=== PATIENT | female | born 1950 | race Caucasian/White ===

== ENCOUNTER 2017-02-28 22:30 | Emergency (ER) | payer MEDICARE, OTHER ==
--- NOTE | 2017-03-01 00:42 | EDM.PDOC ---
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 The patient states that she has had a queasy stomach all day. Her hands have been tingling on and off all day. She developed nausea and lightheadedness tonight, therefore took Zofran. Her daughter put oxygen on her, but she then vomited twice, and complained of upper abdominal pain. She cannot describe the character of the abdominal pain other than "hurt". She also reported some chest pressure that has been coming and going. 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 No recent illness. No ill contacts. 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) Psychiatric History: Reports: Depression Endocrine/Metabolic History: Reports: Diabetes, Type II, Obesity/BMI 30+ - Infectious Disease History Infectious Disease History: Reports: Other (See Below) (Polio) - Past Surgical History HEENT Surgical History: Reports: Oral Surgery ([place] teeth extraction) Cardiovascular Surgical History: Reports: Coronary Artery Stent (x 1) GI Surgical History: Reports: Appendectomy, Lysis of Adhesions (Exploratory laparoscopy) Female Surgical History: Reports: D&C (x 1) Neurological Surgical History: Reports: C-Spine (ACDF) Social & Family History - Tobacco Use Smoking Status *Q: Current Every Day Smoker Years of Tobacco use: 47 Packs/Tins Daily: 0.3 - Alcohol Use Alcohol Use History: Yes Alcohol Use Frequency: Rarely - Recreational Drug Use Recreational Drug Use: No - Living Situation & Occupation Living situation: Reports: , Alone Occupation: Disabled ED ROS GENERAL - Review of Systems Review Of Systems: See Below Constitutional: Reports: No Symptoms HEENT: Reports: No Symptoms Respiratory: Reports: No Symptoms Cardiovascular: Reports: No Symptoms Endocrine: Reports: No Symptoms GI/Abdominal: Reports: No Symptoms : Reports: No Symptoms Musculoskeletal: Reports: No Symptoms Skin: Reports: No Symptoms Neurological: Reports: No Symptoms Psychiatric: Reports: No Symptoms Hematologic/Lymphatic: Reports: No Symptoms Immunologic: Reports: No Symptoms ED EXAM, GENERAL - Physical Exam Exam: See Below Exam Limited By: No Limitations General Appearance: Alert, WD/WN, No Apparent Distress Eye Exam: Bilateral Eye: Normal Inspection Ears: Normal External Exam, Hearing Grossly Normal Nose: Normal Inspection, No Blood Throat/Mouth: Normal Inspection, Normal Lips, Normal Voice, No Airway Compromise Head: Atraumatic, Normocephalic Neck: Normal Inspection, Full Range of Motion Respiratory/Chest: No Respiratory Distress, Lungs Clear, Normal Breath Sounds, No Accessory Muscle Use Cardiovascular: Normal Peripheral Pulses, Regular Rate, Rhythm, No Gallop, No JVD, No Murmur, No Rub GI/Abdominal: Soft, No Organomegaly, No Abnormal Bruit, No Mass, Distended (mild ), Tender (Generalized, non-focal), Abnormal Bowel Sounds (decreased), Other ( Obese) (Female) Exam: Deferred Rectal (Female) Exam: Deferred Back Exam: Normal Inspection, Full Range of Motion, NT Extremities: Normal Inspection, Normal Range of Motion, Normal Capillary Refill Neurological: Alert, Oriented, No Motor/Sensory Deficits, Memory Loss Remote Events Psychiatric: Normal Affect Skin Exam: Warm, Dry, Intact, Normal Color, No Rash EKG INTERPRETATION EKG Date: 02/28/17 Time: 22:59 Rhythm: NSR Rate (Beats/Min): 72 [place]: LAD-Left [place] Deviation P-Wave: Present QRS: RBBB (incomplete) ST-T: Normal QT: Normal Comparison: NA - No Prior EKG Course - Vital Signs Last Recorded V/S: Last Vital Signs Temp 36.1 C 02/28/17 22:43 Pulse 71 02/28/17 22:43 Resp 20 02/28/17 22:43 BP 134/58 L 02/28/17 22:43 Pulse Ox 93 L 02/28/17 22:43 - Orders/Labs/Meds Orders: Active Orders 24 hr Category Date Time Status EKG Documentation Completion [RC] STAT Care 02/28/17 23:29 Active Abdomen Pelvis w Cont [CT] Stat Exams 03/01/17 00:43 Taken Chest 2V [CR] Stat Exams 02/28/17 23:29 Taken Labs: Laboratory Tests 02/28/17 02/28/17 02/28/17 Range/Units 23:30 23:30 23:30 WBC 13.22 H (3.98-10.04) K/mm3 RBC 3.61 L (3.98-5.22) M/mm3 Hgb 11.5 (11.2-15.7) gm/L Hct 34.6 (34.1-44.9) % MCV 95.8 H (79.4-94.8) fl MCH 31.9 (25.6-32.2) pg MCHC 33.2 (32.2-35.5) g/dl RDW Std Deviation 45.3 (36.4-46.3) fL Plt Count 207 (182-369) K/mm3 MPV 10.6 (9.4-12.3) fl Neutrophils % (Manual) 57 (40-60) % Band Neutrophils % 0 (0-10) % Lymphocytes % (Manual) 33 (20-40) % Atypical Lymphs % 3 % Monocytes % (Manual) 2 (2-10) % Eosinophils % (Manual) 3 (0.7-5.8) % Basophils % (Manual) 2 H (0.1-1.2) Platelet Estimate Adequate Plt Morphology Comment Normal RBC Morph Comment Normal PT 10.1 (8.0-13.0) SECONDS INR 0.93 APTT 27 (22-36) SECONDS D-Dimer, Quantitative 0.41 (0.19-0.59) mg/L Sodium 138 (136-145) mEq/L Potassium 4.2 (3.5-5.1) mEq/L Chloride 100 (98-107) mEq/L Carbon Dioxide 29 (21-32) mEq/L Anion Gap 13.2 (5-15) BUN 28 H (7-18) mg/dL Creatinine 1.3 H (0.55-1.02) mg/dL Est Cr Clr Drug Dosing 37.79 mL/min Estimated GFR (MDRD) 41 (>60) mL/min BUN/Creatinine Ratio 21.5 H (14-18) Glucose 175 H (80-115) mg/dL Calcium 9.6 (8.5-10.1) mg/dL Total Bilirubin 0.3 (0.2-1.0) mg/dL AST 20 (15-37) U/L ALT 23 (14-59) U/L Alkaline Phosphatase 117 H (46-116) U/L Troponin I < 0.017 (0.00-0.056) ng/mL NT-Pro-B Natriuret Pep 65 (0-125) pg/mL Total Protein 7.3 (6.4-8.2) g/dl Albumin 3.8 (3.4-5.0) g/dl Globulin 3.5 gm/dL Albumin/Globulin Ratio 1.1 (1-2) Lipase (73-393) U/L Urine Color (Yellow) Urine Appearance (Clear) Urine pH (5.0-8.0) Ur Specific [place] (1.005-1.030) Urine Protein (Negative) Urine Glucose (UA) (Negative) Urine Ketones (Negative) Urine Occult Blood (Negative) Urine Nitrite (Negative) Urine Bilirubin (Negative) Urine Urobilinogen (0.2-1.0) Ur Leukocyte Esterase (Negative) Urine RBC (0-5) /hpf Urine WBC (0-5) /hpf Ur Epithelial Cells (0-5) /hpf Urine Bacteria (FEW) /hpf Hyaline Casts (0-5) /lpf Urine Mucus (FEW) /hpf 02/28/17 03/01/17 Range/Units 23:50 01:40 WBC (3.98-10.04) K/mm3 RBC (3.98-5.22) M/mm3 Hgb (11.2-15.7) gm/L Hct (34.1-44.9) % MCV (79.4-94.8) fl MCH (25.6-32.2) pg MCHC (32.2-35.5) g/dl RDW Std Deviation (36.4-46.3) fL Plt Count (182-369) K/mm3 MPV (9.4-12.3) fl Neutrophils % (Manual) (40-60) % Band Neutrophils % (0-10) % Lymphocytes % (Manual) (20-40) % Atypical Lymphs % % Monocytes % (Manual) (2-10) % Eosinophils % (Manual) (0.7-5.8) % Basophils % (Manual) (0.1-1.2) Platelet Estimate Plt Morphology Comment RBC Morph Comment PT (8.0-13.0) SECONDS INR APTT (22-36) SECONDS D-Dimer, Quantitative (0.19-0.59) mg/L Sodium (136-145) mEq/L Potassium (3.5-5.1) mEq/L Chloride (98-107) mEq/L Carbon Dioxide (21-32) mEq/L Anion Gap (5-15) BUN (7-18) mg/dL Creatinine (0.55-1.02) mg/dL Est Cr Clr Drug Dosing mL/min Estimated GFR (MDRD) (>60) mL/min BUN/Creatinine Ratio (14-18) Glucose (80-115) mg/dL Calcium (8.5-10.1) mg/dL Total Bilirubin (0.2-1.0) mg/dL AST (15-37) U/L ALT (14-59) U/L Alkaline Phosphatase (46-116) U/L Troponin I (0.00-0.056) ng/mL NT-Pro-B Natriuret Pep (0-125) pg/mL Total Protein (6.4-8.2) g/dl Albumin (3.4-5.0) g/dl Globulin gm/dL Albumin/Globulin Ratio (1-2) Lipase 137 (73-393) U/L Urine Color Yellow (Yellow) Urine Appearance Clear (Clear) Urine pH 5.5 (5.0-8.0) Ur Specific [place] 1.020 (1.005-1.030) Urine Protein Negative (Negative) Urine Glucose (UA) Negative (Negative) Urine Ketones Negative (Negative) Urine Occult Blood Negative (Negative) Urine Nitrite Negative (Negative) Urine Bilirubin Negative (Negative) Urine Urobilinogen 0.2 (0.2-1.0) Ur Leukocyte Esterase Negative (Negative) Urine RBC 0-5 (0-5) /hpf Urine WBC 0-5 (0-5) /hpf Ur Epithelial Cells 0-5 (0-5) /hpf Urine Bacteria Occasional (FEW) /hpf Hyaline Casts 0-5 (0-5) /lpf Urine Mucus Moderate H (FEW) /hpf Meds: Medications Discontinued Medications Generic Name Dose Route Start Last Admin Trade Name Freq PRN Reason Stop Dose Admin Sodium Chloride 1,000 mls @ 150 mls/hr 03/01/17 00:45 03/01/17 00:50 Normal Saline IV 150 mls/hr ASDIRECTED MARKUS Administration Iopamidol 150 ml 03/01/17 02:18 03/01/17 02:32 Isovue-300 (61%) IVPUSH 03/01/17 02:19 100 ml ONETIME ONE Administration Loperamide HCl 4 mg 03/01/17 03:37 03/01/17 03:48 Imodium PO 03/01/17 03:38 4 mg ONETIME STA Administration Sodium Chloride 10 ml 03/01/17 02:18 03/01/17 02:32 Saline Flush FLUSH 10 ml ONETIME PRN Administration IV FLUSH - Re-Assessments/Exams Free Text/Narrative Re-Assessment/Exam: 02/28/17 23:58 Two-view chest radiograph appears to be grossly normal. Cardiac silhouette is within normal limits. No pulmonary vascular congestion. No pleural effusions. No focal infiltrate. No pneumothorax. Formal read per the Radiologist pending. 03/01/17 03:03 CT of the abdomen and pelvis with oral and IV contrast is read by [facility] as "No acute findings." 03/01/17 03:38 Test results discussed with the patient and her daughter. With the exception of the findings of a mildly elevated WBC count with 0% bandemia, slight renal insufficiency, and mild hyperglycemia, today's workup is unremarkable. Since my initial history and physical examination, the patient has not had any additional nausea or vomiting, but she has developed diarrhea. It appears that the patient has gastroenteritis, likely viral. I have ordered loperamide 4 mg, and the patient states that she has some at home. She also has Zofran at home. She will not be staying in this area longer. If her symptoms persist, I would have her follow-up with her PCP back home in [place]. Departure - Departure Time of Disposition: 03:39 Disposition: Home, Self-Care 01 Condition: Good Clinical Impression: Gastroenteritis, Hyperglycemia due to type 2 diabetes mellitus, Renal insufficiency - Discharge Information Instructions: Viral Gastroenteritis, Adult Referrals: PCP,Not In Area [Primary Care Provider] - Forms: ED Department Discharge Additional Instructions: You were seen in the emergency room for nausea, vomiting, abdominal pain, and chest pressure. You developed diarrhea in the ER. Workup in the ER included blood work, a urinalysis, an ECG, a chest x-ray, and a CT scan of your abdomen and pelvis with oral and IV contrast. Other than some mild lab abnormalities, your workup was unremarkable. Your symptoms are MOST LIKELY due to viral gastroenteritis. Unfortunately, there are no medicines to get rid of the virus itself, but the symptoms can be treated. Take one tablet of your already-prescribed Zofran up to every 6-8 hours, as needed for nausea/vomiting. You were started on the anti-diarrhea medicine Imodium (loperamide). Take one tablet (2 mg) after each loose bowel movement, up to a maximum of 8 tablets (16 mg) within a 24-hour period. Make sure that you do not take this medicine in excess, as it can cause constipation. Make sure that you stay adequately hydrated. If your symptoms persist, we recommend that you follow-up with your PCP once you return home to [place]. If any other problems, please do not hesitate to return to the ER. - My Orders Last 24 Hours: My Active Orders 02/28/17 23:29 EKG Documentation Completion [RC] STAT Chest 2V [CR] Stat 03/01/17 00:43 Abdomen Pelvis w Cont [CT] Stat - Assessment/Plan Last 24 Hours: My Active Orders 02/28/17 23:29 EKG Documentation Completion [RC] STAT Chest 2V [CR] Stat 03/01/17 00:43 Abdomen Pelvis w Cont [CT] Stat
[2017-03-01] MEDS ORDERED: Sodium Chloride 0.9% 1,000 ML IV SCH (00:45)
[2017-03-01] MEDS ORDERED: Iopamidol 612 MG/ML 150 ML Bottle IVPUSH ONE (02:18)
[2017-03-01] MEDS ORDERED: Sodium Chloride 0.9% 10 ML Syringe FLUSH PRN (02:18)
[2017-03-01] MEDS ORDERED: Loperamide 2 MG Cap PO STA (03:37)
--- NOTE | 2017-03-03 08:34 | CT ---
CT abdomen and pelvis Technique: Multiple axial sections were obtained from above the dome of the diaphragm inferiorly through the pubic symphysis. Intravenous and oral contrast has been given. Comparison: No prior abdominal imaging. Findings: Visualized lung bases show nothing acute. Liver shows no focal parenchymal abnormality. Spleen appears within normal limits. Adrenal glands show no nodule. Gallbladder shows no calcified gallstones. Kidneys show symmetric contrast enhancement without hydronephrosis. Small low density lesion compatible with cyst is identified within the left kidney measuring 9 mm. Aorta is minimally aneurysmal within the mid aorta. AP dimension is 2.5 cm. Diffuse atherosclerotic calcification within the aorta and iliac vessels are noted. No pelvic mass or adenopathy is seen. Appendix is not visualized. No inflammatory change is identified. Bone window settings show diffuse degenerative change within the spine which is most prominent within the lumbar apophyseal joints. Impression: 1. Incidental findings as noted above. No acute abnormality is identified on CT study of the abdomen and pelvis. Diagnostic code #2 I agree with preliminary report issued by [facility] ([facility] report finalized on 03/01/17, 3:59 AM Central Time)
--- NOTE | 2017-03-03 08:35 | CR ---
Chest: Two views of the chest were obtained. Comparison: No prior chest imaging. Heart size is normal. Mild tortuosity of the thoracic aorta is seen. Previous cervical spine surgery is noted. Mild degenerative change is noted within the spine. Impression: 1. Incidental findings. Nothing acute is identified on two-view chest x-ray. Diagnostic code #2
== END 2017-03-01 03:55 | disposition home or self-care (01) ==
LOC: JD.ED 22:30
DX: K52.9 Noninfective gastroenteritis and colitis, unspecified (principal); E11.65 Type 2 diabetes mellitus with hyperglycemia; N28.9 Disorder of kidney and ureter, unspecified; F17.210 Nicotine dependence, cigarettes, uncomplicated; I10 Essential (primary) hypertension; Z90.49 Acquired absence of other specified parts of digestive tract
CPT/HCPCS: 36415; 71020; 74177; 80053; 81001; 83690; 83880; 84484; 85025; 85379; 85610; 85730; 93005; 96360; 96361; 99285; A9270; J7040; J7050; Q9967; 93010; 99284

== ENCOUNTER 2017-05-28 11:40 | Inpatient (IN) | payer MEDICARE ==
[2017-05-28] MEDS ORDERED: Sodium Chloride 0.9% 10 ML Syringe FLUSH PRN ×2 (12:25→15:25)
[2017-05-28] MEDS ORDERED: Sodium Chloride 0.9% 1,000 ML IV SCH (12:30)
[2017-05-28] MEDS ORDERED: Acetaminophen 325 MG Tab PO ONE (13:09)
[2017-05-28] MEDS ORDERED: cefTRIAXone 1 GM in Sodium Chloride 0.9% 100 ML IV ONE ×4 (13:12)
[2017-05-28] MEDS ORDERED: Ondansetron 4 MG/2 ML SDV IVPUSH ONE (13:36)
--- NOTE | 2017-05-28 13:38 | CR ---
Chest: Two views of the chest were obtained. Comparison: Prior chest x-ray of 02/28/17. Heart size within normal limits for AP technique. Tortuous thoracic aorta is seen. No definite acute appearing parenchymal densities are seen. Bony structures are grossly intact. Previous cervical spine surgery is noted. Impression: 1. Incidental findings. Nothing acute is definitely seen. Diagnostic code #2
--- NOTE | 2017-05-28 14:21 | EDM.PDOC ---
ED HPI GENERAL MEDICAL PROBLEM - General Chief Complaint: Gastrointestinal Problem Stated Complaint: FLU SX Time Seen by Provider: 05/28/17 12:00 Source of Information: Reports: Patient, Family (daughter) History Limitations: Reports: No Limitations - History of Present Illness INITIAL COMMENTS - FREE TEXT/NARRATIVE: 66-year-old female brought in by her daughter for evaluation and treatment of flulike symptoms. Reportedly her daughter she has been ill for the last week. Reports that she has a cough. She is more fatigued than normal. Reports nausea. No fevers or vomiting. Patient is complaining of chest pain and a headache. Is feeling short of breath. Patient normally is on oxygen at night. Per the patient's daughter, Janey, recently relocated to [place] from [place]. Daughter brought her here so she could care for her. She does not have a primary care provider. Chest Pain Score (Numeric/FACES): 5 - Related Data Allergies Allergy/AdvReac Type Severity Reaction Status Date / Time codeine Allergy Rash Verified 05/28/17 19:30 hydromorphone [From Dilaudid] Allergy unknown Verified 05/28/17 19:30 Penicillins Allergy Hives Verified 05/28/17 19:30 Home Meds: Home Meds Aspirin [Ecotrin] 81 mg PO DAILY 05/28/17 [History] Citalopram [Citalopram HBr] 20 mg PO DAILY 05/28/17 [History] Lisinopril [Prinivil] 40 mg PO DAILY 05/28/17 [History] Magnesium Oxide [Magnesium] 400 mg PO BID 05/28/17 [History] Metoprolol Tartrate 25 mg PO BID 05/28/17 [History] Ondansetron [Zofran ODT] 4 mg PO BID PRN 05/28/17 [History] Pantoprazole [Pantoprazole Sodium] 40 mg PO BID 05/28/17 [History] Triamterene/Hydrochlorothiazid [Triamterene-HCTZ 37.5-25 MG] 1 tab PO DAILY [History] atorvaSTATin [Lipitor] 40 mg PO DAILY 05/28/17 [History] metFORMIN [Glucophage XR] 500 mg PO BID 05/28/17 [History] Past Medical History Cardiovascular History: Reports: CAD, High Cholesterol, Hypertension Respiratory History: Reports: Asthma Gastrointestinal History: Reports: GERD, Hiatal Hernia, Irritable Bowel Syndrome , Other (See Below) (Colitis) Other Gastrointestinal History: collitis Genitourinary History: Reports: Urinary Incontinence (stress incontinence) [employer]ER History: Reports: Musculoskeletal History: Reports: Fracture, Neck Pain, Chronic Other Musculoskeletal History: 2004 neck surgery Neurological History: Reports: Other (See Below) (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) Psychiatric History: Reports: Depression Endocrine/Metabolic History: Reports: Diabetes, Type II, Obesity/BMI 30+ - Infectious Disease History Infectious Disease History: Reports: Other (See Below) (Polio) - Past Surgical History HEENT Surgical History: Reports: Oral Surgery ([place] teeth extraction) Cardiovascular Surgical History: Reports: Coronary Artery Stent (x 1) GI Surgical History: Reports: Appendectomy, Lysis of Adhesions (Exploratory laparoscopy) Female Surgical History: Reports: D&C (x 1) Neurological Surgical History: Reports: C-Spine (ACDF) Social & Family History - Family History Family Medical History: Noncontributory - Tobacco Use Smoking Status *Q: Current Every Day Smoker Years of Tobacco use: 47 Packs/Tins Daily: 0.3 - Caffeine Use Caffeine Use: Reports: Coffee, Energy Drinks, Soda, Tea - Recreational Drug Use Recreational Drug Use: No - Living Situation & Occupation Living situation: Reports: , Alone Occupation: Disabled ED ROS GENERAL - Review of Systems Review Of Systems: See Below Constitutional: Reports: Malaise, Fatigue. Denies: Fever Respiratory: Reports: Cough Cardiovascular: Reports: Chest Pain GI/Abdominal: Reports: Nausea. Denies: Vomiting Neurological: Reports: Headache Psychiatric: Reports: Confusion ED EXAM, GI/ABD - Physical Exam Exam: See Below Exam Limited By: Altered Mental Status General Appearance: Alert, WD/WN, Mild Distress, Obese, Other (acutely ill) Ears: Normal External Exam Nose: Normal Inspection Throat/Mouth: Normal Inspection, Normal Lips, Normal Voice, No Airway Compromise Respiratory/Chest: No Respiratory Distress, Lungs Clear, Normal Breath Sounds Cardiovascular: No Murmur, Tachycardia GI/Abdominal Exam: Soft, Non-Tender Neurological: Alert, Confused Psychiatric: Normal Affect, Normal Mood Skin Exam: Diaphoretic, Increased Warmth EKG INTERPRETATION EKG Date: 05/28/17 Time: 12:10 Rhythm: NSR Rate (Beats/Min): 101 [place]: Normal P-Wave: Present QRS: Normal ST-T: Normal QT: Normal EKG Interpretation Comments: sinus tachycardia at 101. LAD. No acute changes. Reviewed by myself and Dr. Lozano. Course - Vital Signs Last Recorded V/S: Last Vital Signs Temp 39.6 C H 05/28/17 20:11 Pulse 103 H 05/28/17 20:01 Resp 24 H 05/28/17 20:01 BP 139/65 05/28/17 20:01 Pulse Ox 89 L 05/28/17 20:01 - Orders/Labs/Meds Orders: Active Orders 24 hr Category Date Time Status EKG Documentation Completion [RC] ASDIRECTED Care 05/28/17 12:21 Active CULTURE BLOOD [BC] Stat Lab 05/28/17 12:38 Received CULTURE BLOOD [BC] Stat Lab 05/28/17 12:57 Received CULTURE URINE [RM] Stat Lab 05/28/17 13:19 Received Sodium Chloride 0.9% [Saline Flush] Med 05/28/17 12:25 Active 10 ml FLUSH ASDIRECTED PRN Sodium Chloride 0.9% [Saline Flush] Med 05/28/17 15:25 Active 10 ml FLUSH ASDIRECTED PRN Blood Culture x2 Reflex Set [OM.PC] Stat Oth 05/28/17 12:19 Ordered Peripheral IV Insertion Adult [OM.PC] Routine Oth 05/28/17 12:25 Ordered EKG 12 Lead [EK] Stat Ther 05/28/17 12:19 Ordered Medication Orders Acetaminophen (Tylenol) 650 mg PO Q4H PRN PRN Reason: Pain (Mild 1-3)/fever Albuterol/Ipratropium (Duoneb 3.0-0.5 Mg/3 Ml) 3 ml NEB Q4H PRN PRN Reason: Shortness Of Breath/wheezing Hydralazine HCl (Apresoline) 10 mg IVPUSH Q6H PRN PRN Reason: Hypertension Sodium Chloride (Normal Saline) 1,000 mls @ 75 mls/hr IV ASDIRECTED MARKUS Stop: 05/30/17 08:49 Sodium Chloride (Normal Saline) 250 mls @ 999 mls/hr IV .BOLUS ONE Stop: 05/28/17 20:41 Ibuprofen (Motrin) 600 mg PO Q6H PRN PRN Reason: Pain/Fever Last Admin: 05/28/17 20:07 Dose: 600 mg Metoprolol Tartrate (Lopressor) 5 mg IVPUSH Q4H PRN PRN Reason: Tachycardia Ondansetron HCl (Zofran Odt) 4 mg PO Q6H PRN PRN Reason: nausea, able to take PO Ondansetron HCl (Zofran) 4 mg IV Q6H PRN PRN Reason: Nausea/Vomiting Sodium Chloride (Saline Flush) 10 ml FLUSH ASDIRECTED PRN PRN Reason: Keep Vein Open Last Admin: 05/28/17 12:30 Dose: 10 ml Sodium Chloride (Saline Flush) 10 ml FLUSH ASDIRECTED PRN PRN Reason: Keep Vein Open Labs: Laboratory Tests 05/28/17 05/28/17 05/28/17 Range/Units 12:53 12:57 12:57 WBC 7.91 (3.98-10.04) K/mm3 RBC 3.70 L (3.98-5.22) M/mm3 Hgb 11.4 (11.2-15.7) gm/L Hct 33.9 L (34.1-44.9) % MCV 91.6 (79.4-94.8) fl MCH 30.8 (25.6-32.2) pg MCHC 33.6 (32.2-35.5) g/dl RDW Std Deviation 46.1 (36.4-46.3) fL Plt Count 140 L (182-369) K/mm3 MPV 9.9 (9.4-12.3) fl Neutrophils % (Manual) 52 (40-60) % Band Neutrophils % 1 (0-10) % Lymphocytes % (Manual) 26 (20-40) % Atypical Lymphs % 0 % Monocytes % (Manual) 3 (2-10) % Eosinophils % (Manual) 18 H (0.7-5.8) % Basophils % (Manual) 0 L (0.1-1.2) Platelet Estimate Adequate RBC Morph Comment Normal Puncture Site Rt radial ABG pH 7.47 H (7.35-7.45) ABG pCO2 39.1 (35.0-45.0) mmHg ABG pO2 56.0 L (80.0-100.0) mmHg ABG HCO3 27.8 H (22.0-26.0) meq/L ABG O2 Saturation 90.8 L (96.0-97.0) % ABG Base Excess 4.2 H (-2-2.0) Girish Test Positive A-a Gradient 126 mmHg O2 Delivery Device Nasal cannula Oxygen Flow Rate 4.0 FiO2 36.00 (21.00-100.00) % Sodium (136-145) mEq/L Potassium (3.5-5.1) mEq/L Chloride (98-107) mEq/L Carbon Dioxide (21-32) mEq/L Anion Gap (5-15) BUN (7-18) mg/dL Creatinine (0.55-1.02) mg/dL Est Cr Clr Drug Dosing mL/min Estimated GFR (MDRD) (>60) mL/min BUN/Creatinine Ratio (14-18) Glucose (80-115) mg/dL Lactic Acid (0.4-2.0) mmol/L Calcium (8.5-10.1) mg/dL Total Bilirubin (0.2-1.0) mg/dL AST (15-37) U/L ALT (14-59) U/L Alkaline Phosphatase (46-116) U/L CK-MB (CK-2) (0-3.6) ng/ml Troponin I (0.00-0.056) ng/mL C-Reactive Protein (<1.0) mg/dL NT-Pro-B Natriuret Pep (0-125) pg/mL Total Protein (6.4-8.2) g/dl Albumin (3.4-5.0) g/dl Globulin gm/dL Albumin/Globulin Ratio (1-2) Urine Color (Yellow) Urine Appearance (Clear) Urine pH (5.0-8.0) Ur Specific [place] (1.005-1.030) Urine Protein (Negative) Urine Glucose (UA) (Negative) Urine Ketones (Negative) Urine Occult Blood (Negative) Urine Nitrite (Negative) Urine Bilirubin (Negative) Urine Urobilinogen (0.2-1.0) Ur Leukocyte Esterase (Negative) Urine RBC (0-5) /hpf Urine WBC (0-5) /hpf Ur Epithelial Cells (0-5) /hpf Urine Bacteria (FEW) /hpf Hyaline Casts (0-5) /lpf Urine Mucus (FEW) /hpf Mycoplasma pneumon IgM Negative (NEGATIVE) 05/28/17 05/28/17 05/28/17 Range/Units 13:19 14:15 14:15 WBC (3.98-10.04) K/mm3 RBC (3.98-5.22) M/mm3 Hgb (11.2-15.7) gm/L Hct (34.1-44.9) % MCV (79.4-94.8) fl MCH (25.6-32.2) pg MCHC (32.2-35.5) g/dl RDW Std Deviation (36.4-46.3) fL Plt Count (182-369) K/mm3 MPV (9.4-12.3) fl Neutrophils % (Manual) (40-60) % Band Neutrophils % (0-10) % Lymphocytes % (Manual) (20-40) % Atypical Lymphs % % Monocytes % (Manual) (2-10) % Eosinophils % (Manual) (0.7-5.8) % Basophils % (Manual) (0.1-1.2) Platelet Estimate RBC Morph Comment Puncture Site ABG pH (7.35-7.45) ABG pCO2 (35.0-45.0) mmHg ABG pO2 (80.0-100.0) mmHg ABG HCO3 (22.0-26.0) meq/L ABG O2 Saturation (96.0-97.0) % ABG Base Excess (-2-2.0) Girish Test A-a Gradient mmHg O2 Delivery Device Oxygen Flow Rate FiO2 (21.00-100.00) % Sodium 129 L (136-145) mEq/L Potassium 3.8 (3.5-5.1) mEq/L Chloride 92 L (98-107) mEq/L Carbon Dioxide 26 (21-32) mEq/L Anion Gap 14.8 (5-15) BUN 24 H (7-18) mg/dL Creatinine 1.5 H (0.55-1.02) mg/dL Est Cr Clr Drug Dosing 32.75 mL/min Estimated GFR (MDRD) 35 (>60) mL/min BUN/Creatinine Ratio 16.0 (14-18) Glucose 105 (80-115) mg/dL Lactic Acid (0.4-2.0) mmol/L Calcium 8.5 (8.5-10.1) mg/dL Total Bilirubin 0.5 (0.2-1.0) mg/dL AST 30 (15-37) U/L ALT 24 (14-59) U/L Alkaline Phosphatase 191 H (46-116) U/L CK-MB (CK-2) 0.8 (0-3.6) ng/ml Troponin I < 0.017 (0.00-0.056) ng/mL C-Reactive Protein 5.8 H* (<1.0) mg/dL NT-Pro-B Natriuret Pep 516 H (0-125) pg/mL Total Protein 7.9 (6.4-8.2) g/dl Albumin 3.2 L (3.4-5.0) g/dl Globulin 4.7 gm/dL Albumin/Globulin Ratio 0.7 L (1-2) Urine Color Yellow (Yellow) Urine Appearance Clear (Clear) Urine pH 5.5 (5.0-8.0) Ur Specific [place] > or = 1.030 (1.005-1.030) Urine Protein 1+ H (Negative) Urine Glucose (UA) Negative (Negative) Urine Ketones Trace H (Negative) Urine Occult Blood 1+ H (Negative) Urine Nitrite Negative (Negative) Urine Bilirubin 1+ H (Negative) Urine Urobilinogen 0.2 (0.2-1.0) Ur Leukocyte Esterase Negative (Negative) Urine RBC 5-10 H (0-5) /hpf Urine WBC 0-5 (0-5) /hpf Ur Epithelial Cells 0-5 (0-5) /hpf Urine Bacteria Many H (FEW) /hpf Hyaline Casts 0-5 (0-5) /lpf Urine Mucus Few (FEW) /hpf Mycoplasma pneumon IgM (NEGATIVE) 05/28/17 Range/Units 15:50 WBC (3.98-10.04) K/mm3 RBC (3.98-5.22) M/mm3 Hgb (11.2-15.7) gm/L Hct (34.1-44.9) % MCV (79.4-94.8) fl MCH (25.6-32.2) pg MCHC (32.2-35.5) g/dl RDW Std Deviation (36.4-46.3) fL Plt Count (182-369) K/mm3 MPV (9.4-12.3) fl Neutrophils % (Manual) (40-60) % Band Neutrophils % (0-10) % Lymphocytes % (Manual) (20-40) % Atypical Lymphs % % Monocytes % (Manual) (2-10) % Eosinophils % (Manual) (0.7-5.8) % Basophils % (Manual) (0.1-1.2) Platelet Estimate RBC Morph Comment Puncture Site ABG pH (7.35-7.45) ABG pCO2 (35.0-45.0) mmHg ABG pO2 (80.0-100.0) mmHg ABG HCO3 (22.0-26.0) meq/L ABG O2 Saturation (96.0-97.0) % ABG Base Excess (-2-2.0) Girish Test A-a Gradient mmHg O2 Delivery Device Oxygen Flow Rate FiO2 (21.00-100.00) % Sodium (136-145) mEq/L Potassium (3.5-5.1) mEq/L Chloride (98-107) mEq/L Carbon Dioxide (21-32) mEq/L Anion Gap (5-15) BUN (7-18) mg/dL Creatinine (0.55-1.02) mg/dL Est Cr Clr Drug Dosing mL/min Estimated GFR (MDRD) (>60) mL/min BUN/Creatinine Ratio (14-18) Glucose (80-115) mg/dL Lactic Acid 1.1 (0.4-2.0) mmol/L Calcium (8.5-10.1) mg/dL Total Bilirubin (0.2-1.0) mg/dL AST (15-37) U/L ALT (14-59) U/L Alkaline Phosphatase (46-116) U/L CK-MB (CK-2) (0-3.6) ng/ml Troponin I (0.00-0.056) ng/mL C-Reactive Protein (<1.0) mg/dL NT-Pro-B Natriuret Pep (0-125) pg/mL Total Protein (6.4-8.2) g/dl Albumin (3.4-5.0) g/dl Globulin gm/dL Albumin/Globulin Ratio (1-2) Urine Color (Yellow) Urine Appearance (Clear) Urine pH (5.0-8.0) Ur Specific [place] (1.005-1.030) Urine Protein (Negative) Urine Glucose (UA) (Negative) Urine Ketones (Negative) Urine Occult Blood (Negative) Urine Nitrite (Negative) Urine Bilirubin (Negative) Urine Urobilinogen (0.2-1.0) Ur Leukocyte Esterase (Negative) Urine RBC (0-5) /hpf Urine WBC (0-5) /hpf Ur Epithelial Cells (0-5) /hpf Urine Bacteria (FEW) /hpf Hyaline Casts (0-5) /lpf Urine Mucus (FEW) /hpf Mycoplasma pneumon IgM (NEGATIVE) Meds: Medications Generic Name Dose Route Start Last Admin Trade Name Freq PRN Reason Stop Dose Admin Acetaminophen 650 mg 05/28/17 19:30 Tylenol PO Q4H PRN Pain (Mild 1-3)/fever Albuterol/Ipratropium 3 ml 05/28/17 19:30 Duoneb 3.0-0.5 Mg/3 Ml NEB Q4H PRN Shortness Of Breath/wheezing Hydralazine HCl 10 mg 05/28/17 20:09 Apresoline IVPUSH Q6H PRN Hypertension Sodium Chloride 1,000 mls @ 75 mls/hr 05/28/17 19:30 Normal Saline IV 05/30/17 08:49 ASDIRECTED MARKUS Sodium Chloride 250 mls @ 999 mls/hr 05/28/17 20:26 Normal Saline IV 05/28/17 20:41 .BOLUS ONE Ibuprofen 600 mg 05/28/17 19:33 05/28/17 20:07 Motrin PO 600 mg Q6H PRN Administration Pain/Fever Metoprolol Tartrate 5 mg 05/28/17 20:09 Lopressor IVPUSH Q4H PRN Tachycardia Ondansetron HCl 4 mg 05/28/17 19:30 Zofran Odt PO Q6H PRN nausea, able to take PO Ondansetron HCl 4 mg 05/28/17 19:30 Zofran IV Q6H PRN Nausea/Vomiting Sodium Chloride 10 ml 05/28/17 12:25 05/28/17 12:30 Saline Flush FLUSH 10 ml ASDIRECTED PRN Administration Keep Vein Open Sodium Chloride 10 ml 05/28/17 15:25 Saline Flush FLUSH ASDIRECTED PRN Keep Vein Open Discontinued Medications Generic Name Dose Route Start Last Admin Trade Name Pranavq PRN Reason Stop Dose Admin Acetaminophen 975 mg 05/28/17 13:09 05/28/17 13:25 Tylenol PO 05/28/17 13:10 975 mg NOW ONE Administration Sodium Chloride 1,000 mls @ 100 mls/hr 05/28/17 12:30 05/28/17 13:28 Normal Saline IV 100 mls/hr ASDIRECTED MARKUS Administration Ceftriaxone Sodium 1 gm/ 100 mls @ 200 mls/hr 05/28/17 13:12 05/28/17 14:17 Sodium Chloride IV 05/28/17 13:41 Not Given ONETIME ONE Ceftriaxone Sodium 1 gm/ 100 mls @ 200 mls/hr 05/28/17 13:12 05/28/17 14:17 Sodium Chloride IV 05/28/17 13:41 Not Given ONETIME ONE Ceftriaxone Sodium 2 gm/ 100 mls @ 200 mls/hr 05/28/17 14:15 05/28/17 14:16 Dextrose/Water IV 05/28/17 14:44 200 mls/hr ONETIME ONE Administration Levofloxacin/Dextrose 750 mg/ 150 mls @ 100 mls/hr 05/28/17 17:52 05/28/17 18 :47 Premix IV 05/28/17 19:21 100 mls/hr ONETIME ONE Administration Sodium Chloride 250 mls @ 999 mls/hr 05/28/17 19:59 05/28/17 20:09 Normal Saline IV 05/28/17 20:14 999 mls/hr .BOLUS ONE Administration Ondansetron HCl 4 mg 05/28/17 13:36 05/28/17 14:13 Zofran IVPUSH 05/28/17 13:37 4 mg ONETIME ONE Administration Oral Electrolytes 1 each 05/28/17 19:24 05/28/17 20:06 Thermotabs PO 05/28/17 19:25 1 each ONETIME ONE Administration - Radiology Interpretation Free Text/Narrative:: Chest: Two views of the chest were obtained. Comparison: Prior chest x-ray of 02/28/17. Heart size within normal limits for AP technique. Tortuous thoracic aorta is seen. No definite acute appearing parenchymal densities are seen. Bony structures are grossly intact. Previous cervical spine surgery is noted. Impression: 1. Incidental findings. Nothing acute is definitely seen. - Re-Assessments/Exams Free Text/Narrative Re-Assessment/Exam: 05/28/17 15:23 influenza returned negative. Given the patient's tachycardia, fever and hypoxia I feel she needs to be admitted. At this time the etiology her for infection appears to be urinary tract. Urine has been sent for culture. She has blood cultures pending. She has received 2 g of Rocephin IV. She has been receiving fluids. I checked on the patient. Per her daughter she seems to be hallucinating and more confused. JAMI Pereira did notify me around 1400 that she had a fever of 103.3. She was given Tylenol by mouth. Kelli rechecked temperature and is now 100.6. Patient denies any pain to me, however, she does seem confused. I discussed the case with Dr. Armas, hospitalist on-call. She will plan to come to the ER to see the patient. Plan will be to admit to the floor. 6 Departure - Departure Time of Disposition: 15:25 Disposition: Admitted As Inpatient 65 Condition: Poor Clinical Impression: Urinary tract infection - Discharge Information - My Orders Last 24 Hours: My Active Orders 05/28/17 12:19 Blood Culture x2 Reflex Set [OM.PC] Stat EKG 12 Lead [EK] Stat 05/28/17 12:21 EKG Documentation Completion [RC] ASDIRECTED 05/28/17 12:25 Sodium Chloride 0.9% [Saline Flush] 10 ml FLUSH ASDIRECTED PRN Peripheral IV Insertion Adult [OM.PC] Routine 05/28/17 12:38 CULTURE BLOOD [BC] Stat 05/28/17 12:57 CULTURE BLOOD [BC] Stat 05/28/17 13:19 CULTURE URINE [RM] Stat 05/28/17 15:25 Sodium Chloride 0.9% [Saline Flush] 10 ml FLUSH ASDIRECTED PRN - Assessment/Plan Last 24 Hours: My Active Orders 05/28/17 12:19 Blood Culture x2 Reflex Set [OM.PC] Stat EKG 12 Lead [EK] Stat 05/28/17 12:21 EKG Documentation Completion [RC] ASDIRECTED 05/28/17 12:25 Sodium Chloride 0.9% [Saline Flush] 10 ml FLUSH ASDIRECTED PRN Peripheral IV Insertion Adult [OM.PC] Routine 05/28/17 12:38 CULTURE BLOOD [BC] Stat 05/28/17 12:57 CULTURE BLOOD [BC] Stat 05/28/17 13:19 CULTURE URINE [RM] Stat 05/28/17 15:25 Sodium Chloride 0.9% [Saline Flush] 10 ml FLUSH ASDIRECTED PRN
[2017-05-28] MEDS ORDERED: Levofloxacin/Dextrose 5%-Water 750 MG in Premix Bag 1 BAG IV ONE (17:52)
[2017-05-28] MEDS ORDERED: Ondansetron 4 MG/2 ML SDV IV PRN (19:30)
[2017-05-28] MEDS ORDERED: Acetaminophen 325 MG Tab PO PRN (19:30)
[2017-05-28] MEDS ORDERED: Albuterol/Ipratropium 3.0-0.5 MG/3 ML Neb Soln NEB PRN (19:30)
[2017-05-28] MEDS ORDERED: Ondansetron 4 MG Tab.DIS PO PRN ×2 (19:30→21:36)
[2017-05-28] MEDS ORDERED: Sodium Chloride 0.9% 250 ML IV ONE ×2 (19:59→20:26)
[2017-05-28] MEDS: Potassium Chloride/Sodium Chloride Tab PO ONE ×2 (20:06→20:07)
[2017-05-28] MEDS: Ibuprofen 600 MG Tab PO PRN (20:07)
[2017-05-28] MEDS ORDERED: hydrALAZINE 20 MG/ML SDV IVPUSH PRN (20:09)
--- NOTE | 2017-05-28 20:14 | PCM.HP ---
H&P History of Present Illness - General Date of Service: 05/28/17 Admit Problem/Dx: Admission Diagnosis/Problem Admission Diagnosis/Problem UTI (urinary tract infection), uncomplicated Source of Information: Patient, Family (daughters ), Old Records, Provider, RN History Limitations: Reports: Altered Mental Status (somewhat confused - waxes/ wanes with fever severity) - History of Present Illness Initial Comments - Free Text/Narative: Janey Stewart is a 66 yo female pt. who presented to our ED today (05/28/17) with flulike symptoms. Her daughter reports she has been ill for about the past week. She's had a cough, and more fatigued than normal, been nauseated, had chest pain and a headache, and had increased shortness of breath. She has not had any fevers or vomiting. He is normally on oxygen at night. She reportedly recently moved to [place] from [place] her daughter's care for her. She does not have a primary care provider. In the temples 103. Pulse 103. Respirations 24 blood pressure 139/65. Pulse ox 98%. 12-lead EKG is obtained and shows sinus tachycardia rate of 101 bpm. Left axis deviation is noted. No acute changes per ED provider interpretation. Labs were obtained: W CBC is normal at 7.91. Hemoglobin 11.4. Hematocrit 33.9. She's normocytic. Platelet alone 140,000. Neutrophils are normal at 52% . There is 1% banded neutrophils. ABG was obtained and shows pH of 7.47. PCO2 is 39.1. PaO2 is 56.0. HCO3 is 27.8. O2 saturation 90.8%. Base excess is 4.2. A-a gradient is 126. This was obtained while on 4 L via nasal cannula. FiO2 is 36.0. Sodium was low at 129. Potassium 3.8. Chloride low at 92. Carbon monoxide 26. Anion gap is on the high end of normal at 14.8. BUN is high at 24. Creatinine high at 1.5. EGFR is 35. Glucose is 105. Lactic acid was 1.1. Calcium is 8.5. Bilirubin 0.5. AST is 30, ALT 24, alkaline phosphatase 191. CK-MB 0.8. Troponin negative at less than 0.017. CRP is high at 5.8. ProBNP is elevated at 516. Total protein 7.9. Albumin is slightly low at 3.2. UA is essentially negative, however one plus protein, trace ketones, 1+ occult blood, 1+ early Reubin, 5-10 RBCs, and many urine bacteria are noted. Leukocyte esterase and nitrite are both negative. Urine is cultured. She was given acetaminophen for the fever and Rocephin was started. Zofran was also given for nausea. Chest x-ray was obtained and shows incidental findings with nothing acute seen. Influenza was negative. Blood cultures were obtained. She does have some increased confusion which seems to fluctuate with the severity of the fever. Fluids were also initiated. 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 She is a current daily smoker. CODE STATUS is DNR/DNI. She does not have a primary care provider in the area as she is recently relocated and will need to establish. Chest Pain Score (Numeric/FACES): 5 - Related Data Allergies/Adverse Reactions: Allergies Allergy/AdvReac Type Severity Reaction Status Date / Time codeine Allergy Rash Verified 05/28/17 19:30 hydromorphone [From Dilaudid] Allergy unknown Verified 05/28/17 19:30 Penicillins Allergy Hives Verified 05/28/17 19:30 Home Medications: Home Meds Aspirin [Ecotrin] 81 mg PO DAILY 05/28/17 [History] Citalopram [Citalopram HBr] 20 mg PO DAILY 05/28/17 [History] Lisinopril [Prinivil] 40 mg PO DAILY 05/28/17 [History] Magnesium Oxide [Magnesium] 400 mg PO BID 05/28/17 [History] Metoprolol Tartrate 25 mg PO BID 05/28/17 [History] Pantoprazole [Pantoprazole Sodium] 40 mg PO BID 05/28/17 [History] Triamterene/Hydrochlorothiazid [Triamterene-HCTZ 37.5-25 MG] 0.5 tab PO DAILY [History] atorvaSTATin [Lipitor] 40 mg PO DAILY 05/28/17 [History] metFORMIN [Glucophage XR] 500 mg PO BID 05/28/17 [History] Past Medical History HEENT History: Reports: Impaired Vision, Other (See Below) Other HEENT History: wears reading glasses Cardiovascular History: Reports: CAD, High Cholesterol, Hypertension Respiratory History: Reports: Asthma Gastrointestinal History: Reports: GERD, Hiatal Hernia, Irritable Bowel Syndrome , Other (See Below) (Colitis) Other Gastrointestinal History: collitis Genitourinary History: Reports: Urinary Incontinence (stress incontinence) Other Genitourinary History: at times SUB ACUTE CARE NURSE History: Reports: Musculoskeletal History: Reports: Fracture, Neck Pain, Chronic Other Musculoskeletal History: 2004 neck surgery Neurological History: Reports: Other (See Below) (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) Psychiatric History: Reports: Depression Endocrine/Metabolic History: Reports: Diabetes, Type II, Obesity/BMI 30+ Dermatologic History: Reports: None - Infectious Disease History Infectious Disease History: Reports: Other (See Below) (Polio) - Past Surgical History HEENT Surgical History: Reports: Oral Surgery ([place] teeth extraction) Cardiovascular Surgical History: Reports: Coronary Artery Stent (x 1) GI Surgical History: Reports: Appendectomy, Lysis of Adhesions (Exploratory laparoscopy) Female Surgical History: Reports: D&C (x 1) Neurological Surgical History: Reports: C-Spine (ACDF) Social & Family History - Family History Family Medical History: Noncontributory - Tobacco Use Smoking Status *Q: Current Every Day Smoker Years of Tobacco use: 47 Packs/Tins Daily: 0.3 - Caffeine Use Caffeine Use: Reports: Coffee, Energy Drinks, Soda, Tea - Recreational Drug Use Recreational Drug Use: No - Living Situation & Occupation Living situation: Reports: , Alone Occupation: Disabled H&P Review of Systems - Review of Systems: Review Of Systems: See Below General: Reports: Fever, Chills, Malaise, Weakness, Fatigue, Decreased Appetite HEENT: Denies: Headaches, Hearing Changes, Rhinitis, Post Nasal Drip, Sinus Congestion, Sore Throat, Visual Changes Pulmonary: Reports: Shortness of Breath, Wheezing, Cough (mild), Sputum Cardiovascular: Reports: Chest Pain, Dyspnea on Exertion, Blood Pressure Problem Gastrointestinal: Reports: Nausea. Denies: Abdominal Pain, Constipation, Diarrhea, Vomiting Genitourinary: Reports: No Symptoms. Denies: Dysuria, Frequency, Burning, Pain , Urgency Musculoskeletal: Reports: Neck Pain (chronic ) Skin: Reports: No Symptoms Psychiatric: Reports: Confusion (Waxes and wanes with fever severity) Neurological: Reports: Confusion, Pre-Existing Deficit (left sided weakness and left eye droop from polio as child ), Weakness Hematologic/Lymphatic: Reports: No Symptoms Immunologic: Reports: No Symptoms Exam - Exam Exam: See Below - Vital Signs Vital Signs: Last Vital Signs Temp 103.3 F H 05/28/17 20:11 Pulse 103 H 05/28/17 20:01 Resp 24 H 05/28/17 20:01 BP 139/65 05/28/17 20:01 Pulse Ox 89 L 05/28/17 20:01 Weight: 268 lb 14.4 oz - Exam Quality Assessment: Supplemental Oxygen General: Alert, Cooperative, Other (obese ). No: Oriented (somewhat confused ) HEENT: PERRLA, Hearing Intact, Mucosa Moist & [place], Nares Patent, Normal Nasal Septum, Posterior Pharynx Clear, Conjunctiva Clear, EOMI, EACs Clear, TMs Clear Neck: Supple, Trachea Midline. No: JVD, Thyromegaly Lungs: Clear to Auscultation, Normal Respiratory Effort, Decreased Breath Sounds. No: Crackles, Rales, Rhonchi, Wheezing Cardiovascular: Regular Rate, Regular Rhythm GI/Abdominal Exam: Normal Bowel Sounds, Soft, Non-Tender, No Organomegaly, No Distention, No Abnormal Bruit, No Mass, Pelvis Stable (Female) Exam: Deferred Rectal (Female) Exam: Deferred Back Exam: Normal Inspection, Full Range of Motion Extremities: Normal Inspection, Normal Range of Motion, Non-Tender, No Pedal Edema, Normal Capillary Refill Peripheral Pulses: 1+: Posterior Tibial (L), Posterior Tibial (R), Dorsalis Pedis (L), Dorsalis Pedis (R), 2+: Radial (L), Radial (R) Skin: Warm, Dry, Intact, Other (flushed face and neck ) Neurological: Cranial Nerves Intact (grossly) Neuro Extensive - Mental Status: Alert, Other (fluctuates between confusion and answering questions appropriately ) Psychiatric: Alert - Patient Data Result Diagrams: 05/28/17 12:57 05/28/17 14:15 *Q Meaningful Use (ADM) - VTE *Q VTE Criteria *Q: - Stroke *Q Stroke Criteria *Q: - AMI *Q AMI Criteria *Q: - Problem List (1) Acute febrile illness SNOMED Code(s): 834031216 ICD Code: R50.9 - FEVER, UNSPECIFIED Status: Acute Priority: High Current Visit: Yes (2) Hyponatremia SNOMED Code(s): 98991110 ICD Code: E87.1 - HYPO-OSMOLALITY AND HYPONATREMIA Status: Acute Priority : High Current Visit: Yes (3) Urinary tract infection SNOMED Code(s): 62821963 ICD Code: N39.0 - URINARY TRACT INFECTION, SITE NOT SPECIFIED Status: Suspected Priority: High Current Visit: Yes Qualifiers: Urinary tract infection type: acute cystitis Hematuria presence: without hematuria Qualified Code(s): N30.00 - Acute cystitis without hematuria (4) CAD (coronary artery disease) SNOMED Code(s): 42778149 ICD Code: I25.10 - ATHSCL HEART DISEASE OF [place] CORONARY ARTERY W/O ANG PCTRS Status: Chronic Priority: Low Current Visit: No Qualifiers: Coronary Disease-Associated Artery/Lesion type: [place] artery [place] vs. transplanted heart: [place] heart Associated angina: angina presence unspecified Qualified Code(s): I25.10 - Atherosclerotic heart disease of [place] coronary artery without angina pectoris (5) HLD (hyperlipidemia) SNOMED Code(s): 87170396 ICD Code: E78.5 - HYPERLIPIDEMIA, UNSPECIFIED Status: Chronic Priority: Low Current Visit: No Qualifiers: Hyperlipidemia type: unspecified Qualified Code(s): E78.5 - Hyperlipidemia , unspecified (6) HTN (hypertension) SNOMED Code(s): 89317052 ICD Code: I10 - ESSENTIAL (PRIMARY) HYPERTENSION Status: Chronic Priority : Low Current Visit: No Qualifiers: Hypertension type: unspecified Qualified Code(s): I10 - Essential (primary ) hypertension (7) Asthma SNOMED Code(s): 152170176 ICD Code: J45.909 - UNSPECIFIED ASTHMA, UNCOMPLICATED Status: Chronic Priority: Low Current Visit: No Qualifiers: Asthma severity: unspecified severity Asthma persistence: unspecified Asthma complication type: unspecified Qualified Code(s): J45.909 - Unspecified asthma, uncomplicated (8) GERD (gastroesophageal reflux disease) SNOMED Code(s): 287430283 ICD Code: K21.9 - GASTRO-ESOPHAGEAL REFLUX DISEASE WITHOUT ESOPHAGITIS Status: Chronic Priority: Low Current Visit: No Qualifiers: Esophagitis presence: esophagitis presence not specified Qualified Code(s) : K21.9 - Gastro-esophageal reflux disease without esophagitis (9) IBS (irritable bowel syndrome) SNOMED Code(s): 64489329 ICD Code: K58.9 - IRRITABLE BOWEL SYNDROME WITHOUT DIARRHEA Status: Chronic Priority: Low Current Visit: No Qualifiers: Irritable bowel syndrome type: unspecified Qualified Code(s): K58.9 - Irritable bowel syndrome without diarrhea (10) Colitis SNOMED Code(s): 74975182 ICD Code: K52.9 - NONINFECTIVE GASTROENTERITIS AND COLITIS, UNSPECIFIED Status: Chronic Priority: Low Current Visit: No (11) Other specified depressive episodes SNOMED Code(s): 68434936 ICD Code: F32.89 - OTHER SPECIFIED DEPRESSIVE EPISODES Status: Chronic Priority: Low Current Visit: No (12) Type II diabetes mellitus SNOMED Code(s): 54587727 ICD Code: E11.9 - TYPE 2 DIABETES MELLITUS WITHOUT COMPLICATIONS Status: Chronic Priority: Medium Current Visit: Yes Qualifiers: Diabetes mellitus complication status: with unspecified complications 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 use: without tile machine operator use Qualified Code( s): E11.8 - Type 2 diabetes mellitus with unspecified complications (13) Obesity, Class III, BMI 40-49.9 (morbid obesity) SNOMED Code(s): 365609444 ICD Code: E66.01 - MORBID (SEVERE) OBESITY DUE TO EXCESS CALORIES Status: Chronic Priority: Low Current Visit: Yes (14) Tobacco use disorder SNOMED Code(s): 975708619 ICD Code: F17.200 - NICOTINE DEPENDENCE, UNSPECIFIED, UNCOMPLICATED Status : Chronic Priority: Medium Current Visit: Yes (15) CKD (chronic kidney disease) SNOMED Code(s): 630533851 ICD Code: N18.9 - CHRONIC KIDNEY DISEASE, UNSPECIFIED Status: Acute Current Visit: Yes Problem List Initiated/Reviewed/Updated: Yes Orders Last 24hrs: Active Orders 24 hr Category Date Time Status Ambulate [RC] PER UNIT ROUTINE Care 05/28/17 19:31 Active Antiembolic Devices [RC] BID Care 05/28/17 19:32 Active Cardiac Monitoring [RC] CONTINUOUS Care 05/28/17 19:31 Active Height and Weight [RC] 04 Care 05/28/17 19:30 Active Intake and Output [RC] QSHIFT Care 02/14/18 19:31 Active Oxygen Therapy [RC] PRN Care 05/28/17 19:30 Active Pulse Oximetry [RC] PRN Care 05/28/17 19:31 Active RT Aerosol Therapy [RC] ASDIRECTED Care 05/28/17 19:32 Active Up With Assistance [RC] BID Care 05/28/17 19:30 Active VTE/DVT Education [RC] BID Care 05/28/17 19:30 Active Vital Signs [RC] Q4HR Care 05/28/17 19:30 Active Consult to Case Management [CONS] Routine Cons 05/28/17 19:30 Active OT Evaluation and Treatment [CONS] Routine Cons 05/28/17 19:30 Active PT Evaluation and Treatment [CONS] Routine Cons 05/28/17 19:30 Active ADA Diabetic [[place] [employer] Diet] [DIET Diet 05/29/17 Breakfast Active ] BASIC METABOLIC PANEL,BMP [CHEM] AM Lab 05/29/17 05:11 Ordered BASIC METABOLIC PANEL,BMP [CHEM] AM Lab 05/30/17 05:11 Ordered BASIC METABOLIC PANEL,BMP [CHEM] AM Lab 05/31/17 05:11 Ordered BASIC METABOLIC PANEL,BMP [CHEM] AM Lab 06/01/17 05:11 Ordered CBC WITH AUTO DIFF [HEME] AM Lab 05/29/17 05:11 Ordered CBC WITH AUTO DIFF [HEME] AM Lab 05/30/17 05:11 Ordered CBC WITH AUTO DIFF [HEME] AM Lab 05/31/17 05:11 Ordered CBC WITH AUTO DIFF [HEME] AM Lab 06/01/17 05:11 Ordered CRP [C-REACTIVE PROTEIN] [CHEM] AM Lab 05/29/17 05:11 Ordered CRP [C-REACTIVE PROTEIN] [CHEM] AM Lab 05/30/17 05:11 Ordered CRP [C-REACTIVE PROTEIN] [CHEM] AM Lab 05/31/17 05:11 Ordered CRP [C-REACTIVE PROTEIN] [CHEM] AM Lab 06/01/17 05:11 Ordered MAGNESIUM [CHEM] AM Lab 05/29/17 05:11 Ordered MAGNESIUM [CHEM] AM Lab 05/30/17 05:11 Ordered MAGNESIUM [CHEM] AM Lab 05/31/17 05:11 Ordered MAGNESIUM [CHEM] AM Lab 06/01/17 05:11 Ordered RESPIRATORY PANEL BY PCR [MREF] Routine Lab 05/28/17 19:35 Received STREP PNEUMONIAE ANTIGEN [MREF] Routine Lab 05/28/17 18:50 Ordered Acetaminophen [Tylenol] Med 05/28/17 19:30 Active 650 mg PO Q4H PRN Albuterol/Ipratropium [DuoNeb 3.0-0.5 MG/3 ML] Med 05/28/17 19:30 Active 3 ml NEB Q4H PRN Ibuprofen [Motrin] Med 05/28/17 19:33 Active 600 mg PO Q6H PRN Metoprolol Tartrate [Lopressor] Med 05/28/17 20:09 Ordered 5 mg IVPUSH Q4H PRN Ondansetron [Zofran ODT] Med 05/28/17 19:30 Active 4 mg PO Q6H PRN Ondansetron [Zofran] Med 05/28/17 19:30 Active 4 mg IV Q6H PRN Sodium Chloride 0.9% [Normal Saline] 1,000 ml Med 05/28/17 19:30 Active IV ASDIRECTED Sodium Chloride 0.9% [Normal Saline] 250 ml Med 05/28/17 19:59 Active IV .BOLUS hydrALAZINE [Apresoline] Med 05/28/17 20:09 Ordered 10 mg IVPUSH Q6H PRN Antiembolic Hose [OM.PC] Per Unit Routine Oth 05/28/17 19:31 Ordered Isolation [COMM] Routine Oth 05/28/17 19:27 Ordered Code Status [Resuscitation Status] Routine Resus Stat 05/28/17 19:15 Ordered Medication Orders Acetaminophen (Tylenol) 650 mg PO Q4H PRN PRN Reason: Pain (Mild 1-3)/fever Albuterol/Ipratropium (Duoneb 3.0-0.5 Mg/3 Ml) 3 ml NEB Q4H PRN PRN Reason: Shortness Of Breath/wheezing Hydralazine HCl (Apresoline) 10 mg IVPUSH Q6H PRN PRN Reason: Hypertension Sodium Chloride (Normal Saline) 1,000 mls @ 75 mls/hr IV ASDIRECTED MARKUS Stop: 05/30/17 08:49 Sodium Chloride (Normal Saline) 250 mls @ 999 mls/hr IV .BOLUS ONE Stop: 05/28/17 20:14 Last Admin: 05/28/17 20:09 Dose: 999 mls/hr Ibuprofen (Motrin) 600 mg PO Q6H PRN PRN Reason: Pain/Fever Last Admin: 05/28/17 20:07 Dose: 600 mg Metoprolol Tartrate (Lopressor) 5 mg IVPUSH Q4H PRN PRN Reason: Tachycardia Ondansetron HCl (Zofran Odt) 4 mg PO Q6H PRN PRN Reason: nausea, able to take PO Ondansetron HCl (Zofran) 4 mg IV Q6H PRN PRN Reason: Nausea/Vomiting Sodium Chloride (Saline Flush) 10 ml FLUSH ASDIRECTED PRN PRN Reason: Keep Vein Open Last Admin: 05/28/17 12:30 Dose: 10 ml Sodium Chloride (Saline Flush) 10 ml FLUSH ASDIRECTED PRN PRN Reason: Keep Vein Open Assessment/Plan Comment:: I/P: Acute: Acute febrile illness -Ill for last week with cough, fatigue, nausea, chest pain, SOB, headache -Denies fever although temp 103 in ED -UA essentially negative - cultures pending -CXR, influenza, mycoplasma pneumonia - all negative -Strep pneumo and viral panel pending -No leukocytosis, CRP 5.8 -Blood cultures pending -Lactic acid 1.1 -500ml Fluid bolus infusion -IV fluids as ordered -Motrin/tylenol for fever -Rocephin started in ED - Switch to levaquin/doxycycline -Repeat CXR in 24-48 hours UTI -Doubtful -Bacteria noted in UA but negative WBC, leuk esterase, nitrite -Urine cultures pending -No urinary symptoms Hyponatremia -Sodium 129 -Family reports poor hydration and oral intake for past few days -AMS which fluctuates with fever severity -Thermotabs as needed, gave tonight -IV fluids as ordered -Monitor AM labs Chest pain -Negative EKG in ED and on floor -Negative troponin and CK-MB in ED -Nitroglycerine as ordered -Likely 2/2 above Tobacco use disorder -Family reports patient smokes 3 cigarettes a day usually -Has not smoked for past 3 days -Offered nicotine patch and patient refused -Will tariff counsel on smoking cessation Renal insufficiency -Unsure of baseline although last visit creatinine was 1.3 and eGFR was 41 -Family reports poor fluid intake over last several days -BUN 24 -Creatinine 1.5 -eGFR 35 -IV fluids as ordered -Avoid nephrotoxic medications Chronic: CAD HLD HTN - home meds, PRN hydralizine and BB Asthma - duonebs PRN GERD - Home PPI IBS Colitis Chronic neck pain Polio as child resulting in LUE hemiparesis and brain damage Depression - Home meds Type II DM - home metformin, QID AC and Bed glucose checks, sliding scale insulin Obesity Home O2 at night Plan: Admit to medical floor on telemetry CM/SW for discharge planning PT/OT Other orders as indicated above Routine AM labs Home medications as ordered DVT prophylaxis: SCDs GI prophylaxis: home PPI Code status: DNR/DNI; PCP: None - needs to establish.
[2017-05-28] MEDS: Sodium Chloride 0.9% 1,000 ML IV SCH (21:16)
[2017-05-28] MEDS ORDERED: 50% Dextrose in Water 50 ML Syringe IVPUSH PRN (21:35)
[2017-05-28] MEDS ORDERED: Nitroglycerin 2% Oint 1 GM UD Packet TOP PRN (22:12)
[2017-05-28] MEDS ORDERED: Nitroglycerin 2% Oint 1 GM UD Packet ONE (22:14)
[2017-05-28] MEDS ORDERED: Nitroglycerin 0.4 MG Tab.SL SL PRN (22:21)
[2017-05-28] MEDS: LORazepam 2 MG/ML MDV IVPUSH PRN (22:40)
[2017-05-28] MEDS: Morphine 2 MG/ML Syringe IVPUSH PRN (22:45)
[2017-05-28] MEDS: Insulin Aspart 100 Units/ML 3 ML Pen SUBCUT SCH (22:50)
[2017-05-29] MEDS: Ibuprofen 600 MG Tab PO PRN ×3 (04:00→21:15)
[2017-05-29] MEDS: Morphine 2 MG/ML Syringe IVPUSH PRN (05:25)
[2017-05-29] MEDS: Pantoprazole 40 MG Tab.CR PO SCH ×2 (05:28→15:29)
[2017-05-29] MEDS: Insulin Aspart 100 Units/ML 3 ML Pen SUBCUT SCH ×4 (06:33→22:34)
[2017-05-29] MEDS ORDERED: metFORMIN 500 MG Tab PO SCH (09:00)
[2017-05-29] MEDS: Doxycycline 100 MG in Sodium Chloride 0.9% 100 ML IV SCH ×2 (09:21→21:16)
[2017-05-29] MEDS: Magnesium Oxide 400 MG Tab PO SCH ×2 (09:24→21:13)
[2017-05-29] MEDS: Metoprolol Tartrate 25 MG Tab PO SCH ×2 (09:24→21:14)
[2017-05-29] MEDS: Lisinopril 20 MG Tab PO SCH (09:24)
[2017-05-29] MEDS: Aspirin 81 MG Tab.EC PO SCH (09:24)
[2017-05-29] MEDS: Citalopram 20 MG Tab PO SCH (09:25)
[2017-05-29] MEDS: Sodium Chloride 0.9% 1,000 ML IV SCH (09:33)
[2017-05-29] MEDS: Rosuvastatin 10 MG Tab PO SCH (11:24)
[2017-05-29] MEDS ORDERED: cefTRIAXone 2 GM Vial IVPUSH SCH (14:00)
[2017-05-29] MEDS ORDERED: Potassium Chloride/Sodium Chloride Tab PO ONE (15:00)
[2017-05-29] MEDS ORDERED: Magnesium Sulfate/Water 2 GM in Premix Bag 1 BAG IV ONE (15:01)
[2017-05-29] MEDS: guaiFENesin 600 MG Tab.ER PO SCH ×2 (17:24→21:14)
[2017-05-29] MEDS: methylPREDNISolone Sodium Succinate 40 MG/1 ML SDV IVPUSH SCH (17:24)
--- NOTE | 2017-05-29 18:59 | PCM.PN ---
- General Info Date of Service: 05/29/17 Admission Dx/Problem (Free Text): Admission Diagnosis/Problem Admission Diagnosis/Problem UTI (urinary tract infection), uncomplicated Subjective Update: In to see Janey. Her daughters are both in the room. We discussed Janey's allergies. In the ED a short list was given and once her old records from [place] arrived last night it was noted the patient had an allergy to levaquin , PCN, and tylenol. Daughter reports her mother has been given tylenol multiple times with no reaction. She has had negative reaction to percocet in the past and it is thought this may be a a clerical error in entering in Tylenol. She has had negative reactions to levaquin and PCN. She was given Rocephin in the ED which can cross-react with PCN allergy pts. She was given levaquin here on the floor. It was noted after her admission that her arm and face became quite red and her AMS worsened. Unsure if this was related to antibiotics or her fever increasing. Discontinued tylenol, levaquin, and Rocephin. Doxycycline was started and she has not had any complications with this. Her face is normally somewhat flushed per her daughters report and she is back to baseline. She did have a fever today and responded well to motrin. Repeat blood cultures were drawn. Blood and urine cultures from the ED returned negative after 1 day. CRP increased to 15 however no leukocytosis is noted today either. Viral respiratory panel is still pending. Her mentation is greatly improved today. She has been up walking and took a shower. In reviewing old notes she does have a history of COPD and is on home oxygen. Will begin to treat as exacerbation of COPD and start steroid. She was also on advair in the past and will start pulmacort here and schedule duonebs. Multiple hormone labs ordered for tomorrow. Dr. Armas suggested to the patient and family that she see endocrinology. CT of chest/abdomen/pelvis ordered for tomorrow without contrast as patient has reportedly had a negative reaction to contrast in the past. Hx/o collitis and swollen lymph nodes with negative biopsy. Overall she has improved today. O2 has been decreased to 2L however saturations do drop with ambulation. RT has been consulted as well. Functional Status: Reports: Pain Controlled, Tolerating Diet, Ambulating, Urinating. Denies: New Symptoms - Review of Systems General: Reports: Fever, Weakness, Fatigue, Malaise. Denies: Chills, Night Sweats HEENT: Reports: No Symptoms. Denies: Eye Pain, Headaches, Sinus Congestion, Sore Throat, Visual Changes Pulmonary: Reports: Shortness of Breath, Cough. Denies: Sputum, Wheezing Cardiovascular: Reports: Dyspnea on Exertion. Denies: Chest Pain, Palpitations , Edema Gastrointestinal: Denies: Abdominal Pain, Constipation, Diarrhea, Nausea, Vomiting Genitourinary: Reports: No Symptoms. Denies: Dysuria, Frequency, Burning, Pain , Urgency Musculoskeletal: Reports: No Symptoms Skin: Reports: No Symptoms Neurological: Reports: Pre-Existing Deficit (Left upper extremity weakness and left eye droop from prior polio infection). Denies: Confusion, Dizziness, Headache, Numbness, Tingling, Trouble Speaking, Difficulty Walking, Weakness, Change in Speech Psychiatric: Reports: No Symptoms - Patient Data Vitals - Most Recent: Last Vital Signs Temp 98.1 F 05/29/17 15:08 Pulse 85 05/29/17 15:08 Resp 16 05/29/17 15:08 BP 117/78 05/29/17 15:08 Pulse Ox 93 L 05/29/17 18:30 Weight - Most Recent: 264 lb 11.2 oz I&O - Last 24 Hours: Intake & Output 05/29/17 05/29/17 05/29/17 06:59 14:59 22:59 Intake Total 6620 452 1318 Output Total 100 200 Balance 2854 191 6369 Lab Results Last 24 Hours: Laboratory Results - last 24 hr 05/28/17 05/29/17 05/29/17 Range/Units 22:29 05:36 05:46 WBC 4.80 (3.98-10.04) K/mm3 RBC 3.37 L (3.98-5.22) M/mm3 Hgb 10.4 L (11.2-15.7) gm/L Hct 30.9 L (34.1-44.9) % MCV 91.7 (79.4-94.8) fl MCH 30.9 (25.6-32.2) pg MCHC 33.7 (32.2-35.5) g/dl RDW Std Deviation 46.4 H (36.4-46.3) fL Plt Count 123 L (182-369) K/mm3 MPV 10.8 (9.4-12.3) fl Neut % (Auto) 72.8 H (34.0-71.1) % Lymph % (Auto) 14.2 L (19.3-51.7) % [place] % (Auto) 8.5 (4.7-12.5) % Eos % (Auto) 3.5 (0.7-5.8) Baso % (Auto) 0.2 (0.1-1.2) % Neut # (Auto) 3.49 (1.56-6.13) K/mm3 Lymph # (Auto) 0.68 L (1.18-3.74) K/mm3 [place] # (Auto) 0.41 H (0.24-0.36) K/mm3 Eos # (Auto) 0.17 (0.04-0.36) K/mm3 Baso # (Auto) 0.01 (0.01-0.08) K/mm3 Manual Slide Review Abnormal smear Sodium (136-145) mEq/L Potassium (3.5-5.1) mEq/L Chloride (98-107) mEq/L Carbon Dioxide (21-32) mEq/L Anion Gap (5-15) BUN (7-18) mg/dL Creatinine (0.55-1.02) mg/dL Est Cr Clr Drug Dosing mL/min Estimated GFR (MDRD) (>60) mL/min BUN/Creatinine Ratio (14-18) Glucose (80-115) mg/dL POC Glucose 116 H 104 (80-115) mg/dL Hemoglobin A1c (4.50-6.20) % Calcium (8.5-10.1) mg/dL Magnesium (1.8-2.4) mg/dl C-Reactive Protein (<1.0) mg/dL 05/29/17 05/29/17 05/29/17 Range/Units 05:46 05:46 11:17 WBC (3.98-10.04) K/mm3 RBC (3.98-5.22) M/mm3 Hgb (11.2-15.7) gm/L Hct (34.1-44.9) % MCV (79.4-94.8) fl MCH (25.6-32.2) pg MCHC (32.2-35.5) g/dl RDW Std Deviation (36.4-46.3) fL Plt Count (182-369) K/mm3 MPV (9.4-12.3) fl Neut % (Auto) (34.0-71.1) % Lymph % (Auto) (19.3-51.7) % [place] % (Auto) (4.7-12.5) % Eos % (Auto) (0.7-5.8) Baso % (Auto) (0.1-1.2) % Neut # (Auto) (1.56-6.13) K/mm3 Lymph # (Auto) (1.18-3.74) K/mm3 [place] # (Auto) (0.24-0.36) K/mm3 Eos # (Auto) (0.04-0.36) K/mm3 Baso # (Auto) (0.01-0.08) K/mm3 Manual Slide Review Sodium 132 L (136-145) mEq/L Potassium 3.5 (3.5-5.1) mEq/L Chloride 96 L (98-107) mEq/L Carbon Dioxide 25 (21-32) mEq/L Anion Gap 14.5 (5-15) BUN 24 H (7-18) mg/dL Creatinine 1.4 H (0.55-1.02) mg/dL Est Cr Clr Drug Dosing 35.09 mL/min Estimated GFR (MDRD) 38 (>60) mL/min BUN/Creatinine Ratio 17.1 (14-18) Glucose 106 (80-115) mg/dL POC Glucose 120 H (80-115) mg/dL Hemoglobin A1c 6.10 (4.50-6.20) % Calcium 7.8 L (8.5-10.1) mg/dL Magnesium 1.2 L (1.8-2.4) mg/dl C-Reactive Protein 15.3 H* (<1.0) mg/dL 05/29/17 Range/Units 17:23 WBC (3.98-10.04) K/mm3 RBC (3.98-5.22) M/mm3 Hgb (11.2-15.7) gm/L Hct (34.1-44.9) % MCV (79.4-94.8) fl MCH (25.6-32.2) pg MCHC (32.2-35.5) g/dl RDW Std Deviation (36.4-46.3) fL Plt Count (182-369) K/mm3 MPV (9.4-12.3) fl Neut % (Auto) (34.0-71.1) % Lymph % (Auto) (19.3-51.7) % [place] % (Auto) (4.7-12.5) % Eos % (Auto) (0.7-5.8) Baso % (Auto) (0.1-1.2) % Neut # (Auto) (1.56-6.13) K/mm3 Lymph # (Auto) (1.18-3.74) K/mm3 [place] # (Auto) (0.24-0.36) K/mm3 Eos # (Auto) (0.04-0.36) K/mm3 Baso # (Auto) (0.01-0.08) K/mm3 Manual Slide Review Sodium (136-145) mEq/L Potassium (3.5-5.1) mEq/L Chloride (98-107) mEq/L Carbon Dioxide (21-32) mEq/L Anion Gap (5-15) BUN (7-18) mg/dL Creatinine (0.55-1.02) mg/dL Est Cr Clr Drug Dosing mL/min Estimated GFR (MDRD) (>60) mL/min BUN/Creatinine Ratio (14-18) Glucose (80-115) mg/dL POC Glucose 115 (80-115) mg/dL Hemoglobin A1c (4.50-6.20) % Calcium (8.5-10.1) mg/dL Magnesium (1.8-2.4) mg/dl C-Reactive Protein (<1.0) mg/dL Med Orders - Current: Current Medications Albuterol/Ipratropium (Duoneb 3.0-0.5 Mg/3 Ml) 3 ml NEB Q4H PRN PRN Reason: Shortness Of Breath/wheezing Aspirin (Halfprin) 81 mg PO DAILY [facility] Last Admin: 05/29/17 09:24 Dose: 81 mg Citalopram Hydrobromide (Celexa) 20 mg PO DAILY [facility] Last Admin: 05/29/17 09:25 Dose: 20 mg Dextrose/Water (Dextrose 50% In Water) 50 ml IVPUSH ASDIRECTED PRN PRN Reason: Hypotension Guaifenesin (Mucinex) 600 mg PO BID [facility] Last Admin: 05/29/17 17:24 Dose: 600 mg Hydralazine HCl (Apresoline) 10 mg IVPUSH Q6H PRN PRN Reason: Hypertension Sodium Chloride (Normal Saline) 1,000 mls @ 75 mls/hr IV ASDIRECTED [facility] Stop: 05/30/17 08:49 Last Admin: 05/29/17 09:33 Dose: 75 mls/hr Doxycycline Hyclate 100 mg/ (Sodium Chloride) 100 mls @ 100 mls/hr IV Q12HR [facility] Last Admin: 05/29/17 09:21 Dose: 100 mls/hr Sodium Chloride (Normal Saline) 1,000 mls @ 150 mls/hr IV ASDIRECTED [facility] Ibuprofen (Motrin) 600 mg PO Q6H PRN PRN Reason: Pain/Fever Last Admin: 05/29/17 13:12 Dose: 600 mg Insulin Aspart (Novolog) 0 unit SUBCUT QIDACANDBED [facility] PRN Reason: Protocol Last Admin: 05/29/17 17:24 Dose: Not Given Lisinopril (Prinivil) 40 mg PO DAILY [facility] Last Admin: 05/29/17 09:24 Dose: 40 mg Lorazepam (Ativan) 1 mg IVPUSH Q8H PRN PRN Reason: Anxiety Last Admin: 05/28/17 22:40 Dose: 1 mg Magnesium Oxide (Magnesium Oxide) 400 mg PO BID [facility] Last Admin: 05/29/17 09:24 Dose: 400 mg Metformin HCl (Glucophage) 500 mg PO BID [facility] Last Admin: 05/29/17 11:23 Dose: 500 mg Methylprednisolone Sodium Succinate (Solu-Medrol) 60 mg IVPUSH Q12H [facility] Last Admin: 05/29/17 17:24 Dose: 60 mg Metoprolol Tartrate (Lopressor) 5 mg IVPUSH Q4H PRN PRN Reason: Tachycardia Metoprolol Tartrate (Lopressor) 25 mg PO BID [facility] Last Admin: 05/29/17 09:24 Dose: 25 mg Morphine Sulfate (Morphine) 1 mg IVPUSH Q4H PRN PRN Reason: Pain Last Admin: 05/29/17 05:25 Dose: 1 mg Nitroglycerin (Nitro-Bid 2%) 0.5 gm TOP Q6H PRN PRN Reason: Chest Pain Last Admin: 05/28/17 22:45 Dose: 0.5 gm Nitroglycerin (Nitrostat) 0.4 mg SL Q5M PRN PRN Reason: Chest Pain Ondansetron HCl (Zofran Odt) 4 mg PO Q6H PRN PRN Reason: nausea, able to take PO Ondansetron HCl (Zofran) 4 mg IV Q6H PRN PRN Reason: Nausea/Vomiting Pantoprazole Sodium (Protonix) 40 mg PO BIDAC [facility] Last Admin: 05/29/17 15:29 Dose: 40 mg Rosuvastatin Calcium (Crestor) 10 mg PO DAILY [facility] Last Admin: 05/29/17 11:24 Dose: 10 mg Sodium Chloride (Saline Flush) 10 ml FLUSH ASDIRECTED PRN PRN Reason: Keep Vein Open Last Admin: 05/28/17 12:30 Dose: 10 ml Sodium Chloride (Saline Flush) 10 ml FLUSH ASDIRECTED PRN PRN Reason: Keep Vein Open Discontinued Medications Acetaminophen (Tylenol) 975 mg PO NOW ONE Stop: 05/28/17 13:10 Last Admin: 05/28/17 13:25 Dose: 975 mg Acetaminophen (Tylenol) 650 mg PO Q4H PRN PRN Reason: Pain (Mild 1-3)/fever Ceftriaxone Sodium (Rocephin) 2 gm IVPUSH Q24H [facility] Sodium Chloride (Normal Saline) 1,000 mls @ 100 mls/hr IV ASDIRECTED [facility] Last Admin: 05/28/17 13:28 Dose: 100 mls/hr Ceftriaxone Sodium 1 gm/ (Sodium Chloride) 100 mls @ 200 mls/hr IV ONETIME ONE Stop: 05/28/17 13:41 Last Admin: 05/28/17 14:17 Dose: Not Given Ceftriaxone Sodium 1 gm/ (Sodium Chloride) 100 mls @ 200 mls/hr IV ONETIME ONE Stop: 05/28/17 13:41 Last Admin: 05/28/17 14:17 Dose: Not Given Ceftriaxone Sodium 2 gm/ (Dextrose/Water) 100 mls @ 200 mls/hr IV ONETIME ONE Stop: 05/28/17 14:44 Last Admin: 05/28/17 14:16 Dose: 200 mls/hr Levofloxacin/Dextrose 750 mg/ (Premix) 150 mls @ 100 mls/hr IV ONETIME ONE Stop: 05/28/17 19:21 Last Admin: 05/28/17 18:47 Dose: 100 mls/hr Sodium Chloride (Normal Saline) 250 mls @ 999 mls/hr IV .BOLUS ONE Stop: 05/28/17 20:14 Last Admin: 05/28/17 20:09 Dose: 999 mls/hr Sodium Chloride (Normal Saline) 250 mls @ 999 mls/hr IV .BOLUS ONE Stop: 05/28/17 20:41 Last Admin: 05/28/17 20:58 Dose: 999 mls/hr Magnesium Sulfate 2 gm/ Premix 50 mls @ 25 mls/hr IV ONETIME ONE Stop: 05/29/17 17:00 Last Admin: 05/29/17 15:28 Dose: 25 mls/hr Nitroglycerin (Nitro-Bid 2%) Confirm Administered Dose 1 gm .ROUTE .STK-MED ONE Stop: 05/28/17 22:15 Last Admin: 05/28/17 22:49 Dose: Not Given Ondansetron HCl (Zofran) 4 mg IVPUSH ONETIME ONE Stop: 05/28/17 13:37 Last Admin: 05/28/17 14:13 Dose: 4 mg Oral Electrolytes (Thermotabs) 1 each PO ONETIME ONE Stop: 05/28/17 19:25 Last Admin: 05/28/17 20:06 Dose: 1 each Oral Electrolytes (Thermotabs) 1 each PO ONETIME ONE Stop: 05/29/17 15:01 Last Admin: 05/29/17 15:29 Dose: 1 each - Exam Quality Assessment: Supplemental Oxygen, DVT Prophylaxis General: Alert, Oriented, Cooperative, No Acute Distress HEENT: Pupils Equal, Pupils Reactive, EOMI, Mucous Membr. Moist/[place] Neck: Supple, Trachea Midline, No JVD, No Thyromegaly Lungs: Normal Respiratory Effort, Decreased Breath Sounds. No: Rhonchi, Wheezing Cardiovascular: Regular Rate, Regular Rhythm GI/Abdominal Exam: Normal Bowel Sounds, Soft, Non-Tender, No Organomegaly, No Distention, No Abnormal Bruit, No Mass, Pelvis Stable (Female) Exam: Deferred Back Exam: Normal Inspection, Full Range of Motion Extremities: Normal Inspection, Normal Range of Motion, Non-Tender, No Pedal Edema, Normal Capillary Refill Peripheral Pulses: 2+: Radial (L), Radial (R), Posterior Tibial (L), Posterior Tibial (R), Dorsalis Pedis (L), Dorsalis Pedis (R) Skin: Warm, Dry, Intact Neurological: No New Focal Deficit Psy/Mental Status: Alert, Normal Affect, Normal Mood - Problem List & Annotations (1) Acute febrile illness SNOMED Code(s): 050210691 Code(s): R50.9 - FEVER, UNSPECIFIED Status: Acute Priority: High Current Visit: Yes (2) Hyponatremia SNOMED Code(s): 33522219 Code(s): E87.1 - HYPO-OSMOLALITY AND HYPONATREMIA Status: Acute Priority : High Current Visit: Yes (3) COPD with exacerbation SNOMED Code(s): 584449187 Code(s): J44.1 - CHRONIC OBSTRUCTIVE PULMONARY DISEASE W (ACUTE) EXACERBATION Status: Acute Priority: High Current Visit: Yes (4) CAD (coronary artery disease) SNOMED Code(s): 21854230 Code(s): I25.10 - ATHSCL HEART DISEASE OF [place] CORONARY ARTERY W/O ANG PCTRS Status: Chronic Priority: Low Current Visit: No Qualifiers: Coronary Disease-Associated Artery/Lesion type: [place] artery [place] vs. transplanted heart: [place] heart Associated angina: angina presence unspecified Qualified Code(s): I25.10 - Atherosclerotic heart disease of [place] coronary artery without angina pectoris (5) HLD (hyperlipidemia) SNOMED Code(s): 47797956 Code(s): E78.5 - HYPERLIPIDEMIA, UNSPECIFIED Status: Chronic Priority: Low Current Visit: No Qualifiers: Hyperlipidemia type: unspecified Qualified Code(s): E78.5 - Hyperlipidemia , unspecified (6) HTN (hypertension) SNOMED Code(s): 79177854 Code(s): I10 - ESSENTIAL (PRIMARY) HYPERTENSION Status: Chronic Priority : Low Current Visit: No Qualifiers: Hypertension type: unspecified Qualified Code(s): I10 - Essential (primary ) hypertension (7) Asthma SNOMED Code(s): 343780190 Code(s): J45.909 - UNSPECIFIED ASTHMA, UNCOMPLICATED Status: Chronic Priority: Low Current Visit: No Qualifiers: Asthma severity: unspecified severity Asthma persistence: unspecified Asthma complication type: unspecified Qualified Code(s): J45.909 - Unspecified asthma, uncomplicated (8) GERD (gastroesophageal reflux disease) SNOMED Code(s): 515539687 Code(s): K21.9 - GASTRO-ESOPHAGEAL REFLUX DISEASE WITHOUT ESOPHAGITIS Status: Chronic Priority: Low Current Visit: No Qualifiers: Esophagitis presence: esophagitis presence not specified Qualified Code(s) : K21.9 - Gastro-esophageal reflux disease without esophagitis (9) IBS (irritable bowel syndrome) SNOMED Code(s): 47849516 Code(s): K58.9 - IRRITABLE BOWEL SYNDROME WITHOUT DIARRHEA Status: Chronic Priority: Low Current Visit: No Qualifiers: Irritable bowel syndrome type: unspecified Qualified Code(s): K58.9 - Irritable bowel syndrome without diarrhea (10) Colitis SNOMED Code(s): 33758031 Code(s): K52.9 - NONINFECTIVE GASTROENTERITIS AND COLITIS, UNSPECIFIED Status: Chronic Priority: Low Current Visit: No (11) Other specified depressive episodes SNOMED Code(s): 66908658 Code(s): F32.89 - OTHER SPECIFIED DEPRESSIVE EPISODES Status: Chronic Priority: Low Current Visit: No (12) Type II diabetes mellitus SNOMED Code(s): 82436215 Code(s): E11.9 - TYPE 2 DIABETES MELLITUS WITHOUT COMPLICATIONS Status: Chronic Priority: Medium Current Visit: Yes Qualifiers: Diabetes mellitus complication status: with unspecified complications Diabetes mellitus extermination supervisor insulin use: without extermination supervisor use Qualified Code( s): E11.8 - Type 2 diabetes mellitus with unspecified complications (13) Obesity, Class III, BMI 40-49.9 (morbid obesity) SNOMED Code(s): 472891535 Code(s): E66.01 - MORBID (SEVERE) OBESITY DUE TO EXCESS CALORIES Status: Chronic Priority: Low Current Visit: Yes (14) Tobacco use disorder SNOMED Code(s): 107330993 Code(s): F17.200 - NICOTINE DEPENDENCE, UNSPECIFIED, UNCOMPLICATED Status: Resolved Priority: Medium Current Visit: Yes (15) CKD (chronic kidney disease) SNOMED Code(s): 384126030 Code(s): N18.9 - CHRONIC KIDNEY DISEASE, UNSPECIFIED Status: Acute Priority: High Current Visit: Yes - Problem List Review Problem List Initiated/Reviewed/Updated: Yes - My Orders Last 24 Hours: My Active Orders 05/28/17 19:27 Isolation [COMM] Routine 05/28/17 19:30 Height and Weight [RC] 04 Oxygen Therapy [RC] PRN Up With Assistance [RC] BID VTE/DVT Education [RC] DAILY Vital Signs [RC] Q4HR Consult to Case Management [CONS] Routine OT Evaluation and Treatment [CONS] Routine PT Evaluation and Treatment [CONS] Routine Albuterol/Ipratropium [DuoNeb 3.0-0.5 MG/3 ML] 3 ml NEB Q4H PRN Ondansetron [Zofran ODT] 4 mg PO Q6H PRN Ondansetron [Zofran] 4 mg IV Q6H PRN Sodium Chloride 0.9% [Normal Saline] 1,000 ml IV ASDIRECTED 05/28/17 19:31 Ambulate [RC] ,, Cardiac Monitoring [RC] CONTINUOUS Intake and Output [RC] 04,16 Pulse Oximetry [RC] PRN 05/28/17 19:32 Antiembolic Devices [RC] BID RT Aerosol Therapy [RC] ASDIRECTED 05/28/17 19:33 Ibuprofen [Motrin] 600 mg PO Q6H PRN 05/28/17 19:35 RESPIRATORY PANEL BY PCR [MREF] Routine 05/28/17 20:09 Metoprolol Tartrate [Lopressor] 5 mg IVPUSH Q4H PRN hydrALAZINE [Apresoline] 10 mg IVPUSH Q6H PRN 05/28/17 23:20 Consult to Enterprise Integration Developer [CONS] Routine 05/28/17 23:47 SCD [Sequential Compression Device] [OM.PC] Routine 05/29/17 00:03 Pat Ed;smoking cessation career and guidance counselor,educate [COMM] Routine 05/29/17 09:00 Doxycycline [Vibramycin] 100 mg Sodium Chloride 0.9% [Normal Saline] 100 ml IV Q12HR 05/29/17 16:15 guaiFENesin [Mucinex] 600 mg PO BID 05/29/17 17:00 methylPREDNISolone Sod Succ [Solu-MEDROL] 60 mg IVPUSH Q12H 05/29/17 21:00 Sodium Chloride 0.9% [Normal Saline] 1,000 ml IV ASDIRECTED 05/29/17 Breakfast ADA Diabetic [[place] [employer] Diet] [DIET] 05/30/17 05:11 BASIC METABOLIC PANEL,BMP [CHEM] AM CBC WITH AUTO DIFF [HEME] AM CRP [C-REACTIVE PROTEIN] [CHEM] AM MAGNESIUM [CHEM] AM 05/30/17 09:00 Abdomen w wo Cont [CT] Routine 05/31/17 05:11 BASIC METABOLIC PANEL,BMP [CHEM] AM CBC WITH AUTO DIFF [HEME] AM CRP [C-REACTIVE PROTEIN] [CHEM] AM MAGNESIUM [CHEM] AM 06/01/17 05:11 BASIC METABOLIC PANEL,BMP [CHEM] AM CBC WITH AUTO DIFF [HEME] AM CRP [C-REACTIVE PROTEIN] [CHEM] AM MAGNESIUM [CHEM] AM - Plan Plan:: I/P: Acute: Acute febrile illness -Ill for last week with cough, fatigue, nausea, chest pain, SOB, headache -Denies fever although temp 103 in ED -UA essentially negative - cultures - no growth after 1 day -CXR, influenza, mycoplasma pneumonia - all negative -Strep pneumo - negative, viral panel pending -No leukocytosis, CRP 5.8-->15.3 -Blood cultures - no growth after one day -Repeat blood cultures ordered today after fever -Lactic acid 1.1 -500ml Fluid bolus infusion -IV fluids as ordered -Motrin for fever -Rocephin started in ED; levaquin given x1 - Switch to doxycycline -Chest, abdomen, pelvis CT tomorrow -Mucinex COPD Exacerbation -Old records indicate hx/o COPD -Risk factor: smoker -Usually on home O2 at night -hx/o advair rx, has stopped taking -Cough, decreased lung sounds -Duonebs QID -Pulmicort BID -RT to evaluate and treat -Doxycycline as above -Solumedrol 60mg BID UTI -Doubtful -Bacteria noted in UA but negative WBC, leuk esterase, nitrite -Urine cultures -no growth after 1 day -No urinary symptoms Hyponatremia -Sodium 129-->132 -Family reports poor hydration and oral intake for past few days -AMS which fluctuates with fever severity - resolved -Thermotabs as needed -IV fluids as ordered -Monitor AM labs Tobacco use disorder -Family reports patient smokes 3 cigarettes a day usually -Has not smoked for past 3 days -Offered nicotine patch and patient refused -Will career and guidance counselor on smoking cessation Renal insufficiency -Unsure of baseline although last visit creatinine was 1.3 and eGFR was 41 -Family reports poor fluid intake over last several days -BUN 24 -Creatinine 1.5-->1.4 -eGFR 35-->38 -IV fluids as ordered -Avoid nephrotoxic medications - hold metformin Chest pain, resolved -Negative EKG in ED and on floor -Negative troponin and CK-MB in ED -Nitroglycerine as ordered -Likely 2/2 above Chronic: CAD HLD HTN - home meds, PRN hydralizine and BB Asthma - duonebs PRN GERD - Home PPI IBS Colitis Chronic neck pain 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
[2017-05-29] MEDS ORDERED: Budesonide 0.5 MG/2 ML Neb Susp NEB SCH (21:00)
[2017-05-29] MEDS ORDERED: Formoterol/Mometasone 100-5 MCG 8.8 GM Inhaler IH SCH (21:00)
[2017-05-29] MEDS ORDERED: Sodium Chloride 0.9% 1,000 ML IV SCH (21:00)
[2017-05-29] MEDS: Albuterol/Ipratropium 3.0-0.5 MG/3 ML Neb Soln NEB SCH (21:39)
[2017-05-30] MEDS: Albuterol/Ipratropium 3.0-0.5 MG/3 ML Neb Soln NEB SCH ×4 (03:08→21:30)
[2017-05-30] MEDS: methylPREDNISolone Sodium Succinate 40 MG/1 ML SDV IVPUSH SCH ×2 (06:21→18:52)
[2017-05-30] MEDS: Pantoprazole 40 MG Tab.CR PO SCH ×2 (06:24→16:46)
[2017-05-30] MEDS: Insulin Aspart 100 Units/ML 3 ML Pen SUBCUT SCH ×4 (06:30→21:21)
[2017-05-30] MEDS: Budesonide 0.5 MG/2 ML Neb Susp NEB SCH ×2 (08:49→21:30)
[2017-05-30] MEDS: guaiFENesin 600 MG Tab.ER PO SCH ×2 (08:56→21:16)
[2017-05-30] MEDS: Doxycycline 100 MG in Sodium Chloride 0.9% 100 ML IV SCH ×2 (08:56→21:23)
[2017-05-30] MEDS: Metoprolol Tartrate 25 MG Tab PO SCH ×2 (08:56→21:16)
[2017-05-30] MEDS: Lisinopril 20 MG Tab PO SCH (09:02)
[2017-05-30] MEDS: Magnesium Oxide 400 MG Tab PO SCH ×2 (09:02→21:16)
[2017-05-30] MEDS: Aspirin 81 MG Tab.EC PO SCH (09:02)
[2017-05-30] MEDS: Rosuvastatin 10 MG Tab PO SCH (09:02)
[2017-05-30] MEDS: Citalopram 20 MG Tab PO SCH (09:03)
--- NOTE | 2017-05-30 09:13 | CT ---
CT chest Technique: Multiple axial sections were obtained from above the lung apices inferiorly through the lung bases. Intravenous contrast was not utilized which diminishes details. Comparison: Prior chest x-ray of 05/28/17. Findings: Mildly prominent axillary lymph nodes are seen. Largest lymph node measures about 1.8 cm. Slightly prominent mediastinal lymph nodes are seen. Largest lymph node measures about 2.2 cm. Coronary artery calcification is seen. No pericardial thickening is identified. Slight parenchymal densities noted within both lung bases compatible with scarring and/or atelectasis. Lungs otherwise are clear. Bone window settings were reviewed which show mild degenerative endplate spurring throughout the spine. Impression: 1. Mildly prominent lymph nodes within both axillary regions as well as mediastinum. 2. Atelectasis/scarring within both lung bases. 3. Other incidental findings. Diagnostic code #9 CT abdomen and pelvis Technique: Multiple axial sections were obtained from above the dome of the diaphragm inferiorly through the pubic symphysis. Intravenous and oral contrast not utilized. Lack of contrast diminishes details and diagnostic accuracy of the study. Comparison: Previous CT abdomen and pelvis exam of 03/01/17. Findings: No discrete abnormality appreciated within the liver. Spleen measures at the upper limits of normal at 13.3 cm in length. Spleen on prior study measured 10.0 cm in length which is within normal limits. Adrenal glands show no nodule. Multiple small retroperitoneal lymph nodes are seen. These are more numerous than usually expected and also represent an interval change from prior CT exam. Kidneys show no abnormal calcifications or hydronephrosis. Aorta and iliac vessels shows atherosclerotic calcification without aneurysm. No mesenteric abnormalities are seen. No pelvic mass or adenopathy is seen. Slightly prominent lymph nodes are noted within both inguinal regions. Bone window settings were reviewed which show degenerative change primarily within the apophyseal joints of the lower lumbar spine. Impression: 1. Multiple lymph nodes within the retroperitoneum as well as within both inguinal regions. Spleen appears at the upper limits of normal and increased in size from prior study. Both these findings are an interval change from previous exam. 2. Other incidental findings as noted above. Diagnostic code #9 [employer] called report to Vicky Bernal (hospitalist) at [phone] on 05/30/2017)
[2017-05-30] MEDS: Metoprolol Tartrate 5 MG/5 ML SDV IVPUSH PRN (10:12)
[2017-05-30] MEDS: Benzonatate 100 MG Cap PO PRN ×2 (11:39→21:18)
--- NOTE | 2017-05-30 15:34 | CT ---
Head CT Technique: Multiple axial sections through the brain were obtained. Intravenous contrast was not utilized. Comparison: No prior intracranial imaging. Findings: Ventricles along with basal cisterns and sulci over convexities are mildly prominent. Diffuse decreased density is noted within the periventricular and subcortical white matter compatible with small vessel ischemic demyelination change. Old lacunar infarct is noted within the right basal ganglia. No evidence of intracranial hemorrhage. No midline shift or mass effect is seen. Visualized sinuses are clear. Minimal atherosclerotic change is noted within carotid siphon. No acute calvarial abnormality is identified. Impression: 1. Senescent change as noted above. Nothing acute is identified on noncontrast head CT study. Diagnostic code #2
--- NOTE | 2017-05-30 15:37 | CT ---
CT neck Technique: Multiple axial sections through the neck were obtained. Intravenous contrast not utilized which diminishes interpretation accuracy. Findings: Sinuses are clear. Parotid salivary gland and submandibular salivary glands are within normal limits. No adenopathy is seen within the neck. Normal-appearing small lymph nodes are seen. Bone window settings shows previous surgery at C5-C6. Degenerative change is scattered within the apophyseal joints. Parapharyngeal soft tissues are normal. Epiglottis is normal. Impression: 1. Incidental findings as noted above. No lymphadenopathy is identified within the neck. Diagnostic code #2
[2017-05-30] MEDS: guaiFENesin/Dextromethorphan 100-10 MG/5 ML Soln 5 ML Cup PO PRN ×2 (16:45→23:40)
[2017-05-30] MEDS ORDERED: Potassium Chloride/Sodium Chloride Tab PO ONE (17:20)
--- NOTE | 2017-05-30 17:24 | PCM.PN ---
- General Info Date of Service: 05/30/17 Admission Dx/Problem (Free Text): Admission Diagnosis/Problem Admission Diagnosis/Problem UTI (urinary tract infection), uncomplicated Subjective Update: In to see Janey. She looks better than yesterday. She was up walking today. She has been eating and drinking well. Her IV infiltrated and [employer] has been contacted to restart as she is a difficult stick. Results of CT scans were discussed with patent and her daughter. Family is concerned about discussing cancer with patient unless daughters are around. As noted she has had some swollen axillary nodes in the past which were biopsied. Daughter believes her mother did not follow-up like she was supposed to. She still has a cough. Will add Robitussin to med list. Her sodium has been increasing slowly. Will order another thermotab tonight. Her creatinine is elevated. Once IV is established will give some fluids. She has been afebrile today. No AMS noted. Functional Status: Reports: Pain Controlled, Tolerating Diet, Ambulating, Urinating. Denies: New Symptoms - Review of Systems General: Reports: Weakness (improving ). Denies: Fever, Fatigue, Malaise, Chills HEENT: Reports: No Symptoms Pulmonary: Reports: Cough. Denies: Shortness of Breath, Pleuritic Chest Pain, Sputum, Wheezing Cardiovascular: Reports: No Symptoms. Denies: Chest Pain, Dyspnea on Exertion Gastrointestinal: Reports: No Symptoms. Denies: Constipation, Diarrhea, Nausea , Vomiting Genitourinary: Reports: No Symptoms. 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 ) Psychiatric: Reports: No Symptoms - Patient Data Vitals - Most Recent: Last Vital Signs Temp 98.6 F 05/30/17 16:01 Pulse 85 05/30/17 16:01 Resp 16 05/30/17 16:01 BP 141/69 H 05/30/17 16:01 Pulse Ox 100 05/30/17 16:01 Weight - Most Recent: 267 lb 1.6 oz I&O - Last 24 Hours: Intake & Output 05/30/17 05/30/17 05/30/17 06:59 14:59 22:59 Intake Total 1973 0 980 Output Total 400 Balance 1573 0 980 Lab Results Last 24 Hours: Laboratory Results - last 24 hr 05/29/17 05/29/17 05/30/17 Range/Units 17:23 21:57 06:28 WBC (3.98-10.04) K/mm3 RBC (3.98-5.22) M/mm3 Hgb (11.2-15.7) gm/L Hct (34.1-44.9) % MCV (79.4-94.8) fl MCH (25.6-32.2) pg MCHC (32.2-35.5) g/dl RDW Std Deviation (36.4-46.3) fL Plt Count (182-369) K/mm3 MPV (9.4-12.3) fl Neut % (Auto) (34.0-71.1) % Lymph % (Auto) (19.3-51.7) % [place] % (Auto) (4.7-12.5) % Eos % (Auto) (0.7-5.8) Baso % (Auto) (0.1-1.2) % Neut # (Auto) (1.56-6.13) K/mm3 Lymph # (Auto) (1.18-3.74) K/mm3 [place] # (Auto) (0.24-0.36) K/mm3 Eos # (Auto) (0.04-0.36) K/mm3 Baso # (Auto) (0.01-0.08) K/mm3 Manual Slide Review Sodium (136-145) mEq/L Potassium (3.5-5.1) mEq/L Chloride (98-107) mEq/L Carbon Dioxide (21-32) mEq/L Anion Gap (5-15) BUN (7-18) mg/dL Creatinine (0.55-1.02) mg/dL Est Cr Clr Drug Dosing mL/min Estimated GFR (MDRD) (>60) mL/min BUN/Creatinine Ratio (14-18) Glucose (80-115) mg/dL POC Glucose 115 154 H 123 H (80-115) mg/dL Calcium (8.5-10.1) mg/dL Magnesium (1.8-2.4) mg/dl Troponin I (0.00-0.056) ng/mL C-Reactive Protein (<1.0) mg/dL TSH 3rd Generation (0.358-3.74) uIU/mL 05/30/17 05/30/17 05/30/17 Range/Units 06:45 06:45 06:45 WBC 5.49 (3.98-10.04) K/mm3 RBC 3.52 L (3.98-5.22) M/mm3 Hgb 10.8 L (11.2-15.7) gm/L Hct 32.4 L (34.1-44.9) % MCV 92.0 (79.4-94.8) fl MCH 30.7 (25.6-32.2) pg MCHC 33.3 (32.2-35.5) g/dl RDW Std Deviation 47.6 H (36.4-46.3) fL Plt Count 120 L (182-369) K/mm3 MPV 10.9 (9.4-12.3) fl Neut % (Auto) 72.8 H (34.0-71.1) % Lymph % (Auto) 17.5 L (19.3-51.7) % [place] % (Auto) 6.6 (4.7-12.5) % Eos % (Auto) 1.3 (0.7-5.8) Baso % (Auto) 0.9 (0.1-1.2) % Neut # (Auto) 4.00 (1.56-6.13) K/mm3 Lymph # (Auto) 0.96 L (1.18-3.74) K/mm3 [place] # (Auto) 0.36 (0.24-0.36) K/mm3 Eos # (Auto) 0.07 (0.04-0.36) K/mm3 Baso # (Auto) 0.05 (0.01-0.08) K/mm3 Manual Slide Review Abnormal smear Sodium 134 L (136-145) mEq/L Potassium 3.9 (3.5-5.1) mEq/L Chloride 99 (98-107) mEq/L Carbon Dioxide 24 (21-32) mEq/L Anion Gap 14.9 (5-15) BUN 30 H (7-18) mg/dL Creatinine 1.6 H (0.55-1.02) mg/dL Est Cr Clr Drug Dosing 30.70 mL/min Estimated GFR (MDRD) 32 (>60) mL/min BUN/Creatinine Ratio 18.8 H (14-18) Glucose 126 H (80-115) mg/dL POC Glucose (80-115) mg/dL Calcium 8.2 L (8.5-10.1) mg/dL Magnesium 1.9 (1.8-2.4) mg/dl Troponin I (0.00-0.056) ng/mL C-Reactive Protein 26.7 H* (<1.0) mg/dL TSH 3rd Generation 1.055 (0.358-3.74) uIU/mL 05/30/17 05/30/17 Range/Units 06:45 11:36 WBC (3.98-10.04) K/mm3 RBC (3.98-5.22) M/mm3 Hgb (11.2-15.7) gm/L Hct (34.1-44.9) % MCV (79.4-94.8) fl MCH (25.6-32.2) pg MCHC (32.2-35.5) g/dl RDW Std Deviation (36.4-46.3) fL Plt Count (182-369) K/mm3 MPV (9.4-12.3) fl Neut % (Auto) (34.0-71.1) % Lymph % (Auto) (19.3-51.7) % [place] % (Auto) (4.7-12.5) % Eos % (Auto) (0.7-5.8) Baso % (Auto) (0.1-1.2) % Neut # (Auto) (1.56-6.13) K/mm3 Lymph # (Auto) (1.18-3.74) K/mm3 [place] # (Auto) (0.24-0.36) K/mm3 Eos # (Auto) (0.04-0.36) K/mm3 Baso # (Auto) (0.01-0.08) K/mm3 Manual Slide Review Sodium (136-145) mEq/L Potassium (3.5-5.1) mEq/L Chloride (98-107) mEq/L Carbon Dioxide (21-32) mEq/L Anion Gap (5-15) BUN (7-18) mg/dL Creatinine (0.55-1.02) mg/dL Est Cr Clr Drug Dosing mL/min Estimated GFR (MDRD) (>60) mL/min BUN/Creatinine Ratio (14-18) Glucose (80-115) mg/dL POC Glucose 167 H (80-115) mg/dL Calcium (8.5-10.1) mg/dL Magnesium (1.8-2.4) mg/dl Troponin I < 0.017 (0.00-0.056) ng/mL C-Reactive Protein (<1.0) mg/dL TSH 3rd Generation (0.358-3.74) uIU/mL [place] Results Last 24 Hours: Microbiology 05/29/17 15:15 Aerobic Blood Culture - Preliminary Blood - Venous - Lab Draw NO GROWTH AFTER 1 DAY Anaerobic Blood Culture - Final 05/29/17 15:00 Aerobic Blood Culture - Preliminary Blood - Venous NO GROWTH AFTER 1 DAY Anaerobic Blood Culture - Preliminary NO GROWTH AFTER 1 DAY 05/28/17 19:35 Respiratory Virus Panel (PCR) ([facility]) - Final Nasopharyngeal Swab - Nare, Unspecified Med Orders - Current: Current Medications Albuterol/Ipratropium (Duoneb 3.0-0.5 Mg/3 Ml) 3 ml NEB Q6HRRT [facility] Last Admin: 05/30/17 15:54 Dose: 3 ml Aspirin (Halfprin) 81 mg PO DAILY [facility] Last Admin: 05/30/17 09:02 Dose: 81 mg Benzonatate (Tessalon Perles) 100 mg PO TID PRN PRN Reason: Cough Last Admin: 05/30/17 11:39 Dose: 100 mg Budesonide (Pulmicort) 0.5 mg NEB BID [facility] Last Admin: 05/30/17 08:49 Dose: 0.5 mg Citalopram Hydrobromide (Celexa) 20 mg PO DAILY [facility] Last Admin: 05/30/17 09:03 Dose: 20 mg Dextrose/Water (Dextrose 50% In Water) 50 ml IVPUSH ASDIRECTED PRN PRN Reason: Hypotension Guaifenesin (Mucinex) 600 mg PO BID [facility] Last Admin: 05/30/17 08:56 Dose: 600 mg Guaifenesin/Phenylephrine HCl (Robitussin Dm) 10 ml PO Q4H PRN PRN Reason: Cough Last Admin: 05/30/17 16:45 Dose: 10 ml Hydralazine HCl (Apresoline) 10 mg IVPUSH Q6H PRN PRN Reason: Hypertension Doxycycline Hyclate 100 mg/ (Sodium Chloride) 100 mls @ 100 mls/hr IV Q12HR [facility] Last Admin: 05/30/17 08:56 Dose: 100 mls/hr Ibuprofen (Motrin) 600 mg PO Q6H PRN PRN Reason: Pain/Fever Last Admin: 05/29/17 21:15 Dose: 600 mg Insulin Aspart (Novolog) 0 unit SUBCUT QIDACANDBED [facility] PRN Reason: Protocol Last Admin: 05/30/17 11:56 Dose: 1 unit Lisinopril (Prinivil) 40 mg PO DAILY [facility] Last Admin: 05/30/17 09:02 Dose: 40 mg Lorazepam (Ativan) 1 mg IVPUSH Q8H PRN PRN Reason: Anxiety Last Admin: 05/28/17 22:40 Dose: 1 mg Magnesium Oxide (Magnesium Oxide) 400 mg PO BID [facility] Last Admin: 05/30/17 09:02 Dose: 400 mg Metformin HCl (Glucophage) 500 mg PO BID [facility] Last Admin: 05/29/17 11:23 Dose: 500 mg Methylprednisolone Sodium Succinate (Solu-Medrol) 60 mg IVPUSH Q12H [facility] Last Admin: 05/30/17 06:21 Dose: 60 mg Metoprolol Tartrate (Lopressor) 5 mg IVPUSH Q4H PRN PRN Reason: Tachycardia Last Admin: 05/30/17 10:12 Dose: 5 mg Metoprolol Tartrate (Lopressor) 25 mg PO BID [facility] Last Admin: 05/30/17 08:56 Dose: 25 mg Morphine Sulfate (Morphine) 1 mg IVPUSH Q4H PRN PRN Reason: Pain Last Admin: 05/29/17 05:25 Dose: 1 mg Nitroglycerin (Nitro-Bid 2%) 0.5 gm TOP Q6H PRN PRN Reason: Chest Pain Last Admin: 05/28/17 22:45 Dose: 0.5 gm Nitroglycerin (Nitrostat) 0.4 mg SL Q5M PRN PRN Reason: Chest Pain Ondansetron HCl (Zofran Odt) 4 mg PO Q6H PRN PRN Reason: nausea, able to take PO Ondansetron HCl (Zofran) 4 mg IV Q6H PRN PRN Reason: Nausea/Vomiting Pantoprazole Sodium (Protonix) 40 mg PO BIDAC [facility] Last Admin: 05/30/17 16:46 Dose: 40 mg Rosuvastatin Calcium (Crestor) 10 mg PO DAILY [facility] Last Admin: 05/30/17 09:02 Dose: 10 mg Sodium Chloride (Saline Flush) 10 ml FLUSH ASDIRECTED PRN PRN Reason: Keep Vein Open Last Admin: 05/28/17 12:30 Dose: 10 ml Sodium Chloride (Saline Flush) 10 ml FLUSH ASDIRECTED PRN PRN Reason: Keep Vein Open Discontinued Medications Acetaminophen (Tylenol) 975 mg PO NOW ONE Stop: 05/28/17 13:10 Last Admin: 05/28/17 13:25 Dose: 975 mg Acetaminophen (Tylenol) 650 mg PO Q4H PRN PRN Reason: Pain (Mild 1-3)/fever Albuterol/Ipratropium (Duoneb 3.0-0.5 Mg/3 Ml) 3 ml NEB Q4H PRN PRN Reason: Shortness Of Breath/wheezing Budesonide (Pulmicort) 0.5 mg NEB BIDRT [facility] Last Admin: 05/29/17 21:39 Dose: 0.5 mg Ceftriaxone Sodium (Rocephin) 2 gm IVPUSH Q24H [facility] Sodium Chloride (Normal Saline) 1,000 mls @ 100 mls/hr IV ASDIRECTED [facility] Last Admin: 05/28/17 13:28 Dose: 100 mls/hr Ceftriaxone Sodium 1 gm/ (Sodium Chloride) 100 mls @ 200 mls/hr IV ONETIME ONE Stop: 05/28/17 13:41 Last Admin: 05/28/17 14:17 Dose: Not Given Ceftriaxone Sodium 1 gm/ (Sodium Chloride) 100 mls @ 200 mls/hr IV ONETIME ONE Stop: 05/28/17 13:41 Last Admin: 05/28/17 14:17 Dose: Not Given Ceftriaxone Sodium 2 gm/ (Dextrose/Water) 100 mls @ 200 mls/hr IV ONETIME ONE Stop: 05/28/17 14:44 Last Admin: 05/28/17 14:16 Dose: 200 mls/hr Levofloxacin/Dextrose 750 mg/ (Premix) 150 mls @ 100 mls/hr IV ONETIME ONE Stop: 05/28/17 19:21 Last Admin: 05/28/17 18:47 Dose: 100 mls/hr Sodium Chloride (Normal Saline) 1,000 mls @ 75 mls/hr IV ASDIRECTED [facility] Stop: 05/30/17 08:49 Last Admin: 05/29/17 09:33 Dose: 75 mls/hr Sodium Chloride (Normal Saline) 250 mls @ 999 mls/hr IV .BOLUS ONE Stop: 05/28/17 20:14 Last Admin: 05/28/17 20:09 Dose: 999 mls/hr Sodium Chloride (Normal Saline) 250 mls @ 999 mls/hr IV .BOLUS ONE Stop: 05/28/17 20:41 Last Admin: 05/28/17 20:58 Dose: 999 mls/hr Magnesium Sulfate 2 gm/ Premix 50 mls @ 25 mls/hr IV ONETIME ONE Stop: 05/29/17 17:00 Last Admin: 05/29/17 15:28 Dose: 25 mls/hr Sodium Chloride (Normal Saline) 1,000 mls @ 150 mls/hr IV ASDIRECTED [facility] Stop: 05/30/17 03:39 Last Admin: 05/29/17 22:42 Dose: 150 mls/hr Mometasone Furoate/Formoterol Fumar (Dulera 100-5 Mcg) 0 puff IH BIDRT [facility] Nitroglycerin (Nitro-Bid 2%) Confirm Administered Dose 1 gm .ROUTE .STK-MED ONE Stop: 05/28/17 22:15 Last Admin: 05/28/17 22:49 Dose: Not Given Ondansetron HCl (Zofran) 4 mg IVPUSH ONETIME ONE Stop: 05/28/17 13:37 Last Admin: 05/28/17 14:13 Dose: 4 mg Oral Electrolytes (Thermotabs) 1 each PO ONETIME ONE Stop: 05/28/17 19:25 Last Admin: 05/28/17 20:06 Dose: 1 each Oral Electrolytes (Thermotabs) 1 each PO ONETIME ONE Stop: 05/29/17 15:01 Last Admin: 05/29/17 15:29 Dose: 1 each Oral Electrolytes (Thermotabs) 1 each PO ONETIME ONE Stop: 05/30/17 17:21 - Exam Quality Assessment: Supplemental Oxygen, DVT Prophylaxis General: Alert, Oriented, Cooperative, No Acute Distress HEENT: Pupils Equal, Pupils Reactive, EOMI, Mucous Membr. Moist/[place] Neck: Supple, Trachea Midline, No JVD, No Thyromegaly. No: Lymphadenopathy Lungs: Normal Respiratory Effort, Decreased Breath Sounds. No: Rhonchi, Wheezing Cardiovascular: Regular Rate, Regular Rhythm GI/Abdominal Exam: Normal Bowel Sounds, Soft, Non-Tender, No Organomegaly, No Distention, No Abnormal Bruit, No Mass, Pelvis Stable (Female) Exam: Deferred Back Exam: Normal Inspection Extremities: Normal Inspection, Normal Range of Motion, Non-Tender, No Pedal Edema, Normal Capillary Refill Peripheral Pulses: 2+: Radial (L), Radial (R), Posterior Tibial (L), Posterior Tibial (R), Dorsalis Pedis (L), Dorsalis Pedis (R) Skin: Warm, Dry, Intact Neurological: No New Focal Deficit Psy/Mental Status: Alert, Normal Affect, Normal Mood - Problem List & Annotations (1) Acute febrile illness SNOMED Code(s): 912036535 Code(s): R50.9 - FEVER, UNSPECIFIED Status: Resolved Priority: High Current Visit: Yes (2) Hyponatremia SNOMED Code(s): 00584573 Code(s): E87.1 - HYPO-OSMOLALITY AND HYPONATREMIA Status: Acute Priority : High Current Visit: Yes (3) COPD with exacerbation SNOMED Code(s): 827459215 Code(s): J44.1 - CHRONIC OBSTRUCTIVE PULMONARY DISEASE W (ACUTE) EXACERBATION Status: Acute Priority: High Current Visit: Yes (4) CAD (coronary artery disease) SNOMED Code(s): 55982247 Code(s): I25.10 - ATHSCL HEART DISEASE OF [place] CORONARY ARTERY W/O ANG PCTRS Status: Chronic Priority: Low Current Visit: No Qualifiers: Coronary Disease-Associated Artery/Lesion type: [place] artery [place] vs. transplanted heart: [place] heart Associated angina: angina presence unspecified Qualified Code(s): I25.10 - Atherosclerotic heart disease of [place] coronary artery without angina pectoris (5) HLD (hyperlipidemia) SNOMED Code(s): 84470130 Code(s): E78.5 - HYPERLIPIDEMIA, UNSPECIFIED Status: Chronic Priority: Low Current Visit: No Qualifiers: Hyperlipidemia type: unspecified Qualified Code(s): E78.5 - Hyperlipidemia , unspecified (6) HTN (hypertension) SNOMED Code(s): 74288581 Code(s): I10 - ESSENTIAL (PRIMARY) HYPERTENSION Status: Chronic Priority : Low Current Visit: No Qualifiers: Hypertension type: unspecified Qualified Code(s): I10 - Essential (primary ) hypertension (7) Asthma SNOMED Code(s): 565462228 Code(s): J45.909 - UNSPECIFIED ASTHMA, UNCOMPLICATED Status: Chronic Priority: Low Current Visit: No Qualifiers: Asthma severity: unspecified severity Asthma persistence: unspecified Asthma complication type: unspecified Qualified Code(s): J45.909 - Unspecified asthma, uncomplicated (8) GERD (gastroesophageal reflux disease) SNOMED Code(s): 139164060 Code(s): K21.9 - GASTRO-ESOPHAGEAL REFLUX DISEASE WITHOUT ESOPHAGITIS Status: Chronic Priority: Low Current Visit: No Qualifiers: Esophagitis presence: esophagitis presence not specified Qualified Code(s) : K21.9 - Gastro-esophageal reflux disease without esophagitis (9) IBS (irritable bowel syndrome) SNOMED Code(s): 17741904 Code(s): K58.9 - IRRITABLE BOWEL SYNDROME WITHOUT DIARRHEA Status: Chronic Priority: Low Current Visit: No Qualifiers: Irritable bowel syndrome type: unspecified Qualified Code(s): K58.9 - Irritable bowel syndrome without diarrhea (10) Colitis SNOMED Code(s): 79419335 Code(s): K52.9 - NONINFECTIVE GASTROENTERITIS AND COLITIS, UNSPECIFIED Status: Chronic Priority: Low Current Visit: No (11) Other specified depressive episodes SNOMED Code(s): 17331534 Code(s): F32.89 - OTHER SPECIFIED DEPRESSIVE EPISODES Status: Chronic Priority: Low Current Visit: No (12) Type II diabetes mellitus SNOMED Code(s): 63786567 Code(s): E11.9 - TYPE 2 DIABETES MELLITUS WITHOUT COMPLICATIONS Status: Chronic Priority: Medium Current Visit: Yes Qualifiers: Diabetes mellitus complication status: with unspecified complications Diabetes mellitus [employer] insulin use: without fpc use Qualified Code( s): E11.8 - Type 2 diabetes mellitus with unspecified complications (13) Obesity, Class III, BMI 40-49.9 (morbid obesity) SNOMED Code(s): 354097569 Code(s): E66.01 - MORBID (SEVERE) OBESITY DUE TO EXCESS CALORIES Status: Chronic Priority: Low Current Visit: Yes (14) Tobacco use disorder SNOMED Code(s): 042042898 Code(s): F17.200 - NICOTINE DEPENDENCE, UNSPECIFIED, UNCOMPLICATED Status: Resolved Priority: Medium Current Visit: Yes (15) CKD (chronic kidney disease) SNOMED Code(s): 242758278 Code(s): N18.9 - CHRONIC KIDNEY DISEASE, UNSPECIFIED Status: Acute Priority: High Current Visit: Yes (16) Lymphadenopathy SNOMED Code(s): 18518572 Code(s): R59.1 - GENERALIZED ENLARGED LYMPH NODES Status: Acute Priority : High Current Visit: Yes - Problem List Review Problem List Initiated/Reviewed/Updated: Yes - My Orders Last 24 Hours: My Active Orders 05/29/17 17:00 methylPREDNISolone Sod Succ [Solu-MEDROL] 60 mg IVPUSH Q12H 05/29/17 19:58 Consult to Respiratory Therapy [Respiratory Care Assess and Treatment] [CONS] Routine 05/29/17 20:29 RT Aerosol Therapy [RC] ASDIRECTED 05/29/17 21:00 Albuterol/Ipratropium [DuoNeb 3.0-0.5 MG/3 ML] 3 ml NEB Q6HRRT 05/30/17 09:00 Budesonide [Pulmicort] 0.5 mg NEB BID 05/30/17 16:37 Dextromethorphan/guaiFENesin [Robitussin DM] 10 ml PO Q4H PRN 05/31/17 05:11 LONNIE SCREEN (EIA) [REF] Routine BASIC METABOLIC PANEL,BMP [CHEM] AM CA 125 [REF] Routine CBC WITH AUTO DIFF [HEME] AM CEA [REF] Routine CRP [C-REACTIVE PROTEIN] [CHEM] AM MAGNESIUM [CHEM] AM 06/01/17 05:11 BASIC METABOLIC PANEL,BMP [CHEM] AM CBC WITH AUTO DIFF [HEME] AM CRP [C-REACTIVE PROTEIN] [CHEM] AM MAGNESIUM [CHEM] AM - Plan Plan:: I/P: Acute: Acute febrile illness - no fevers noted today -Ill for last week with cough, fatigue, nausea, chest pain, SOB, headache -Denies fever although temp 103 in ED -UA essentially negative - cultures - no growth after 2 day -CXR, influenza, mycoplasma pneumonia - all negative -Strep pneumo - negative, viral panel pending -No leukocytosis, CRP 5.8-->15.3 -Blood cultures - no growth after one day -Repeat blood cultures ordered today after fever -Lactic acid 1.1 -500ml Fluid bolus infusion -IV fluids as ordered -Motrin for fever -Rocephin started in ED; levaquin given x1 - Switch to doxycycline -Chest, abdomen, pelvis CT today - multiple enlarged lymph nodes - see report -Head and neck CT - senescent change, nothing acute COPD Exacerbation -Old records indicate hx/o COPD -Risk factor: smoker -Usually on home O2 at night -hx/o advair rx, has stopped taking -Cough, decreased lung sounds -Duonebs QID -Pulmicort BID -RT to evaluate and treat/IS -Doxycycline as above -Solumedrol 60mg BID -Mucinex, Tessalon Perles, Robitussin Hyponatremia -Sodium 129-->132-->134 -Family reports poor hydration and oral intake for past few days -AMS which fluctuates with fever severity - resolved -Thermotabs as needed -IV fluids as ordered -Monitor AM labs Tobacco use disorder -Family reports patient smokes 3 cigarettes a day usually -Has not smoked for past 3 days -Offered nicotine patch and patient refused -Will queen's counsel on smoking cessation Renal insufficiency -Unsure of baseline although last visit creatinine was 1.3 and eGFR was 41 -Family reports poor fluid intake over last several days -BUN 24-->30 -Creatinine 1.5-->1.4-->1.6 -eGFR 35-->38-->32 -IV fluids as ordered -Avoid nephrotoxic medications - hold metformin Chest pain, resolved -Negative EKG in ED and on floor -Negative troponin and CK-MB in ED -Nitroglycerine as ordered -Likely 2/2 above UTI - negative -Doubtful -Bacteria noted in UA but negative WBC, leuk esterase, nitrite -Urine cultures -no growth after 2 day -No urinary symptoms Lymphadenopathy -Hx/o enlarged lymphnodes in axillary region with negative biopsy -See chest/abdomen/pelvis CT for full report -Heme/Oncology consult outpatient Chronic: CAD HLD HTN - home meds, PRN hydralizine and BB Asthma - duonebs PRN GERD - Home PPI IBS Colitis Chronic neck pain 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 scheduled with Dr. Díaz (oncology) and Dr. Posada (internal med ) Code status: DNR/DNI; PCP: None locally- needs to establish
[2017-05-30] MEDS ORDERED: Sodium Chloride 0.9% 1,000 ML IV SCH (19:00)
[2017-05-30] MEDS: Ibuprofen 600 MG Tab PO PRN (23:40)
[2017-05-31] MEDS: Albuterol/Ipratropium 3.0-0.5 MG/3 ML Neb Soln NEB SCH ×4 (03:06→21:45)
[2017-05-31] MEDS: Pantoprazole 40 MG Tab.CR PO SCH ×2 (05:07→16:19)
[2017-05-31] MEDS: methylPREDNISolone Sodium Succinate 40 MG/1 ML SDV IVPUSH SCH (05:10)
[2017-05-31] MEDS ORDERED: Metoprolol Tartrate 5 MG/5 ML SDV IVPUSH PRN (05:35)
[2017-05-31] MEDS ORDERED: Metoprolol Tartrate 5 MG/5 ML SDV IVPUSH ONE (05:40)
[2017-05-31] MEDS: guaiFENesin/Dextromethorphan 100-10 MG/5 ML Soln 5 ML Cup PO PRN (06:25)
[2017-05-31] MEDS: Insulin Aspart 100 Units/ML 3 ML Pen SUBCUT SCH ×5 (08:07→21:31)
[2017-05-31] MEDS ORDERED: Doxycycline 100 MG Vial ONE (08:15)
[2017-05-31] MEDS: Magnesium Oxide 400 MG Tab PO SCH ×2 (08:29→20:40)
[2017-05-31] MEDS: Rosuvastatin 10 MG Tab PO SCH (08:30)
[2017-05-31] MEDS: Aspirin 81 MG Tab.EC PO SCH (08:30)
[2017-05-31] MEDS: Metoprolol Tartrate 25 MG Tab PO SCH ×2 (08:30→20:41)
[2017-05-31] MEDS: Citalopram 20 MG Tab PO SCH (08:31)
[2017-05-31] MEDS: guaiFENesin 600 MG Tab.ER PO SCH (08:31)
[2017-05-31] MEDS: Lisinopril 20 MG Tab PO SCH (08:32)
[2017-05-31] MEDS: Doxycycline 100 MG in Sodium Chloride 0.9% 100 ML IV SCH (08:36)
[2017-05-31] MEDS: Budesonide 0.5 MG/2 ML Neb Susp NEB SCH ×2 (08:44→21:45)
[2017-05-31] MEDS: Metoprolol Tartrate 5 MG/5 ML SDV IVPUSH PRN ×2 (11:37→17:59)
[2017-05-31] MEDS ORDERED: guaiFENesin/Dextromethorphan 100-10 MG/5 ML Soln 5 ML Cup PO PRN ×2 (11:57→12:03)
[2017-05-31] MEDS ORDERED: Codeine/Promethazine 10-6.25 MG/5 ML Syrup 5 ML UD Cup PO SCH (12:00)
[2017-05-31] MEDS ORDERED: hydrALAZINE 20 MG/ML SDV IVPUSH PRN (14:17)
[2017-05-31] MEDS ORDERED: Acetaminophen 325 MG Tab PO PRN (14:17)
[2017-05-31] MEDS: Scopolamine 1 MG Transdermal Patch TRDERM PRN (14:29)
--- NOTE | 2017-05-31 14:34 | PCM.PN ---
- General Info Date of Service: 05/31/17 Functional Status: Reports: Urinating - Review of Systems General: Reports: Weakness HEENT: Reports: No Symptoms Pulmonary: Reports: Shortness of Breath Cardiovascular: Reports: No Symptoms Gastrointestinal: Reports: No Symptoms Genitourinary: Reports: No Symptoms Musculoskeletal: Reports: No Symptoms Skin: Reports: No Symptoms Neurological: Reports: No Symptoms Psychiatric: Reports: No Symptoms - Patient Data Vitals - Most Recent: Last Vital Signs Temp 36.3 C 05/31/17 11:30 Pulse 119 H 05/31/17 11:37 Resp 24 H 05/31/17 11:30 BP 160/97 H 05/31/17 11:37 Pulse Ox 95 05/31/17 11:30 Weight - Most Recent: 122.062 kg I&O - Last 24 Hours: Intake & Output 05/30/17 05/31/17 05/31/17 22:59 06:59 14:59 Intake Total 1080 1325 520 Balance 1080 1325 520 Lab Results Last 24 Hours: Laboratory Results - last 24 hr 05/30/17 05/30/17 05/30/17 Range/Units 06:45 06:45 06:45 WBC (3.98-10.04) K/mm3 RBC (3.98-5.22) M/mm3 Hgb (11.2-15.7) gm/L Hct (34.1-44.9) % MCV (79.4-94.8) fl MCH (25.6-32.2) pg MCHC (32.2-35.5) g/dl RDW Std Deviation (36.4-46.3) fL Plt Count (182-369) K/mm3 MPV (9.4-12.3) fl Neut % (Auto) (34.0-71.1) % Lymph % (Auto) (19.3-51.7) % [facility] % (Auto) (4.7-12.5) % Eos % (Auto) (0.7-5.8) Baso % (Auto) (0.1-1.2) % Neut # (Auto) (1.56-6.13) K/mm3 Lymph # (Auto) (1.18-3.74) K/mm3 [facility] # (Auto) (0.24-0.36) K/mm3 Eos # (Auto) (0.04-0.36) K/mm3 Baso # (Auto) (0.01-0.08) K/mm3 Manual Slide Review Sodium (136-145) mEq/L Potassium (3.5-5.1) mEq/L Chloride (98-107) mEq/L Carbon Dioxide (21-32) mEq/L Anion Gap (5-15) BUN (7-18) mg/dL Creatinine (0.55-1.02) mg/dL Est Cr Clr Drug Dosing mL/min Estimated GFR (MDRD) (>60) mL/min BUN/Creatinine Ratio (14-18) Glucose (80-115) mg/dL POC Glucose (80-115) mg/dL Calcium (8.5-10.1) mg/dL Magnesium (1.8-2.4) mg/dl C-Reactive Protein (<1.0) mg/dL FSH 37.9 mIU/mL Luteinizing Hormone 23.2 mIU/mL Prolactin 9.2 ng/mL 05/30/17 05/30/17 05/31/17 Range/Units 17:55 20:53 05:17 WBC (3.98-10.04) K/mm3 RBC (3.98-5.22) M/mm3 Hgb (11.2-15.7) gm/L Hct (34.1-44.9) % MCV (79.4-94.8) fl MCH (25.6-32.2) pg MCHC (32.2-35.5) g/dl RDW Std Deviation (36.4-46.3) fL Plt Count (182-369) K/mm3 MPV (9.4-12.3) fl Neut % (Auto) (34.0-71.1) % Lymph % (Auto) (19.3-51.7) % [facility] % (Auto) (4.7-12.5) % Eos % (Auto) (0.7-5.8) Baso % (Auto) (0.1-1.2) % Neut # (Auto) (1.56-6.13) K/mm3 Lymph # (Auto) (1.18-3.74) K/mm3 [facility] # (Auto) (0.24-0.36) K/mm3 Eos # (Auto) (0.04-0.36) K/mm3 Baso # (Auto) (0.01-0.08) K/mm3 Manual Slide Review Sodium (136-145) mEq/L Potassium (3.5-5.1) mEq/L Chloride (98-107) mEq/L Carbon Dioxide (21-32) mEq/L Anion Gap (5-15) BUN (7-18) mg/dL Creatinine (0.55-1.02) mg/dL Est Cr Clr Drug Dosing mL/min Estimated GFR (MDRD) (>60) mL/min BUN/Creatinine Ratio (14-18) Glucose (80-115) mg/dL POC Glucose 156 H 154 H 137 H (80-115) mg/dL Calcium (8.5-10.1) mg/dL Magnesium (1.8-2.4) mg/dl C-Reactive Protein (<1.0) mg/dL FSH mIU/mL Luteinizing Hormone mIU/mL Prolactin ng/mL 05/31/17 05/31/17 05/31/17 Range/Units 06:16 06:16 10:37 WBC 6.00 (3.98-10.04) K/mm3 RBC 3.28 L (3.98-5.22) M/mm3 Hgb 10.1 L (11.2-15.7) gm/L Hct 30.1 L (34.1-44.9) % MCV 91.8 (79.4-94.8) fl MCH 30.8 (25.6-32.2) pg MCHC 33.6 (32.2-35.5) g/dl RDW Std Deviation 48.2 H (36.4-46.3) fL Plt Count 140 L (182-369) K/mm3 MPV 10.7 (9.4-12.3) fl Neut % (Auto) 62.6 (34.0-71.1) % Lymph % (Auto) 23.3 (19.3-51.7) % [facility] % (Auto) 10.5 (4.7-12.5) % Eos % (Auto) 0.8 (0.7-5.8) Baso % (Auto) 1.8 H (0.1-1.2) % Neut # (Auto) 3.75 (1.56-6.13) K/mm3 Lymph # (Auto) 1.40 (1.18-3.74) K/mm3 [facility] # (Auto) 0.63 H (0.24-0.36) K/mm3 Eos # (Auto) 0.05 (0.04-0.36) K/mm3 Baso # (Auto) 0.11 H (0.01-0.08) K/mm3 Manual Slide Review Abnormal smear Sodium 134 L (136-145) mEq/L Potassium 4.2 (3.5-5.1) mEq/L Chloride 101 (98-107) mEq/L Carbon Dioxide 25 (21-32) mEq/L Anion Gap 12.2 (5-15) BUN 29 H (7-18) mg/dL Creatinine 1.3 H (0.55-1.02) mg/dL Est Cr Clr Drug Dosing 37.79 mL/min Estimated GFR (MDRD) 41 (>60) mL/min BUN/Creatinine Ratio 22.3 H (14-18) Glucose 143 H (80-115) mg/dL POC Glucose 157 H (80-115) mg/dL Calcium 8.4 L (8.5-10.1) mg/dL Magnesium 2.0 (1.8-2.4) mg/dl C-Reactive Protein 16.3 H* (<1.0) mg/dL FSH mIU/mL Luteinizing Hormone mIU/mL Prolactin ng/mL [facility] Results Last 24 Hours: Microbiology 05/29/17 15:15 Aerobic Blood Culture - Preliminary Blood - Venous - Lab Draw NO GROWTH AFTER 1 DAY Anaerobic Blood Culture - Final 05/29/17 15:00 Aerobic Blood Culture - Preliminary Blood - Venous NO GROWTH AFTER 1 DAY Anaerobic Blood Culture - Preliminary NO GROWTH AFTER 1 DAY Med Orders - Current: Current Medications Acetaminophen (Tylenol) 650 mg PO Q4H PRN PRN Reason: Pain/Fever Albuterol/Ipratropium (Duoneb 3.0-0.5 Mg/3 Ml) 3 ml NEB Q6HRRT [facility] Last Admin: 05/31/17 08:44 Dose: 3 ml Aspirin (Halfprin) 81 mg PO DAILY [facility] Last Admin: 05/31/17 08:30 Dose: 81 mg Benzonatate (Tessalon Perles) 100 mg PO TID [facility] Last Admin: 05/31/17 14:20 Dose: 100 mg Budesonide (Pulmicort) 0.5 mg NEB BID [facility] Last Admin: 05/31/17 08:44 Dose: 0.5 mg Buspirone HCl (Buspar) 10 mg PO BID [facility] Citalopram Hydrobromide (Celexa) 20 mg PO DAILY [facility] Last Admin: 05/31/17 08:31 Dose: 20 mg Dextrose/Water (Dextrose 50% In Water) 50 ml IVPUSH ASDIRECTED PRN PRN Reason: Hypotension Doxycycline Hyclate (Vibramycin) 100 mg PO BID [facility] Guaifenesin/Phenylephrine HCl (Robitussin Dm) 10 ml PO Q4H PRN PRN Reason: Cough Hydralazine HCl (Apresoline) 20 mg IVPUSH Q6H PRN PRN Reason: Hypertension Insulin Aspart (Novolog) 0 unit SUBCUT QIDACANDBED [facility] PRN Reason: Protocol Last Admin: 05/31/17 11:41 Dose: 1 unit Lisinopril (Prinivil) 40 mg PO DAILY [facility] Last Admin: 05/31/17 08:32 Dose: 40 mg Lorazepam (Ativan) 1 mg IVPUSH Q8H PRN PRN Reason: Anxiety Last Admin: 05/28/17 22:40 Dose: 1 mg Magnesium Oxide (Magnesium Oxide) 400 mg PO BID [facility] Last Admin: 05/31/17 08:29 Dose: 400 mg Metformin HCl (Glucophage) 500 mg PO BID [facility] Last Admin: 05/29/17 11:23 Dose: 500 mg Methylprednisolone Sodium Succinate (Solu-Medrol) 60 mg IVPUSH Q24H [facility] Metoprolol Tartrate (Lopressor) 5 mg IVPUSH Q4H PRN PRN Reason: Tachycardia Last Admin: 05/31/17 11:37 Dose: 5 mg Metoprolol Tartrate (Lopressor) 25 mg PO BID [facility] Last Admin: 05/31/17 08:30 Dose: 25 mg Morphine Sulfate (Morphine) 1 mg IVPUSH Q4H PRN PRN Reason: Pain Last Admin: 05/29/17 05:25 Dose: 1 mg Nitroglycerin (Nitro-Bid 2%) 0.5 gm TOP Q6H PRN PRN Reason: Chest Pain Last Admin: 05/28/17 22:45 Dose: 0.5 gm Nitroglycerin (Nitrostat) 0.4 mg SL Q5M PRN PRN Reason: Chest Pain Ondansetron HCl (Zofran Odt) 4 mg PO Q6H PRN PRN Reason: nausea, able to take PO Ondansetron HCl (Zofran) 4 mg IV Q6H PRN PRN Reason: Nausea/Vomiting Pantoprazole Sodium (Protonix) 40 mg PO BIDAC [facility] Last Admin: 05/31/17 05:07 Dose: 40 mg Rosuvastatin Calcium (Crestor) 10 mg PO DAILY [facility] Last Admin: 05/31/17 08:30 Dose: 10 mg Scopolamine (Scopolamine) 1 each TRDERM Q72H PRN PRN Reason: dry secretions for cough Last Admin: 05/31/17 14:29 Dose: 1 each Sodium Chloride (Saline Flush) 10 ml FLUSH ASDIRECTED PRN PRN Reason: Keep Vein Open Last Admin: 05/28/17 12:30 Dose: 10 ml Sodium Chloride (Saline Flush) 10 ml FLUSH ASDIRECTED PRN PRN Reason: Keep Vein Open Discontinued Medications Acetaminophen (Tylenol) 975 mg PO NOW ONE Stop: 05/28/17 13:10 Last Admin: 05/28/17 13:25 Dose: 975 mg Acetaminophen (Tylenol) 650 mg PO Q4H PRN PRN Reason: Pain (Mild 1-3)/fever Albuterol/Ipratropium (Duoneb 3.0-0.5 Mg/3 Ml) 3 ml NEB Q4H PRN PRN Reason: Shortness Of Breath/wheezing Benzonatate (Tessalon Perles) 100 mg PO TID PRN PRN Reason: Cough Last Admin: 05/30/17 21:18 Dose: 100 mg Budesonide (Pulmicort) 0.5 mg NEB BIDRT [facility] Last Admin: 05/29/17 21:39 Dose: 0.5 mg Ceftriaxone Sodium (Rocephin) 2 gm IVPUSH Q24H [facility] Doxycycline Hyclate (Vibramycin) Confirm Administered Dose 100 mg .ROUTE .STK- MED ONE Stop: 05/31/17 08:16 Last Admin: 05/31/17 11:56 Dose: Not Given Guaifenesin (Mucinex) 600 mg PO BID [facility] Last Admin: 05/31/17 08:31 Dose: 600 mg Guaifenesin/Phenylephrine HCl (Robitussin Dm) 10 ml PO Q4H PRN PRN Reason: Cough Last Admin: 05/31/17 06:25 Dose: 10 ml Guaifenesin/Phenylephrine HCl (Robitussin Dm) 5 ml PO Q4H PRN PRN Reason: Cough Hydralazine HCl (Apresoline) 10 mg IVPUSH Q6H PRN PRN Reason: Hypertension Sodium Chloride (Normal Saline) 1,000 mls @ 100 mls/hr IV ASDIRECTED [facility] Last Admin: 05/28/17 13:28 Dose: 100 mls/hr Ceftriaxone Sodium 1 gm/ (Sodium Chloride) 100 mls @ 200 mls/hr IV ONETIME ONE Stop: 05/28/17 13:41 Last Admin: 05/28/17 14:17 Dose: Not Given Ceftriaxone Sodium 1 gm/ (Sodium Chloride) 100 mls @ 200 mls/hr IV ONETIME ONE Stop: 05/28/17 13:41 Last Admin: 05/28/17 14:17 Dose: Not Given Ceftriaxone Sodium 2 gm/ (Dextrose/Water) 100 mls @ 200 mls/hr IV ONETIME ONE Stop: 05/28/17 14:44 Last Admin: 05/28/17 14:16 Dose: 200 mls/hr Levofloxacin/Dextrose 750 mg/ (Premix) 150 mls @ 100 mls/hr IV ONETIME ONE Stop: 05/28/17 19:21 Last Admin: 05/28/17 18:47 Dose: 100 mls/hr Sodium Chloride (Normal Saline) 1,000 mls @ 75 mls/hr IV ASDIRECTED [facility] Stop: 05/30/17 08:49 Last Admin: 05/29/17 09:33 Dose: 75 mls/hr Sodium Chloride (Normal Saline) 250 mls @ 999 mls/hr IV .BOLUS ONE Stop: 05/28/17 20:14 Last Admin: 05/28/17 20:09 Dose: 999 mls/hr Sodium Chloride (Normal Saline) 250 mls @ 999 mls/hr IV .BOLUS ONE Stop: 05/28/17 20:41 Last Admin: 05/28/17 20:58 Dose: 999 mls/hr Doxycycline Hyclate 100 mg/ (Sodium Chloride) 100 mls @ 100 mls/hr IV Q12HR [facility] Stop: 05/31/17 10:00 Last Admin: 05/31/17 08:36 Dose: 100 mls/hr Magnesium Sulfate 2 gm/ Premix 50 mls @ 25 mls/hr IV ONETIME ONE Stop: 05/29/17 17:00 Last Admin: 05/29/17 15:28 Dose: 25 mls/hr Sodium Chloride (Normal Saline) 1,000 mls @ 150 mls/hr IV ASDIRECTED [facility] Stop: 05/30/17 03:39 Last Admin: 05/29/17 22:42 Dose: 150 mls/hr Sodium Chloride (Normal Saline) 1,000 mls @ 75 mls/hr IV ASDIRECTED [facility] Stop: 05/31/17 08:19 Last Admin: 05/30/17 18:54 Dose: 75 mls/hr Ibuprofen (Motrin) 600 mg PO Q6H PRN PRN Reason: Pain/Fever Last Admin: 05/30/17 23:40 Dose: 600 mg Methylprednisolone Sodium Succinate (Solu-Medrol) 60 mg IVPUSH Q12H [facility] Last Admin: 05/31/17 05:10 Dose: 60 mg Metoprolol Tartrate (Lopressor) 5 mg IVPUSH ONETIME ONE Stop: 05/31/17 05:41 Last Admin: 05/31/17 05:52 Dose: 5 mg Metoprolol Tartrate (Lopressor) 5 mg IVPUSH Q6H PRN PRN Reason: Tachycardia Mometasone Furoate/Formoterol Fumar (Dulera 100-5 Mcg) 0 puff IH BIDRT [facility] Nitroglycerin (Nitro-Bid 2%) Confirm Administered Dose 1 gm .ROUTE .STK-MED ONE Stop: 05/28/17 22:15 Last Admin: 05/28/17 22:49 Dose: Not Given Ondansetron HCl (Zofran) 4 mg IVPUSH ONETIME ONE Stop: 05/28/17 13:37 Last Admin: 05/28/17 14:13 Dose: 4 mg Oral Electrolytes (Thermotabs) 1 each PO ONETIME ONE Stop: 05/28/17 19:25 Last Admin: 05/28/17 20:06 Dose: 1 each Oral Electrolytes (Thermotabs) 1 each PO ONETIME ONE Stop: 05/29/17 15:01 Last Admin: 05/29/17 15:29 Dose: 1 each Oral Electrolytes (Thermotabs) 1 each PO ONETIME ONE Stop: 05/30/17 17:21 Last Admin: 05/30/17 17:57 Dose: 1 each Promethazine HCl/Codeine (Phenergan With Codeine) 5 ml PO Q6H [facility] Last Admin: 05/31/17 11:41 Dose: 5 ml - Exam Quality Assessment: Supplemental Oxygen, DVT Prophylaxis General: Alert, Oriented, Cooperative HEENT: Pupils Equal, Pupils Reactive, EOMI Neck: Trachea Midline, No JVD Lungs: Normal Respiratory Effort, Decreased Breath Sounds, Rhonchi Cardiovascular: Regular Rate, Irregular Rhythm GI/Abdominal Exam: Normal Bowel Sounds, Soft, Non-Tender, No Organomegaly, No Distention (Female) Exam: Deferred Back Exam: Normal Inspection Extremities: Normal Inspection, Non-Tender Skin: Warm Neurological: No New Focal Deficit Psy/Mental Status: Alert, Depressed - Problem List Review Problem List Initiated/Reviewed/Updated: Yes - My Orders Last 24 Hours: My Active Orders 05/31/17 10:30 EKG 12 Lead [EKG Documentation Completion] [RC] ROUTINE 05/31/17 12:03 Dextromethorphan/guaiFENesin [Robitussin DM] 10 ml PO Q4H PRN 05/31/17 12:06 Scopolamine 1 each TRDERM Q72H PRN 05/31/17 14:17 Acetaminophen [Tylenol] 650 mg PO Q4H PRN hydrALAZINE [Apresoline] 20 mg IVPUSH Q6H PRN 05/31/17 15:00 Benzonatate [Tessalon Perles] 100 mg PO TID 05/31/17 21:00 Doxycycline [Vibramycin] 100 mg PO BID busPIRone [Buspar] 10 mg PO BID 06/02/17 08:00 Echo Comp wo Cont [US] Routine - Plan Plan:: I/P: Acute: Acute febrile illness - no fevers noted today -Ill for last week with cough, fatigue, nausea, chest pain, SOB, headache -Denies fever although temp 103 in ED -UA essentially negative - cultures - no growth after 2 day -CXR, influenza, mycoplasma pneumonia - all negative -Strep pneumo - negative, viral panel pending -No leukocytosis, CRP 5.8-->15.3---26.7>--->16.3 -Blood cultures -to date -Repeat blood cultures ordered today after fever -Lactic acid 1.1 -500ml Fluid bolus infusion -IV fluids as ordered -Motrin for fever -Rocephin started in ED; levaquin given x1 - Switch to doxycycline -Chest, abdomen, pelvis CT today - multiple enlarged lymph nodes - see report -Head and neck CT - senescent change, nothing acute A Fib<--->RVR, IV/Oral Lopressor; Lovenox until anticoagulation decided. [id number]-UBUc is 5--->risk of CVA7.2% yearly COPD Exacerbation -Old records indicate hx/o COPD -Risk factor: smoker -Usually on home O2 at night -hx/o advair rx, has stopped taking -Cough, decreased lung sounds -Duonebs QID -Pulmicort BID -RT to evaluate and treat/IS -Doxycycline as above -Solumedrol 60mg BID--->60 mg Q 24H -Mucinex, Tessalon Perles, Robitussin Hyponatremia -Sodium 129-->132-->134 -Family reports poor hydration and oral intake for past few days -AMS which fluctuates with fever severity - resolved -Thermotabs as needed -IV fluids as ordered -Monitor AM labs Tobacco use disorder -Family reports patient smokes 3 cigarettes a day usually -Has not smoked for past 3 days -Offered nicotine patch and patient refused -Will counselor at law on smoking cessation Renal insufficiency -Unsure of baseline although last visit creatinine was 1.3 and eGFR was 41 -Family reports poor fluid intake over last several days -BUN 24-->30 -Creatinine 1.5-->1.4-->1.6 -eGFR 35-->38-->32 -IV fluids as ordered -Avoid nephrotoxic medications - hold metformin Chest pain, resolved -Negative EKG in ED and on floor -Negative troponin and CK-MB in ED -Nitroglycerine as ordered -Likely 2/2 above UTI - negative -Doubtful -Bacteria noted in UA but negative WBC, leuk esterase, nitrite -Urine cultures -no growth after 2 day -No urinary symptoms Lymphadenopathy -Hx/o enlarged lymphnodes in axillary region with negative biopsy -See chest/abdomen/pelvis CT for full report -Heme/Oncology consult outpatient Depression/Anxiety--Buspar 10 mg BID Chronic: CAD HLD HTN - home meds, PRN hydralizine and BB Asthma - duonebs PRN GERD - Home PPI IBS Colitis Chronic neck pain 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 scheduled with Dr. Díaz (oncology) and Dr. Posada (internal med ) Code status: DNR/DNI; PCP: None locally- needs to establish LOS>96 hours with modest response to treatment; AFib noted treated with IV/PO beta blockers
[2017-05-31] MEDS ORDERED: Benzonatate 100 MG Cap PO SCH (15:00)
[2017-05-31] MEDS: Enoxaparin 120 MG/0.8 ML Syringe SUBCUT SCH (16:22)
--- NOTE | 2017-05-31 18:46 | PCM.SN ---
- Free Text/Narrative Note: Discussed with patient and her daughter, Heena anticoagulation for A Fib. They have decided on coumadin, they are aware that she will require Lovenox at DC too. The final decision of anticoagulation will be made with the help of Dr Micheal Martel after discharge.
[2017-05-31] MEDS: busPIRone 5 MG Tab PO SCH (20:38)
[2017-05-31] MEDS: Codeine/Promethazine 10-6.25 MG/5 ML Syrup 5 ML UD Cup PO SCH (20:38)
[2017-05-31] MEDS: Doxycycline 100 MG Cap PO SCH (20:40)
[2017-05-31] MEDS: Benzonatate 100 MG Cap PO PRN (21:36)
[2017-06-01] MEDS: Codeine/Promethazine 10-6.25 MG/5 ML Syrup 5 ML UD Cup PO SCH ×4 (00:32→18:47)
[2017-06-01] MEDS: Albuterol/Ipratropium 3.0-0.5 MG/3 ML Neb Soln NEB SCH ×3 (02:31→15:18)
[2017-06-01] MEDS: Pantoprazole 40 MG Tab.CR PO SCH ×2 (05:03→15:13)
[2017-06-01] MEDS: Benzonatate 100 MG Cap PO PRN ×3 (05:08→14:24)
[2017-06-01] MEDS ORDERED: methylPREDNISolone Sodium Succinate 40 MG/1 ML SDV IVPUSH SCH (06:00)
[2017-06-01] MEDS: Insulin Aspart 100 Units/ML 3 ML Pen SUBCUT SCH ×4 (06:16→21:44)
--- NOTE | 2017-06-01 08:10 | PCM.PN ---
- General Info Date of Service: 06/01/17 Admission Dx/Problem (Free Text): Admission Diagnosis/Problem Admission Diagnosis/Problem UTI (urinary tract infection), uncomplicated Subjective Update: Follow Up Functional Status: Reports: Pain Controlled, Tolerating Diet, Ambulating, Urinating. Denies: New Symptoms - Review of Systems General: Reports: Fatigue. Denies: Fever, Weakness, Malaise, Chills HEENT: Reports: No Symptoms Pulmonary: Reports: Shortness of Breath, Cough. Denies: Pleuritic Chest Pain, Sputum, Wheezing Cardiovascular: Denies: Chest Pain, Palpitations, Dyspnea on Exertion, Lightheadedness Gastrointestinal: Reports: Flatus. Denies: Abdominal Pain, Constipation, Decreased Appetite, Diarrhea, Difficulty Swallowing, Nausea, Vomiting Genitourinary: Reports: No Symptoms Musculoskeletal: Reports: No Symptoms Skin: Denies: Cyanosis, Mottled, Pallor, Diaphoresis, Pruritis, Rash Neurological: Denies: Confusion, Difficulty Walking, Weakness, Gait Disturbance Psychiatric: Denies: Depression, Anxiety, Agitation, Hallucinations Systems Review Comment:: No significant overnight or acute issues. She did not slept well last night. She could not get comfortable. She still continues to cough a lot. She is also been observed having issues with fluid or taking in her pills. Her Mg level is 1.7. She is afebrile w/o leukocytosis. - Patient Data Vitals - Most Recent: Last Vital Signs Temp 36.6 C 06/01/17 05:07 Pulse 107 H 06/01/17 05:10 Resp 20 06/01/17 05:07 BP 137/81 06/01/17 05:07 Pulse Ox 94 L 06/01/17 05:10 Weight - Most Recent: 123.604 kg I&O - Last 24 Hours: Intake & Output 05/31/17 06/01/17 06/01/17 22:59 06:59 14:59 Intake Total 900 400 Balance 900 400 Lab Results Last 24 Hours: Laboratory Results - last 24 hr 05/31/17 05/31/17 05/31/17 Range/Units 10:37 16:04 19:09 WBC (3.98-10.04) K/mm3 RBC (3.98-5.22) M/mm3 Hgb (11.2-15.7) gm/L Hct (34.1-44.9) % MCV (79.4-94.8) fl MCH (25.6-32.2) pg MCHC (32.2-35.5) g/dl RDW Std Deviation (36.4-46.3) fL Plt Count (182-369) K/mm3 MPV (9.4-12.3) fl Neut % (Auto) (34.0-71.1) % Lymph % (Auto) (19.3-51.7) % [place] % (Auto) (4.7-12.5) % Eos % (Auto) (0.7-5.8) Baso % (Auto) (0.1-1.2) % Neut # (Auto) (1.56-6.13) K/mm3 Lymph # (Auto) (1.18-3.74) K/mm3 [place] # (Auto) (0.24-0.36) K/mm3 Eos # (Auto) (0.04-0.36) K/mm3 Baso # (Auto) (0.01-0.08) K/mm3 Manual Slide Review PT 10.5 (8.0-13.0) SECONDS INR 0.97 Sodium (136-145) mEq/L Potassium (3.5-5.1) mEq/L Chloride (98-107) mEq/L Carbon Dioxide (21-32) mEq/L Anion Gap (5-15) BUN (7-18) mg/dL Creatinine (0.55-1.02) mg/dL Est Cr Clr Drug Dosing mL/min Estimated GFR (MDRD) (>60) mL/min BUN/Creatinine Ratio (14-18) Glucose (80-115) mg/dL POC Glucose 157 H 154 H (80-115) mg/dL Calcium (8.5-10.1) mg/dL Magnesium (1.8-2.4) mg/dl C-Reactive Protein (<1.0) mg/dL 05/31/17 06/01/17 06/01/17 Range/Units 20:41 05:33 05:33 WBC 9.24 (3.98-10.04) K/mm3 RBC 3.34 L (3.98-5.22) M/mm3 Hgb 10.2 L (11.2-15.7) gm/L Hct 30.9 L (34.1-44.9) % MCV 92.5 (79.4-94.8) fl MCH 30.5 (25.6-32.2) pg MCHC 33.0 (32.2-35.5) g/dl RDW Std Deviation 49.4 H (36.4-46.3) fL Plt Count 168 L (182-369) K/mm3 MPV 10.3 (9.4-12.3) fl Neut % (Auto) 36.2 (34.0-71.1) % Lymph % (Auto) 51.4 (19.3-51.7) % [place] % (Auto) 8.1 (4.7-12.5) % Eos % (Auto) 0.8 (0.7-5.8) Baso % (Auto) 2.5 H (0.1-1.2) % Neut # (Auto) 3.35 (1.56-6.13) K/mm3 Lymph # (Auto) 4.75 H (1.18-3.74) K/mm3 [place] # (Auto) 0.75 H (0.24-0.36) K/mm3 Eos # (Auto) 0.07 (0.04-0.36) K/mm3 Baso # (Auto) 0.23 H (0.01-0.08) K/mm3 Manual Slide Review Abnormal smear PT (8.0-13.0) SECONDS INR Sodium 134 L (136-145) mEq/L Potassium 4.2 (3.5-5.1) mEq/L Chloride 102 (98-107) mEq/L Carbon Dioxide 22 (21-32) mEq/L Anion Gap 14.2 (5-15) BUN 27 H (7-18) mg/dL Creatinine 1.2 H (0.55-1.02) mg/dL Est Cr Clr Drug Dosing 40.94 mL/min Estimated GFR (MDRD) 45 (>60) mL/min BUN/Creatinine Ratio 22.5 H (14-18) Glucose 101 (80-115) mg/dL POC Glucose 153 H (80-115) mg/dL Calcium 8.4 L (8.5-10.1) mg/dL Magnesium 1.7 L (1.8-2.4) mg/dl C-Reactive Protein 8.7 H* (<1.0) mg/dL 06/01/17 Range/Units 06:12 WBC (3.98-10.04) K/mm3 RBC (3.98-5.22) M/mm3 Hgb (11.2-15.7) gm/L Hct (34.1-44.9) % MCV (79.4-94.8) fl MCH (25.6-32.2) pg MCHC (32.2-35.5) g/dl RDW Std Deviation (36.4-46.3) fL Plt Count (182-369) K/mm3 MPV (9.4-12.3) fl Neut % (Auto) (34.0-71.1) % Lymph % (Auto) (19.3-51.7) % [place] % (Auto) (4.7-12.5) % Eos % (Auto) (0.7-5.8) Baso % (Auto) (0.1-1.2) % Neut # (Auto) (1.56-6.13) K/mm3 Lymph # (Auto) (1.18-3.74) K/mm3 [place] # (Auto) (0.24-0.36) K/mm3 Eos # (Auto) (0.04-0.36) K/mm3 Baso # (Auto) (0.01-0.08) K/mm3 Manual Slide Review PT (8.0-13.0) SECONDS INR Sodium (136-145) mEq/L Potassium (3.5-5.1) mEq/L Chloride (98-107) mEq/L Carbon Dioxide (21-32) mEq/L Anion Gap (5-15) BUN (7-18) mg/dL Creatinine (0.55-1.02) mg/dL Est Cr Clr Drug Dosing mL/min Estimated GFR (MDRD) (>60) mL/min BUN/Creatinine Ratio (14-18) Glucose (80-115) mg/dL POC Glucose 99 (80-115) mg/dL Calcium (8.5-10.1) mg/dL Magnesium (1.8-2.4) mg/dl C-Reactive Protein (<1.0) mg/dL [place] Results Last 24 Hours: Microbiology 05/29/17 15:15 Aerobic Blood Culture - Preliminary Blood - Venous - Lab Draw NO GROWTH AFTER 2 DAYS Anaerobic Blood Culture - Final 05/29/17 15:00 Aerobic Blood Culture - Preliminary Blood - Venous NO GROWTH AFTER 2 DAYS Anaerobic Blood Culture - Preliminary NO GROWTH AFTER 2 DAYS Med Orders - Current: Current Medications Acetaminophen (Tylenol) 650 mg PO Q4H PRN PRN Reason: Pain/Fever Albuterol/Ipratropium (Duoneb 3.0-0.5 Mg/3 Ml) 3 ml NEB Q6HRRT [facility] Last Admin: 06/01/17 02:31 Dose: Not Given Aspirin (Halfprin) 81 mg PO DAILY [facility] Last Admin: 05/31/17 08:30 Dose: 81 mg Benzonatate (Tessalon Perles) 200 mg PO TID PRN PRN Reason: Cough Last Admin: 06/01/17 05:08 Dose: 200 mg Budesonide (Pulmicort) 0.5 mg NEB BID [facility] Last Admin: 05/31/17 21:45 Dose: Not Given Buspirone HCl (Buspar) 10 mg PO BID [facility] Last Admin: 05/31/17 20:38 Dose: 10 mg Citalopram Hydrobromide (Celexa) 20 mg PO DAILY [facility] Last Admin: 05/31/17 08:31 Dose: 20 mg Dextrose/Water (Dextrose 50% In Water) 50 ml IVPUSH ASDIRECTED PRN PRN Reason: Hypotension Doxycycline Hyclate (Vibramycin) 100 mg PO BID [facility] Last Admin: 05/31/17 20:40 Dose: 100 mg Enoxaparin Sodium (Lovenox) 120 mg SUBCUT DAILY [facility] Last Admin: 05/31/17 16:22 Dose: 120 mg Hydralazine HCl (Apresoline) 20 mg IVPUSH Q6H PRN PRN Reason: Hypertension Insulin Aspart (Novolog) 0 unit SUBCUT QIDACANDBED [facility] PRN Reason: Protocol Last Admin: 06/01/17 06:16 Dose: Not Given Lisinopril (Prinivil) 40 mg PO DAILY [facility] Last Admin: 05/31/17 08:32 Dose: 40 mg Lorazepam (Ativan) 1 mg IVPUSH Q8H PRN PRN Reason: Anxiety Last Admin: 05/28/17 22:40 Dose: 1 mg Magnesium Oxide (Magnesium Oxide) 400 mg PO BID [facility] Last Admin: 05/31/17 20:40 Dose: 400 mg Metformin HCl (Glucophage) 500 mg PO BID [facility] Last Admin: 05/29/17 11:23 Dose: 500 mg Methylprednisolone Sodium Succinate (Solu-Medrol) 60 mg IVPUSH Q24H [facility] Last Admin: 06/01/17 05:04 Dose: 60 mg Metoprolol Tartrate (Lopressor) 5 mg IVPUSH Q4H PRN PRN Reason: Tachycardia Last Admin: 05/31/17 17:59 Dose: 5 mg Metoprolol Tartrate (Lopressor) 25 mg PO TID [facility] Last Admin: 05/31/17 20:41 Dose: 25 mg Morphine Sulfate (Morphine) 1 mg IVPUSH Q4H PRN PRN Reason: Pain Last Admin: 05/29/17 05:25 Dose: 1 mg Nitroglycerin (Nitro-Bid 2%) 0.5 gm TOP Q6H PRN PRN Reason: Chest Pain Last Admin: 05/28/17 22:45 Dose: 0.5 gm Nitroglycerin (Nitrostat) 0.4 mg SL Q5M PRN PRN Reason: Chest Pain Ondansetron HCl (Zofran Odt) 4 mg PO Q6H PRN PRN Reason: nausea, able to take PO Ondansetron HCl (Zofran) 4 mg IV Q6H PRN PRN Reason: Nausea/Vomiting [facility]: 06/01/17 05:03 Dose: 40 mg Promethazine HCl/Codeine (Phenergan With Codeine) 15 ml PO Q6HR [facility] Last Admin: 06/01/17 05:05 Dose: 5 ml Rosuvastatin Calcium (Crestor) 10 mg PO DAILY [facility] Last Admin: 05/31/17 08:30 Dose: 10 mg Scopolamine (Scopolamine) 1 each TRDERM Q72H PRN PRN Reason: dry secretions for cough Last Admin: 05/31/17 14:29 Dose: 1 each Sodium Chloride (Saline Flush) 10 ml FLUSH ASDIRECTED PRN PRN Reason: Keep Vein Open Last Admin: 05/28/17 12:30 Dose: 10 ml Sodium Chloride (Saline Flush) 10 ml FLUSH ASDIRECTED PRN PRN Reason: Keep Vein Open Warfarin Sodium (Coumadin) 5 mg PO ONETIME ONE Stop: 06/01/17 18:01 Discontinued Medications Acetaminophen (Tylenol) 975 mg PO NOW ONE Stop: 05/28/17 13:10 Last Admin: 05/28/17 13:25 Dose: 975 mg Acetaminophen (Tylenol) 650 mg PO Q4H PRN PRN Reason: Pain (Mild 1-3)/fever Albuterol/Ipratropium (Duoneb 3.0-0.5 Mg/3 Ml) 3 ml NEB Q4H PRN PRN Reason: Shortness Of Breath/wheezing Benzonatate (Tessalon Perles) 100 mg PO TID PRN PRN Reason: Cough Last Admin: 05/30/17 21:18 Dose: 100 mg Benzonatate (Tessalon Perles) 100 mg PO TID [facility] Last Admin: 05/31/17 14:20 Dose: 100 mg Budesonide (Pulmicort) 0.5 mg NEB BIDRT [facility] Last Admin: 05/29/17 21:39 Dose: 0.5 mg Ceftriaxone Sodium (Rocephin) 2 gm IVPUSH Q24H [facility] Doxycycline Hyclate (Vibramycin) Confirm Administered Dose 100 mg .ROUTE .STK- MED ONE Stop: 05/31/17 08:16 Last Admin: 05/31/17 11:56 Dose: Not Given Guaifenesin (Mucinex) 600 mg PO BID [facility] Last Admin: 05/31/17 08:31 Dose: 600 mg Guaifenesin/Phenylephrine HCl (Robitussin Dm) 10 ml PO Q4H PRN PRN Reason: Cough Last Admin: 05/31/17 06:25 Dose: 10 ml Guaifenesin/Phenylephrine HCl (Robitussin Dm) 5 ml PO Q4H PRN PRN Reason: Cough Guaifenesin/Phenylephrine HCl (Robitussin Dm) 10 ml PO Q4H PRN PRN Reason: Cough Last Admin: 05/31/17 17:59 Dose: 10 ml Hydralazine HCl (Apresoline) 10 mg IVPUSH Q6H PRN PRN Reason: Hypertension Sodium Chloride (Normal Saline) 1,000 mls @ 100 mls/hr IV ASDIRECTED [facility] Last Admin: 05/28/17 13:28 Dose: 100 mls/hr Ceftriaxone Sodium 1 gm/ (Sodium Chloride) 100 mls @ 200 mls/hr IV ONETIME ONE Stop: 05/28/17 13:41 Last Admin: 05/28/17 14:17 Dose: Not Given Ceftriaxone Sodium 1 gm/ (Sodium Chloride) 100 mls @ 200 mls/hr IV ONETIME ONE Stop: 05/28/17 13:41 Last Admin: 05/28/17 14:17 Dose: Not Given Ceftriaxone Sodium 2 gm/ (Dextrose/Water) 100 mls @ 200 mls/hr IV ONETIME ONE Stop: 05/28/17 14:44 Last Admin: 05/28/17 14:16 Dose: 200 mls/hr Levofloxacin/Dextrose 750 mg/ (Premix) 150 mls @ 100 mls/hr IV ONETIME ONE Stop: 05/28/17 19:21 Last Admin: 05/28/17 18:47 Dose: 100 mls/hr Sodium Chloride (Normal Saline) 1,000 mls @ 75 mls/hr IV ASDIRECTED [facility] Stop: 05/30/17 08:49 Last Admin: 05/29/17 09:33 Dose: 75 mls/hr Sodium Chloride (Normal Saline) 250 mls @ 999 mls/hr IV .BOLUS ONE Stop: 05/28/17 20:14 Last Admin: 05/28/17 20:09 Dose: 999 mls/hr Sodium Chloride (Normal Saline) 250 mls @ 999 mls/hr IV .BOLUS ONE Stop: 05/28/17 20:41 Last Admin: 05/28/17 20:58 Dose: 999 mls/hr Doxycycline Hyclate 100 mg/ (Sodium Chloride) 100 mls @ 100 mls/hr IV Q12HR [facility] Stop: 05/31/17 10:00 Last Admin: 05/31/17 08:36 Dose: 100 mls/hr Magnesium Sulfate 2 gm/ Premix 50 mls @ 25 mls/hr IV ONETIME ONE Stop: 05/29/17 17:00 Last Admin: 05/29/17 15:28 Dose: 25 mls/hr Sodium Chloride (Normal Saline) 1,000 mls @ 150 mls/hr IV ASDIRECTED [facility] Stop: 05/30/17 03:39 Last Admin: 05/29/17 22:42 Dose: 150 mls/hr Sodium Chloride (Normal Saline) 1,000 mls @ 75 mls/hr IV ASDIRECTED [facility] Stop: 05/31/17 08:19 Last Admin: 05/30/17 18:54 Dose: 75 mls/hr Ibuprofen (Motrin) 600 mg PO Q6H PRN PRN Reason: Pain/Fever Last Admin: 05/30/17 23:40 Dose: 600 mg Methylprednisolone Sodium Succinate (Solu-Medrol) 60 mg IVPUSH Q12H [facility] Last Admin: 05/31/17 05:10 Dose: 60 mg Metoprolol Tartrate (Lopressor) 25 mg PO BID [facility] Last Admin: 05/31/17 08:30 Dose: 25 mg Metoprolol Tartrate (Lopressor) 5 mg IVPUSH ONETIME ONE Stop: 05/31/17 05:41 Last Admin: 05/31/17 05:52 Dose: 5 mg Metoprolol Tartrate (Lopressor) 5 mg IVPUSH Q6H PRN PRN Reason: Tachycardia Mometasone Furoate/Formoterol Fumar (Dulera 100-5 Mcg) 0 puff IH BIDRT [facility] Nitroglycerin (Nitro-Bid 2%) Confirm Administered Dose 1 gm .ROUTE .STK-MED ONE Stop: 05/28/17 22:15 Last Admin: 05/28/17 22:49 Dose: Not Given Ondansetron HCl (Zofran) 4 mg IVPUSH ONETIME ONE Stop: 05/28/17 13:37 Last Admin: 05/28/17 14:13 Dose: 4 mg Oral Electrolytes (Thermotabs) 1 each PO ONETIME ONE Stop: 05/28/17 19:25 Last Admin: 05/28/17 20:06 Dose: 1 each Oral Electrolytes (Thermotabs) 1 each PO ONETIME ONE Stop: 05/29/17 15:01 Last Admin: 05/29/17 15:29 Dose: 1 each Oral Electrolytes (Thermotabs) 1 each PO ONETIME ONE Stop: 05/30/17 17:21 Last Admin: 05/30/17 17:57 Dose: 1 each Promethazine HCl/Codeine (Phenergan With Codeine) 5 ml PO Q6H [facility] Last Admin: 05/31/17 11:41 Dose: 5 ml - Exam Quality Assessment: Supplemental Oxygen General: Alert, Oriented, Cooperative, No Acute Distress, Other ([place] Obese ; looks tired and exhausted) HEENT: Pupils Equal, Pupils Reactive, EOMI, Other (Facial redness) Neck: Supple, Trachea Midline, No JVD, No Thyromegaly, Other (short and thick). No: Thyromegaly Lungs: Normal Respiratory Effort, Decreased Breath Sounds, Rhonchi Cardiovascular: Irregular Rhythm GI/Abdominal Exam: Normal Bowel Sounds, Soft, Non-Tender, No Organomegaly, No Distention, No Abnormal Bruit, No Mass, Other (Obese) (Female) Exam: Deferred Back Exam: Normal Inspection, Decreased Range of Motion Extremities: Normal Inspection, Normal Range of Motion, Non-Tender, No Pedal Edema, Normal Capillary Refill Peripheral Pulses: 2+: Dorsalis Pedis (L), Dorsalis Pedis (R) Skin: Warm, Dry, Intact Neurological: No New Focal Deficit, Other (baseline LUE hemiparesis) Psy/Mental Status: Alert, Normal Affect, Normal Mood. No: Withdrawal Symptoms - Problem List Review Problem List Initiated/Reviewed/Updated: Yes - Plan Plan:: I/P: Acute: New Onset of Atrial Fibrillation -S/p RVR -HR not well controlled; INR is at 0.94 -On Metoprolol Tartrate 25 mg po TID and PRN Metoprolol 5mg IVP Q4H -She is currently lovenox/warfarin for anticoagulation -[id number] is 5--->risk of CVA7.2% yearly -Changed MT to 50 mg po BID and d/c PRN MT -Daily INR -Add PRN Cardizem 10 mg IVP Q6H for HR > 110 COPD Exacerbation -Old records indicate hx/o COPD -Risk factor: smoker -Usually on home O2 at night -Hx/o advair rx, has stopped taking -Cough, decreased lung sounds with occasional wheezing and mild ronchi -Continue Duonebs QID and Pulmicort BID -RT to evaluate and treat/IS -Doxycycline as above to finish off at 2100 tonight then d/c; will start Azithromycin in AM -Solumedrol 60mg BID---> Prednisone 60 mg po today--> 40 mg po daily to start in AM -Continue Mucinex, Tessalon Perles, Robitussin -Sputum, Influenza, Respiratory Viral Panel, Mycoplasma and Strep pneumonia- all negative Hyponatremia, Improved -Sodium 129-->132-->134 -Likely from SSRI (Citalopram) and Pulmonary Insufficiency -Family reports poor hydration and oral intake for past few days -Continue Thermotabs -IV fluids as ordered -Monitor AM labs Tobacco Use Disorder -Family reports patient smokes 3 cigarettes a day usually -Has not smoked for past 3 days -Offered nicotine patch and patient refused -Counseled on smoking cessation Lymphadenopathy -Hx/o enlarged lymph nodes in axillary region with negative biopsy -See chest/abdomen/pelvis CT for full report -Heme/Oncology consult outpatient 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 -BMI is 45.5 -Will screen with [facility] -May need sleep study outpatient -Counseled on LSM Hypomagnesemia -2/2 inadequate intake -Mg is 1.7 -Pharmacy to replete and monitor Dacia's Syndrome -Meets criteria: Dia Facies (rounded) and flushed, Fatty or [place] hump, Abdominal Striae, Glucose Intolerance/DM2 (A1C is 6.10-normal), Truncal Obesity, HTN, and Hair Loss -Loss of muscle mass and strength -Head CT Scan: benign; consider Brain MRI to r/o Dacia's Disease -Cortisol and ACTH level -Solumedrol --> switch to Prednisone: goal to come off steroid -She needs DEXA scan to r/o osteoporosis Resolved: S/p Acute Febrile Illness -Ill for last week with cough, fatigue, nausea, chest pain, SOB, headache -Denies fever although temp 103 in ED -UA essentially negative - cultures - no growth after 2 day -CXR, influenza, mycoplasma pneumonia - all negative -Strep pneumo - negative, viral panel pending -No leukocytosis, CRP 5.8-->15.3---26.7>--->16.3 -Blood cultures -to date -Repeat blood cultures ordered today after fever -Lactic acid 1.1 -500ml Fluid bolus infusion -IV fluids as ordered -Motrin for fever -Rocephin started in ED; levaquin given x1 - Switch to doxycycline -Chest, abdomen, pelvis CT today - multiple enlarged lymph nodes - see report -Head and neck CT - senescent change, nothing acute Renal Insufficiency -This is chronic with stable GFR -Unsure of baseline although last visit creatinine was 1.3 and eGFR was 41 -Family reports poor fluid intake over last several days -BUN 24-->30 -Creatinine 1.5-->1.4-->1.6 -eGFR 35-->38-->32 -IV fluids as ordered -Avoid nephrotoxic medications - hold metformin Chest Pain -Negative EKG in ED and on floor -Negative troponin and CK-MB in ED -Nitroglycerine as ordered -Likely 2/2 above Chronic: CAD HLD HTN - home meds, PRN hydralazine and BB Asthma - duonebs PRN GERD - Home PPI IBS Colitis CKD Stage 3, Stable Neck pain 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 scheduled with Dr. Díaz (oncology) and Dr. Posada (internal med ) Code status: DNR/DNI; PCP: None locally- needs to establish LOS > 96 hours with modest response to treatment
[2017-06-01] MEDS: Budesonide 0.5 MG/2 ML Neb Susp NEB SCH ×2 (08:59→21:02)
[2017-06-01] MEDS: Enoxaparin 120 MG/0.8 ML Syringe SUBCUT SCH (09:14)
[2017-06-01] MEDS: Morphine 2 MG/ML Syringe IVPUSH PRN ×2 (09:14→15:12)
[2017-06-01] MEDS: busPIRone 5 MG Tab PO SCH ×2 (09:16→21:07)
[2017-06-01] MEDS: Magnesium Oxide 400 MG Tab PO SCH ×2 (09:17→21:05)
[2017-06-01] MEDS: Metoprolol Tartrate 25 MG Tab PO SCH ×3 (09:17→21:07)
[2017-06-01] MEDS: Aspirin 81 MG Tab.EC PO SCH (09:17)
[2017-06-01] MEDS: Citalopram 20 MG Tab PO SCH (09:17)
[2017-06-01] MEDS: Metoprolol Tartrate 5 MG/5 ML SDV IVPUSH PRN ×2 (09:18→15:25)
[2017-06-01] MEDS: Lisinopril 20 MG Tab PO SCH (09:21)
[2017-06-01] MEDS: Doxycycline 100 MG Cap PO SCH ×2 (09:21→21:06)
[2017-06-01] MEDS: Rosuvastatin 10 MG Tab PO SCH (09:22)
[2017-06-01] MEDS: LORazepam 2 MG/ML MDV IVPUSH PRN (15:12)
[2017-06-01] MEDS ORDERED: Warfarin 5 MG Tab PO ONE (18:00)
--- NOTE | 2017-06-01 18:14 | PCM.SN ---
- Free Text/Narrative Note: HR is not well controlled. She runs on and off in the 120s. She is on Metoprolol Tartrate 25 mg po TID and also getting routine albuterol treatment. Will d/c PRN Metoprolol and change scheduled Metorpolol Tartrate to 50 mg po BID and start PRN Cardizem 10 mg IVP Q6 for HR > 110.
[2017-06-01] MEDS ORDERED: Warfarin 5 MG Tab PO SCH (21:00)
[2017-06-01] MEDS: Levalbuterol HCl 1.25 MG/3 ML Neb NEB SCH (21:02)
[2017-06-01] MEDS: Diltiazem 25 MG/5 ML SDV IVPUSH PRN (22:48)
[2017-06-02] MEDS: Codeine/Promethazine 10-6.25 MG/5 ML Syrup 5 ML UD Cup PO SCH ×2 (00:54→06:05)
[2017-06-02] MEDS: Levalbuterol HCl 1.25 MG/3 ML Neb NEB SCH ×4 (03:06→21:53)
[2017-06-02] MEDS: Diltiazem 25 MG/5 ML SDV IVPUSH PRN ×3 (04:33→20:38)
[2017-06-02] MEDS: Pantoprazole 40 MG Tab.CR PO SCH ×2 (06:04→15:30)
[2017-06-02] MEDS: Insulin Aspart 100 Units/ML 3 ML Pen SUBCUT SCH ×4 (06:35→21:11)
[2017-06-02] MEDS: Azithromycin 500 MG in Sodium Chloride 0.9% 250 ML IV SCH (08:27)
[2017-06-02] MEDS: Enoxaparin 120 MG/0.8 ML Syringe SUBCUT SCH (08:28)
[2017-06-02] MEDS: Citalopram 20 MG Tab PO SCH (08:28)
[2017-06-02] MEDS: Rosuvastatin 10 MG Tab PO SCH (08:28)
[2017-06-02] MEDS: Aspirin 81 MG Tab.EC PO SCH (08:28)
[2017-06-02] MEDS: Metoprolol Tartrate 25 MG Tab PO SCH ×3 (08:28→20:51)
[2017-06-02] MEDS: Magnesium Oxide 400 MG Tab PO SCH ×2 (08:28→20:50)
[2017-06-02] MEDS: predniSONE 20 MG Tab PO SCH (08:29)
[2017-06-02] MEDS: Lisinopril 20 MG Tab PO SCH (08:29)
[2017-06-02] MEDS: Benzonatate 100 MG Cap PO PRN (08:50)
[2017-06-02] MEDS ORDERED: predniSONE 20 MG Tab PO SCH (09:00)
[2017-06-02] MEDS: Budesonide 0.5 MG/2 ML Neb Susp NEB SCH ×2 (10:08→21:53)
[2017-06-02] MEDS ORDERED: Codeine/Promethazine 10-6.25 MG/5 ML Syrup 5 ML UD Cup PO PRN (11:15)
--- NOTE | 2017-06-02 11:27 | PCM.SN ---
- Free Text/Narrative Note: 06-02-17 Start- 1110 End 1120 IV start on med surg Called to med surg for difficult iv start. Site cleansed with chloraprep. 1% lido used to make a skin wheel. A 20ga 1.88" IV catheter was placed in right anterior forearm with ultrasound guidance. +blood return and flushed with ease. Patient tolerated procedure well. Report to RN. Frank Maldonado [employer]
--- NOTE | 2017-06-02 11:30 | PCM.PN ---
- General Info Date of Service: 06/02/17 Admission Dx/Problem (Free Text): Admission Diagnosis/Problem Admission Diagnosis/Problem UTI (urinary tract infection), uncomplicated Subjective Update: Follow Up Functional Status: Reports: Pain Controlled, Tolerating Diet, Ambulating, Urinating. Denies: New Symptoms - Review of Systems General: Denies: Fever, Weakness, Fatigue, Malaise, Chills HEENT: Reports: No Symptoms Pulmonary: Reports: Cough. Denies: Shortness of Breath, Pleuritic Chest Pain, Wheezing Cardiovascular: Denies: Chest Pain, Palpitations, Dyspnea on Exertion, Edema, Lightheadedness Gastrointestinal: Denies: Abdominal Pain, Nausea, Vomiting Genitourinary: Reports: No Symptoms Musculoskeletal: Reports: No Symptoms Skin: Denies: Cyanosis, Mottled, Pallor, Diaphoresis Neurological: Denies: Confusion, Difficulty Walking, Weakness, Gait Disturbance Psychiatric: Denies: Depression, Anxiety, Agitation, Hallucinations Systems Review Comment:: No significant overnight or acute issues. She is essentially the same as yesterday. She reports now new complaints. Her HR still not well controlled. - Patient Data Vitals - Most Recent: Last Vital Signs Temp 36.7 C 06/02/17 07:24 Pulse 122 H 06/02/17 08:28 Resp 18 06/02/17 07:24 BP 128/76 06/02/17 08:29 Pulse Ox 95 06/02/17 10:17 Weight - Most Recent: 124.42 kg I&O - Last 24 Hours: Intake & Output 06/01/17 06/02/17 06/02/17 22:59 06:59 14:59 Intake Total 1640 720 600 Output Total 1250 Balance 390 720 600 Lab Results Last 24 Hours: Laboratory Results - last 24 hr 06/01/17 06/01/17 06/01/17 Range/Units 11:28 17:27 21:24 PT (8.0-13.0) SECONDS INR POC Glucose 136 H 148 H 120 H (80-115) mg/dL 06/02/17 06/02/17 06/02/17 Range/Units 06:07 06:28 11:03 PT 11.1 (8.0-13.0) SECONDS INR 1.02 POC Glucose 97 97 (80-115) mg/dL [place] Results Last 24 Hours: Microbiology 05/29/17 15:15 Aerobic Blood Culture - Preliminary Blood - Venous - Lab Draw NO GROWTH AFTER 3 DAYS Anaerobic Blood Culture - Final 05/29/17 15:00 Aerobic Blood Culture - Preliminary Blood - Venous NO GROWTH AFTER 3 DAYS Anaerobic Blood Culture - Preliminary NO GROWTH AFTER 3 DAYS Med Orders - Current: Current Medications Acetaminophen (Tylenol) 650 mg PO Q4H PRN PRN Reason: Pain/Fever Aspirin (Halfprin) 81 mg PO DAILY [facility] Last Admin: 06/02/17 08:28 Dose: 81 mg Benzonatate (Tessalon Perles) 200 mg PO TID PRN PRN Reason: Cough Last Admin: 06/02/17 08:50 Dose: 200 mg Budesonide (Pulmicort) 0.5 mg NEB BID [facility] Last Admin: 06/02/17 10:08 Dose: 0.5 mg Citalopram Hydrobromide (Celexa) 20 mg PO DAILY [facility] Last Admin: 06/02/17 08:28 Dose: 20 mg Dextrose/Water (Dextrose 50% In Water) 50 ml IVPUSH ASDIRECTED PRN PRN Reason: Hypotension Diltiazem HCl (Diltiazem) 10 mg IVPUSH Q6H PRN PRN Reason: Tachycardia Last Admin: 06/02/17 11:27 Dose: 10 mg Enoxaparin Sodium (Lovenox) 120 mg SUBCUT DAILY [facility] Last Admin: 06/02/17 08:28 Dose: 120 mg Hydralazine HCl (Apresoline) 20 mg IVPUSH Q6H PRN PRN Reason: Hypertension Azithromycin 500 mg/ Sodium (Chloride) 250 mls @ 250 mls/hr IV Q24H [facility] Last Admin: 06/02/17 08:27 Dose: 250 mls/hr Insulin Aspart (Novolog) 0 unit SUBCUT QIDACANDBED [facility] PRN Reason: Protocol Last Admin: 06/02/17 06:35 Dose: Not Given Levalbuterol HCl (Xopenex) 1.25 mg NEB Q6HRRT [facility] Last Admin: 06/02/17 10:08 Dose: 1.25 mg Lisinopril (Prinivil) 40 mg PO DAILY [facility] Last Admin: 06/02/17 08:29 Dose: 40 mg Lorazepam (Ativan) 1 mg IVPUSH Q8H PRN PRN Reason: Anxiety Last Admin: 06/01/17 15:12 Dose: 1 mg Magnesium Oxide (Magnesium Oxide) 400 mg PO BID [facility] Last Admin: 06/02/17 08:28 Dose: 400 mg Metformin HCl (Glucophage) 500 mg PO BID [facility] Last Admin: 05/29/17 11:23 Dose: 500 mg Metoprolol Tartrate (Lopressor) 50 mg PO Q12HR [facility] Last Admin: 06/02/17 08:28 Dose: 50 mg Morphine Sulfate (Morphine) 1 mg IVPUSH Q4H PRN PRN Reason: Pain Last Admin: 06/01/17 15:12 Dose: 1 mg Nitroglycerin (Nitro-Bid 2%) 0.5 gm TOP Q6H PRN PRN Reason: Chest Pain Last Admin: 05/28/17 22:45 Dose: 0.5 gm Nitroglycerin (Nitrostat) 0.4 mg SL Q5M PRN PRN Reason: Chest Pain Ondansetron HCl (Zofran Odt) 4 mg PO Q6H PRN PRN Reason: nausea, able to take PO Ondansetron HCl (Zofran) 4 mg IV Q6H PRN PRN Reason: Nausea/Vomiting Pantoprazole Sodium (Protonix) 40 mg PO BIDAC [facility] Last Admin: 06/02/17 06:04 Dose: 40 mg Prednisone (Prednisone) 40 mg PO DAILY [facility] Last Admin: 06/02/17 08:29 Dose: 40 mg Promethazine HCl/Codeine (Phenergan With Codeine) 5 ml PO Q6HR PRN PRN Reason: cough Last Admin: 06/02/17 11:27 Dose: 5 ml Rosuvastatin Calcium (Crestor) 10 mg PO DAILY [facility] Last Admin: 06/02/17 08:28 Dose: 10 mg Scopolamine (Scopolamine) 1 each TRDERM Q72H PRN PRN Reason: dry secretions for cough Last Admin: 05/31/17 14:29 Dose: 1 each Sodium Chloride (Saline Flush) 10 ml FLUSH ASDIRECTED PRN PRN Reason: Keep Vein Open Last Admin: 05/28/17 12:30 Dose: 10 ml Sodium Chloride (Saline Flush) 10 ml FLUSH ASDIRECTED PRN PRN Reason: Keep Vein Open Warfarin Sodium (Pharmacy To Dose - Warfarin) 0 dose .XX ASDIRECTED PRN PRN Reason: RX TO DOSE COUMADIN Warfarin Sodium (Coumadin) 5 mg PO QPM [facility] Stop: 06/02/17 21:00 Discontinued Medications Acetaminophen (Tylenol) 975 mg PO NOW ONE Stop: 05/28/17 13:10 Last Admin: 05/28/17 13:25 Dose: 975 mg Acetaminophen (Tylenol) 650 mg PO Q4H PRN PRN Reason: Pain (Mild 1-3)/fever Albuterol/Ipratropium (Duoneb 3.0-0.5 Mg/3 Ml) 3 ml NEB Q4H PRN PRN Reason: Shortness Of Breath/wheezing Albuterol/Ipratropium (Duoneb 3.0-0.5 Mg/3 Ml) 3 ml NEB Q6HRRT [facility] Last Admin: 06/01/17 15:18 Dose: 3 ml Benzonatate (Tessalon Perles) 100 mg PO TID PRN PRN Reason: Cough Last Admin: 05/30/17 21:18 Dose: 100 mg Benzonatate (Tessalon Perles) 100 mg PO TID [facility] Last Admin: 05/31/17 14:20 Dose: 100 mg Budesonide (Pulmicort) 0.5 mg NEB BIDRT [facility] Last Admin: 05/29/17 21:39 Dose: 0.5 mg Buspirone HCl (Buspar) 10 mg PO BID [facility] Last Admin: 06/01/17 21:07 Dose: 10 mg Ceftriaxone Sodium (Rocephin) 2 gm IVPUSH Q24H [facility] Doxycycline Hyclate (Vibramycin) Confirm Administered Dose 100 mg .ROUTE .[facility] Stop: 05/31/17 08:16 Last Admin: 05/31/17 11:56 Dose: Not Given Doxycycline Hyclate (Vibramycin) 100 mg PO BID [facility] Last Admin: 06/01/17 21:06 Dose: 100 mg Guaifenesin (Mucinex) 600 mg PO BID [facility] Last Admin: 05/31/17 08:31 Dose: 600 mg Guaifenesin/Phenylephrine HCl (Robitussin Dm) 10 ml PO Q4H PRN PRN Reason: Cough Last Admin: 05/31/17 06:25 Dose: 10 ml Guaifenesin/Phenylephrine HCl (Robitussin Dm) 5 ml PO Q4H PRN PRN Reason: Cough Guaifenesin/Phenylephrine HCl (Robitussin Dm) 10 ml PO Q4H PRN PRN Reason: Cough Last Admin: 05/31/17 17:59 Dose: 10 ml Hydralazine HCl (Apresoline) 10 mg IVPUSH Q6H PRN PRN Reason: Hypertension Sodium Chloride (Normal Saline) 1,000 mls @ 100 mls/hr IV ASDIRECTED [facility] Last Admin: 05/28/17 13:28 Dose: 100 mls/hr Ceftriaxone Sodium 1 gm/ (Sodium Chloride) 100 mls @ 200 mls/hr IV ONETIME ONE Stop: 05/28/17 13:41 Last Admin: 05/28/17 14:17 Dose: Not Given Ceftriaxone Sodium 1 gm/ (Sodium Chloride) 100 mls @ 200 mls/hr IV ONETIME ONE Stop: 05/28/17 13:41 Last Admin: 05/28/17 14:17 Dose: Not Given Ceftriaxone Sodium 2 gm/ (Dextrose/Water) 100 mls @ 200 mls/hr IV ONETIME ONE Stop: 05/28/17 14:44 Last Admin: 05/28/17 14:16 Dose: 200 mls/hr Levofloxacin/Dextrose 750 mg/ (Premix) 150 mls @ 100 mls/hr IV ONETIME ONE Stop: 05/28/17 19:21 Last Admin: 05/28/17 18:47 Dose: 100 mls/hr Sodium Chloride (Normal Saline) 1,000 mls @ 75 mls/hr IV ASDIRECTED [facility] Stop: 05/30/17 08:49 Last Admin: 05/29/17 09:33 Dose: 75 mls/hr Sodium Chloride (Normal Saline) 250 mls @ 999 mls/hr IV .[facility] ONE Stop: 05/28/17 20:14 Last Admin: 05/28/17 20:09 Dose: 999 mls/hr Sodium Chloride (Normal Saline) 250 mls @ 999 mls/hr IV .BOLUS ONE Stop: 05/28/17 20:41 Last Admin: 05/28/17 20:58 Dose: 999 mls/hr Doxycycline Hyclate 100 mg/ (Sodium Chloride) 100 mls @ 100 mls/hr IV Q12HR [facility] Stop: 05/31/17 10:00 Last Admin: 05/31/17 08:36 Dose: 100 mls/hr Magnesium Sulfate 2 gm/ Premix 50 mls @ 25 mls/hr IV ONETIME ONE Stop: 05/29/17 17:00 Last Admin: 05/29/17 15:28 Dose: 25 mls/hr Sodium Chloride (Normal Saline) 1,000 mls @ 150 mls/hr IV ASDIRECTED [facility] Stop: 05/30/17 03:39 Last Admin: 05/29/17 22:42 Dose: 150 mls/hr Sodium Chloride (Normal Saline) 1,000 mls @ 75 mls/hr IV ASDIRECTED [facility] Stop: 05/31/17 08:19 Last Admin: 05/30/17 18:54 Dose: 75 mls/hr Ibuprofen (Motrin) 600 mg PO Q6H PRN PRN Reason: Pain/Fever Last Admin: 05/30/17 23:40 Dose: 600 mg Methylprednisolone Sodium Succinate (Solu-Medrol) 60 mg IVPUSH Q12H [facility] Last Admin: 05/31/17 05:10 Dose: 60 mg Methylprednisolone Sodium Succinate (Solu-Medrol) 60 mg IVPUSH Q24H [facility] Last Admin: 06/01/17 05:04 Dose: 60 mg Metoprolol Tartrate (Lopressor) 5 mg IVPUSH Q4H PRN PRN Reason: Tachycardia Last Admin: 06/01/17 15:25 Dose: 5 mg Metoprolol Tartrate (Lopressor) 25 mg PO BID [facility] Last Admin: 05/31/17 08:30 Dose: 25 mg Metoprolol Tartrate (Lopressor) 5 mg IVPUSH ONETIME ONE Stop: 05/31/17 05:41 Last Admin: 05/31/17 05:52 Dose: 5 mg Metoprolol Tartrate (Lopressor) 5 mg IVPUSH Q6H PRN PRN Reason: Tachycardia Metoprolol Tartrate (Lopressor) 25 mg PO TID [facility] Last Admin: 06/01/17 14:25 Dose: 25 mg Mometasone Furoate/Formoterol Fumar (Dulera 100-5 Mcg) 0 puff IH BIDRT [facility] Nitroglycerin (Nitro-Bid 2%) Confirm Administered Dose 1 gm .ROUTE .[facility] Stop: 05/28/17 22:15 Last Admin: 05/28/17 22:49 Dose: Not Given Ondansetron HCl (Zofran) 4 mg IVPUSH ONETIME ONE Stop: 05/28/17 13:37 Last Admin: 05/28/17 14:13 Dose: 4 mg Oral Electrolytes (Thermotabs) 1 each PO ONETIME ONE Stop: 05/28/17 19:25 Last Admin: 05/28/17 20:06 Dose: 1 each Oral Electrolytes (Thermotabs) 1 each PO ONETIME ONE Stop: 05/29/17 15:01 Last Admin: 05/29/17 15:29 Dose: 1 each Oral Electrolytes (Thermotabs) 1 each PO ONETIME ONE Stop: 05/30/17 17:21 Last Admin: 05/30/17 17:57 Dose: 1 each Prednisone (Prednisone) 60 mg PO DAILY [facility] Promethazine HCl/Codeine (Phenergan With Codeine) 5 ml PO Q6H [facility] Last Admin: 05/31/17 11:41 Dose: 5 ml Promethazine HCl/Codeine (Phenergan With Codeine) 15 ml PO Q6HR [facility] Last Admin: 06/01/17 05:05 Dose: 5 ml Promethazine HCl/Codeine (Phenergan With Codeine) 5 ml PO Q6HR [facility] Last Admin: 06/02/17 06:05 Dose: 5 ml Warfarin Sodium (Coumadin) 5 mg PO ONETIME ONE Stop: 06/01/17 18:01 Last Admin: 06/01/17 18:46 Dose: 5 mg Warfarin Sodium (Coumadin) 5 mg PO ONETIME [facility] Stop: 06/01/17 21:01 Last Admin: 06/01/17 21:05 Dose: 5 mg - Exam Quality Assessment: Supplemental Oxygen General: Alert, Oriented, Cooperative, No Acute Distress, Lethargic (somewhat), Other (Morbidly Obese) HEENT: Pupils Equal, Pupils Reactive, EOMI, Mucous Membr. Moist/[place], Other ( facial flushing) Neck: Supple, Trachea Midline, No JVD, No Thyromegaly, Other (short and thick) Lungs: Normal Respiratory Effort, Decreased Breath Sounds, Wheezing (mild occasional ) Cardiovascular: Irregular Rhythm GI/Abdominal Exam: Normal Bowel Sounds, Soft, Non-Tender, No Organomegaly, No Distention, No Abnormal Bruit, No Mass, Pelvis Stable, Other (Obese) (Female) Exam: Deferred Back Exam: Normal Inspection, Decreased Range of Motion Extremities: Normal Inspection, Normal Range of Motion, Non-Tender, No Pedal Edema, Normal Capillary Refill Peripheral Pulses: 2+: Dorsalis Pedis (L), Dorsalis Pedis (R) Skin: Warm, Dry, Intact Neurological: No New Focal Deficit Psy/Mental Status: Alert, Normal Affect, Normal Mood - Problem List Review Problem List Initiated/Reviewed/Updated: Yes - My Orders Last 24 Hours: My Active Orders 06/01/17 18:04 Diltiazem 10 mg IVPUSH Q6H PRN 06/01/17 20:15 Warfarin Pharmacy to Dose [Pharmacy to Dose - Warfarin] 0 dose .XX ASDIRECTED PRN 06/01/17 21:00 Levalbuterol HCl [Xopenex] 1.25 mg NEB Q6HRRT Metoprolol Tartrate [Lopressor] 50 mg PO Q12HR 06/01/17 22:56 Consult to Dietary [Consult to Incident Response Consultant] [CONS] Routine 06/01/17 23:29 CORTISOL, SALIVA (LCMSMS) [REF] Stat 06/02/17 06:07 ACTH [REF] Routine CORTISOL [REF] Routine 06/02/17 09:00 Azithromycin [Zithromax] 500 mg Sodium Chloride 0.9% [Normal Saline] 250 ml IV Q24H predniSONE 40 mg PO DAILY 06/02/17 18:00 Warfarin [Coumadin] 5 mg PO QPM 06/03/17 05:11 INR,PT,PROTHROMBIN TIME [COAG] AM 06/04/17 05:11 INR,PT,PROTHROMBIN TIME [COAG] AM 06/05/17 05:11 INR,PT,PROTHROMBIN TIME [COAG] AM 06/06/17 05:11 INR,PT,PROTHROMBIN TIME [COAG] AM 06/07/17 05:11 INR,PT,PROTHROMBIN TIME [COAG] AM - Plan Plan:: I/P: Acute: New Onset of Atrial Fibrillation -S/p RVR -HR still not well controlled; INR is now at 1.02 -On Metoprolol Tartrate 50 mg po BID and PRN Cardizem 10 mg IVP Q6H; she is not responding to CCB -She is currently lovenox/warfarin for anticoagulation -[id number]-VFWr is 5--->risk of CVA7.2% yearly -Daily INR -Will switch back to MT 25 mg po Q6H and PRN MT 5 mg IVP Q4H for HR > 110 COPD Exacerbation, Significantly Improved -Old records indicate hx/o COPD -Risk factor: smoker -Usually on home O2 at night -Hx/o advair rx, has stopped taking -Cough, decreased lung sounds with occasional wheezing and mild ronchi -Continue Duonebs QID and Pulmicort BID -RT to evaluate and treat/IS -Doxycycline as above to finish off at 2100 tonight then d/c; will start Azithromycin in AM -Solumedrol 60mg BID---> Prednisone 60 mg po today--> 40 mg po daily today -Continue Mucinex, Tessalon Perles, Robitussin -Sputum, Influenza, Respiratory Viral Panel, Mycoplasma and Strep pneumonia- all negative Hyponatremia, Improved -Sodium 129-->132-->134 -Likely from SSRI (Citalopram) and Pulmonary Insufficiency -Family reports poor hydration and oral intake for past few days -Continue Thermotabs -IV fluids as ordered -Monitor AM labs Tobacco Use Disorder -Family reports patient smokes 3 cigarettes a day usually -Has not smoked for past 3 days -Offered nicotine patch and patient refused -Counseled on smoking cessation Lymphadenopathy 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 -Hx/o enlarged lymph nodes in axillary region with negative biopsy -See chest/abdomen/pelvis CT for full report -Heme/Oncology consult outpatient 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 -BMI is 45.5 -STOP BANG is 5 -Sleep study outpatient -Counseled on LSM Hypomagnesemia -2/2 inadequate intake -Mg is 1.7 -Pharmacy to replete and monitor [place]'s Syndrome -Meets criteria: Dia Facies (rounded) and flushed, Fatty or [place] hump, Abdominal Striae, Glucose Intolerance/DM2 (A1C is 6.10-normal), Truncal Obesity, HTN, and Hair Loss -Loss of muscle mass and strength -Head CT Scan: benign; consider Brain MRI to r/o Dacia's Disease once tests are back as noted below -Cortisol and ACTH level pending-could take up to a week -Solumedrol --> switch to Prednisone: goal to come off steroid -She needs DEXA scan to r/o osteoporosis Resolved: S/p Acute Febrile Illness -Ill for last week with cough, fatigue, nausea, chest pain, SOB, headache -Denies fever although temp 103 in ED -UA essentially negative - cultures - no growth after 2 day -CXR, influenza, mycoplasma pneumonia - all negative -Strep pneumo - negative, viral panel pending -No leukocytosis, CRP 5.8-->15.3---26.7>--->16.3 -Blood cultures -to date -Repeat blood cultures ordered today after fever -Lactic acid 1.1 -500ml Fluid bolus infusion -IV fluids as ordered -Motrin for fever -Rocephin started in ED; levaquin given x1 - Switch to doxycycline -Chest, abdomen, pelvis CT today - multiple enlarged lymph nodes - see report -Head and neck CT - senescent change, nothing acute Renal Insufficiency -This is chronic with stable GFR -Unsure of baseline although last visit creatinine was 1.3 and eGFR was 41 -Family reports poor fluid intake over last several days -BUN 24-->30 -Creatinine 1.5-->1.4-->1.6 -eGFR 35-->38-->32 -IV fluids as ordered -Avoid nephrotoxic medications - hold metformin Chest Pain -Negative EKG in ED and on floor -Negative troponin and CK-MB in ED -Nitroglycerine as ordered -Likely 2/2 above Chronic: CAD HLD HTN - home meds, PRN hydralazine and BB Asthma - duonebs PRN GERD - Home PPI IBS Colitis CKD Stage 3, Stable Neck pain 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 scheduled with Dr. Díaz (oncology) and Dr. Posada (internal med ) Code status: DNR/DNI; PCP: None locally- needs to establish LOS > 96 hours with modest response to treatment but may consider d/c in AM once HR is more controlled
[2017-06-02] MEDS: Metoprolol Tartrate 5 MG/5 ML SDV IVPUSH PRN ×2 (15:30→19:22)
[2017-06-02] MEDS ORDERED: Warfarin 5 MG Tab PO SCH (18:00)
--- NOTE | 2017-06-02 18:21 | PCM.SN ---
- Free Text/Narrative Note: Her HR has improved after switching to Metoprolol Tartrate 25 mg po Q6 and PRN Metoprolol Tartare 5 mg IVP Q4H. We will continue to monitor. Daughter was updated about her clinical progress and d/c care plans.
[2017-06-03] MEDS: Levalbuterol HCl 1.25 MG/3 ML Neb NEB SCH ×3 (03:14→14:49)
[2017-06-03] MEDS: Metoprolol Tartrate 25 MG Tab PO SCH ×3 (03:20→13:53)
[2017-06-03] MEDS: Pantoprazole 40 MG Tab.CR PO SCH ×2 (06:36→15:45)
[2017-06-03] MEDS: Insulin Aspart 100 Units/ML 3 ML Pen SUBCUT SCH ×2 (06:45→12:41)
[2017-06-03] MEDS: Rosuvastatin 10 MG Tab PO SCH (09:06)
[2017-06-03] MEDS: Lisinopril 20 MG Tab PO SCH (09:06)
[2017-06-03] MEDS: predniSONE 20 MG Tab PO SCH (09:07)
[2017-06-03] MEDS: Enoxaparin 120 MG/0.8 ML Syringe SUBCUT SCH (09:07)
[2017-06-03] MEDS: Citalopram 20 MG Tab PO SCH (09:07)
[2017-06-03] MEDS: Aspirin 81 MG Tab.EC PO SCH (09:07)
[2017-06-03] MEDS: Magnesium Oxide 400 MG Tab PO SCH (09:07)
[2017-06-03] MEDS: Azithromycin 500 MG in Sodium Chloride 0.9% 250 ML IV SCH (09:08)
[2017-06-03] MEDS: Budesonide 0.5 MG/2 ML Neb Susp NEB SCH (09:23)
[2017-06-03] MEDS: Metoprolol Tartrate 5 MG/5 ML SDV IVPUSH PRN ×2 (10:27→13:52)
[2017-06-03] MEDS: Scopolamine 1 MG Transdermal Patch TRDERM PRN (10:37)
--- NOTE | 2017-06-03 10:54 | PCM.SN ---
- Free Text/Narrative Note: Patient got nauseous but did not vomit. She has gotten zofran and scopolamine patch so far. Discussed PFT report to her-made her aware she has no COPD.
--- NOTE | 2017-06-03 16:13 | PCM.DCSUM1 ---
Discharge Summary - Hospital Course Brief History: Janey Stewart is a 66 yo female pt. who presented to our ED today (05/28/17) with flulike symptoms. Her daughter reports she has been ill for about the past week. She's had a cough, and more fatigued than normal, been nauseated, had chest pain and a headache, and had increased shortness of breath. She has not had any fevers or vomiting. She is normally on oxygen at night. She reportedly recently moved to [place] from [place] her daughter 's care for her. She does not have a primary care provider. - Discharge Data Discharge Date: 06/03/17 Discharge Disposition: Home, Self-Care 01 Condition: Good - Discharge Diagnosis/Problem(s) (1) Asthma exacerbation SNOMED Code(s): 817379494 ICD Code: J45.901 - UNSPECIFIED ASTHMA WITH (ACUTE) EXACERBATION Status: Resolved Current Visit: Yes Qualifiers: Asthma severity: moderate Asthma persistence: unspecified Qualified Code( s): J45.901 - Unspecified asthma with (acute) exacerbation (2) Atrial fibrillation SNOMED Code(s): 32538075 ICD Code: I48.91 - UNSPECIFIED ATRIAL FIBRILLATION Status: Acute Current Visit: Yes Qualifiers: Atrial fibrillation type: persistent Qualified Code(s): I48.1 - Persistent atrial fibrillation (3) Hyponatremia SNOMED Code(s): 01020192 ICD Code: E87.1 - HYPO-OSMOLALITY AND HYPONATREMIA Status: Resolved Priority: High Current Visit: Yes (4) Lymphadenopathy SNOMED Code(s): 80276840 ICD Code: R59.1 - GENERALIZED ENLARGED LYMPH NODES Status: Chronic Priority: High Current Visit: Yes (5) Obesity, Class III, BMI 40-49.9 (morbid obesity) SNOMED Code(s): 040368910 ICD Code: E66.01 - MORBID (SEVERE) OBESITY DUE TO EXCESS CALORIES Status: Chronic Priority: Low Current Visit: Yes (6) Type II diabetes mellitus SNOMED Code(s): 70991111 ICD Code: E11.9 - TYPE 2 DIABETES MELLITUS WITHOUT COMPLICATIONS Status: Chronic Priority: Medium Current Visit: Yes Qualifiers: Diabetes mellitus complication status: with unspecified complications Diabetes mellitus senior living insulin use: without senior living use Qualified Code( s): E11.8 - Type 2 diabetes mellitus with unspecified complications (7) Nicotine dependence SNOMED Code(s): 18339681 ICD Code: F17.200 - NICOTINE DEPENDENCE, UNSPECIFIED, UNCOMPLICATED Status : Chronic Current Visit: Yes Qualifiers: Nicotine product type: cigarettes Substance use status: uncomplicated Qualified Code(s): F17.210 - Nicotine dependence, cigarettes, uncomplicated (8) LOLI (obstructive sleep apnea) SNOMED Code(s): 42230157 ICD Code: G47.33 - OBSTRUCTIVE SLEEP APNEA (ADULT) (PEDIATRIC) Status: Acute Current Visit: Yes (9) Hypomagnesemia syndrome SNOMED Code(s): 468034877 ICD Code: E83.42 - HYPOMAGNESEMIA Status: Resolved Current Visit: Yes (10) Acute febrile illness SNOMED Code(s): 862940471 ICD Code: R50.9 - FEVER, UNSPECIFIED Status: Resolved Current Visit: Yes (11) Chest pain SNOMED Code(s): 78705971 ICD Code: R07.9 - CHEST PAIN, UNSPECIFIED Status: Resolved Current Visit : Yes Qualifiers: Chest pain type: chest pain on breathing Qualified Code(s): R07.1 - Chest pain on breathing; R07.81 - Pleurodynia (12) Renal insufficiency SNOMED Code(s): 929428093 ICD Code: N28.9 - DISORDER OF KIDNEY AND URETER, UNSPECIFIED Status: Acute Current Visit: Yes - Patient Summary/Data Operative Procedure(s) Performed: None Complications: None Consults: Consultations 05/28/17 19:30 Consult to Case Management [CONS] Routine OT Evaluation and Treatment [CONS] Routine PT Evaluation and Treatment [CONS] Routine 05/28/17 23:20 Consult to Special Education Resource Room Teacher [CONS] Routine 05/29/17 19:58 Consult to Respiratory Therapy [Respiratory Care Assess and Treatment] [CONS] Routine 06/01/17 22:56 Consult to Dietary [Consult to Water Hydrant Installer] [CONS] Routine 06/02/17 10:00 Consult to Speech Language Pathology [CONCRETE ANALYST Evaluation and Treatment] [CONS] Routine Labs Pending at D/C: None Recommended Follow-up Testing/Procedures: None Planned Operative Procedure(s) after DC: None - Patient Instructions Diet: Heart Healthy Diet, Usual Diet as Tolerated, Diabetic Diet, Weight Loss Diet Activity: As Tolerated Driving: Do Not Drive Showering/Bathing: May Shower Notify Provider of: Fever, Increased Pain, Swelling and Redness, Nausea and/or Vomiting Other/Special Instructions: - Please take all medications as directed. - Resume routine home activities per Home Health PT/OT. - Recommend you see specialits as scheduled. - Recommend you get sleep study for 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. - Recommend INR check by Friday (06/06/2017) through your doctor's office. - Practice Lifestyle Modifications: Exercise regularly, eat proper diet, and weight lose. - Recommend checking your sugar at least twice a day and show log to your PCP on follow up appointment. - Recommend checking you heart rate and blood pressure at least twice a day and 3-4 a week. Show log on your follow up appointment with your family doctor. - Recommend you quit smoking! Decide when you are finally ready; let your family doctor knows and call the Quit line. - Call or follow up with you family doctor for any questions or concerns after discharge. - Follow up with your doctor in 1 week - Discharge Plan Prescriptions/Med Rec: Codeine/Promethazine [Phenergan with Codeine] 5 ml PO Q6HR PRN #10 cup PRN Reason: cough Azithromycin [IJD: Azithromycin] 250 mg PO DAILY #3 tab Benzonatate [Tessalon Perle] 200 mg PO TID PRN #90 capsule PRN Reason: Cough Budesonide [Pulmicort Flexhaler] 180 mcg INH BID #1 inhaler Enoxaparin [Lovenox] 120 mg SQ BID #6 syringe Levalbuterol Tartrate [Xopenex HFA] 1 puff INH Q6H PRN #1 inhaler PRN Reason: Asthma methylPREDNISolone [Medrol] 4 mg PO ASDIRECTED #1 dosepk Metoprolol Tartrate 25 mg PO Q6H #120 tablet Warfarin [Coumadin] 2 mg PO DAILY #60 tab Home Medications: Home Meds Aspirin [Ecotrin] 81 mg PO DAILY 05/28/17 [History] Citalopram [Citalopram HBr] 20 mg PO DAILY 05/28/17 [History] Lisinopril [Prinivil] 40 mg PO DAILY 05/28/17 [History] Magnesium Oxide [Magnesium] 400 mg PO BID 05/28/17 [History] Metoprolol Tartrate 25 mg PO BID 05/28/17 [History] Pantoprazole [Pantoprazole Sodium] 40 mg PO BID 05/28/17 [History] Triamterene/Hydrochlorothiazid [Triamterene-HCTZ 37.5-25 MG] 0.5 tab PO DAILY [History] atorvaSTATin [Lipitor] 40 mg PO DAILY 05/28/17 [History] metFORMIN [Glucophage XR] 500 mg PO BID 05/28/17 [History] Azithromycin [IJD: Azithromycin] 250 mg PO DAILY #3 tab 06/03/17 [Rx] Benzonatate [Tessalon Perle] 200 mg PO TID PRN #90 capsule 06/03/17 [Rx] Budesonide [Pulmicort Flexhaler] 180 mcg INH BID #1 inhaler 06/03/17 [Rx] Codeine/Promethazine [Phenergan with Codeine] 5 ml PO Q6HR PRN #10 cup 06/03/17 [Rx] Enoxaparin [Lovenox] 120 mg SQ BID #6 syringe 06/03/17 [Rx] Levalbuterol Tartrate [Xopenex HFA] 1 puff INH Q6H PRN #1 inhaler 06/03/17 [Rx] Metoprolol Tartrate 25 mg PO Q6H #120 tablet 06/03/17 [Rx] Warfarin [Coumadin] 2 mg PO DAILY #60 tab 06/03/17 [Rx] methylPREDNISolone [Medrol] 4 mg PO ASDIRECTED #1 dosepk 06/03/17 [Rx] Patient Handouts: Steps to Quit Smoking, [id number], Hyponatremia, Hypomagnesemia, Obesity Hypoventilation Syndrome, Lymphadenopathy, Sleep Apnea, [id number], Type 2 Diabetes Mellitus, Self Care, Adult, Nonspecific Chest Pain , Tibv-ad-Rnrl, Type 2 Diabetes Mellitus, Self Care, Adult, [id number], Asthma , Adult, Faaa-ve-[id number], Tobacco Use Disorder, Obesity, Adult, [id number] Referrals: Chris Trujillo MD [Physician] - 06/12/17 3:15 pm Edis Alcantara MD [Ordering Only Provider] - 10/07/17 8:00 am (Endocrinology: This appointment is in [facility], NURSING: When patient is dishcarge please fax H&P, clinicals and labs to [phone]. Thank you.) Francois Díaz MD [Ordering Only Provider] - (Oncology: Dr. Díaz office will call patient at home with appointment date and time. This appointment will be in [place].) - Discharge Summary/Plan Comment DC Time >30 min.: Yes (45 mins) Discharge Summary/Plan Comment: Discharge to Home - General Info Date of Service: 06/03/17 Admission Dx/Problem (Free Text: Admission Diagnosis/Problem Admission Diagnosis/Problem UTI (urinary tract infection), uncomplicated Subjective Update: Follow Up Functional Status: Reports: Pain Controlled, Tolerating Diet, Ambulating, Urinating. Denies: New Symptoms - Review of Systems General: Denies: Fever, Weakness, Fatigue, Malaise, Chills HEENT: Reports: No Symptoms Pulmonary: Reports: Shortness of Breath, Cough. Denies: Sputum, Wheezing Cardiovascular: Denies: Chest Pain Gastrointestinal: Reports: Flatus. Denies: Abdominal Pain, Constipation, Decreased Appetite, Diarrhea, Difficulty Swallowing, Nausea, Vomiting Genitourinary: Reports: No Symptoms Musculoskeletal: Reports: No Symptoms Skin: Denies: Cyanosis, Mottled, Pallor, Diaphoresis, Pruritis, Rash Neurological: Denies: Confusion, Difficulty Walking, Weakness, Gait Disturbance Psychiatric: Denies: Depression, Mood Lability, Anxiety, Agitation, Hallucinations Systems Review Comment: No overnight or acute issues. She slept pretty good. She feels better and good this morning. She report no new complaints. - Patient Data Vitals - Most Recent: Last Vital Signs Temp 36.8 C 06/03/17 15:17 Pulse 112 H 06/03/17 15:17 Resp 14 06/03/17 15:17 BP 148/93 H 06/03/17 15:14 Pulse Ox 93 L 06/03/17 15:17 Weight - Most Recent: 125.328 kg I&O - Last 24 hours: Intake & Output 06/03/17 06/03/17 06/03/17 06:59 14:59 22:59 Intake Total 400 240 0 Balance 400 240 0 Lab Results - Last 24 hrs: Laboratory Results - last 24 hr 05/31/17 06/02/17 06/02/17 Range/Units 06:16 06:07 17:15 WBC (3.98-10.04) K/mm3 RBC (3.98-5.22) M/mm3 Hgb (11.2-15.7) gm/L Hct (34.1-44.9) % MCV (79.4-94.8) fl MCH (25.6-32.2) pg MCHC (32.2-35.5) g/dl RDW Std Deviation (36.4-46.3) fL Plt Count (182-369) K/mm3 MPV (9.4-12.3) fl Neut % (Auto) (34.0-71.1) % Lymph % (Auto) (19.3-51.7) % [place] % (Auto) (4.7-12.5) % Eos % (Auto) (0.7-5.8) Baso % (Auto) (0.1-1.2) % Neut # (Auto) (1.56-6.13) K/mm3 Lymph # (Auto) (1.18-3.74) K/mm3 [place] # (Auto) (0.24-0.36) K/mm3 Eos # (Auto) (0.04-0.36) K/mm3 Baso # (Auto) (0.01-0.08) K/mm3 Manual Slide Review PT (8.0-13.0) SECONDS INR Sodium (136-145) mEq/L Potassium (3.5-5.1) mEq/L Chloride (98-107) mEq/L Carbon Dioxide (21-32) mEq/L Anion Gap (5-15) BUN (7-18) mg/dL Creatinine (0.55-1.02) mg/dL Est Cr Clr Drug Dosing mL/min Estimated GFR (MDRD) (>60) mL/min BUN/Creatinine Ratio (14-18) Glucose (80-115) mg/dL POC Glucose 167 H (80-115) mg/dL Calcium (8.5-10.1) mg/dL Carcinoembryonic Ag 1.9 (0.0-3.0) ng/mL Cortisol 1.7 ug/dL 06/02/17 06/03/17 06/03/17 Range/Units 21:04 06:37 07:10 WBC (3.98-10.04) K/mm3 RBC (3.98-5.22) M/mm3 Hgb (11.2-15.7) gm/L Hct (34.1-44.9) % MCV (79.4-94.8) fl MCH (25.6-32.2) pg MCHC (32.2-35.5) g/dl RDW Std Deviation (36.4-46.3) fL Plt Count (182-369) K/mm3 MPV (9.4-12.3) fl Neut % (Auto) (34.0-71.1) % Lymph % (Auto) (19.3-51.7) % [place] % (Auto) (4.7-12.5) % Eos % (Auto) (0.7-5.8) Baso % (Auto) (0.1-1.2) % Neut # (Auto) (1.56-6.13) K/mm3 Lymph # (Auto) (1.18-3.74) K/mm3 [place] # (Auto) (0.24-0.36) K/mm3 Eos # (Auto) (0.04-0.36) K/mm3 Baso # (Auto) (0.01-0.08) K/mm3 Manual Slide Review PT 16.0 H (8.0-13.0) SECONDS INR 1.43 Sodium (136-145) mEq/L Potassium (3.5-5.1) mEq/L Chloride (98-107) mEq/L Carbon Dioxide (21-32) mEq/L Anion Gap (5-15) BUN (7-18) mg/dL Creatinine (0.55-1.02) mg/dL Est Cr Clr Drug Dosing mL/min Estimated GFR (MDRD) (>60) mL/min BUN/Creatinine Ratio (14-18) Glucose (80-115) mg/dL POC Glucose 129 H 91 (80-115) mg/dL Calcium (8.5-10.1) mg/dL Carcinoembryonic Ag (0.0-3.0) ng/mL Cortisol ug/dL 06/03/17 06/03/17 06/03/17 Range/Units 07:10 07:10 11:51 WBC 10.64 H (3.98-10.04) K/mm3 RBC 3.18 L (3.98-5.22) M/mm3 Hgb 9.9 L (11.2-15.7) gm/L Hct 29.8 L (34.1-44.9) % MCV 93.7 (79.4-94.8) fl MCH 31.1 (25.6-32.2) pg MCHC 33.2 (32.2-35.5) g/dl RDW Std Deviation 49.3 H (36.4-46.3) fL Plt Count 192 (182-369) K/mm3 MPV 10.2 (9.4-12.3) fl Neut % (Auto) 29.1 L (34.0-71.1) % Lymph % (Auto) 61.1 H (19.3-51.7) % [place] % (Auto) 7.0 (4.7-12.5) % Eos % (Auto) 2.5 (0.7-5.8) Baso % (Auto) 0.3 (0.1-1.2) % Neut # (Auto) 3.09 (1.56-6.13) K/mm3 Lymph # (Auto) 6.50 H (1.18-3.74) K/mm3 [place] # (Auto) 0.75 H (0.24-0.36) K/mm3 Eos # (Auto) 0.27 (0.04-0.36) K/mm3 Baso # (Auto) 0.03 (0.01-0.08) K/mm3 Manual Slide Review Abnormal smear PT (8.0-13.0) SECONDS INR Sodium 137 (136-145) mEq/L Potassium 4.2 (3.5-5.1) mEq/L Chloride 100 (98-107) mEq/L Carbon Dioxide 27 (21-32) mEq/L Anion Gap 14.2 (5-15) BUN 31 H (7-18) mg/dL Creatinine 1.0 (0.55-1.02) mg/dL Est Cr Clr Drug Dosing 49.12 mL/min Estimated GFR (MDRD) 55 (>60) mL/min BUN/Creatinine Ratio 31.0 H (14-18) Glucose 97 (80-115) mg/dL POC Glucose 118 H (80-115) mg/dL Calcium 8.4 L (8.5-10.1) mg/dL Carcinoembryonic Ag (0.0-3.0) ng/mL Cortisol ug/dL AGUS Results - Last 24 hrs: Microbiology 05/29/17 15:15 Aerobic Blood Culture - Preliminary Blood - Venous - Lab Draw NO GROWTH AFTER 5 DAYS Anaerobic Blood Culture - Final 05/29/17 15:00 Aerobic Blood Culture - Preliminary Blood - Venous NO GROWTH AFTER 5 DAYS Anaerobic Blood Culture - Preliminary NO GROWTH AFTER 5 DAYS Med Orders - Current: Current Medications Acetaminophen (Tylenol) 650 mg PO Q4H PRN PRN Reason: Pain/Fever Aspirin (Halfprin) 81 mg PO DAILY [facility] Last Admin: 06/03/17 09:07 Dose: 81 mg Benzonatate (Tessalon Perles) 200 mg PO TID PRN PRN Reason: Cough Last Admin: 06/02/17 08:50 Dose: 200 mg Budesonide (Pulmicort) 0.5 mg NEB BID [facility] Last Admin: 06/03/17 09:23 Dose: 0.5 mg Citalopram Hydrobromide (Celexa) 20 mg PO DAILY [facility] Last Admin: 06/03/17 09:07 Dose: 20 mg Dextrose/Water (Dextrose 50% In Water) 50 ml IVPUSH ASDIRECTED PRN PRN Reason: Hypotension Diltiazem HCl (Diltiazem) 10 mg IVPUSH Q6H PRN PRN Reason: Tachycardia Last Admin: 06/02/17 20:38 Dose: 10 mg Enoxaparin Sodium (Lovenox) 120 mg SUBCUT DAILY [facility] Last Admin: 06/03/17 09:07 Dose: 120 mg Hydralazine HCl (Apresoline) 20 mg IVPUSH Q6H PRN PRN Reason: Hypertension Azithromycin 500 mg/ Sodium (Chloride) 250 mls @ 250 mls/hr IV Q24H [facility] Last Admin: 06/03/17 09:08 Dose: 250 mls/hr Insulin Aspart (Novolog) 0 unit SUBCUT QIDACANDBED [facility] PRN Reason: Protocol Last Admin: 06/03/17 12:41 Dose: Not Given Levalbuterol HCl (Xopenex) 1.25 mg NEB Q6HRRT [facility] Last Admin: 06/03/17 14:49 Dose: 1.25 mg Lisinopril (Prinivil) 40 mg PO DAILY [facility] Last Admin: 06/03/17 09:06 Dose: 40 mg Lorazepam (Ativan) 1 mg IVPUSH Q8H PRN PRN Reason: Anxiety Last Admin: 06/01/17 15:12 Dose: 1 mg Magnesium Oxide (Magnesium Oxide) 400 mg PO BID [facility] Last Admin: 06/03/17 09:07 Dose: 400 mg Metformin HCl (Glucophage) 500 mg PO BID [facility] Last Admin: 05/29/17 11:23 Dose: 500 mg Metoprolol Tartrate (Lopressor) 25 mg PO Q6H [facility] Last Admin: 06/03/17 13:53 Dose: 25 mg Metoprolol Tartrate (Lopressor) 5 mg IVPUSH Q4H PRN PRN Reason: Tachycardia Last Admin: 06/03/17 13:52 Dose: 5 mg Morphine Sulfate (Morphine) 1 mg IVPUSH Q4H PRN PRN Reason: Pain Last Admin: 06/01/17 15:12 Dose: 1 mg Nitroglycerin (Nitro-Bid 2%) 0.5 gm TOP Q6H PRN PRN Reason: Chest Pain Last Admin: 05/28/17 22:45 Dose: 0.5 gm Nitroglycerin (Nitrostat) 0.4 mg SL Q5M PRN PRN Reason: Chest Pain Ondansetron HCl (Zofran Odt) 4 mg PO Q6H PRN PRN Reason: nausea, able to take PO Ondansetron HCl (Zofran) 4 mg IV Q6H PRN PRN Reason: Nausea/Vomiting Last Admin: 06/03/17 10:28 Dose: 4 mg [facility]oprazole [facility] ([facility]) [facility] Last Admin: 06/03/17 15:45 Dose: 40 mg Prednisone (Prednisone) 40 mg PO DAILY [facility] Last Admin: 06/03/17 09:07 Dose: 40 mg Promethazine HCl/Codeine (Phenergan With Codeine) 5 ml PO Q6HR PRN PRN Reason: cough Last Admin: 06/02/17 11:27 Dose: 5 ml Rosuvastatin Calcium (Crestor) 10 mg PO DAILY [facility] Last Admin: 06/03/17 09:06 Dose: 10 mg Scopolamine (Scopolamine) 1 each TRDERM Q72H PRN PRN Reason: dry secretions for cough Last Admin: 06/03/17 10:37 Dose: 1 each Sodium Chloride (Saline Flush) 10 ml FLUSH ASDIRECTED PRN PRN Reason: Keep Vein Open Last Admin: 05/28/17 12:30 Dose: 10 ml Sodium Chloride (Saline Flush) 10 ml FLUSH ASDIRECTED PRN PRN Reason: Keep Vein Open Warfarin Sodium (Pharmacy To Dose - Warfarin) 0 dose .XX ASDIRECTED PRN PRN Reason: RX TO DOSE COUMADIN Warfarin Sodium (Coumadin) 5 mg PO ONETIME ONE Stop: 06/03/17 18:01 Discontinued Medications Acetaminophen (Tylenol) 975 mg PO NOW ONE Stop: 05/28/17 13:10 Last Admin: 05/28/17 13:25 Dose: 975 mg Acetaminophen (Tylenol) 650 mg PO Q4H PRN PRN Reason: Pain (Mild 1-3)/fever Albuterol/Ipratropium (Duoneb 3.0-0.5 Mg/3 Ml) 3 ml NEB Q4H PRN PRN Reason: Shortness Of Breath/wheezing Albuterol/Ipratropium (Duoneb 3.0-0.5 Mg/3 Ml) 3 ml NEB Q6HRRT [facility] Last Admin: 06/01/17 15:18 Dose: 3 ml Benzonatate (Tessalon Perles) 100 mg PO TID PRN PRN Reason: Cough Last Admin: 05/30/17 21:18 Dose: 100 mg Benzonatate (Tessalon Perles) 100 mg PO TID [facility] Last Admin: 05/31/17 14:20 Dose: 100 mg Budesonide (Pulmicort) 0.5 mg NEB BIDRT [facility] Last Admin: 05/29/17 21:39 Dose: 0.5 mg Buspirone HCl (Buspar) 10 mg PO BID [facility] Last Admin: 06/01/17 21:07 Dose: 10 mg Ceftriaxone Sodium (Rocephin) 2 gm IVPUSH Q24H [facility] Doxycycline Hyclate (Vibramycin) Confirm Administered Dose 100 mg .ROUTE .STK- MED ONE Stop: 05/31/17 08:16 Last Admin: 05/31/17 11:56 Dose: Not Given Doxycycline Hyclate (Vibramycin) 100 mg PO BID [facility] Last Admin: 06/01/17 21:06 Dose: 100 mg Guaifenesin (Mucinex) 600 mg PO BID [facility] Last Admin: 05/31/17 08:31 Dose: 600 mg Guaifenesin/Phenylephrine HCl (Robitussin Dm) 10 ml PO Q4H PRN PRN Reason: Cough Last Admin: 05/31/17 06:25 Dose: 10 ml Guaifenesin/Phenylephrine HCl (Robitussin Dm) 5 ml PO Q4H PRN PRN Reason: Cough Guaifenesin/Phenylephrine HCl (Robitussin Dm) 10 ml PO Q4H PRN PRN Reason: Cough Last Admin: 05/31/17 17:59 Dose: 10 ml Hydralazine HCl (Apresoline) 10 mg IVPUSH Q6H PRN PRN Reason: Hypertension Sodium Chloride (Normal Saline) 1,000 mls @ 100 mls/hr IV ASDIRECTED [facility] Last Admin: 05/28/17 13:28 Dose: 100 mls/hr Ceftriaxone Sodium 1 gm/ (Sodium Chloride) 100 mls @ 200 mls/hr IV ONETIME ONE Stop: 05/28/17 13:41 Last Admin: 05/28/17 14:17 Dose: Not Given Ceftriaxone Sodium 1 gm/ (Sodium Chloride) 100 mls @ 200 mls/hr IV ONETIME ONE Stop: 05/28/17 13:41 Last Admin: 05/28/17 14:17 Dose: Not Given Ceftriaxone Sodium 2 gm/ (Dextrose/Water) 100 mls @ 200 mls/hr IV ONETIME ONE Stop: 05/28/17 14:44 Last Admin: 05/28/17 14:16 Dose: 200 mls/hr Levofloxacin/Dextrose 750 mg/ (Premix) 150 mls @ 100 mls/hr IV ONETIME ONE Stop: 05/28/17 19:21 Last Admin: 05/28/17 18:47 Dose: 100 mls/hr Sodium Chloride (Normal Saline) 1,000 mls @ 75 mls/hr IV ASDIRECTED [facility] Stop: 05/30/17 08:49 Last Admin: 05/29/17 09:33 Dose: 75 mls/hr Sodium Chloride (Normal Saline) 250 mls @ 999 mls/hr IV .BOLUS ONE Stop: 05/28/17 20:14 Last Admin: 05/28/17 20:09 Dose: 999 mls/hr Sodium Chloride (Normal Saline) 250 mls @ 999 mls/hr IV .BOLUS ONE Stop: 05/28/17 20:41 Last Admin: 05/28/17 20:58 Dose: 999 mls/hr Doxycycline Hyclate 100 mg/ (Sodium Chloride) 100 mls @ 100 mls/hr IV Q12HR [facility] Stop: 05/31/17 10:00 Last Admin: 05/31/17 08:36 Dose: 100 mls/hr Magnesium Sulfate 2 gm/ Premix 50 mls @ 25 mls/hr IV ONETIME ONE Stop: 05/29/17 17:00 Last Admin: 05/29/17 15:28 Dose: 25 mls/hr Sodium Chloride (Normal Saline) 1,000 mls @ 150 mls/hr IV ASDIRECTED [facility] Stop: 05/30/17 03:39 Last Admin: 05/29/17 22:42 Dose: 150 mls/hr Sodium Chloride (Normal Saline) 1,000 mls @ 75 mls/hr IV ASDIRECTED [facility] Stop: 05/31/17 08:19 Last Admin: 05/30/17 18:54 Dose: 75 mls/hr Ibuprofen (Motrin) 600 mg PO Q6H PRN PRN Reason: Pain/Fever Last Admin: 05/30/17 23:40 Dose: 600 mg Methylprednisolone Sodium Succinate (Solu-Medrol) 60 mg IVPUSH Q12H [facility] Last Admin: 05/31/17 05:10 Dose: 60 mg Methylprednisolone Sodium Succinate (Solu-Medrol) 60 mg IVPUSH Q24H [facility] Last Admin: 06/01/17 05:04 Dose: 60 mg Metoprolol Tartrate (Lopressor) 5 mg IVPUSH Q4H PRN PRN Reason: Tachycardia Last Admin: 06/01/17 15:25 Dose: 5 mg Metoprolol Tartrate (Lopressor) 25 mg PO BID [facility] Last Admin: 05/31/17 08:30 Dose: 25 mg Metoprolol Tartrate (Lopressor) 5 mg IVPUSH ONETIME ONE Stop: 05/31/17 05:41 Last Admin: 05/31/17 05:52 Dose: 5 mg Metoprolol Tartrate (Lopressor) 5 mg IVPUSH Q6H PRN PRN Reason: Tachycardia Metoprolol Tartrate (Lopressor) 25 mg PO TID [facility] Last Admin: 06/01/17 14:25 Dose: 25 mg Metoprolol Tartrate (Lopressor) 50 mg PO Q12HR [facility] Last Admin: 06/02/17 08:28 Dose: 50 mg Mometasone Furoate/Formoterol Fumar (Dulera 100-5 Mcg) 0 puff IH BIDRT [facility] Nitroglycerin (Nitro-Bid 2%) Confirm Administered Dose 1 gm .ROUTE .STK-MED ONE Stop: 05/28/17 22:15 Last Admin: 05/28/17 22:49 Dose: Not Given Ondansetron HCl (Zofran) 4 mg IVPUSH ONETIME ONE Stop: 05/28/17 13:37 Last Admin: 05/28/17 14:13 Dose: 4 mg Oral Electrolytes (Thermotabs) 1 each PO ONETIME ONE Stop: 05/28/17 19:25 Last Admin: 05/28/17 20:06 Dose: 1 each Oral Electrolytes (Thermotabs) 1 each PO ONETIME ONE Stop: 05/29/17 15:01 Last Admin: 05/29/17 15:29 Dose: 1 each Oral Electrolytes (Thermotabs) 1 each PO ONETIME ONE Stop: 05/30/17 17:21 Last Admin: 05/30/17 17:57 Dose: 1 each Prednisone (Prednisone) 60 mg PO DAILY [facility] Promethazine HCl/Codeine (Phenergan With Codeine) 5 ml PO Q6H [facility] Last Admin: 05/31/17 11:41 Dose: 5 ml Promethazine HCl/Codeine (Phenergan With Codeine) 15 ml PO Q6HR [facility] Last Admin: 06/01/17 05:05 Dose: 5 ml Promethazine HCl/Codeine (Phenergan With Codeine) 5 ml PO Q6HR [facility] Last Admin: 06/02/17 06:05 Dose: 5 ml Warfarin Sodium (Coumadin) 5 mg PO ONETIME ONE Stop: 06/01/17 18:01 Last Admin: 06/01/17 18:46 Dose: 5 mg Warfarin Sodium (Coumadin) 5 mg PO ONETIME [facility] Stop: 06/01/17 21:01 Last Admin: 06/01/17 21:05 Dose: 5 mg Warfarin Sodium (Coumadin) 5 mg PO QPM [facility] Stop: 06/02/17 21:00 Last Admin: 06/02/17 17:35 Dose: 5 mg - Exam Quality Assessment: Reports: Supplemental Oxygen General: Reports: Alert, Oriented, Cooperative, No Acute Distress, Other ( Morbid Obesity) HEENT: Reports: Pupils Equal, Pupils Reactive, EOMI, Mucous Membr. Moist/[place], Other (flushed face) Neck: Reports: Supple, Trachea Midline, No JVD, No Thyromegaly Lungs: Reports: Normal Respiratory Effort, Wheezing Cardiovascular: Reports: Irregular Rhythm. Denies: Murmurs GI/Abdominal Exam: Normal Bowel Sounds, Soft, Non-Tender, No Organomegaly, No Distention, No Abnormal Bruit, No Mass, Other (Obese) (Female) Exam: Deferred Rectal (Female) Exam: Deferred Back Exam: Reports: Normal Inspection, Decreased Range of Motion Extremities: Normal Inspection, Normal Range of Motion, Non-Tender, No Pedal Edema, Normal Capillary Refill Skin: Reports: Warm, Dry, Intact Neurological: Reports: No New Focal Deficit Psy/Mental Status: Reports: Alert, Normal Affect, Normal Mood *Q Meaningful Use (DIS) - VTE *Q VTE Criteria *Q: - Stroke *Q Stroke Criteria *Q: - AMI *Q AMI Criteria *Q:
[2017-06-03] MEDS ORDERED: Warfarin 5 MG Tab PO ONE (18:00)
== END 2017-06-03 17:10 | disposition home or self-care (01) | DRG 690 ==
LOC: JD.ED 11:40 → JD.MS 17:46
PROVIDERS: ADMIT Physician Assistant; ATTEND Internal Medicine Cardiovascular Disease
DX: N39.0 Urinary tract infection, site not specified (principal); E87.1 Hypo-osmolality and hyponatremia; J44.1 Chronic obstructive pulmonary disease with (acute) exacerbation; Z68.41 Body mass index [BMI] 40.0-44.9, adult; E78.00 Pure hypercholesterolemia, unspecified; J45.909 Unspecified asthma, uncomplicated; E24.9 Cushing's syndrome, unspecified; R50.9 Fever, unspecified; R06.02 Shortness of breath; I48.91 Unspecified atrial fibrillation; F17.200 Nicotine dependence, unspecified, uncomplicated; N28.9 Disorder of kidney and ureter, unspecified; I25.10 Atherosclerotic heart disease of native coronary artery without angina pectoris; I10 Essential (primary) hypertension; Z95.5 Presence of coronary angioplasty implant and graft; E78.5 Hyperlipidemia, unspecified; K21.9 Gastro-esophageal reflux disease without esophagitis; K58.9 Irritable bowel syndrome, unspecified; G89.29 Other chronic pain; M54.2 Cervicalgia; F32.9 Major depressive disorder, single episode, unspecified; E11.9 Type 2 diabetes mellitus without complications; E66.9 Obesity, unspecified; Z99.81 Dependence on supplemental oxygen; Z66 Do not resuscitate; H54.7 Unspecified visual loss; K44.9 Diaphragmatic hernia without obstruction or gangrene; N39.3 Stress incontinence (female) (male); Z79.84 Long term (current) use of oral hypoglycemic drugs; Z79.82 Long term (current) use of aspirin; Z79.899 Other long term (current) drug therapy; R59.1 Generalized enlarged lymph nodes; E83.42 Hypomagnesemia; G47.33 Obstructive sleep apnea (adult) (pediatric); Z88.0 Allergy status to penicillin; Z88.8 Allergy status to other drugs, medicaments and biological substances
CPT/HCPCS: 36415; 36600; 71046; 80053; 81001; 82553; 82803; 83605; 83880; 84484; 85025; 86140; 86738; 87040 ×2; 87086; 87804 ×2; 87899; 93005; 96361; 96365; 96375; 99285; A9270; J0696; J2405; J7040; J7050; J7060; 70450; 70450-26; 70490; 70490-26; 71250; 71250-26; 74176; 74176-26; 80048; 82024; 82378; 82533; 82962; 83001; 83002; 83036; 83735; 84146; 84443; 85610; 86038; 86304; 87486; 87581; 87633; 87798; 92610-GN; 93010; 93306; 94060; 94640; 94761; 97110-GO; 97110-GP; 97116-GP; 97162-GP; 97166-GO; 97530-GO; 97530-GP; 97535-GO; 99284-25; J0456; J1650; J1815-GY; J1956; J2060; J2270; J2920; J3475; J3490; J7030; J7612

== ENCOUNTER 2017-06-07 05:17 | Inpatient (IN) | payer MEDICARE ==
--- NOTE | 2017-06-07 05:48 | EDM.PDOC ---
<Christopher Lozano - Last Filed: 06/07/17 12:57> ED HPI GENERAL MEDICAL PROBLEM - General Chief Complaint: Abdominal Pain Stated Complaint: abdominal pain Time Seen by Provider: 06/07/17 05:43 - Related Data Allergies Allergy/AdvReac Type Severity Reaction Status Date / Time hydromorphone [From Dilaudid] Allergy unknown Verified 06/07/17 06:13 Penicillins Allergy Hives Verified 06/07/17 06:13 levofloxacin [From Levaquin] AdvReac Disorientat Verified 06/07/17 06:13 ion oxycodone [From Percocet] AdvReac Confusion Verified 06/07/17 06:13 Home Meds: Home Meds Aspirin [Ecotrin] 81 mg PO DAILY 05/28/17 [History] Citalopram [Citalopram HBr] 20 mg PO DAILY 05/28/17 [History] Lisinopril [Prinivil] 40 mg PO DAILY 05/28/17 [History] Magnesium Oxide [Magnesium] 400 mg PO BID 05/28/17 [History] Pantoprazole [Pantoprazole Sodium] 40 mg PO BID 05/28/17 [History] Triamterene/Hydrochlorothiazid [Triamterene-HCTZ 37.5-25 MG] 0.5 tab PO DAILY [History] atorvaSTATin [Lipitor] 40 mg PO DAILY 05/28/17 [History] metFORMIN [Glucophage XR] 500 mg PO BID 05/28/17 [History] Benzonatate [Tessalon Perle] 200 mg PO TID PRN #90 capsule 06/03/17 [Rx] Budesonide [Pulmicort Flexhaler] 180 mcg INH BID #1 inhaler 06/03/17 [Rx] Codeine/Promethazine [Phenergan with Codeine] 5 ml PO Q6HR PRN #10 cup 06/03/17 [Rx] Levalbuterol Tartrate [Xopenex HFA] 1 puff INH Q6H PRN #1 inhaler 06/03/17 [Rx] Metoprolol Tartrate 25 mg PO Q6H #120 tablet 06/03/17 [Rx] methylPREDNISolone [Medrol] 4 mg PO ASDIRECTED #1 dosepk 06/03/17 [Rx] Ondansetron [Zofran ODT] 4 mg PO ASDIRECTED PRN 06/07/17 [History] Warfarin [Coumadin] 4 mg PO ASDIRECTED 06/07/17 [History] Course - Vital Signs Last Recorded V/S: Last Vital Signs Temp 36.3 C 06/07/17 21:51 Pulse 68 06/08/17 05:33 Resp 18 06/07/17 21:51 BP 110/66 06/08/17 05:33 Pulse Ox 92 L 06/07/17 21:51 - Orders/Labs/Meds Orders: Active Orders 24 hr Category Date Time Status Patient Status [ADT] Routine ADT 06/07/17 11:10 Active Ambulate [RC] DAILY Care 06/07/17 11:12 Active Antiembolic Devices [RC] BID Care 06/07/17 11:13 Active Blood Glucose Check, Bedside [RC] ONETIME Care 06/07/17 05:51 Active Notify Provider Consults [RC] DAILY Care 06/07/17 11:15 Active Consult to Physician [CONS] Routine Cons 06/07/17 11:14 Active [employer] Diet [DIET] Diet 06/07/17 Dinner Active C DIFFICILE BY PCR W/NAP1 [MOLEC] Stat Lab 06/07/17 05:51 Ordered CBC WITH AUTO DIFF [HEME] Stat Lab 06/08/17 08:00 Ordered COMPREHENSIVE METABOLIC PN,CMP [CHEM] Stat Lab 06/08/17 08:00 Ordered INR,PT,PROTHROMBIN TIME [COAG] Stat Lab 06/08/17 08:00 Ordered Acetaminophen/HYDROcodone [[place] 325-5 MG] Med 06/07/17 11:13 Active 1 tab PO Q6H PRN Albuterol [Proventil HFA] Med 06/07/17 11:51 Active 2 puff INH Q4H PRN Benzonatate [Tessalon Perles] Med 06/07/17 11:34 Active 200 mg PO TID PRN Citalopram [Celexa] Med 06/08/17 09:00 Active 20 mg PO DAILY Codeine/Promethazine [Phenergan with Codeine] Med 06/07/17 11:34 Active 5 ml PO Q6HR PRN HCTZ/Triamterene Med 06/08/17 09:00 Pending 0.5 tab PO DAILY Lisinopril [Prinivil] Med 06/08/17 09:00 Active 40 mg PO DAILY Magnesium Oxide Med 06/07/17 21:00 Active 400 mg PO BID Metoprolol Tartrate [Lopressor] Med 06/07/17 12:00 Active 25 mg PO Q6H Mometasone Furoate 200mcg [Asmanex HFA 200mcg] Med 06/07/17 21:00 Active 0 gm INH BID Ondansetron [Zofran ODT] Med 06/07/17 11:14 Active 4 mg PO Q8H PRN Pantoprazole [ProTONIX] Med 06/07/17 16:00 Active 40 mg PO BIDAC Rosuvastatin [Crestor] Med 06/08/17 09:00 Active 10 mg PO DAILY metFORMIN [Glucophage] Med 06/07/17 17:00 Active 500 mg PO BIDMEALS methylPREDNISolone [Medrol] Med 06/07/17 11:45 Pending 4 mg PO ASDIRECTED SCD [Sequential Compression Device] [OM.PC] Routine Oth 06/07/17 11:13 Ordered Medication Orders Hydrocodone Bitart/Acetaminophen ([place] 325-5 Mg) 1 tab PO Q6H PRN PRN Reason: Pain Last Admin: 06/08/17 05:32 Dose: 1 tab Admin: 06/07/17 21:31 Dose: 1 tab Admin: 06/07/17 16:02 Dose: 1 tab Albuterol (Proventil Hfa) 2 puff INH Q4H PRN PRN Reason: Asthma Benzonatate (Tessalon Perles) 200 mg PO TID PRN PRN Reason: Cough Last Admin: 06/08/17 00:01 Dose: 200 mg Citalopram Hydrobromide (Celexa) 20 mg PO DAILY [facility] Hydralazine HCl (Apresoline) 20 mg IVPUSH Q4H PRN PRN Reason: Hypertension Insulin Aspart (Novolog) 0 unit SUBCUT QIDACANDBED [facility] PRN Reason: Protocol Last Admin: 06/07/17 21:44 Dose: 2 units Lisinopril (Prinivil) 40 mg PO DAILY [facility] Lorazepam (Ativan) 2 mg IVPUSH Q4H PRN PRN Reason: Seizures Lorazepam (Ativan) 1 mg PO Q4H PRN PRN Reason: Anxiety Last Admin: 06/08/17 00:02 Dose: 1 mg Magnesium Oxide (Magnesium Oxide) 400 mg PO BID [facility] Last Admin: 06/07/17 21:30 Dose: 400 mg Magnesium Sulfate (Pharmacy To Dose - Magnesium Replacement) 1 dose .XX ASDIRECTED [facility] Metformin HCl (Glucophage) 500 mg PO BIDMEALS [facility] Last Admin: 06/07/17 16:00 Dose: 500 mg Methylprednisolone (Medrol) 4 mg PO ASDIRECTED [facility] Metoprolol Tartrate (Lopressor) 25 mg PO Q6H [facility] Last Admin: 06/08/17 05:33 Dose: Admin: 06/08/17 00:02 Dose: 25 mg Admin: 06/07/17 18:27 Dose: Admin: 06/07/17 16:00 Dose: 25 mg Metoprolol Tartrate (Lopressor) 5 mg IVPUSH Q4H PRN PRN Reason: Tachycardia Mometasone Furoate (Asmanex Hfa 200mcg) 0 gm INH BID [facility] Last Admin: 06/07/17 21:08 Dose: 1 puff Non-Formulary Medication (Hctz/Triamterene) 0.5 tab PO DAILY [facility] Ondansetron HCl (Zofran Odt) 4 mg PO Q8H PRN PRN Reason: Nausea/Vomiting Pantoprazole Sodium (Protonix) 40 mg PO BIDAC [facility] Last Admin: 06/08/17 05:30 Dose: 40 mg Admin: 06/07/17 16:00 Dose: 40 mg Potassium Chloride (Pharmacy To Dose - Potassium Replacement) 1 dose .XX ASDIRECTED [facility] Promethazine HCl/Codeine (Phenergan With Codeine) 5 ml PO Q6HR PRN PRN Reason: cough Last Admin: 06/07/17 21:44 Dose: 5 ml Rosuvastatin Calcium (Crestor) 10 mg PO DAILY [facility] Labs: Laboratory Tests 06/07/17 06/07/17 06/07/17 Range/Units 06:25 06:50 06:50 WBC 14.76 H (3.98-10.04) K/mm3 RBC 3.21 L (3.98-5.22) M/mm3 Hgb 9.8 L (11.2-15.7) gm/L Hct 30.1 L (34.1-44.9) % MCV 93.8 (79.4-94.8) fl MCH 30.5 (25.6-32.2) pg MCHC 32.6 (32.2-35.5) g/dl RDW Std Deviation 48.4 H (36.4-46.3) fL Plt Count 362 (182-369) K/mm3 MPV 10.0 (9.4-12.3) fl Neutrophils % (Manual) 59 (40-60) % Band Neutrophils % 0 (0-10) % Lymphocytes % (Manual) 34 (20-40) % Atypical Lymphs % 0 % Monocytes % (Manual) 4 (2-10) % Eosinophils % (Manual) 3 (0.7-5.8) % Basophils % (Manual) 0 L (0.1-1.2) Platelet Estimate Adequate Poikilocytosis 1+ slight Anisocytosis 1+ slight RBC Morph Comment Not Reportable PT 21.4 H (8.0-13.0) SECONDS INR 1.99 Sodium (136-145) mEq/L Potassium (3.5-5.1) mEq/L Chloride (98-107) mEq/L Carbon Dioxide (21-32) mEq/L Anion Gap (5-15) BUN (7-18) mg/dL Creatinine (0.55-1.02) mg/dL Est Cr Clr Drug Dosing mL/min Estimated GFR (MDRD) (>60) mL/min BUN/Creatinine Ratio (14-18) Glucose (80-115) mg/dL POC Glucose 131 H (80-115) mg/dL Calcium (8.5-10.1) mg/dL Magnesium (1.8-2.4) mg/dl Total Bilirubin (0.2-1.0) mg/dL AST (15-37) U/L ALT (14-59) U/L Alkaline Phosphatase (46-116) U/L Troponin I (0.00-0.056) ng/mL C-Reactive Protein (<1.0) mg/dL NT-Pro-B Natriuret Pep (0-125) pg/mL Total Protein (6.4-8.2) g/dl Albumin (3.4-5.0) g/dl Globulin gm/dL Albumin/Globulin Ratio (1-2) Lipase (73-393) U/L 06/07/17 06/07/17 06/07/17 Range/Units 06:50 06:50 06:50 WBC (3.98-10.04) K/mm3 RBC (3.98-5.22) M/mm3 Hgb (11.2-15.7) gm/L Hct (34.1-44.9) % MCV (79.4-94.8) fl MCH (25.6-32.2) pg MCHC (32.2-35.5) g/dl RDW Std Deviation (36.4-46.3) fL Plt Count (182-369) K/mm3 MPV (9.4-12.3) fl Neutrophils % (Manual) (40-60) % Band Neutrophils % (0-10) % Lymphocytes % (Manual) (20-40) % Atypical Lymphs % % Monocytes % (Manual) (2-10) % Eosinophils % (Manual) (0.7-5.8) % Basophils % (Manual) (0.1-1.2) Platelet Estimate Poikilocytosis Anisocytosis RBC Morph Comment PT (8.0-13.0) SECONDS INR Sodium 136 (136-145) mEq/L Potassium 4.8 (3.5-5.1) mEq/L Chloride 96 L (98-107) mEq/L Carbon Dioxide 30 (21-32) mEq/L Anion Gap 14.8 (5-15) BUN 23 H (7-18) mg/dL Creatinine 0.9 (0.55-1.02) mg/dL Est Cr Clr Drug Dosing 52.38 mL/min Estimated GFR (MDRD) > 60 (>60) mL/min BUN/Creatinine Ratio 25.6 H (14-18) Glucose 129 H (80-115) mg/dL POC Glucose (80-115) mg/dL Calcium 9.0 (8.5-10.1) mg/dL Magnesium 1.4 L (1.8-2.4) mg/dl Total Bilirubin 0.4 (0.2-1.0) mg/dL AST 59 H (15-37) U/L ALT 49 (14-59) U/L Alkaline Phosphatase 103 (46-116) U/L Troponin I < 0.017 (0.00-0.056) ng/mL C-Reactive Protein 0.3 (<1.0) mg/dL NT-Pro-B Natriuret Pep 845 H (0-125) pg/mL Total Protein 7.3 (6.4-8.2) g/dl Albumin 3.1 L (3.4-5.0) g/dl Globulin 4.2 gm/dL Albumin/Globulin Ratio 0.7 L (1-2) Lipase 92 (73-393) U/L Meds: Medications Generic Name Dose Route Start Last Admin Trade Name Freq PRN Reason Stop Dose Admin Hydrocodone Bitart/Acetaminophen 1 tab 06/07/17 11:13 06/08/17 05:32 [place] 325-5 Mg PO 1 tab Q6H PRN Administration Pain Albuterol 2 puff 06/07/17 11:51 Proventil Hfa INH Q4H PRN Asthma Benzonatate 200 mg 06/07/17 11:34 06/08/17 00:01 Tessalon Perles PO 200 mg TID PRN Administration Cough Citalopram Hydrobromide 20 mg 06/08/17 09:00 Celexa PO DAILY [facility] Hydralazine HCl 20 mg 06/07/17 18:17 Apresoline IVPUSH Q4H PRN Hypertension Insulin Aspart 0 unit 06/07/17 22:00 06/07/17 21:44 Novolog SUBCUT 2 units QIDACANDBED [facility] Administration Protocol Lisinopril 40 mg 06/08/17 09:00 Prinivil PO DAILY [facility] Lorazepam 2 mg 06/07/17 18:17 Ativan IVPUSH Q4H PRN Seizures Lorazepam 1 mg 06/07/17 22:27 06/08/17 00:02 Ativan PO 1 mg Q4H PRN Administration Anxiety Magnesium Oxide 400 mg 06/07/17 21:00 06/07/17 21:30 Magnesium Oxide PO 400 mg BID [facility] Administration Magnesium Sulfate 1 dose 06/07/17 18:30 Pharmacy To Dose - Magnesium Replacement .XX ASDIRECTED [facility] Metformin HCl 500 mg 06/07/17 17:00 06/07/17 16:00 Glucophage PO 500 mg BIDMEALS [facility] Administration Methylprednisolone 4 mg 06/07/17 11:45 Medrol PO ASDIRECTED [facility] Metoprolol Tartrate 25 mg 06/07/17 12:00 06/08/17 05:33 Lopressor PO Not Given Q6H [facility] Metoprolol Tartrate 5 mg 06/07/17 18:17 Lopressor IVPUSH Q4H PRN Tachycardia Mometasone Furoate 0 gm 06/07/17 21:00 06/07/17 21:08 Asmanex Hfa 200mcg INH 1 puff BID [facility] Administration Non-Formulary Medication 0.5 tab 06/08/17 09:00 Hctz/Triamterene PO DAILY [facility] Ondansetron HCl 4 mg 06/07/17 11:14 Zofran Odt PO Q8H PRN Nausea/Vomiting Pantoprazole Sodium 40 mg 06/07/17 16:00 06/08/17 05:30 Protonix PO 40 mg BIDAC [facility] Administration Potassium Chloride 1 dose 06/07/17 18:30 Pharmacy To Dose - Potassium Replacement .XX ASDIRECTED [facility] Promethazine HCl/Codeine 5 ml 06/07/17 11:34 06/07/17 21:44 Phenergan With Codeine PO 5 ml Q6HR PRN Administration cough Rosuvastatin Calcium 10 mg 06/08/17 09:00 Crestor PO DAILY [facility] Discontinued Medications Generic Name Dose Route Start Last Admin Trade Name Freq PRN Reason Stop Dose Admin Diphenhydramine HCl 25 mg 06/07/17 05:50 06/07/17 07:04 Benadryl IVPUSH 06/07/17 05:51 25 mg ONETIME ONE Administration Fentanyl 100 mcg 06/07/17 05:53 06/07/17 07:05 Sublimaze IVPUSH 06/07/17 05:54 Not Given ONETIME ONE Fentanyl 100 mcg 06/07/17 06:07 06/07/17 06:14 Sublimaze IM 06/07/17 06:08 100 mcg ONETIME ONE Administration Sodium Chloride 1,000 mls @ 250 mls/hr 06/07/17 06:00 06/07/17 07:00 Normal Saline IV 250 mls/hr ASDIRECTED [facility] Administration Magnesium Oxide 400 mg 06/07/17 21:00 06/08/17 00:02 Magnesium Oxide PO 06/08/17 01:01 400 mg Q4H [facility] Administration Meperidine HCl 50 mg 06/07/17 06:45 06/07/17 07:14 Demerol IVPUSH 06/07/17 06:46 50 mg ONETIME ONE Administration Methylprednisolone Sodium Succinate 125 mg 06/07/17 08:00 06/07/17 08:28 Solu-Medrol IVPUSH 06/07/17 08:01 125 mg ONETIME ONE Administration Metoclopramide HCl 10 mg 06/07/17 05:50 06/07/17 07:05 Reglan IVPUSH 06/07/17 05:51 Not Given ONETIME ONE Metoclopramide HCl 10 mg 06/07/17 06:08 06/07/17 06:14 Reglan IM 06/07/17 06:09 10 mg ONETIME ONE Administration Morphine Sulfate 4 mg 06/07/17 12:30 06/07/17 12:52 Morphine IM 06/07/17 12:31 4 mg ONETIME ONE Administration Ondansetron HCl 4 mg 06/07/17 11:34 Zofran Odt PO ASDIRECTED PRN Nausea Phytonadione 5 mg 06/07/17 11:33 06/07/17 16:02 Aquamephyton PO 06/07/17 11:34 Not Given ONETIME ONE Phytonadione Confirm 06/07/17 15:29 06/07/17 16:02 Aquamephyton Administered 06/07/17 15:30 Not Given Dose 5 mg .ROUTE .STK-MED ONE Phytonadione 5 mg 06/07/17 16:00 06/07/17 16:00 Aquamephyton PO 06/07/17 16:01 5 mg ONETIME ONE Administration - Re-Assessments/Exams Free Text/Narrative Re-Assessment/Exam: 06/07/17 07:45. Have assumed care from Dr. Ty after change of shift. Flatplate x-rays of the abdomen do not show much gas in the colon making it quite unlikely that this is a bowel obstruction or volvulus. She is nauseated but has not vomited. She does have a very large mass right abdomen that is still very uncomfortable, very tender I am strongly considering that this could be hematoma from Lovenox injection. However abdominal CT does need to be done to rule that in or out as well as other possible pathology. She did have a BM about 4:00 this morning about 45 minutes prior to coming into the ED which she states was "normal, no blood or other apparent abnormality with that. Daughter states that she had "bad reaction to contrast dye after Abd CT in Nov., broke out in diffuse erythematous rash, very itchy for 1-2 days. Therefore we are going to try to CT with oral contrast only, see what we do find with that. If necessary we'll consider follow-up CT with IV contrast. She already has had Benadryl and also have given Solu-Medrol 125 mg IV. 06/07/17 09:45. Abdominal CT does show large right rectus sheath hematoma with the larger measuring 11.6 x 8.8 x 19.5 cm and then a second inferior smaller measuring about 8 cm. See radiology report for details. She does have a very small pericardial effusion. She does have retroperitoneal lymph nodes apparent on prior study and noted to be smaller or improved from prior study. See radiology report for details. Hemoglobin 9.8. Hemoglobin 9.9 at time of prior admission. 06/07/17 10:02 INR 1.99. 06/07/17 10:40. I did discuss symptoms, findings, the need for hospital admission with Dr. Renner, our Hospitalist concrete products dispatcher. He was not comfortable ascepting her as primary with multiple underlying medical problems, some not totally defined with her having just recently moved here. I did discuss the hematoma problems which is really why she is here today with Dr Aburto, General Surgeon concrete products dispatcher who was present to look at here CT. He will admit her, stop her anticoagulants. Consider drainage of hematoma. Dr Renner will consult medically. Patient and daughter are comfortable with that plan. Departure - Departure Time of Disposition: 10:00 Disposition: Admitted As Inpatient 65 Clinical Impression: Hematoma Abdominal pain Qualifiers: Abdominal location: right upper quadrant Qualified Code(s): R10.11 - Right upper quadrant pain Atrial fibrillation Qualifiers: Atrial fibrillation type: persistent Qualified Code(s): I48.1 - Persistent atrial fibrillation - Discharge Information ED Communication - Discussed Case With (1) Discussed Case With (1): Admitting Provider (Dr Renner, decision to admit at about 10:00.) - My Orders Last 24 Hours: My Active Orders 06/07/17 05:51 Blood Glucose Check, Bedside [RC] ONETIME C DIFFICILE BY PCR W/NAP1 [MOLEC] Stat - Assessment/Plan Last 24 Hours: My Active Orders 06/07/17 05:51 Blood Glucose Check, Bedside [RC] ONETIME C DIFFICILE BY PCR W/NAP1 [MOLEC] Stat <Haroon Ty - Last Filed: 06/08/17 06:23> ED HPI GENERAL MEDICAL PROBLEM - General Source of Information: Reports: Patient History Limitations: Reports: No Limitations - History of Present Illness INITIAL COMMENTS - FREE TEXT/NARRATIVE: 66-year-old female presents to the ED with severe right cait-abdominal pain. Patient has been ill and recently hospitalized. Hospitalized here from May 28 to June 03. Acute febrile illness of unclear etiology. Influenza screen was negative. Treated with Rocephin in the ED and question whether she was treated with Levaquin and doxycycline while in hospital. Apparently developed atrial fibrillation while in hospital requiring anticoagulation. She was discharged on June 02. She has been recently started on Coumadin after transitioning from Lovenox during hospitalization. She reports the development of right cait-abdominal pain last evening associated with 3 loose diarrhea stools of unknown color. She doesn't believe there is any blood in them. Of note she's been on several antibiotics during her hospitalization and discharged home on Zithromax. She is also on methyl prednisolone for flareup of asthma. She is a type II diabetic controlled with oral medications and diet. Currently pain is constant with a severe colicky component right hemiabdomen. Previous surgery is that of an appendectomy. She had some Zofran about 0430 hrs. for nausea which is helped only slightly. She remains nauseated but has not vomited. Anus currently 10 out of 10. Patient is diaphoretic cool and clammy. Onset: Sudden Onset Date: 06/06/17 Onset Time: 20:00 Duration: Hour(s):, Getting Worse Location: Reports: Abdomen (Right cait-abdominal pain with associated loose diarrhea stools 3) Quality: Reports: Sharp, Stabbing, Other Severity: Severe (Constant pain with a strong colicky component) Improves with: Reports: None ( current pain is 10 over 10) Worsens with: Reports: None Context: Reports: Other (Recent illness requiring hospitalization.). Denies: Activity, Exercise, Lifting, Sick Contact Associated Symptoms: Reports: Cough, Diaphoresis, Fever/Chills, Malaise, Nausea/ Vomiting. 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 Unclear whether she uses CPAP machine.) Gastrointestinal History: Reports: GERD, Hiatal Hernia, Irritable Bowel Syndrome (Colitis mentioned in old notes. 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 She had polio as a child and has a left upper extremity paresis. It's unclear whether the polio as the cause of the brain injury.) Psychiatric History: Reports: Depression Endocrine/Metabolic History: Reports: Diabetes, Type II (Controlled with diet and oral medications.), Obesity/BMI 30+ Dermatologic History: Reports: None - Infectious Disease History Infectious Disease History: Reports: Other (See Below) (Polio) - Past Surgical History HEENT Surgical History: Reports: Oral Surgery Cardiovascular Surgical History: Reports: Coronary Artery Stent GI Surgical History: Reports: Appendectomy, Lysis of Adhesions (Laparotomy exploratory for lysis of adhesions midline infraumbilical.) Female Surgical History: Reports: D&C (1.) Neurological Surgical History: Reports: C-Spine Social & Family History - Family History Family Medical History: Noncontributory - Tobacco Use Smoking Status *Q: Current Every Day Smoker Years of Tobacco use: 47 Packs/Tins Daily: 0.3 - Caffeine Use Caffeine Use: Reports: Coffee, Energy Drinks, Soda, Tea - Recreational Drug Use Recreational Drug Use: No - Living Situation & Occupation Living situation: Reports: , Alone Occupation: Disabled ED ROS GENERAL - Review of Systems Review Of Systems: See Below Constitutional: Reports: Chills, Malaise, Weakness, Fatigue, Diaphoresis ( Associated with recurrent pain tonight.), Decreased Appetite, Weight Loss HEENT: Reports: Glasses (Has impaired vision.) Respiratory: Reports: Shortness of Breath, Other (History of asthma). Denies: Wheezing, Pleuritic Chest Pain, Cough Cardiovascular: Reports: Blood Pressure Problem, Dyspnea on Exertion. Denies: Chest Pain, Claudication, Edema, Lightheadedness, Orthopnea (History of hypertension) Endocrine: Reports: Fatigue GI/Abdominal: Reports: Abdominal Pain, Diarrhea (See history of present illness 3 loose stools over the last 12 hours), Distension (Right cait-abdominal distention.), Nausea. Denies: Vomiting : Reports: Incontinence (Mostly urge but there is a stress component as well.) Musculoskeletal: Reports: Back Pain, Joint Pain (Knees hips neck at times. Previous neck surgery.) Skin: Reports: Bruising (Bruises abdominal wall recent Lovenox injection sites.) Neurological: Reports: Dizziness, Difficulty Walking (Today due to severe abdominal pain), Weakness Psychiatric: Reports: No Symptoms Hematologic/Lymphatic: Reports: Easy Bruising Immunologic: Reports: No Symptoms ED EXAM, GI/ABD - Physical Exam Exam: See Below Exam Limited By: Physical Impairment (Patient is a very poor historian due to the severity of her current pain. Much of the history is provided by her daughter.) General Appearance: Severe Distress (She appears to be in significant distress.. She is cool clammy diaphoretic) Eyes: Bilateral: Normal Appearance Throat/Mouth: Normal Inspection, Normal Oropharynx Head: Atraumatic, Normocephalic Neck: Normal Inspection, Limited Range of Motion, Other (Well-healed midline cervical spine surgery.). No: Lymphadenopathy (L), Lymphadenopathy (R) Respiratory/Chest: Lungs Clear (Mild tachypnea 20-22/m.), Normal Breath Sounds, Respiratory Distress, Decreased Breath Sounds (Breath sounds are mildly diminished in both bases posteriorly.). No: Crackles, Rales, Rhonchi, Wheezing Cardiovascular: Regular Rate, Rhythm, No Edema, No Gallop, No Murmur, No Rub GI/Abdominal Exam: Distended (Right hemiabdomen), Guarding, Rebound, Tender ( Severely tender to minimal palpation right hemiabdomen which is grossly distended in the elongated fashion. Suspect large bowel obstruction with volvulus clinically.), Abnormal Bowel Sounds (Hyperactive bowel sounds throughout the abdominal wall.), Mass (Right hemiabdomen has a football like mass that is protuberant and quite obvious to palpation.) Extremities: Normal Inspection Neurological: Alert, Oriented, CN II-XII Intact, Normal Cognition Psychiatric: Anxious, Other (In severe pain.) Skin Exam: Cool, Diaphoretic, Other (Multiple ecchymotic areas on the abdominal wall dark purple in color from Lovenox injections.) EKG INTERPRETATION EKG Date: 06/07/17 Time: 06:11 Rhythm: A-Fib (With rate 62-90/m) Rate (Beats/Min): 79 [place]: LAD-Left [place] Deviation (Mild left axis deviation -17) P-Wave: Absent QRS: Other (Decreased voltage throughout the limb leads. Appears to be a near Q- wave in lead 3 and aVF. Cannot rule out an old inferior wall myocardial infarction) ST-T: Normal QT: Prolonged (Minimally prolonged.) Course - Orders/Labs/Meds Orders: Active Orders 24 hr Category Date Time Status Patient Status [ADT] Routine ADT 06/07/17 11:10 Active Ambulate [RC] DAILY Care 06/07/17 11:12 Active Antiembolic Devices [RC] BID Care 06/07/17 11:13 Active Blood Glucose Check, Bedside [RC] ONETIME Care 06/07/17 05:51 Active Notify Provider Consults [RC] DAILY Care 06/07/17 11:15 Active Consult to Physician [CONS] Routine Cons 06/07/17 11:14 Active [employer] Diet [DIET] Diet 06/07/17 Dinner Active C DIFFICILE BY PCR W/NAP1 [MOLEC] Stat Lab 06/07/17 05:51 Ordered CBC WITH AUTO DIFF [HEME] Stat Lab 06/08/17 08:00 Ordered COMPREHENSIVE METABOLIC PN,CMP [CHEM] Stat Lab 06/08/17 08:00 Ordered INR,PT,PROTHROMBIN TIME [COAG] Stat Lab 06/08/17 08:00 Ordered Acetaminophen/HYDROcodone [[place] 325-5 MG] Med 06/07/17 11:13 Active 1 tab PO Q6H PRN Albuterol [Proventil HFA] Med 06/07/17 11:51 Active 2 puff INH Q4H PRN Benzonatate [Tessalon Perles] Med 06/07/17 11:34 Active 200 mg PO TID PRN Citalopram [Celexa] Med 06/08/17 09:00 Active 20 mg PO DAILY Codeine/Promethazine [Phenergan with Codeine] Med 06/07/17 11:34 Active 5 ml PO Q6HR PRN HCTZ/Triamterene Med 06/08/17 09:00 Pending 0.5 tab PO DAILY Lisinopril [Prinivil] Med 06/08/17 09:00 Active 40 mg PO DAILY Magnesium Oxide Med 06/07/17 21:00 Active 400 mg PO BID Metoprolol Tartrate [Lopressor] Med 06/07/17 12:00 Active 25 mg PO Q6H Mometasone Furoate 200mcg [Asmanex HFA 200mcg] Med 06/07/17 21:00 Active 0 gm INH BID Ondansetron [Zofran ODT] Med 06/07/17 11:14 Active 4 mg PO Q8H PRN Pantoprazole [ProTONIX] Med 06/07/17 16:00 Active 40 mg PO BIDAC Rosuvastatin [Crestor] Med 06/08/17 09:00 Active 10 mg PO DAILY metFORMIN [Glucophage] Med 06/07/17 17:00 Active 500 mg PO BIDMEALS methylPREDNISolone [Medrol] Med 06/07/17 11:45 Pending 4 mg PO ASDIRECTED SCD [Sequential Compression Device] [OM.PC] Routine Oth 06/07/17 11:13 Ordered Medication Orders Hydrocodone Bitart/Acetaminophen ([place] 325-5 Mg) 1 tab PO Q6H PRN PRN Reason: Pain Last Admin: 06/08/17 05:32 Dose: 1 tab Admin: 06/07/17 21:31 Dose: 1 tab Admin: 06/07/17 16:02 Dose: 1 tab Albuterol (Proventil Hfa) 2 puff INH Q4H PRN PRN Reason: Asthma Benzonatate (Tessalon Perles) 200 mg PO TID PRN PRN Reason: Cough Last Admin: 06/08/17 00:01 Dose: 200 mg Citalopram Hydrobromide (Celexa) 20 mg PO DAILY [facility] Hydralazine HCl (Apresoline) 20 mg IVPUSH Q4H PRN PRN Reason: Hypertension Insulin Aspart (Novolog) 0 unit SUBCUT QIDACANDBED [facility] PRN Reason: Protocol Last Admin: 06/07/17 21:44 Dose: 2 units Lisinopril (Prinivil) 40 mg PO DAILY [facility] Lorazepam (Ativan) 2 mg IVPUSH Q4H PRN PRN Reason: Seizures Lorazepam (Ativan) 1 mg PO Q4H PRN PRN Reason: Anxiety Last Admin: 06/08/17 00:02 Dose: 1 mg Magnesium Oxide (Magnesium Oxide) 400 mg PO BID [facility] Last Admin: 06/07/17 21:30 Dose: 400 mg Magnesium Sulfate (Pharmacy To Dose - Magnesium Replacement) 1 dose .XX ASDIRECTED [facility] Metformin HCl (Glucophage) 500 mg PO BIDMEALS [facility] Last Admin: 06/07/17 16:00 Dose: 500 mg Methylprednisolone (Medrol) 4 mg PO ASDIRECTED [facility] Metoprolol Tartrate (Lopressor) 25 mg PO Q6H [facility] Last Admin: 06/08/17 05:33 Dose: Admin: 06/08/17 00:02 Dose: 25 mg Admin: 06/07/17 18:27 Dose: Admin: 06/07/17 16:00 Dose: 25 mg Metoprolol Tartrate (Lopressor) 5 mg IVPUSH Q4H PRN PRN Reason: Tachycardia Mometasone Furoate (Asmanex Hfa 200mcg) 0 gm INH BID [facility] Last Admin: 06/07/17 21:08 Dose: 1 puff Non-Formulary Medication (Hctz/Triamterene) 0.5 tab PO DAILY [facility] Ondansetron HCl (Zofran Odt) 4 mg PO Q8H PRN PRN Reason: Nausea/Vomiting Pantoprazole Sodium (Protonix) 40 mg PO BIDAC [facility] Last Admin: 06/08/17 05:30 Dose: 40 mg Admin: 06/07/17 16:00 Dose: 40 mg Potassium Chloride (Pharmacy To Dose - Potassium Replacement) 1 dose .XX ASDIRECTED [facility] Promethazine HCl/Codeine (Phenergan With Codeine) 5 ml PO Q6HR PRN PRN Reason: cough Last Admin: 06/07/17 21:44 Dose: 5 ml Rosuvastatin Calcium (Crestor) 10 mg PO DAILY [facility] Labs: Laboratory Tests 06/07/17 06/07/17 06/07/17 Range/Units 06:25 06:50 06:50 WBC 14.76 H (3.98-10.04) K/mm3 RBC 3.21 L (3.98-5.22) M/mm3 Hgb 9.8 L (11.2-15.7) gm/L Hct 30.1 L (34.1-44.9) % MCV 93.8 (79.4-94.8) fl MCH 30.5 (25.6-32.2) pg MCHC 32.6 (32.2-35.5) g/dl RDW Std Deviation 48.4 H (36.4-46.3) fL Plt Count 362 (182-369) K/mm3 MPV 10.0 (9.4-12.3) fl Neutrophils % (Manual) 59 (40-60) % Band Neutrophils % 0 (0-10) % Lymphocytes % (Manual) 34 (20-40) % Atypical Lymphs % 0 % Monocytes % (Manual) 4 (2-10) % Eosinophils % (Manual) 3 (0.7-5.8) % Basophils % (Manual) 0 L (0.1-1.2) Platelet Estimate Adequate Poikilocytosis 1+ slight Anisocytosis 1+ slight RBC Morph Comment Not Reportable PT 21.4 H (8.0-13.0) SECONDS INR 1.99 Sodium (136-145) mEq/L Potassium (3.5-5.1) mEq/L Chloride (98-107) mEq/L Carbon Dioxide (21-32) mEq/L Anion Gap (5-15) BUN (7-18) mg/dL Creatinine (0.55-1.02) mg/dL Est Cr Clr Drug Dosing mL/min Estimated GFR (MDRD) (>60) mL/min BUN/Creatinine Ratio (14-18) Glucose (80-115) mg/dL POC Glucose 131 H (80-115) mg/dL Calcium (8.5-10.1) mg/dL Magnesium (1.8-2.4) mg/dl Total Bilirubin (0.2-1.0) mg/dL AST (15-37) U/L ALT (14-59) U/L Alkaline Phosphatase (46-116) U/L Troponin I (0.00-0.056) ng/mL C-Reactive Protein (<1.0) mg/dL NT-Pro-B Natriuret Pep (0-125) pg/mL Total Protein (6.4-8.2) g/dl Albumin (3.4-5.0) g/dl Globulin gm/dL Albumin/Globulin Ratio (1-2) Lipase (73-393) U/L 06/07/17 06/07/17 06/07/17 Range/Units 06:50 06:50 06:50 WBC (3.98-10.04) K/mm3 RBC (3.98-5.22) M/mm3 Hgb (11.2-15.7) gm/L Hct (34.1-44.9) % MCV (79.4-94.8) fl MCH (25.6-32.2) pg MCHC (32.2-35.5) g/dl RDW Std Deviation (36.4-46.3) fL Plt Count (182-369) K/mm3 MPV (9.4-12.3) fl Neutrophils % (Manual) (40-60) % Band Neutrophils % (0-10) % Lymphocytes % (Manual) (20-40) % Atypical Lymphs % % Monocytes % (Manual) (2-10) % Eosinophils % (Manual) (0.7-5.8) % Basophils % (Manual) (0.1-1.2) Platelet Estimate Poikilocytosis Anisocytosis RBC Morph Comment PT (8.0-13.0) SECONDS INR Sodium 136 (136-145) mEq/L Potassium 4.8 (3.5-5.1) mEq/L Chloride 96 L (98-107) mEq/L Carbon Dioxide 30 (21-32) mEq/L Anion Gap 14.8 (5-15) BUN 23 H (7-18) mg/dL Creatinine 0.9 (0.55-1.02) mg/dL Est Cr Clr Drug Dosing 52.38 mL/min Estimated GFR (MDRD) > 60 (>60) mL/min BUN/Creatinine Ratio 25.6 H (14-18) Glucose 129 H (80-115) mg/dL POC Glucose (80-115) mg/dL Calcium 9.0 (8.5-10.1) mg/dL Magnesium 1.4 L (1.8-2.4) mg/dl Total Bilirubin 0.4 (0.2-1.0) mg/dL AST 59 H (15-37) U/L ALT 49 (14-59) U/L Alkaline Phosphatase 103 (46-116) U/L Troponin I < 0.017 (0.00-0.056) ng/mL C-Reactive Protein 0.3 (<1.0) mg/dL NT-Pro-B Natriuret Pep 845 H (0-125) pg/mL Total Protein 7.3 (6.4-8.2) g/dl Albumin 3.1 L (3.4-5.0) g/dl Globulin 4.2 gm/dL Albumin/Globulin Ratio 0.7 L (1-2) Lipase 92 (73-393) U/L Meds: Medications Generic Name Dose Route Start Last Admin Trade Name Freq PRN Reason Stop Dose Admin Hydrocodone Bitart/Acetaminophen 1 tab 06/07/17 11:13 06/08/17 05:32 [place] 325-5 Mg PO 1 tab Q6H PRN Administration Pain Albuterol 2 puff 06/07/17 11:51 Proventil Hfa INH Q4H PRN Asthma Benzonatate 200 mg 06/07/17 11:34 06/08/17 00:01 Tessalon Perles PO 200 mg TID PRN Administration Cough Citalopram Hydrobromide 20 mg 06/08/17 09:00 Celexa PO DAILY [facility] Hydralazine HCl 20 mg 06/07/17 18:17 Apresoline IVPUSH Q4H PRN Hypertension Insulin Aspart 0 unit 06/07/17 22:00 06/07/17 21:44 Novolog SUBCUT 2 units QIDACANDBED [facility] Administration Protocol Lisinopril 40 mg 06/08/17 09:00 Prinivil PO DAILY [facility] Lorazepam 2 mg 06/07/17 18:17 Ativan IVPUSH Q4H PRN Seizures Lorazepam 1 mg 06/07/17 22:27 06/08/17 00:02 Ativan PO 1 mg Q4H PRN Administration Anxiety Magnesium Oxide 400 mg 06/07/17 21:00 06/07/17 21:30 Magnesium Oxide PO 400 mg BID [facility] Administration Magnesium Sulfate 1 dose 06/07/17 18:30 Pharmacy To Dose - Magnesium Replacement .XX ASDIRECTED [facility] Metformin HCl 500 mg 06/07/17 17:00 06/07/17 16:00 Glucophage PO 500 mg BIDMEALS [facility] Administration Methylprednisolone 4 mg 06/07/17 11:45 Medrol PO ASDIRECTED [facility] Metoprolol Tartrate 25 mg 06/07/17 12:00 06/08/17 05:33 Lopressor PO Not Given Q6H [facility] Metoprolol Tartrate 5 mg 06/07/17 18:17 Lopressor IVPUSH Q4H PRN Tachycardia Mometasone Furoate 0 gm 06/07/17 21:00 06/07/17 21:08 Asmanex Hfa 200mcg INH 1 puff BID [facility] Administration Non-Formulary Medication 0.5 tab 06/08/17 09:00 Hctz/Triamterene PO DAILY [facility] Ondansetron HCl 4 mg 06/07/17 11:14 Zofran Odt PO Q8H PRN Nausea/Vomiting Pantoprazole Sodium 40 mg 06/07/17 16:00 06/08/17 05:30 Protonix PO 40 mg BIDAC [facility] Administration Potassium Chloride 1 dose 06/07/17 18:30 Pharmacy To Dose - Potassium Replacement .XX ASDIRECTED [facility] Promethazine HCl/Codeine 5 ml 06/07/17 11:34 06/07/17 21:44 Phenergan With Codeine PO 5 ml Q6HR PRN Administration cough Rosuvastatin Calcium 10 mg 06/08/17 09:00 Crestor PO DAILY [facility] Discontinued Medications Generic Name Dose Route Start Last Admin Trade Name Freq PRN Reason Stop Dose Admin Diphenhydramine HCl 25 mg 06/07/17 05:50 06/07/17 07:04 Benadryl IVPUSH 06/07/17 05:51 25 mg ONETIME ONE Administration Fentanyl 100 mcg 06/07/17 05:53 06/07/17 07:05 Sublimaze IVPUSH 06/07/17 05:54 Not Given ONETIME ONE Fentanyl 100 mcg 06/07/17 06:07 06/07/17 06:14 Sublimaze IM 06/07/17 06:08 100 mcg ONETIME ONE Administration Sodium Chloride 1,000 mls @ 250 mls/hr 06/07/17 06:00 06/07/17 07:00 Normal Saline IV 250 mls/hr ASDIRECTED [facility] Administration Magnesium Oxide 400 mg 06/07/17 21:00 06/08/17 00:02 Magnesium Oxide PO 06/08/17 01:01 400 mg Q4H [facility] Administration Meperidine HCl 50 mg 06/07/17 06:45 06/07/17 07:14 Demerol IVPUSH 06/07/17 06:46 50 mg ONETIME ONE Administration Methylprednisolone Sodium Succinate 125 mg 06/07/17 08:00 06/07/17 08:28 Solu-Medrol IVPUSH 06/07/17 08:01 125 mg ONETIME ONE Administration Metoclopramide HCl 10 mg 06/07/17 05:50 06/07/17 07:05 Reglan IVPUSH 06/07/17 05:51 Not Given ONETIME ONE Metoclopramide HCl 10 mg 06/07/17 06:08 06/07/17 06:14 Reglan IM 06/07/17 06:09 10 mg ONETIME ONE Administration Morphine Sulfate 4 mg 06/07/17 12:30 06/07/17 12:52 Morphine IM 06/07/17 12:31 4 mg ONETIME ONE Administration Ondansetron HCl 4 mg 06/07/17 11:34 Zofran Odt PO ASDIRECTED PRN Nausea Phytonadione 5 mg 06/07/17 11:33 06/07/17 16:02 Aquamephyton PO 06/07/17 11:34 Not Given ONETIME ONE Phytonadione Confirm 06/07/17 15:29 06/07/17 16:02 Aquamephyton Administered 06/07/17 15:30 Not Given Dose 5 mg .ROUTE .STK-MED ONE Phytonadione 5 mg 06/07/17 16:00 06/07/17 16:00 Aquamephyton PO 06/07/17 16:01 5 mg ONETIME ONE Administration - Radiology Interpretation Free Text/Narrative:: 66-year-old female presents to the ED with onset of right cait-abdominal pain last evening about 2000 hrs. She states she's had about 3 loose watery stools since that time. Pain is currently 10 out of 10. She presents diaphoretic cool and clammy. She is a known type II diabetic controlled with medication and diet. Recently started on Coumadin and dosage was increased yesterday from 2 mg to 5 mg once daily. Apparently INR was 1.6. He is being bridged since discharge from hospital with Lovenox injections subcutaneously in the abdominal wall. She is currently on Zithromax and methylprednisolone. Previously on other antibiotics while hospitalized. Therefore diarrhea could be secondary to C. difficile enteritis. However examination reveals diffuse swelling and severe tenderness throughout the right hemiabdomen. She has very active bowel sounds in all 4 quadrants. Clinically she is presenting like a large bowel obstruction with a volvulus --likely sigmoid. Due to her multiple allergies she will receive fentanyl 100 g IV with Reglan 10 mg IV and Benadryl 25 mg IV as she took Zofran 4 mg sublingually about 0430 hrs. this morning. The Benadryl hopefully prevent any dystonic reactions. She is apparently allergic to Dilaudid and codeine. One view of the abdomen will be obtained. Labs to be obtained to include serum lipase CRP and PT/INR. We will try and obtain notes from last hospitalization to try and clarify what transpired during hospitalization. - Re-Assessments/Exams Free Text/Narrative Re-Assessment/Exam: 06/07/17 06:28 Due to recent mini IV sticks the nurses were unable to establish an IV. She was therefore given initial pain medication fentanyl 100 g IM and Reglan 10 mg IM. Nurse director of manufacturing is been called to try and establish an IV. ECG done shows atrial fibrillation with a controlled rate of 62-90/m. There is decreased voltage throughout the limb leads. There are near Q waves in leads 3 and aVF cannot rule out an old inferior wall myocardial infarction. She has mild left axis deviation of -17. Abnormal ECG. Bed side blood sugar is 131. Reading the notes in particular the discharge summary was that she was identified to have generalized enlarged lymph nodes and did have a lymph node biopsy from the left axilla. Therefore the left arm is not to be used for IV start. - My Orders Last 24 Hours: My Active Orders 06/07/17 05:51 Blood Glucose Check, Bedside [RC] ONETIME C DIFFICILE BY PCR W/NAP1 [[facility]LEC] Stat - Assessment/Plan Last 24 Hours: My Active Orders 06/07/17 05:51 Blood Glucose Check, Bedside [RC] ONETIME C DIFFICILE BY PCR W/NAP1 [[facility]] Stat
[2017-06-07] MEDS ORDERED: diphenhydrAMINE 50 MG/ML SDV IVPUSH ONE (05:50)
[2017-06-07] MEDS ORDERED: Metoclopramide 10 MG/2 ML SDV IVPUSH ONE (05:50)
[2017-06-07] MEDS ORDERED: fentaNYL 100 MCG/2 ML SDV IVPUSH ONE (05:53)
[2017-06-07] MEDS ORDERED: Sodium Chloride 0.9% 1,000 ML IV SCH (06:00)
[2017-06-07] MEDS ORDERED: fentaNYL 100 MCG/2 ML SDV IM ONE (06:07)
[2017-06-07] MEDS ORDERED: Metoclopramide 10 MG/2 ML SDV IM ONE (06:08)
[2017-06-07] MEDS ORDERED: Meperidine PF 50 MG/ML Syringe IVPUSH ONE (06:45)
--- NOTE | 2017-06-07 07:10 | PCM.SN ---
- Free Text/Narrative Note: Called to see Janey for a difficult IV placement. Site prepped with chloraprep , 20 gauge IV inserted in her right forearm with ultrasound guidance. Good blood return. Sample obtained for Lab. Flushes well with 20 ml of 0.9NS. Secured with tegaderm. Total attempts: 2. Tolerated procedure well. No complications noted.
[2017-06-07] MEDS ORDERED: methylPREDNISolone Sodium Succinate 125 MG/2 ML SDV IVPUSH ONE (08:00)
--- NOTE | 2017-06-07 09:44 | CT ---
CT abdomen and pelvis Technique: Multiple axial sections were obtained from above the dome of the diaphragm inferiorly through the pubic symphysis. Reconstructed axial and coronal images were obtained. Comparison: Prior CT abdomen and pelvis exam of 05/30/17. Findings: Bilobed hematoma is identified within the right rectus sheath. Hematocrit level is seen within the larger hematoma located more superiorly. This finding has transverse dimensions of about 11.6 cm in AP dimension of 8.8 cm craniocaudal measurement of 19.5 cm. Second more solid-appearing hematoma noted inferior to the larger one measuring about 7.7 cm in craniocaudal measurement. Atelectasis is seen within both lung bases. Liver shows no focal abnormality. Spleen appears within normal limits. Heart is enlarged with small pericardial effusion. Pericardial effusion is interval change from recent exam. Adrenal glands show no nodule. Pancreas is within normal limits. Gallbladder contains no calcified gallstones. Kidneys show no hydronephrosis. Small low-density lesion is noted within the inferior left kidney felt compatible with minimal cyst. Aorta and iliac vessels shows atherosclerotic change with minimal aneurysmal dilatation within the mid aorta measuring 2.7 cm. Multiple small retroperitoneal lymph nodes are seen. No pelvic mass or adenopathy is seen. No free fluid or inflammatory change is seen. Appendix not visualized. Bone window settings shows diffuse degenerative change within the spine with slight scoliosis. Impression: 1. Large rectus sheath hematoma which appears bilobed in configuration. Larger abnormality shows a hematocrit level. Measurements as noted above. Second smaller more solid-appearing hematoma is seen inferiorly to the larger finding with measurement as noted above. 2. Small pericardial effusion as an interval change from previous exam. 3. Retroperitoneal lymph nodes are seen. These appear smaller than on prior study which is unusual given the short interval change from previous study. Previous adenopathy is presumably inflammatory given the rapid improvement. 4. Incidental bibasilar atelectasis. 5. Other incidental findings. Diagnostic code #3
[2017-06-07] MEDS ORDERED: Ondansetron 4 MG Tab.DIS PO PRN ×2 (11:14→11:34)
[2017-06-07] MEDS ORDERED: Benzonatate 100 MG Cap PO PRN (11:34)
[2017-06-07] MEDS ORDERED: Codeine/Promethazine 10-6.25 MG/5 ML Syrup 5 ML UD Cup PO PRN (11:34)
[2017-06-07] MEDS ORDERED: Albuterol 90 MCG/6.7 GM Inhaler INH PRN (11:51)
[2017-06-07] MEDS ORDERED: Morphine 4 MG/ML Syringe IM ONE (12:30)
--- NOTE | 2017-06-07 14:04 | CR ---
Abdomen: Supine view of the abdomen was obtained. Comparison: No prior abdominal x-ray. Bowel gas pattern appears normal. Slight degenerative change seen within the sacroiliac joints. Mild scoliosis seen within the spine. Minimal vascular calcification is noted within the pelvis. Impression: 1. Incidental findings. Diagnostic code #2
[2017-06-07] MEDS ORDERED: Phytonadione ORAL 2.5mg/2.5ml Soln Simple Syrup U/D ONE (15:29)
[2017-06-07] MEDS: metFORMIN 500 MG Tab PO SCH (16:00)
[2017-06-07] MEDS ORDERED: Phytonadione ORAL 2.5mg/2.5ml Soln Simple Syrup U/D PO ONE (16:00)
[2017-06-07] MEDS: Pantoprazole 40 MG Tab.CR PO SCH (16:00)
[2017-06-07] MEDS: Metoprolol Tartrate 25 MG Tab PO SCH ×2 (16:00→18:27)
[2017-06-07] MEDS: Acetaminophen/HYDROcodone 325-5 MG Tab PO PRN ×2 (16:02→21:31)
--- NOTE | 2017-06-07 16:38 | HP ---
DATE OF ADMISSION: 06/07/2017 HISTORY OF PRESENT ILLNESS: A 66-year-old female, who came in today to the emergency room with pain and swelling in the right upper abdomen. This was worked up with a CT scan showing a rectus muscle hematoma extending from the umbilicus cephalad to the costal margin. Her symptoms began yesterday, Juev with gradual pain, which increased in intensity causing her to come into the hospital now. There has been prior to this, some nausea and some coughing. The patient has a history of COPD and has been a smoker, but has stopped in the last couple of weeks. The patient was last in the hospital and discharged on 06/03/2017 for generalized flu-like symptom, malaise, and was worked up, found to have some atrial fibrillation, and some adenopathy, and fever. The adenopathy of interest has regressed somewhat on this admission CT scan compared with the last admission abdominal CT scan. She no longer has the fever. She was with respect to treatment of her atrial fibrillation, placed on Coumadin and bridging with Lovenox. Her last dose of Lovenox was Friday and she last took 5 mg of Coumadin a day with an INR of 1.99. The patient's Coumadin level is obviously increasing. Her INR is obviously increasing. Other medical problems consist of asthma exacerbation and some COPD, history of hyponatremia, and the lymphadenopathy as stated. Obesity with a BMI of 40, type 2 diabetes, nicotine dependency, sleep apnea with a creatinine of 1.0, creatinine estimated glomerular filtration rate of 55. PAST MEDICAL HISTORY: As stated above. REVIEW OF SYSTEMS: No chest pain, shortness of breath, cough, hoarseness, wheezing, some nausea, but no diarrhea. No vomiting blood. No fainting and some generalized weakness. CURRENT MEDICATIONS: Per medication reconciliation form have been reviewed. FAMILY HISTORY: Not helpful. PHYSICAL EXAMINATION: VITAL SIGNS: Shows a temperature of 97, pulse of 90, blood pressure 124/65. HEENT: Eyes; sclerae white. Extraocular muscle motion normal. Oral cavity is healthy. NECK: Supple. LUNGS: Clear. No wheezes. CARDIAC: Heart tones regular rate at this time. ABDOMEN: Shows swelling in the rectus sheath, on the right, it is quite tender. Left side of the abdomen is normal. EXTREMITIES: Upper extremities unremarkable. Lower extremities trace edema. No angulation deformities. SKIN: Shows dry skin, scaly. There is a body habitus suggests cushions. NEUROLOGIC: Cranial nerves 3 through 12 intact. No sensorineural deficit noted. ASSESSMENT: 1. Rectus sheath hematoma. 2. Atrial fibrillation. 3. Medical problems as detailed in her H and P. PLAN: To admit the patient for pain control, reverse her Coumadin with vitamin K since her pro-time is probably increasing and because of the pain due to this hematoma, we will drain it in the operating room once her INR stabilizes to acceptable level. We will have Dr. Renner consult the patient and manage medical problems. MMODAL /[id number]
[2017-06-07] MEDS ORDERED: LORazepam 2 MG/ML SDV IVPUSH PRN (18:17)
[2017-06-07] MEDS ORDERED: Metoprolol Tartrate 5 MG/5 ML SDV IVPUSH PRN (18:17)
[2017-06-07] MEDS ORDERED: hydrALAZINE 20 MG/ML SDV IVPUSH PRN (18:17)
[2017-06-07] MEDS ORDERED: Magnesium Sulfate/Water 2 GM in Premix Bag 1 BAG IV SCH (19:00)
[2017-06-07] MEDS: Mometasone Furoate HFA 200 mcg/Puff 13 GM Inhaler INH SCH (21:08)
[2017-06-07] MEDS: Magnesium Oxide 400 MG Tab PO SCH ×2 (21:30)
[2017-06-07] MEDS: Insulin Aspart 100 Units/ML 3 ML Pen SUBCUT SCH (21:44)
--- NOTE | 2017-06-07 21:44 | PCM.CONS ---
H&P History of Present Illness - General Date of Service: 06/07/17 Admit Problem/Dx: Abdominal Hematoma Source of Information: Patient, Family, Old Records, Provider, RN Notes Reviewed History Limitations: Reports: No Limitations - History of Present Illness Initial Comments - Free Text/Narative: This is a 66 yo white female with past medical hx/o Atrial Fibrillation, HR Controlled on Warfarin/Lovenox, HTN, HLD, CAD S/p Stent x1, HF with Preserved EF 03/2015, Pulmonary HTN, Reactive Airway Disease/Asthma, Thrombocytopenia, Polio with Neuropathy/LUE Hemiparesis, DM2, Renal Insufficiency, Hiatal Hernia, GERD, IBS, DDD/OA, Diarrhea/Colitis, Nocturnal Hypoxemia, 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 pending sleep study, Lymphadenopathy S/p Biopsy due to Atypical EBV-associated Lymphocytic Proliferation, Depression, Hx/o CVA who comes in for evaluation of abdominal pain and was diagnosed with large rectus sheath hematoma on abdominal/ pelvis CT scan. Patient seems to be doing just fine. She reports no other issues. She was on lovenox and Warfarin for a recent diagnosis of atrial fibrillation. She was just discharged here 5 days ago. Hospital Medicine was consulted for medical management of her diabetes and blood pressure. She is full. code. Right Abdominal Pain Score (Numeric/FACES): 6 - Related Data Allergies/Adverse Reactions: Allergies Allergy/AdvReac Type Severity Reaction Status Date / Time hydromorphone [From Dilaudid] Allergy unknown Verified 06/07/17 06:13 Penicillins Allergy Hives Verified 06/07/17 06:13 levofloxacin [From Levaquin] AdvReac Disorientat Verified 06/07/17 06:13 ion oxycodone [From Percocet] AdvReac Confusion Verified 06/07/17 06:13 Home Medications: Home Meds Aspirin [Ecotrin] 81 mg PO DAILY 05/28/17 [History] Citalopram [Citalopram HBr] 20 mg PO DAILY 05/28/17 [History] Lisinopril [Prinivil] 40 mg PO DAILY 05/28/17 [History] Magnesium Oxide [Magnesium] 400 mg PO BID 05/28/17 [History] Pantoprazole [Pantoprazole Sodium] 40 mg PO BID 05/28/17 [History] Triamterene/Hydrochlorothiazid [Triamterene-HCTZ 37.5-25 MG] 0.5 tab PO DAILY [History] atorvaSTATin [Lipitor] 40 mg PO DAILY 05/28/17 [History] metFORMIN [Glucophage XR] 500 mg PO BID 05/28/17 [History] Benzonatate [Tessalon Perle] 200 mg PO TID PRN #90 capsule 06/03/17 [Rx] Budesonide [Pulmicort Flexhaler] 180 mcg INH BID #1 inhaler 06/03/17 [Rx] Codeine/Promethazine [Phenergan with Codeine] 5 ml PO Q6HR PRN #10 cup 06/03/17 [Rx] Levalbuterol Tartrate [Xopenex HFA] 1 puff INH Q6H PRN #1 inhaler 06/03/17 [Rx] Metoprolol Tartrate 25 mg PO Q6H #120 tablet 06/03/17 [Rx] methylPREDNISolone [Medrol] 4 mg PO ASDIRECTED #1 dosepk 06/03/17 [Rx] Ondansetron [Zofran ODT] 4 mg PO ASDIRECTED PRN 06/07/17 [History] Warfarin [Coumadin] 4 mg PO ASDIRECTED 06/07/17 [History] Past Medical History HEENT History: Reports: Impaired Vision, Other (See Below) Other HEENT History: wears reading glasses Cardiovascular History: Reports: CAD, High Cholesterol, Hypertension, Stents Respiratory History: Reports: Asthma, COPD, Sleep Apnea Gastrointestinal History: Reports: GERD, Hiatal Hernia, Irritable Bowel Syndrome , Other (See Below) Other Gastrointestinal History: collitis Genitourinary History: Reports: Chronic Renal Insuffiency, Urinary Incontinence Other Genitourinary History: at times 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 ROLLER History: Reports: Musculoskeletal History: Reports: Fracture, Neck Pain, Chronic, Other (See Below ) Other Musculoskeletal History: 2004 neck surgery Neurological History: Reports: Other (See Below) Psychiatric History: Reports: Depression Endocrine/Metabolic History: Reports: Diabetes, Type II, Obesity/BMI 30+ Dermatologic History: Reports: None - Infectious Disease History Infectious Disease History: Reports: Other (See Below) (Polio) - Past Surgical History HEENT Surgical History: Reports: Oral Surgery Cardiovascular Surgical History: Reports: Coronary Artery Stent GI Surgical History: Reports: Appendectomy, Lysis of Adhesions Female Surgical History: Reports: D&C Neurological Surgical History: Reports: C-Spine Social & Family History - Family History Family Medical History: Noncontributory - Tobacco Use Smoking Status *Q: Current Every Day Smoker Years of Tobacco use: 20 Packs/Tins Daily: 0.5 Used Tobacco, but Quit: Yes Month Tobacco Last Used: may 2016 Second Hand Smoke Exposure: No - Caffeine Use Caffeine Use: Reports: Coffee - Recreational Drug Use Recreational Drug Use: No - Living Situation & Occupation Living situation: Reports: , Alone Occupation: Disabled H&P Review of Systems - Review of Systems: Review Of Systems: See Below General: Reports: Chills, Malaise, Weakness, Fatigue, Diaphoresis, Decreased Appetite. Denies: Fever HEENT: Reports: No Symptoms Pulmonary: Reports: Shortness of Breath, Cough. Denies: Pleuritic Chest Pain Cardiovascular: Reports: Dyspnea on Exertion. Denies: Chest Pain, Palpitations , Lightheadedness Gastrointestinal: Reports: Abdominal Pain, Diarrhea Genitourinary: Reports: No Symptoms Musculoskeletal: Reports: Joint Pain Skin: Reports: Bruising (abdominal ijnection site) Psychiatric: Denies: Depression, Anxiety, Hallucinations Neurological: Reports: Weakness, Gait Disturbance. Denies: Dizziness, Headache , Pre-Existing Deficit, Seizure, Syncope, Difficulty Walking Hematologic/Lymphatic: Reports: Easy Bruising Immunologic: Reports: No Symptoms Exam - Exam Exam: See Below - Vital Signs Vital Signs: Last Vital Signs Temp 36.9 C 06/07/17 14:23 Pulse 70 06/07/17 16:00 Resp 20 06/07/17 14:23 BP 146/93 H 06/07/17 16:00 Pulse Ox 91 L 06/07/17 21:12 Weight: 119.522 kg - Exam Quality Assessment: Supplemental Oxygen General: Alert, Oriented, Cooperative HEENT: Conjunctiva Clear, EACs Clear, EOMI, Hearing Intact, Mucosa Moist & [place] , Nares Patent, Posterior Pharynx Clear, Pupils Equal, Other (red colored face) Neck: Supple, Trachea Midline, +2 Carotid Pulse wo Bruit, Full Range of Motion, Other (short and thick) Lungs: Normal Respiratory Effort, Decreased Breath Sounds Cardiovascular: Irregular Rhythm GI/Abdominal Exam: Normal Bowel Sounds, Non-Tender, No Distention, No Abnormal Bruit, Other (Obese) (Female) Exam: Deferred Rectal (Female) Exam: Deferred Back Exam: Normal Inspection, Decreased Range of Motion Extremities: Normal Inspection, Normal Range of Motion, Non-Tender, No Pedal Edema, Normal Capillary Refill Peripheral Pulses: 2+: Posterior Tibial (L), Posterior Tibial (R), Dorsalis Pedis (L), Dorsalis Pedis (R) Skin: Warm, Dry, Intact Neuro Extensive - Mental Status: Oriented x3, Normal Cognition, Memory Intact Neuro Extensive - Motor, Sensory, Reflexes: CN II-XII Intact (grossly intact), Abnormal Gait Psychiatric: Alert, Normal Affect, Normal Mood - Patient Data Lab Results Last 24 hrs: Laboratory Results - last 24 hr 06/07/17 06/07/17 Range/Units 18:55 21:08 POC Glucose 159 H (80-115) mg/dL Urine Color Yellow (Yellow) Urine Appearance Clear (Clear) Urine pH 7.0 (5.0-8.0) Ur Specific [place] 1.020 (1.005-1.030) Urine Protein Trace H (Negative) Urine Glucose (UA) Negative (Negative) Urine Ketones Negative (Negative) Urine Occult Blood Negative (Negative) Urine Nitrite Negative (Negative) Urine Bilirubin Negative (Negative) Urine Urobilinogen 0.2 (0.2-1.0) Ur Leukocyte Esterase Negative (Negative) Result Diagrams: 06/08/17 08:09 06/08/17 08:09 Consult PN Assessment/Plan Procedures: Procedures AGENT NOS ASSAY W/OPTIC (05/28/17) AIRWAY INHALATION TREATMENT (05/28/17) ANTINUCLEAR ANTIBODIES (05/28/17) ASSAY OF ACTH (05/28/17) ASSAY OF GONADOTROPIN (FSH) (05/28/17) ASSAY OF GONADOTROPIN (LH) (05/28/17) ASSAY OF LACTIC ACID (05/28/17) ASSAY OF LIPASE (02/28/17) ASSAY OF MAGNESIUM (05/28/17) ASSAY OF NATRIURETIC PEPTIDE (05/28/17) ASSAY OF PROLACTIN (05/28/17) ASSAY OF TROPONIN QUANT (05/28/17) ASSAY THYROID STIM HORMONE (05/28/17) BLOOD CULTURE FOR BACTERIA (05/28/17) BLOOD GASES ANY COMBINATION (05/28/17) C-REACTIVE PROTEIN (05/28/17) CARCINOEMBRYONIC ANTIGEN (05/28/17) CHEST X-RAY 2VW FRONTAL&LATL (02/28/17) CHYLMD PNEUM DNA AMP PROBE (05/28/17) COMPLETE CBC W/AUTO DIFF WBC (05/28/17) COMPREHEN METABOLIC PANEL (05/28/17) CREATINE MB FRACTION (05/28/17) CT ABD & PELV W/CONTRAST (02/28/17) CT ABD & PELVIS W/O CONTRAST (05/28/17) CT HEAD/BRAIN W/O DYE (05/28/17) CT SOFT TISSUE NECK W/O DYE (05/28/17) CT THORAX W/O DYE (05/28/17) DETECT AGENT NOS DNA AMP (05/28/17) ELECTROCARDIOGRAM TRACING (05/28/17) EMERGENCY DEPT VISIT (05/28/17) EVALUATE SWALLOWING FUNCTION (05/28/17) EVALUATION OF WHEEZING (05/28/17) FIBRIN DEGRADATION QUANT (02/28/17) GAIT TRAINING THERAPY (05/28/17) GLUCOSE BLOOD TEST (05/28/17) GLYCOSYLATED HEMOGLOBIN TEST (05/28/17) HYDRATE IV INFUSION ADD-ON (05/28/17) HYDRATION IV INFUSION INIT (02/28/17) IMMUNOASSAY TUMOR CA 125 (05/28/17) INFLUENZA ASSAY W/OPTIC (05/28/17) M.PNEUMON DNA AMP PROBE (05/28/17) MEASURE BLOOD OXYGEN LEVEL (05/28/17) METABOLIC PANEL TOTAL CA (05/28/17) MYCOPLASMA ANTIBODY (05/28/17) OT EVAL MOD COMPLEX 45 MIN (05/28/17) PROTHROMBIN TIME (05/28/17) PT EVAL MOD COMPLEX 30 MIN (05/28/17) RESP VIRUS 12-25 TARGETS (05/28/17) ROUTINE VENIPUNCTURE (05/28/17) SELF CARE MNGMENT TRAINING (05/28/17) THER/PROPH/DIAG IV INF INIT (05/28/17) THERAPEUTIC ACTIVITIES (05/28/17) THERAPEUTIC EXERCISES (05/28/17) THROMBOPLASTIN TIME PARTIAL (02/28/17) TOTAL CORTISOL (05/28/17) TTE W/DOPPLER COMPLETE (05/28/17) TX/PRO/DX INJ NEW DRUG ADDON (05/28/17) URINALYSIS AUTO W/SCOPE (05/28/17) URINE CULTURE/COLONY COUNT (05/28/17) WITHDRAWAL OF ARTERIAL BLOOD (05/28/17) X-RAY EXAM CHEST 2 VIEWS (05/28/17) Problem List Initiated/Reviewed/Updated: Yes My Orders Last 24 Hours: My Active Orders 06/07/17 18:17 LORazepam [Ativan] 2 mg IVPUSH Q4H PRN Metoprolol Tartrate [Lopressor] 5 mg IVPUSH Q4H PRN hydrALAZINE [Apresoline] 20 mg IVPUSH Q4H PRN 06/07/17 18:30 Magnesium Rep Pharmacy to Dose [Pharmacy to Dose - Magnesium Replacement] 1 dose .XX ASDIRECTED Potassium Rep Pharmacy to Dose [Pharmacy to Dose - Potassium Replacement] 1 dose .XX ASDIRECTED 06/07/17 20:06 Blood Glucose Check, Bedside [RC] QIDACANDBED 06/07/17 21:00 Magnesium Oxide 400 mg PO Q4H 06/07/17 22:00 Insulin Aspart [NovoLOG] See Protocol SUBCUT QIDACANDBED Plan: Assessment/Plan: Acute: Abdominal Hematoma - 2/2 Warfarin/Lovenox Use - INR is Subtherapeutic at 1.99 - Large rectus sheath hematoma on abdominal/pelvis CT scan - She is scheduled for surgical drainage tomorrow - Defer management to Dr. Aburto Anemia - Hgb 9.8 - Likely from warfarin/lovenox complication - Recommend to monitor Subtherapeutic INR - INR 1.99 - Received Vit K in preparation for surgery today Hyperglycemia DM2 - BS runs in the 120s-150s - Continue diabetic oral regimen - [id number]/HS and ISS Chronic: Atrial Fibrillation, HR Controlled Off anticoagulation due to Abdominal Hematoma and Anemia HTN HLD CAD S/p Stent x1 HF with Preserved EF 03/2015 Pulmonary HTN Reactive Airway Disease/Asthma Thrombocytopenia Polio with Neuropathy/LUE Hemiparesis DM2 Renal Insufficiency Hiatal Hernia GERD IBS DDD/OA Diarrhea/Colitis Nocturnal Hypoxemia 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 pending sleep study Lymphadenopathy S/p Biopsy due to Atypical EBV-associated Lymphocytic Proliferation Depression Hx/o CVA Plan: From the hospitalist standpoint, she is clinically stable. We recommend continuing her home medications except blood thinners and monitor closely for hemodynamic instability. Thank you for the opportunity to participate in the management of this patient. We will follow her along with you. Requesting Provider: Dr. Aburto Date Consult Requested: 06/07/17 Reason for Consult: Medical Management of DM/HTN Patient History Reviewed: Yes Admission H&P Reviewed: Yes Consult Result/Summary:: Stable vitals and blood glucose Notified Requestor: Yes Time Spent (in minutes): 45
[2017-06-08] MEDS: LORazepam 1 MG Tab PO PRN ×2 (00:02→09:10)
[2017-06-08] MEDS: Magnesium Oxide 400 MG Tab PO SCH ×3 (00:02→21:37)
[2017-06-08] MEDS: Metoprolol Tartrate 25 MG Tab PO SCH ×4 (00:02→19:01)
[2017-06-08] MEDS: Pantoprazole 40 MG Tab.CR PO SCH ×2 (05:30→17:24)
[2017-06-08] MEDS: Acetaminophen/HYDROcodone 325-5 MG Tab PO PRN (05:32)
[2017-06-08] MEDS: Insulin Aspart 100 Units/ML 3 ML Pen SUBCUT SCH ×4 (06:38→21:58)
[2017-06-08] MEDS: metFORMIN 500 MG Tab PO SCH ×2 (06:38→19:01)
[2017-06-08] MEDS: Mometasone Furoate HFA 200 mcg/Puff 13 GM Inhaler INH SCH ×2 (08:39→20:32)
--- NOTE | 2017-06-08 08:41 | PCM.CONSN ---
- General Info Date of Service: 06/08/17 Admission Dx/Problem (Free Text): Abdominal Hematoma Subjective Update: Follow Up Functional Status: Reports: Tolerating Diet, Ambulating, Urinating - Review of Systems General: Denies: Fever, Weakness, Fatigue, Malaise, Chills HEENT: Reports: No Symptoms Pulmonary: Denies: Shortness of Breath, Pleuritic Chest Pain, Cough, Sputum, Wheezing Cardiovascular: Denies: Chest Pain, Palpitations, Dyspnea on Exertion, Edema, Lightheadedness Gastrointestinal: Reports: Flatus. Denies: Abdominal Pain, Constipation, Diarrhea, Difficulty Swallowing, Nausea, Vomiting Genitourinary: Reports: No Symptoms Musculoskeletal: Reports: No Symptoms Skin: Denies: Cyanosis, Mottled, Pallor, Diaphoresis, Bruising, Pruritis, Rash Neurological: Reports: Difficulty Walking, Gait Disturbance. Denies: Pre- Existing Deficit, Weakness Psychiatric: Denies: Depression, Anxiety, Agitation, Hallucinations Systems Review Comment:: No significant overnight or acute issues. She is doing just fine. Unfortunately , her Hgb dropped to 7.5 this morning. No reports of active bleeding last night. Her BS on average is fairly stable. Her pressure is on the borderline low range. - Patient Data Vitals - Most Recent: Last Vital Signs Temp 36.3 C 06/07/17 21:51 Pulse 68 06/08/17 05:33 Resp 18 06/07/17 21:51 BP 110/66 06/08/17 05:33 Pulse Ox 92 L 06/07/17 21:51 Weight - Most Recent: 119.522 kg I&O - Last 24 Hours: Intake & Output 06/07/17 06/08/17 06/08/17 22:59 06:59 14:59 Intake Total 300 600 Output Total 400 Balance -100 600 Lab Results Last 24 Hours: Laboratory Results - last 24 hr 06/07/17 06/07/17 06/08/17 Range/Units 18:55 21:08 06:36 WBC (3.98-10.04) K/mm3 RBC (3.98-5.22) M/mm3 Hgb (11.2-15.7) gm/L Hct (34.1-44.9) % MCV (79.4-94.8) fl MCH (25.6-32.2) pg MCHC (32.2-35.5) g/dl RDW Std Deviation (36.4-46.3) fL Plt Count (182-369) K/mm3 MPV (9.4-12.3) fl Neut % (Auto) (34.0-71.1) % Lymph % (Auto) (19.3-51.7) % Roberts % (Auto) (4.7-12.5) % Eos % (Auto) (0.7-5.8) Baso % (Auto) (0.1-1.2) % Neut # (Auto) (1.56-6.13) K/mm3 Lymph # (Auto) (1.18-3.74) K/mm3 Roberts # (Auto) (0.24-0.36) K/mm3 Eos # (Auto) (0.04-0.36) K/mm3 Baso # (Auto) (0.01-0.08) K/mm3 POC Glucose 159 H 123 H (80-115) mg/dL Urine Color Yellow (Yellow) Urine Appearance Clear (Clear) Urine pH 7.0 (5.0-8.0) Ur Specific Roland 1.020 (1.005-1.030) Urine Protein Trace H (Negative) Urine Glucose (UA) Negative (Negative) Urine Ketones Negative (Negative) Urine Occult Blood Negative (Negative) Urine Nitrite Negative (Negative) Urine Bilirubin Negative (Negative) Urine Urobilinogen 0.2 (0.2-1.0) Ur Leukocyte Esterase Negative (Negative) 06/08/17 Range/Units 08:09 WBC 19.42 H (3.98-10.04) K/mm3 RBC 2.46 L (3.98-5.22) M/mm3 Hgb 7.5 L (11.2-15.7) gm/L Hct 23.1 L (34.1-44.9) % MCV 93.9 (79.4-94.8) fl MCH 30.5 (25.6-32.2) pg MCHC 32.5 (32.2-35.5) g/dl RDW Std Deviation 48.7 H (36.4-46.3) fL Plt Count 370 H (182-369) K/mm3 MPV 9.6 (9.4-12.3) fl Neut % (Auto) 49.4 (34.0-71.1) % Lymph % (Auto) 41.7 (19.3-51.7) % Roberts % (Auto) 8.3 (4.7-12.5) % Eos % (Auto) 0.1 L (0.7-5.8) Baso % (Auto) 0.1 (0.1-1.2) % Neut # (Auto) 9.61 H (1.56-6.13) K/mm3 Lymph # (Auto) 8.10 H (1.18-3.74) K/mm3 Roberts # (Auto) 1.61 H (0.24-0.36) K/mm3 Eos # (Auto) 0.01 L (0.04-0.36) K/mm3 Baso # (Auto) 0.02 (0.01-0.08) K/mm3 POC Glucose (80-115) mg/dL Urine Color (Yellow) Urine Appearance (Clear) Urine pH (5.0-8.0) Ur Specific Roland (1.005-1.030) Urine Protein (Negative) Urine Glucose (UA) (Negative) Urine Ketones (Negative) Urine Occult Blood (Negative) Urine Nitrite (Negative) Urine Bilirubin (Negative) Urine Urobilinogen (0.2-1.0) Ur Leukocyte Esterase (Negative) Med Orders - Current: Current Medications Hydrocodone Bitart/Acetaminophen (Rhododendron 325-5 Mg) 1 tab PO Q6H PRN PRN Reason: Pain Last Admin: 06/08/17 05:32 Dose: 1 tab Albuterol (Proventil Hfa) 2 puff INH Q4H PRN PRN Reason: Asthma Benzonatate (Tessalon Perles) 200 mg PO TID PRN PRN Reason: Cough Last Admin: 06/08/17 00:01 Dose: 200 mg Citalopram Hydrobromide (Celexa) 20 mg PO DAILY [facility]US Hydralazine HCl (Apresoline) 20 mg IVPUSH Q4H PRN PRN Reason: Hypertension Insulin Aspart (Novolog) 0 unit SUBCUT QIDACANDBED MARKUS PRN Reason: Protocol Last Admin: 06/08/17 06:38 Dose: Not Given Lisinopril (Prinivil) 40 mg PO DAILY MARKUS Lorazepam (Ativan) 2 mg IVPUSH Q4H PRN PRN Reason: Seizures Lorazepam (Ativan) 1 mg PO Q4H PRN PRN Reason: Anxiety Last Admin: 06/08/17 00:02 Dose: 1 mg Magnesium Oxide (Magnesium Oxide) 400 mg PO BID [facility] Last Admin: 06/07/17 21:30 Dose: 400 mg Magnesium Sulfate (Pharmacy To Dose - Magnesium Replacement) 1 dose .XX ASDIRECTED [facility] Metformin HCl (Glucophage) 500 mg PO BIDMEALS [facility] Last Admin: 06/08/17 06:38 Dose: 500 mg Methylprednisolone (Medrol) 4 mg PO ASDIRECTED [facility] Metoprolol Tartrate (Lopressor) 25 mg PO Q6H [facility] Last Admin: 06/08/17 05:33 Dose: Not Given Metoprolol Tartrate (Lopressor) 5 mg IVPUSH Q4H PRN PRN Reason: Tachycardia Mometasone Furoate (Asmanex Hfa 200mcg) 0 gm INH BID [facility] Last Admin: 06/08/17 08:39 Dose: 1 puff Non-Formulary Medication (Hctz/Triamterene) 0.5 tab PO DAILY [facility] Ondansetron HCl (Zofran Odt) 4 mg PO Q8H PRN PRN Reason: Nausea/Vomiting Pantoprazole Sodium (Protonix) 40 mg PO BIDAC [facility] Last Admin: 06/08/17 05:30 Dose: 40 mg Potassium Chloride (Pharmacy To Dose - Potassium Replacement) 1 dose .XX ASDIRECTED [facility] Promethazine HCl/Codeine (Phenergan With Codeine) 5 ml PO Q6HR PRN PRN Reason: cough Last Admin: 06/07/17 21:44 Dose: 5 ml Rosuvastatin Calcium (Crestor) 10 mg PO DAILY [facility] Discontinued Medications Diphenhydramine HCl (Benadryl) 25 mg IVPUSH ONETIME ONE Stop: 06/07/17 05:51 Last Admin: 06/07/17 07:04 Dose: 25 mg Fentanyl (Sublimaze) 100 mcg IVPUSH ONETIME ONE Stop: 06/07/17 05:54 Last Admin: 06/07/17 07:05 Dose: Not Given Fentanyl (Sublimaze) 100 mcg IM ONETIME ONE Stop: 06/07/17 06:08 Last Admin: 06/07/17 06:14 Dose: 100 mcg Sodium Chloride (Normal Saline) 1,000 mls @ 250 mls/hr IV ASDIRECTED [facility] Last Admin: 06/07/17 07:00 Dose: 250 mls/hr Magnesium Oxide (Magnesium Oxide) 400 mg PO Q4H [facility] Stop: 06/08/17 01:01 Last Admin: 06/08/17 00:02 Dose: 400 mg Meperidine HCl (Demerol) 50 mg IVPUSH ONETIME ONE Stop: 06/07/17 06:46 Last Admin: 06/07/17 07:14 Dose: 50 mg Methylprednisolone Sodium Succinate (Solu-Medrol) 125 mg IVPUSH ONETIME ONE Stop: 06/07/17 08:01 Last Admin: 06/07/17 08:28 Dose: 125 mg Metoclopramide HCl (Reglan) 10 mg IVPUSH ONETIME ONE Stop: 06/07/17 05:51 Last Admin: 06/07/17 07:05 Dose: Not Given Metoclopramide HCl (Reglan) 10 mg IM ONETIME ONE Stop: 06/07/17 06:09 Last Admin: 06/07/17 06:14 Dose: 10 mg Morphine Sulfate (Morphine) 4 mg IM ONETIME ONE Stop: 06/07/17 12:31 Last Admin: 06/07/17 12:52 Dose: 4 mg Ondansetron HCl (Zofran Odt) 4 mg PO ASDIRECTED PRN PRN Reason: Nausea Phytonadione (Aquamephyton) 5 mg PO ONETIME ONE Stop: 06/07/17 11:34 Last Admin: 06/07/17 16:02 Dose: Not Given Phytonadione (Aquamephyton) Confirm Administered Dose 5 mg .ROUTE .STK-MED ONE Stop: 06/07/17 15:30 Last Admin: 06/07/17 16:02 Dose: Not Given Phytonadione (Aquamephyton) 5 mg PO ONETIME ONE Stop: 06/07/17 16:01 Last Admin: 06/07/17 16:00 Dose: 5 mg - Exam Quality Assessment: Supplemental Oxygen General: Alert, Oriented, Cooperative, No Acute Distress, Other (Morbidly Obese) HEENT: Pupils Equal, Pupils Reactive, EOMI, Mucous Membr. Moist/[place] Neck: Supple, Trachea Midline, No JVD Lungs: Normal Respiratory Effort, Decreased Breath Sounds Cardiovascular: Irregular Rhythm GI/Abdominal Exam: Normal Bowel Sounds, Soft, Non-Tender, No Organomegaly, No Distention, No Abnormal Bruit, Other (Obese) (Female) Exam: Deferred Back Exam: Normal Inspection, Decreased Range of Motion Extremities: Normal Inspection, Normal Range of Motion, Non-Tender, No Pedal Edema, Normal Capillary Refill Peripheral Pulses: 2+: Dorsalis Pedis (L), Dorsalis Pedis (R) Skin: Warm, Dry, Intact Neurological: No New Focal Deficit Psy/Mental Status: Alert, Normal Affect, Normal Mood Consult PN Assessment/Plan Procedures: Procedures AGENT NOS ASSAY W/OPTIC (05/28/17) AIRWAY INHALATION TREATMENT (05/28/17) ANTINUCLEAR ANTIBODIES (05/28/17) ASSAY OF ACTH (05/28/17) ASSAY OF GONADOTROPIN (FSH) (05/28/17) ASSAY OF GONADOTROPIN (LH) (05/28/17) ASSAY OF LACTIC ACID (05/28/17) ASSAY OF LIPASE (02/28/17) ASSAY OF MAGNESIUM (05/28/17) ASSAY OF NATRIURETIC PEPTIDE (05/28/17) ASSAY OF PROLACTIN (05/28/17) ASSAY OF TROPONIN QUANT (05/28/17) ASSAY THYROID STIM HORMONE (05/28/17) BLOOD CULTURE FOR BACTERIA (05/28/17) BLOOD GASES ANY COMBINATION (05/28/17) C-REACTIVE PROTEIN (05/28/17) CARCINOEMBRYONIC ANTIGEN (05/28/17) CHEST X-RAY 2VW FRONTAL&LATL (02/28/17) CHYLMD PNEUM DNA AMP PROBE (05/28/17) COMPLETE CBC W/AUTO DIFF WBC (05/28/17) COMPREHEN METABOLIC PANEL (05/28/17) CREATINE MB FRACTION (05/28/17) CT ABD & PELV W/CONTRAST (02/28/17) CT ABD & PELVIS W/O CONTRAST (05/28/17) CT HEAD/BRAIN W/O DYE (05/28/17) CT SOFT TISSUE NECK W/O DYE (05/28/17) CT THORAX W/O DYE (05/28/17) DETECT AGENT NOS DNA AMP (05/28/17) ELECTROCARDIOGRAM TRACING (05/28/17) EMERGENCY DEPT VISIT (05/28/17) EVALUATE SWALLOWING FUNCTION (05/28/17) EVALUATION OF WHEEZING (05/28/17) FIBRIN DEGRADATION QUANT (02/28/17) GAIT TRAINING THERAPY (05/28/17) GLUCOSE BLOOD TEST (05/28/17) GLYCOSYLATED HEMOGLOBIN TEST (05/28/17) HYDRATE IV INFUSION ADD-ON (05/28/17) HYDRATION IV INFUSION INIT (02/28/17) IMMUNOASSAY TUMOR CA 125 (05/28/17) INFLUENZA ASSAY W/OPTIC (05/28/17) M.PNEUMON DNA AMP PROBE (05/28/17) MEASURE BLOOD OXYGEN LEVEL (05/28/17) METABOLIC PANEL TOTAL CA (05/28/17) MYCOPLASMA ANTIBODY (05/28/17) OT EVAL MOD COMPLEX 45 MIN (05/28/17) PROTHROMBIN TIME (05/28/17) PT EVAL MOD COMPLEX 30 MIN (05/28/17) RESP VIRUS 12-25 TARGETS (05/28/17) ROUTINE VENIPUNCTURE (05/28/17) SELF CARE MNGMENT TRAINING (05/28/17) THER/PROPH/DIAG IV INF INIT (05/28/17) THERAPEUTIC ACTIVITIES (05/28/17) THERAPEUTIC EXERCISES (05/28/17) THROMBOPLASTIN TIME PARTIAL (02/28/17) TOTAL CORTISOL (05/28/17) TTE W/DOPPLER COMPLETE (05/28/17) TX/PRO/DX INJ NEW DRUG ADDON (05/28/17) URINALYSIS AUTO W/SCOPE (05/28/17) URINE CULTURE/COLONY COUNT (05/28/17) WITHDRAWAL OF ARTERIAL BLOOD (05/28/17) X-RAY EXAM CHEST 2 VIEWS (05/28/17) Problem List Initiated/Reviewed/Updated: Yes My Orders Last 24 Hours: My Active Orders 06/07/17 18:17 LORazepam [Ativan] 2 mg IVPUSH Q4H PRN Metoprolol Tartrate [Lopressor] 5 mg IVPUSH Q4H PRN hydrALAZINE [Apresoline] 20 mg IVPUSH Q4H PRN 06/07/17 18:30 Magnesium Rep Pharmacy to Dose [Pharmacy to Dose - Magnesium Replacement] 1 dose .XX ASDIRECTED Potassium Rep Pharmacy to Dose [Pharmacy to Dose - Potassium Replacement] 1 dose .XX ASDIRECTED 06/07/17 20:06 Blood Glucose Check, Bedside [RC] QIDACANDBED 06/07/17 22:00 Insulin Aspart [NovoLOG] See Protocol SUBCUT QIDACANDBED 06/07/17 22:27 LORazepam [Ativan] 1 mg PO Q4H PRN 06/07/17 22:34 Oxygen Therapy [RC] ASDIRECTED Plan: Assessment/Plan: Acute: Abdominal Hematoma - 2/2 Warfarin Use - INR is Subtherapeutic at 1.99--> now 1.12 - Large rectus sheath hematoma on abdominal/pelvis CT scan - She is scheduled for surgical drainage today - Defer management to Dr. Aburto Anemia - Hgb 9.8--> now 7.5 - Likely fro warfarin complication - Will be getting 2 units of PRBC per Dr. Aburto Subtherapeutic INR - INR 1.99--> now 1.12 - Received Vit K in preparation for surgery today Hyperglycemia DM2 - BS runs in the 120s-150s - Continue diabetic oral regimen - Piyi-crami-TRNTV/HS and ISS Chronic: Atrial Fibrillation, HR Controlled Off anticoagulation due to Abdominal Hematoma and Anemia HTN HLD CAD S/p Stent x1 HF with Preserved EF 03/2015 Pulmonary HTN Reactive Airway Disease/Asthma Thrombocytopenia Polio with Neuropathy/LUE Hemiparesis DM2 Renal Insufficiency Hiatal Hernia GERD IBS DDD/OA Diarrhea/Colitis Nocturnal Hypoxemia 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 pending sleep study Lymphadenopathy S/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 We agree with blood transfusions and continue current treatment. Her serum glucose is fairly stable and we expect her blood pressure to improve after volume expansion. We have no additional recommendations at this time. S
[2017-06-08] MEDS: Lisinopril 20 MG Tab PO SCH (09:09)
[2017-06-08] MEDS: Rosuvastatin 10 MG Tab PO SCH (09:09)
[2017-06-08] MEDS: Citalopram 20 MG Tab PO SCH (09:12)
[2017-06-08] MEDS ORDERED: Morphine 2 MG/ML Syringe IVPUSH PRN (09:45)
[2017-06-08] MEDS ORDERED: Sodium Chloride 0.9% 250 ML IV SCH (10:00)
--- NOTE | 2017-06-08 11:56 | CR ---
Chest: Portable view of the chest was obtained supine projection. Comparison: Prior chest x-ray of 05/28/17. Heart size and mediastinum are accentuated from portable technique. Lungs are felt to be clear. Right-sided PICC line is seen. Tip lies in the area of the right atria. Previous cervical spine surgery is noted. Impression: 1. Tip of PICC line within the right atria. 2. Other incidental findings. Diagnostic code #3
--- NOTE | 2017-06-08 11:58 | CR ---
Chest: Portable view of the chest was obtained in supine projection. Comparison: Prior chest x-ray performed on the same day (11:29 AM). Heart size and mediastinum are again accentuated from position. Slight atelectasis is seen within the left retrocardiac region. Lungs otherwise are clear. PICC line is seen lying at the right atrial and superior vena cava junction. PICC line should be withdrawn by about 3 cm and then should be satisfactory position. Impression: 1. Right-sided PICC line lying at the right atrial and superior vena cava junction. Removed PICC line by approximately 3 cm and tip should then be in good position. 2. Other incidental findings. Diagnostic code #3
--- NOTE | 2017-06-08 12:25 | PCM.SN ---
- Free Text/Narrative Note: Date: 06/08/2017 Start: 1045 Stop: 1150 Time Out: 1045 Procedure: PICC Line placement for blood products and difficult IV access. Diagnosis: Abdominal pain/hematoma Anesthesia requested for PICC line placement. Patient educated on risk/benefits , allergies reviewed, medication list reviewed, patient agrees to proceed, telephone consent obtained. Patient positioned in supine position. Right arm prepped with 3 chloroprep's, 20 gauge angiocatheter placed to right basilica vein, sterile drapes placed, and sterile gown, gloves used, along with cap and mask. (Sterile Technique Noted ) 1% lidocaine used to localize area. MicroIntroducer kit used: Kisstixx NXT PICC 4 slovak catheter single lumen advanced without difficulties noted. REF: [id number] LOT: [id number] EXP: 2018-01-11 Catheter advanced and secured at 43 cm at the skin. Catheter cut at 55cm. Easy blood aspiration noted and catheter flushed with 40 ml's of Normal Saline. Mastisol/Steri-Strips placed, along with Tegaderm with chlorahexidine square applied, with dressing applied. Portable chest xray done and Radiologist called to request the catheter be pulled back 3 cm. Catheter now at 40 cm at the skin. Amalia Kirkland NURSE RESEARCH
[2017-06-08] MEDS ORDERED: Bupivacaine 0.5%/EPINEPHrine 1:200,000 50 ML MDV ONE (14:10)
[2017-06-08] MEDS ORDERED: Albuterol 0.083% 2.5 MG/3 ML Neb Soln NEB ONE (14:30)
--- NOTE | 2017-06-08 14:32 | PCM.SURGPN ---
- General Info Date of Service: 06/08/17 Functional Status: Reports: Tolerating Diet - Review of Systems General: Reports: Other (pain over the rt rectus muscle ) Pulmonary: Reports: No Symptoms Cardiovascular: Reports: No Symptoms Gastrointestinal: Reports: No Symptoms - Patient Data Vitals - Most Recent: Last Vital Signs Temp 97.3 F 06/08/17 12:56 Pulse 69 06/08/17 12:56 Resp 16 06/08/17 12:56 BP 91/42 L 06/08/17 12:56 Pulse Ox 92 L 06/08/17 14:16 Weight - Most Recent: 119.522 kg I&O - Last 24 Hours: Intake & Output 06/07/17 06/08/17 06/08/17 23:59 07:59 15:59 Intake Total 200 600 600 Output Total 400 Balance -200 600 600 Lab Results Last 24 Hrs: Laboratory Results - last 24 hr 06/07/17 06/07/17 06/08/17 Range/Units 18:55 21:08 06:36 WBC (3.98-10.04) K/mm3 RBC (3.98-5.22) M/mm3 Hgb (11.2-15.7) gm/L Hct (34.1-44.9) % MCV (79.4-94.8) fl MCH (25.6-32.2) pg MCHC (32.2-35.5) g/dl RDW Std Deviation (36.4-46.3) fL Plt Count (182-369) K/mm3 MPV (9.4-12.3) fl Neut % (Auto) (34.0-71.1) % Lymph % (Auto) (19.3-51.7) % [place] % (Auto) (4.7-12.5) % Eos % (Auto) (0.7-5.8) Baso % (Auto) (0.1-1.2) % Neut # (Auto) (1.56-6.13) K/mm3 Lymph # (Auto) (1.18-3.74) K/mm3 [place] # (Auto) (0.24-0.36) K/mm3 Eos # (Auto) (0.04-0.36) K/mm3 Baso # (Auto) (0.01-0.08) K/mm3 Manual Slide Review PT (8.0-13.0) SECONDS INR Sodium (136-145) mEq/L Potassium (3.5-5.1) mEq/L Chloride (98-107) mEq/L Carbon Dioxide (21-32) mEq/L Anion Gap (5-15) BUN (7-18) mg/dL Creatinine (0.55-1.02) mg/dL Est Cr Clr Drug Dosing mL/min Estimated GFR (MDRD) (>60) mL/min BUN/Creatinine Ratio (14-18) Glucose (80-115) mg/dL POC Glucose 159 H 123 H (80-115) mg/dL Calcium (8.5-10.1) mg/dL Total Bilirubin (0.2-1.0) mg/dL AST (15-37) U/L ALT (14-59) U/L Alkaline Phosphatase (46-116) U/L Total Protein (6.4-8.2) g/dl Albumin (3.4-5.0) g/dl Globulin gm/dL Albumin/Globulin Ratio (1-2) Urine Color Yellow (Yellow) Urine Appearance Clear (Clear) Urine pH 7.0 (5.0-8.0) Ur Specific [place] 1.020 (1.005-1.030) Urine Protein Trace H (Negative) Urine Glucose (UA) Negative (Negative) Urine Ketones Negative (Negative) Urine Occult Blood Negative (Negative) Urine Nitrite Negative (Negative) Urine Bilirubin Negative (Negative) Urine Urobilinogen 0.2 (0.2-1.0) Ur Leukocyte Esterase Negative (Negative) Blood Type Gel Antibody Screen Crossmatch 06/08/17 06/08/17 06/08/17 Range/Units 08:09 08:09 08:09 WBC 19.42 H (3.98-10.04) K/mm3 RBC 2.46 L (3.98-5.22) M/mm3 Hgb 7.5 L (11.2-15.7) gm/L Hct 23.1 L (34.1-44.9) % MCV 93.9 (79.4-94.8) fl MCH 30.5 (25.6-32.2) pg MCHC 32.5 (32.2-35.5) g/dl RDW Std Deviation 48.7 H (36.4-46.3) fL Plt Count 370 H (182-369) K/mm3 MPV 9.6 (9.4-12.3) fl Neut % (Auto) 49.4 (34.0-71.1) % Lymph % (Auto) 41.7 (19.3-51.7) % [place] % (Auto) 8.3 (4.7-12.5) % Eos % (Auto) 0.1 L (0.7-5.8) Baso % (Auto) 0.1 (0.1-1.2) % Neut # (Auto) 9.61 H (1.56-6.13) K/mm3 Lymph # (Auto) 8.10 H (1.18-3.74) K/mm3 [place] # (Auto) 1.61 H (0.24-0.36) K/mm3 Eos # (Auto) 0.01 L (0.04-0.36) K/mm3 Baso # (Auto) 0.02 (0.01-0.08) K/mm3 Manual Slide Review Abnormal smear PT 12.0 (8.0-13.0) SECONDS INR 1.12 Sodium 133 L (136-145) mEq/L Potassium 4.8 (3.5-5.1) mEq/L Chloride 94 L (98-107) mEq/L Carbon Dioxide 29 (21-32) mEq/L Anion Gap 14.8 (5-15) BUN 40 H (7-18) mg/dL Creatinine 1.2 H (0.55-1.02) mg/dL Est Cr Clr Drug Dosing 39.28 mL/min Estimated GFR (MDRD) 45 (>60) mL/min BUN/Creatinine Ratio 33.3 H (14-18) Glucose 128 H (80-115) mg/dL POC Glucose (80-115) mg/dL Calcium 8.2 L (8.5-10.1) mg/dL Total Bilirubin 0.4 (0.2-1.0) mg/dL AST 40 H (15-37) U/L ALT 45 (14-59) U/L Alkaline Phosphatase 86 (46-116) U/L Total Protein 6.6 (6.4-8.2) g/dl Albumin 2.9 L (3.4-5.0) g/dl Globulin 3.7 gm/dL Albumin/Globulin Ratio 0.8 L (1-2) Urine Color (Yellow) Urine Appearance (Clear) Urine pH (5.0-8.0) Ur Specific [place] (1.005-1.030) Urine Protein (Negative) Urine Glucose (UA) (Negative) Urine Ketones (Negative) Urine Occult Blood (Negative) Urine Nitrite (Negative) Urine Bilirubin (Negative) Urine Urobilinogen (0.2-1.0) Ur Leukocyte Esterase (Negative) Blood Type Gel Antibody Screen Crossmatch 06/08/17 06/08/17 Range/Units 10:21 12:04 WBC (3.98-10.04) K/mm3 RBC (3.98-5.22) M/mm3 Hgb (11.2-15.7) gm/L Hct (34.1-44.9) % MCV (79.4-94.8) fl MCH (25.6-32.2) pg MCHC (32.2-35.5) g/dl RDW Std Deviation (36.4-46.3) fL Plt Count (182-369) K/mm3 MPV (9.4-12.3) fl Neut % (Auto) (34.0-71.1) % Lymph % (Auto) (19.3-51.7) % [place] % (Auto) (4.7-12.5) % Eos % (Auto) (0.7-5.8) Baso % (Auto) (0.1-1.2) % Neut # (Auto) (1.56-6.13) K/mm3 Lymph # (Auto) (1.18-3.74) K/mm3 [place] # (Auto) (0.24-0.36) K/mm3 Eos # (Auto) (0.04-0.36) K/mm3 Baso # (Auto) (0.01-0.08) K/mm3 Manual Slide Review PT (8.0-13.0) SECONDS INR Sodium (136-145) mEq/L Potassium (3.5-5.1) mEq/L Chloride (98-107) mEq/L Carbon Dioxide (21-32) mEq/L Anion Gap (5-15) BUN (7-18) mg/dL Creatinine (0.55-1.02) mg/dL Est Cr Clr Drug Dosing mL/min Estimated GFR (MDRD) (>60) mL/min BUN/Creatinine Ratio (14-18) Glucose (80-115) mg/dL POC Glucose 146 H (80-115) mg/dL Calcium (8.5-10.1) mg/dL Total Bilirubin (0.2-1.0) mg/dL AST (15-37) U/L ALT (14-59) U/L Alkaline Phosphatase (46-116) U/L Total Protein (6.4-8.2) g/dl Albumin (3.4-5.0) g/dl Globulin gm/dL Albumin/Globulin Ratio (1-2) Urine Color (Yellow) Urine Appearance (Clear) Urine pH (5.0-8.0) Ur Specific [place] (1.005-1.030) Urine Protein (Negative) Urine Glucose (UA) (Negative) Urine Ketones (Negative) Urine Occult Blood (Negative) Urine Nitrite (Negative) Urine Bilirubin (Negative) Urine Urobilinogen (0.2-1.0) Ur Leukocyte Esterase (Negative) Blood Type A POSITIVE Gel Antibody Screen Negative Crossmatch See Detail Med Orders - Current: Current Medications Hydrocodone Bitart/Acetaminophen ([place] 325-5 Mg) 1 tab PO Q6H PRN PRN Reason: Pain Last Admin: 06/08/17 05:32 Dose: 1 tab Albuterol (Proventil Hfa) 2 puff INH Q4H PRN PRN Reason: Asthma Albuterol (Proventil Neb Soln) 2.5 mg NEB ONETIME ONE Stop: 06/08/17 14:31 Last Admin: 06/08/17 14:15 Dose: 2.5 mg Benzonatate (Tessalon Perles) 200 mg PO TID PRN PRN Reason: Cough Last Admin: 06/08/17 00:01 Dose: 200 mg Citalopram Hydrobromide (Celexa) 20 mg PO DAILY [facility] Last Admin: 06/08/17 09:12 Dose: 20 mg Hydralazine HCl (Apresoline) 20 mg IVPUSH Q4H PRN PRN Reason: Hypertension Sodium Chloride (Normal Saline) 250 mls @ 100 mls/hr IV ASDIRECTED [facility] Insulin Aspart (Novolog) 0 unit SUBCUT QIDACANDBED [facility] PRN Reason: Protocol Last Admin: 06/08/17 12:50 Dose: Not Given Lisinopril (Prinivil) 40 mg PO DAILY [facility] Last Admin: 06/08/17 09:09 Dose: 40 mg Lorazepam (Ativan) 2 mg IVPUSH Q4H PRN PRN Reason: Seizures Lorazepam (Ativan) 1 mg PO Q4H PRN PRN Reason: Anxiety Last Admin: 06/08/17 09:10 Dose: 1 mg Magnesium Oxide (Magnesium Oxide) 400 mg PO BID [facility] Last Admin: 06/08/17 09:12 Dose: 400 mg Magnesium Sulfate (Pharmacy To Dose - Magnesium Replacement) 1 dose .XX ASDIRECTED [facility] Metformin HCl (Glucophage) 500 mg PO BIDMEALS [facility] Last Admin: 06/08/17 06:38 Dose: 500 mg Methylprednisolone (Medrol) 4 mg PO ASDIRECTED [facility] Metoprolol Tartrate (Lopressor) 25 mg PO Q6H [facility] Last Admin: 06/08/17 12:51 Dose: Not Given Metoprolol Tartrate (Lopressor) 5 mg IVPUSH Q4H PRN PRN Reason: Tachycardia Mometasone Furoate (Asmanex Hfa 200mcg) 0 gm INH BID [facility] Last Admin: 06/08/17 08:39 Dose: 1 puff Morphine Sulfate (Morphine) 2 mg IVPUSH Q4H PRN PRN Reason: Pain Ondansetron HCl (Zofran Odt) 4 mg PO Q8H PRN PRN Reason: Nausea/Vomiting Pantoprazole Sodium (Protonix) 40 mg PO BIDAC [facility] Last Admin: 06/08/17 05:30 Dose: 40 mg Hctz/Triamterene 37. (5-25 Mg) 0 each PO DAILY [facility] Potassium Chloride (Pharmacy To Dose - Potassium Replacement) 1 dose .XX ASDIRECTED [facility] Promethazine HCl/Codeine (Phenergan With Codeine) 5 ml PO Q6HR PRN PRN Reason: cough Last Admin: 06/07/17 21:44 Dose: 5 ml Rosuvastatin Calcium (Crestor) 10 mg PO DAILY [facility] Last Admin: 06/08/17 09:09 Dose: 10 mg Discontinued Medications Bupivacaine HCl/Epinephrine Bitart (Marcaine 0.5%/Epinephrine 1:200,000) Confirm Administered Dose 50 ml .ROUTE .K-MED ONE Stop: 06/08/17 14:11 Diphenhydramine HCl (Benadryl) 25 mg IVPUSH ONETIME ONE Stop: 06/07/17 05:51 Last Admin: 06/07/17 07:04 Dose: 25 mg Fentanyl (Sublimaze) 100 mcg IVPUSH ONETIME ONE Stop: 06/07/17 05:54 Last Admin: 06/07/17 07:05 Dose: Not Given Fentanyl (Sublimaze) 100 mcg IM ONETIME ONE Stop: 06/07/17 06:08 Last Admin: 06/07/17 06:14 Dose: 100 mcg Sodium Chloride (Normal Saline) 1,000 mls @ 250 mls/hr IV ASDIRECTED [facility] Last Admin: 06/07/17 07:00 Dose: 250 mls/hr Magnesium Oxide (Magnesium Oxide) 400 mg PO Q4H [facility] Stop: 06/08/17 01:01 Last Admin: 06/08/17 00:02 Dose: 400 mg Meperidine HCl (Demerol) 50 mg IVPUSH ONETIME ONE Stop: 06/07/17 06:46 Last Admin: 06/07/17 07:14 Dose: 50 mg Methylprednisolone Sodium Succinate (Solu-Medrol) 125 mg IVPUSH ONETIME ONE Stop: 06/07/17 08:01 Last Admin: 06/07/17 08:28 Dose: 125 mg Metoclopramide HCl (Reglan) 10 mg IVPUSH ONETIME ONE Stop: 06/07/17 05:51 Last Admin: 06/07/17 07:05 Dose: Not Given Metoclopramide HCl (Reglan) 10 mg IM ONETIME ONE Stop: 06/07/17 06:09 Last Admin: 06/07/17 06:14 Dose: 10 mg Morphine Sulfate (Morphine) 4 mg IM ONETIME ONE Stop: 06/07/17 12:31 Last Admin: 06/07/17 12:52 Dose: 4 mg Ondansetron HCl (Zofran Odt) 4 mg PO ASDIRECTED PRN PRN Reason: Nausea Phytonadione (Aquamephyton) 5 mg PO ONETIME ONE Stop: 06/07/17 11:34 Last Admin: 06/07/17 16:02 Dose: Not Given Phytonadione (Aquamephyton) Confirm Administered Dose 5 mg .ROUTE .STK-MED ONE Stop: 06/07/17 15:30 Last Admin: 06/07/17 16:02 Dose: Not Given Phytonadione (Aquamephyton) 5 mg PO ONETIME ONE Stop: 06/07/17 16:01 Last Admin: 06/07/17 16:00 Dose: 5 mg - Exam Lungs: Clear to Auscultation, Normal Respiratory Effort Cardiovascular: Regular Rhythm GI/Abdominal Exam: Mass (no change int he mass or tenderness ) - Problem List Review Problem List Initiated/Reviewed/Updated: Yes - My Orders Last 24 Hours: Active Orders 24 hr Category Date Time Status Blood Glucose Check, Bedside [RC] QIDACANDBED Care 06/07/17 20:06 Active EKG Documentation Completion [RC] STAT Care 06/08/17 12:32 Active Oxygen Therapy [RC] ASDIRECTED Care 06/07/17 22:34 Active RT Aerosol Therapy [RC] ASDIRECTED Care 06/08/17 12:37 Active Nothing per Oral Now Diet [DIET] Diet 06/08/17 Lunch Active FRESH FROZEN PLASMA [BBK] Routine Lab 06/08/17 10:21 Results PATIENT RETYPE [BBK] Routine Lab 06/08/17 10:21 Results RED BLOOD CELLS LP [BBK] Routine Lab 06/08/17 10:21 Results TYPE AND SCREEN [BBK] Routine Lab 06/08/17 10:21 Results Albuterol [Proventil Neb Soln] Med 06/08/17 14:30 Once 2.5 mg NEB ONETIME ONE Insulin Aspart [NovoLOG] Med 06/07/17 22:00 Active See Protocol SUBCUT QIDACANDBED LORazepam [Ativan] Med 06/07/17 22:27 Active 1 mg PO Q4H PRN LORazepam [Ativan] Med 06/07/17 18:17 Active 2 mg IVPUSH Q4H PRN Magnesium Rep Pharmacy to Dose [Pharmacy to Dose - Med 06/07/17 18:30 Active Magnesium Replacement] 1 dose .XX ASDIRECTED Metoprolol Tartrate [Lopressor] Med 06/07/17 18:17 Active 5 mg IVPUSH Q4H PRN Morphine Med 06/08/17 09:45 Active 2 mg IVPUSH Q4H PRN Potassium Rep Pharmacy to Dose [Pharmacy to Dose - Med 06/07/17 18:30 Active Potassium Replacement] 1 dose .XX ASDIRECTED Sodium Chloride 0.9% [Normal Saline] 250 ml Med 06/08/17 10:00 Active IV ASDIRECTED hydrALAZINE [Apresoline] Med 06/07/17 18:17 Active 20 mg IVPUSH Q4H PRN Schedule Procedure [COMM] Routine Oth 06/08/17 15:00 Ordered Transfuse Red Blood Cells [COMM] Routine Oth 06/08/17 09:45 Ordered Resuscitation Status Routine Resus Stat 06/07/17 14:20 Ordered Medication Orders Hydrocodone Bitart/Acetaminophen ([place] 325-5 Mg) 1 tab PO Q6H PRN PRN Reason: Pain Last Admin: 06/08/17 05:32 Dose: 1 tab Admin: 06/07/17 21:31 Dose: 1 tab Admin: 06/07/17 16:02 Dose: 1 tab Albuterol (Proventil Hfa) 2 puff INH Q4H PRN PRN Reason: Asthma Albuterol (Proventil Neb Soln) 2.5 mg NEB ONETIME ONE Stop: 06/08/17 14:31 Last Admin: 06/08/17 14:15 Dose: 2.5 mg Benzonatate (Tessalon Perles) 200 mg PO TID PRN PRN Reason: Cough Last Admin: 06/08/17 00:01 Dose: 200 mg Citalopram Hydrobromide (Celexa) 20 mg PO DAILY [facility] Last Admin: 06/08/17 09:12 Dose: 20 mg Hydralazine HCl (Apresoline) 20 mg IVPUSH Q4H PRN PRN Reason: Hypertension Sodium Chloride (Normal Saline) 250 mls @ 100 mls/hr IV ASDIRECTED [facility] Insulin Aspart (Novolog) 0 unit SUBCUT QIDACANDBED [facility] PRN Reason: Protocol Last Admin: 06/08/17 12:50 Dose: Not Given Admin: 06/08/17 06:38 Dose: Not Given Admin: 06/07/17 21:44 Dose: 2 units Lisinopril (Prinivil) 40 mg PO DAILY [facility] Last Admin: 06/08/17 09:09 Dose: 40 mg Lorazepam (Ativan) 2 mg IVPUSH Q4H PRN PRN Reason: Seizures Lorazepam (Ativan) 1 mg PO Q4H PRN PRN Reason: Anxiety Last Admin: 06/08/17 09:10 Dose: 1 mg Admin: 06/08/17 00:02 Dose: 1 mg Magnesium Oxide (Magnesium Oxide) 400 mg PO BID [facility] Last Admin: 06/08/17 09:12 Dose: 400 mg Admin: 06/07/17 21:30 Dose: 400 mg Magnesium Sulfate (Pharmacy To Dose - Magnesium Replacement) 1 dose .XX ASDIRECTED [facility] Metformin HCl (Glucophage) 500 mg PO BIDMEALS [facility] Last Admin: 06/08/17 06:38 Dose: 500 mg Admin: 06/07/17 16:00 Dose: 500 mg Methylprednisolone (Medrol) 4 mg PO ASDIRECTED [facility] Metoprolol Tartrate (Lopressor) 25 mg PO Q6H [facility] Last Admin: 06/08/17 12:51 Dose: Not Given Admin: 06/08/17 05:33 Dose: Admin: 06/08/17 00:02 Dose: 25 mg Admin: 06/07/17 18:27 Dose: Admin: 06/07/17 16:00 Dose: 25 mg Metoprolol Tartrate (Lopressor) 5 mg IVPUSH Q4H PRN PRN Reason: Tachycardia Mometasone Furoate (Asmanex Hfa 200mcg) 0 gm INH BID [facility] Last Admin: 06/08/17 08:39 Dose: 1 puff Admin: 06/07/17 21:08 Dose: 1 puff Morphine Sulfate (Morphine) 2 mg IVPUSH Q4H PRN PRN Reason: Pain Ondansetron HCl (Zofran Odt) 4 mg PO Q8H PRN PRN Reason: Nausea/Vomiting Pantoprazole Sodium (Protonix) 40 mg PO BIDAC [facility] Last Admin: 06/08/17 05:30 Dose: 40 mg Admin: 06/07/17 16:00 Dose: 40 mg Hctz/Triamterene 37. (5-25 Mg) 0 each PO DAILY [facility] Potassium Chloride (Pharmacy To Dose - Potassium Replacement) 1 dose .XX ASDIRECTED [facility] Promethazine HCl/Codeine (Phenergan With Codeine) 5 ml PO Q6HR PRN PRN Reason: cough Last Admin: 06/07/17 21:44 Dose: 5 ml Rosuvastatin Calcium (Crestor) 10 mg PO DAILY [facility] Last Admin: 06/08/17 09:09 Dose: 10 mg - Plan Plan (Free Text/Narrative):: pt with rectus muscle hematoma given Vit K at noon BP has dropped into the high 80's no symptoms pt given blood (Hb low into the 7.5 her EKG NSR ass needs futher resuscitation she did repond to blood and increase in fluid, because of her difficult IV start have placed a PIC line INR is 1.. ASS pain from the hematoma which is difficult to control with pain medication and loss blood leading to fall in blood pressure She is judged to not be bleeding (any blood loss occurred yesterday), and we are catching up Will given two units of blood and one of FFP and IV saline and take to the operating room to decompress the hematoma and thus help with the pain. discussed this with the POA and the daughters and also comply with any wish they may have to transfere to [place]. They understand and request that I proceed with surgery here
[2017-06-08] MEDS ORDERED: Ketamine 500 mg/10 ML MDV ONE (14:56)
[2017-06-08] MEDS ORDERED: Propofol 200 MG/20 ML SDV ONE (14:58)
[2017-06-08] MEDS ORDERED: Ondansetron 4 MG/2 ML SDV ONE (14:58)
[2017-06-08] MEDS ORDERED: ceFAZolin 1 GM Vial ONE (14:58)
[2017-06-08] MEDS ORDERED: Midazolam 1 MG/ML 2 ML SDV ONE (14:58)
[2017-06-08] MEDS ORDERED: fentaNYL 250 MCG/5 ML SDV ONE (14:58)
[2017-06-08] MEDS: TRIAMTERENE PO SCH (15:29)
[2017-06-08] MEDS: HCTZ PO SCH (15:29)
[2017-06-08] MEDS ORDERED: Dexamethasone 4 MG/ML 5 ML MDV ONE (16:01)
[2017-06-08] MEDS ORDERED: Sodium Chloride 0.9% 1,000 ML ONE (16:01)
[2017-06-08] MEDS ORDERED: Phenylephrine/Normal Saline 100 MCG/ML 10 ML Syringe ONE (16:04)
[2017-06-08] MEDS ORDERED: ePHEDrine 50 MG/ML SDV ONE (16:04)
--- NOTE | 2017-06-08 16:06 | PCM.OPNOTE ---
- General Post-Op/Procedure Note Date of Surgery/Procedure: 06/08/17 Operative Procedure(s): evacuation of right rectus sheath hematoma Pre Op Diagnosis: hematoma of the rt rectus muscle Post-Op Diagnosis: Same Anesthesia Technique: MAC Primary Surgeon: Sergio Aburto EBL in mLs: 0 Complications: None Condition: Good Free Text/Narrative:: Intake & Output 06/08/17 06/08/17 06/08/17 07:59 15:59 23:59 Intake Total 600 960 Balance 600 960
--- NOTE | 2017-06-08 16:34 | PCM.POSTAN ---
POST ANESTHESIA ASSESSMENT - MENTAL STATUS Mental Status: Alert, Oriented - VITAL SIGNS Pulse Rate: 79 SaO2: 97 Resp Rate: 13 Blood Pressure: 122/54 Temperature: 37.3 C - RESPIRATORY Respiratory Status: Respiratory Rate WNL, Airway Patent, O2 Saturation Stable, Supplemental Oxygen - CARDIOVASCULAR CV Status: Pulse Rate WNL, Blood Pressure Stable - GASTROINTESTINAL GI Status: No Symptoms - PAIN Pain Score: 0 - POST OP HYDRATION Hydration Status: Adequate & Stable
--- NOTE | 2017-06-08 16:49 | PCM.PREANE ---
Preanesthetic Assessment - Anesthesia/Transfusion/Family Hx Anesthesia History: Prior Anesthesia Reaction Type of Anesthesia Reaction: Excessive Somnolence, Excessive Shivering Family History of Anesthesia Reaction: No Transfusion History: Unknown Intubation History: Unknown - Review of Systems General: Weakness, Malaise Pulmonary: Shortness of Breath, Cough, Other (Borderline Sleep Apnea) Cardiovascular: Dyspnea on Exertion, Other (Cardiac Stent in 2013) Gastrointestinal: Abdominal Pain, Nausea Neurological: Confusion (Daughter states she is confused today.), Difficulty Walking, Gait Disturbance Other: Reports: Easy Bleeding, Easy Bruising, Diabetes, Depression - Physical Assessment NPO Status Date: 06/08/17 NPO Status Time: 09:00 Pulse: 79 O2 Sat by Pulse Oximetry: 97 Respiratory Rate: 13 Blood Pressure: 122/54 Temperature: 37.3 C Vital Signs: Last Vital Signs Temp 37.3 C 06/08/17 16:33 Pulse 79 06/08/17 16:33 Resp 13 06/08/17 16:33 BP 122/54 L 06/08/17 16:33 Pulse Ox 97 06/08/17 16:33 Height: 1.63 m Weight: 119.522 kg ASA Class: 3E Mental Status: Other (Drowsy, Oriented to person and place) Airway Class: Mallampati = 2 Dentition: Reports: Dentures (Dentures at home) Thyro-Mental Finger Breadths: 3 Mouth Opening Finger Breadths: 3 ROM/Head Extension: Full Lungs: Decreased Breath Sounds Cardiovascular: Regular Rate, Regular Rhythm - Lab Values: Laboratory Last Values WBC 19.42 K/mm3 (3.98-10.04) H 06/08/17 08:09 RBC 2.46 M/mm3 (3.98-5.22) L 06/08/17 08:09 Hgb 7.5 gm/L (11.2-15.7) L 06/08/17 08:09 Hct 23.1 % (34.1-44.9) L 06/08/17 08:09 MCV 93.9 fl (79.4-94.8) 06/08/17 08:09 MCH 30.5 pg (25.6-32.2) 06/08/17 08:09 MCHC 32.5 g/dl (32.2-35.5) 06/08/17 08:09 RDW Std Deviation 48.7 fL (36.4-46.3) H 06/08/17 08:09 Plt Count 370 K/mm3 (182-369) H 06/08/17 08:09 MPV 9.6 fl (9.4-12.3) 06/08/17 08:09 Neut % (Auto) 49.4 % (34.0-71.1) 06/08/17 08:09 Lymph % (Auto) 41.7 % (19.3-51.7) 06/08/17 08:09 Gage % (Auto) 8.3 % (4.7-12.5) 06/08/17 08:09 Eos % (Auto) 0.1 (0.7-5.8) L 06/08/17 08:09 Baso % (Auto) 0.1 % (0.1-1.2) 06/08/17 08:09 Neut # (Auto) 9.61 K/mm3 (1.56-6.13) H 06/08/17 08:09 Lymph # (Auto) 8.10 K/mm3 (1.18-3.74) H 06/08/17 08:09 Gage # (Auto) 1.61 K/mm3 (0.24-0.36) H 06/08/17 08:09 Eos # (Auto) 0.01 K/mm3 (0.04-0.36) L 06/08/17 08:09 Baso # (Auto) 0.02 K/mm3 (0.01-0.08) 06/08/17 08:09 Neutrophils % (Manual) 59 % (40-60) 06/07/17 06:50 Band Neutrophils % 0 % (0-10) 06/07/17 06:50 Lymphocytes % (Manual) 34 % (20-40) 06/07/17 06:50 Atypical Lymphs % 0 % 06/07/17 06:50 Monocytes % (Manual) 4 % (2-10) 06/07/17 06:50 Eosinophils % (Manual) 3 % (0.7-5.8) 06/07/17 06:50 Basophils % (Manual) 0 (0.1-1.2) L 06/07/17 06:50 Manual Slide Review Abnormal smear 06/08/17 08:09 Platelet Estimate Adequate 06/07/17 06:50 Poikilocytosis 1+ slight 06/07/17 06:50 Anisocytosis 1+ slight 06/07/17 06:50 RBC Morph Comment Not Reportable 06/07/17 06:50 PT 12.0 SECONDS (8.0-13.0) 06/08/17 08:09 INR 1.12 06/08/17 08:09 Sodium 133 mEq/L (136-145) L 06/08/17 08:09 Potassium 4.8 mEq/L (3.5-5.1) 06/08/17 08:09 Chloride 94 mEq/L (98-107) L 06/08/17 08:09 Carbon Dioxide 29 mEq/L (21-32) 06/08/17 08:09 Anion Gap 14.8 (5-15) 06/08/17 08:09 BUN 40 mg/dL (7-18) H 06/08/17 08:09 Creatinine 1.2 mg/dL (0.55-1.02) H 06/08/17 08:09 Est Cr Clr Drug Dosing 39.28 mL/min 06/08/17 08:09 Estimated GFR (MDRD) 45 mL/min (>60) 06/08/17 08:09 BUN/Creatinine Ratio 33.3 (14-18) H 06/08/17 08:09 Glucose 128 mg/dL (80-115) H 06/08/17 08:09 POC Glucose 146 mg/dL (80-115) H 06/08/17 12:04 Calcium 8.2 mg/dL (8.5-10.1) L 06/08/17 08:09 Magnesium 1.4 mg/dl (1.8-2.4) L 06/07/17 06:50 Total Bilirubin 0.4 mg/dL (0.2-1.0) 06/08/17 08:09 AST 40 U/L (15-37) H 06/08/17 08:09 ALT 45 U/L (14-59) 06/08/17 08:09 Alkaline Phosphatase 86 U/L (46-116) 06/08/17 08:09 Troponin I < 0.017 ng/mL (0.00-0.056) 06/07/17 06:50 C-Reactive Protein 0.3 mg/dL (<1.0) 06/07/17 06:50 NT-Pro-B Natriuret Pep 845 pg/mL (0-125) H 06/07/17 06:50 Total Protein 6.6 g/dl (6.4-8.2) 06/08/17 08:09 Albumin 2.9 g/dl (3.4-5.0) L 06/08/17 08:09 Globulin 3.7 gm/dL 06/08/17 08:09 Albumin/Globulin Ratio 0.8 (1-2) L 06/08/17 08:09 Lipase 92 U/L (73-393) 06/07/17 06:50 Urine Color Yellow (Yellow) 06/07/17 18:55 Urine Appearance Clear (Clear) 06/07/17 18:55 Urine pH 7.0 (5.0-8.0) 06/07/17 18:55 Ur Specific [place] 1.020 (1.005-1.030) 06/07/17 18:55 Urine Protein Trace (Negative) H 06/07/17 18:55 Urine Glucose (UA) Negative (Negative) 06/07/17 18:55 Urine Ketones Negative (Negative) 06/07/17 18:55 Urine Occult Blood Negative (Negative) 06/07/17 18:55 Urine Nitrite Negative (Negative) 06/07/17 18:55 Urine Bilirubin Negative (Negative) 06/07/17 18:55 Urine Urobilinogen 0.2 (0.2-1.0) 06/07/17 18:55 Ur Leukocyte Esterase Negative (Negative) 06/07/17 18:55 Blood Type A POSITIVE 06/08/17 10:21 Gel Antibody Screen Negative 06/08/17 10:21 Crossmatch See Detail 06/08/17 10:21 - Allergies Allergies/Adverse Reactions: Allergies Allergy/AdvReac Type Severity Reaction Status Date / Time hydromorphone [From Dilaudid] Allergy unknown Verified 06/07/17 06:13 Penicillins Allergy Hives Verified 06/07/17 06:13 levofloxacin [From Levaquin] AdvReac Disorientat Verified 06/07/17 06:13 ion oxycodone [From Percocet] AdvReac Confusion Verified 06/07/17 06:13 - Blood Blood Available: Yes Product(s) Available: PRBC, FFP - Anesthesia Plan Beta Skip: Metoprolol Med Last Dose Date: 06/07/17 Med Last Dose Time: 16:00 - Acknowledgements Anesthesia Type Planned: MAC Pt an Appropriate Candidate for the Planned Anesthesia: Yes Alternatives and Risks of Anesthesia Discussed w Pt/Guardian: Yes Pt/Guardian Understands and Agrees with Anesthesia Plan: Yes Additional Comments: Most of the informations for the preop assessment was obtained from Janey's daughters. I informed them Janey was at high risk for anesthesia. Myself and Dr. Aburto spoke to them regarding possible transferring her to [place] for her care. The daughters and Janey wish to proceed with her care here. They are aware she may require intubation and be ventilated for some time following surgery. Consent was obtained from her power of attorney recruiter. All questions were answered. PreAnesthesia Questionnaire - Past Health History Medical/Surgical History: Denies Medical/Surgical History HEENT History: Reports: Impaired Vision, Other (See Below) Other HEENT History: wears reading glasses Cardiovascular History: Reports: CAD, High Cholesterol, Hypertension, Stents ( As 1 coronary stent.) Respiratory History: Reports: Asthma, COPD (Uses oxygen at nighttime usually 1- 2 L.), Sleep Apnea (Sleep apnea syndrome mentioned in old notes. Unclear whether she uses CPAP machine.) Gastrointestinal History: Reports: GERD, Hiatal Hernia, Irritable Bowel Syndrome (Colitis mentioned in old notes. 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 She had polio as a child and has a left upper extremity paresis. It's unclear whether the polio as the cause of the brain injury.) Psychiatric History: Reports: Depression Endocrine/Metabolic History: Reports: Diabetes, Type II (Controlled with diet and oral medications.), Obesity/BMI 30+ Dermatologic History: Reports: None - Infectious Disease History Infectious Disease History: Reports: Other (See Below) (Polio) - Past Surgical History HEENT Surgical History: Reports: Oral Surgery Cardiovascular Surgical History: Reports: Coronary Artery Stent GI Surgical History: Reports: Appendectomy, Lysis of Adhesions (Laparotomy exploratory for lysis of adhesions midline infraumbilical.) Female Surgical History: Reports: D&C (1.) Neurological Surgical History: Reports: C-Spine - SUBSTANCE USE Smoking Status *Q: Current Every Day Smoker Tobacco Use Within Last Twelve Months: Cigarettes Second Hand Smoke Exposure: No Recreational Drug Use History: No - HOME MEDS Home Medications: Home Meds Aspirin [Ecotrin] 81 mg PO DAILY 05/28/17 [History] Citalopram [Citalopram HBr] 20 mg PO DAILY 05/28/17 [History] Lisinopril [Prinivil] 40 mg PO DAILY 05/28/17 [History] Magnesium Oxide [Magnesium] 400 mg PO BID 05/28/17 [History] Pantoprazole [Pantoprazole Sodium] 40 mg PO BID 05/28/17 [History] Triamterene/Hydrochlorothiazid [Triamterene-HCTZ 37.5-25 MG] 0.5 tab PO DAILY [History] atorvaSTATin [Lipitor] 40 mg PO DAILY 05/28/17 [History] metFORMIN [Glucophage XR] 500 mg PO BID 05/28/17 [History] Benzonatate [Tessalon Perle] 200 mg PO TID PRN #90 capsule 06/03/17 [Rx] Budesonide [Pulmicort Flexhaler] 180 mcg INH BID #1 inhaler 06/03/17 [Rx] Codeine/Promethazine [Phenergan with Codeine] 5 ml PO Q6HR PRN #10 cup 06/03/17 [Rx] Levalbuterol Tartrate [Xopenex HFA] 1 puff INH Q6H PRN #1 inhaler 06/03/17 [Rx] Metoprolol Tartrate 25 mg PO Q6H #120 tablet 06/03/17 [Rx] methylPREDNISolone [Medrol] 4 mg PO ASDIRECTED #1 dosepk 06/03/17 [Rx] Ondansetron [Zofran ODT] 4 mg PO ASDIRECTED PRN 06/07/17 [History] Warfarin [Coumadin] 4 mg PO ASDIRECTED 06/07/17 [History] - CURRENT (IN HOUSE) MEDS Current Meds: Current Medications Hydrocodone Bitart/Acetaminophen ([place] 325-5 Mg) 1 tab PO Q6H PRN PRN Reason: Pain Last Admin: 06/08/17 05:32 Dose: 1 tab Albuterol (Proventil Hfa) 2 puff INH Q4H PRN PRN Reason: Asthma Benzonatate (Tessalon Perles) 200 mg PO TID PRN PRN Reason: Cough Last Admin: 06/08/17 00:01 Dose: 200 mg Citalopram Hydrobromide (Celexa) 20 mg PO DAILY [facility] Last Admin: 06/08/17 09:12 Dose: 20 mg Hydralazine HCl (Apresoline) 20 mg IVPUSH Q4H PRN PRN Reason: Hypertension Sodium Chloride (Normal Saline) 250 mls @ 100 mls/hr IV ASDIRECTED [facility] Lactated Ringer's (Ringers, Lactated) 1,000 mls @ 125 mls/hr IV ASDIRECTED [facility] Insulin Aspart (Novolog) 0 unit SUBCUT QIDACANDBED [facility] PRN Reason: Protocol Last Admin: 06/08/17 12:50 Dose: Not Given Lisinopril (Prinivil) 40 mg PO DAILY [facility] Last Admin: 06/08/17 09:09 Dose: 40 mg Lorazepam (Ativan) 2 mg IVPUSH Q4H PRN PRN Reason: Seizures Lorazepam (Ativan) 1 mg PO Q4H PRN PRN Reason: Anxiety Last Admin: 06/08/17 09:10 Dose: 1 mg Magnesium Oxide (Magnesium Oxide) 400 mg PO BID [facility] Last Admin: 06/08/17 09:12 Dose: 400 mg Magnesium Sulfate (Pharmacy To Dose - Magnesium Replacement) 1 dose .XX ASDIRECTED [facility] Metformin HCl (Glucophage) 500 mg PO BIDMEALS [facility] Last Admin: 06/08/17 06:38 Dose: 500 mg Methylprednisolone (Medrol) 4 mg PO ASDIRECTED [facility] Metoprolol Tartrate (Lopressor) 25 mg PO Q6H [facility] Last Admin: 06/08/17 12:51 Dose: Not Given Metoprolol Tartrate (Lopressor) 5 mg IVPUSH Q4H PRN PRN Reason: Tachycardia Mometasone Furoate (Asmanex Hfa 200mcg) 0 gm INH BID [facility] Last Admin: 06/08/17 08:39 Dose: 1 puff Morphine Sulfate (Morphine) 2 mg IVPUSH Q4H PRN PRN Reason: Pain Ondansetron HCl (Zofran Odt) 4 mg PO Q8H PRN PRN Reason: Nausea/Vomiting Pantoprazole Sodium (Protonix) 40 mg PO BIDAC [facility] Last Admin: 06/08/17 05:30 Dose: 40 mg Hctz/Triamterene 37. (5-25 Mg) 0 each PO DAILY [facility] Last Admin: 06/08/17 15:29 Dose: Not Given Potassium Chloride (Pharmacy To Dose - Potassium Replacement) 1 dose .XX ASDIRECTED [facility] Promethazine HCl/Codeine (Phenergan With Codeine) 5 ml PO Q6HR PRN PRN Reason: cough Last Admin: 06/07/17 21:44 Dose: 5 ml Rosuvastatin Calcium (Crestor) 10 mg PO DAILY [facility] Last Admin: 06/08/17 09:09 Dose: 10 mg Discontinued Medications Albuterol (Proventil Neb Soln) 2.5 mg NEB ONETIME ONE Stop: 06/08/17 14:31 Last Admin: 06/08/17 14:15 Dose: 2.5 mg Bupivacaine HCl/Epinephrine Bitart (Marcaine 0.5%/Epinephrine 1:200,000) Confirm Administered Dose 50 ml .ROUTE .STK-MED ONE Stop: 06/08/17 14:11 Cefazolin Sodium (Ancef) Confirm Administered Dose 2 gm .ROUTE .STK-MED ONE Stop: 06/08/17 14:59 Dexamethasone (Dexamethasone) Confirm Administered Dose 20 mg .ROUTE .STK-MED ONE Stop: 06/08/17 16:02 Diphenhydramine HCl (Benadryl) 25 mg IVPUSH ONETIME ONE Stop: 06/07/17 05:51 Last Admin: 06/07/17 07:04 Dose: 25 mg Ephedrine Sulfate (Ephedrine Sulfate) Confirm Administered Dose 50 mg .ROUTE .STK-MED ONE Stop: 06/08/17 16:05 Fentanyl (Sublimaze) 100 mcg IVPUSH ONETIME ONE Stop: 06/07/17 05:54 Last Admin: 06/07/17 07:05 Dose: Not Given Fentanyl (Sublimaze) 100 mcg IM ONETIME ONE Stop: 06/07/17 06:08 Last Admin: 06/07/17 06:14 Dose: 100 mcg Fentanyl (Sublimaze) Confirm Administered Dose 250 mcg .ROUTE .STK-MED ONE Stop: 06/08/17 14:59 Sodium Chloride (Normal Saline) 1,000 mls @ 250 mls/hr IV ASDIRECTED MARKUS Last Admin: 06/07/17 07:00 Dose: 250 mls/hr Sodium Chloride (Normal Saline) Confirm Administered Dose 1,000 mls @ as directed .ROUTE .STK-MED ONE Stop: 06/08/17 16:02 Ketamine HCl (Ketalar) Confirm Administered Dose 500 mg .ROUTE .STK-MED ONE Stop: 06/08/17 14:57 Magnesium Oxide (Magnesium Oxide) 400 mg PO Q4H [facility] Stop: 06/08/17 01:01 Last Admin: 06/08/17 00:02 Dose: 400 mg Meperidine HCl (Demerol) 50 mg IVPUSH ONETIME ONE Stop: 06/07/17 06:46 Last Admin: 06/07/17 07:14 Dose: 50 mg Methylprednisolone Sodium Succinate (Solu-Medrol) 125 mg IVPUSH ONETIME ONE Stop: 06/07/17 08:01 Last Admin: 06/07/17 08:28 Dose: 125 mg Metoclopramide HCl (Reglan) 10 mg IVPUSH ONETIME ONE Stop: 06/07/17 05:51 Last Admin: 06/07/17 07:05 Dose: Not Given Metoclopramide HCl (Reglan) 10 mg IM ONETIME ONE Stop: 06/07/17 06:09 Last Admin: 06/07/17 06:14 Dose: 10 mg Midazolam HCl (Versed 1 Mg/Ml) Confirm Administered Dose 2 mg .ROUTE .STK-MED ONE Stop: 06/08/17 14:59 Morphine Sulfate (Morphine) 4 mg IM ONETIME ONE Stop: 06/07/17 12:31 Last Admin: 06/07/17 12:52 Dose: 4 mg Ondansetron HCl (Zofran Odt) 4 mg PO ASDIRECTED PRN PRN Reason: Nausea Ondansetron HCl (Zofran) Confirm Administered Dose 4 mg .ROUTE .STK-MED ONE Stop: 06/08/17 14:59 Phenylephrine HCl (Phenylephrine In Ns 100 Mcg/Ml) Confirm Administered Dose 1 mg .ROUTE .STK-MED ONE Stop: 06/08/17 16:05 Phytonadione (Aquamephyton) 5 mg PO ONETIME ONE Stop: 06/07/17 11:34 Last Admin: 06/07/17 16:02 Dose: Not Given Phytonadione (Aquamephyton) Confirm Administered Dose 5 mg .ROUTE .STK-MED ONE Stop: 06/07/17 15:30 Last Admin: 06/07/17 16:02 Dose: Not Given Phytonadione (Aquamephyton) 5 mg PO ONETIME ONE Stop: 06/07/17 16:01 Last Admin: 06/07/17 16:00 Dose: 5 mg Propofol (Diprivan 20 Ml) Confirm Administered Dose 800 mg .ROUTE .STK-MED ONE Stop: 06/08/17 14:59
[2017-06-08] MEDS: Albuterol/Ipratropium 3.0-0.5 MG/3 ML Neb Soln NEB PRN (18:35)
[2017-06-08] MEDS ORDERED: 50% Dextrose in Water 50 ML Syringe IVPUSH PRN (18:54)
[2017-06-08] MEDS: Lactated Ringers 1,000 ML IV SCH (19:00)
[2017-06-09] MEDS: Metoprolol Tartrate 25 MG Tab PO SCH ×4 (00:10→18:53)
[2017-06-09] MEDS: Lactated Ringers 1,000 ML IV SCH (02:35)
[2017-06-09] MEDS ORDERED: Lactated Ringers 1,000 ML IV SCH (03:20)
[2017-06-09] MEDS: Pantoprazole 40 MG Tab.CR PO SCH ×2 (06:08→16:47)
[2017-06-09] MEDS: Insulin Aspart 100 Units/ML 3 ML Pen SUBCUT SCH ×4 (06:44→21:57)
--- NOTE | 2017-06-09 07:14 | PCM.PN ---
- General Info Date of Service: 06/09/17 Admission Dx/Problem (Free Text): Abdominal Hematoma Subjective Update: Follow Up Functional Status: Reports: Pain Controlled, Tolerating Diet, Urinating. Denies : New Symptoms - Patient Data Vitals - Most Recent: Last Vital Signs Temp 36.6 C 06/09/17 04:00 Pulse 72 06/09/17 06:08 Resp 16 06/09/17 04:00 BP 129/61 06/09/17 06:08 Pulse Ox 95 06/09/17 04:00 Weight - Most Recent: 123.831 kg I&O - Last 24 Hours: Intake & Output 06/08/17 06/09/17 06/09/17 22:59 06:59 14:59 Intake Total 0 1671 Output Total 520 480 Balance -520 1191 Lab Results Last 24 Hours: Laboratory Results - last 24 hr 06/08/17 06/08/17 06/08/17 Range/Units 08:09 08:09 08:09 WBC 19.42 H (3.98-10.04) K/mm3 RBC 2.46 L (3.98-5.22) M/mm3 Hgb 7.5 L (11.2-15.7) gm/L Hct 23.1 L (34.1-44.9) % MCV 93.9 (79.4-94.8) fl MCH 30.5 (25.6-32.2) pg MCHC 32.5 (32.2-35.5) g/dl RDW Std Deviation 48.7 H (36.4-46.3) fL Plt Count 370 H (182-369) K/mm3 MPV 9.6 (9.4-12.3) fl Neut % (Auto) 49.4 (34.0-71.1) % Lymph % (Auto) 41.7 (19.3-51.7) % [place] % (Auto) 8.3 (4.7-12.5) % Eos % (Auto) 0.1 L (0.7-5.8) Baso % (Auto) 0.1 (0.1-1.2) % Neut # (Auto) 9.61 H (1.56-6.13) K/mm3 Lymph # (Auto) 8.10 H (1.18-3.74) K/mm3 [place] # (Auto) 1.61 H (0.24-0.36) K/mm3 Eos # (Auto) 0.01 L (0.04-0.36) K/mm3 Baso # (Auto) 0.02 (0.01-0.08) K/mm3 Manual Slide Review Abnormal smear PT 12.0 (8.0-13.0) SECONDS INR 1.12 Sodium 133 L (136-145) mEq/L Potassium 4.8 (3.5-5.1) mEq/L Chloride 94 L (98-107) mEq/L Carbon Dioxide 29 (21-32) mEq/L Anion Gap 14.8 (5-15) BUN 40 H (7-18) mg/dL Creatinine 1.2 H (0.55-1.02) mg/dL Est Cr Clr Drug Dosing 39.28 mL/min Estimated GFR (MDRD) 45 (>60) mL/min BUN/Creatinine Ratio 33.3 H (14-18) Glucose 128 H (80-115) mg/dL POC Glucose (80-115) mg/dL Calcium 8.2 L (8.5-10.1) mg/dL Total Bilirubin 0.4 (0.2-1.0) mg/dL AST 40 H (15-37) U/L ALT 45 (14-59) U/L Alkaline Phosphatase 86 (46-116) U/L Total Protein 6.6 (6.4-8.2) g/dl Albumin 2.9 L (3.4-5.0) g/dl Globulin 3.7 gm/dL Albumin/Globulin Ratio 0.8 L (1-2) Blood Type Gel Antibody Screen Crossmatch 06/08/17 06/08/17 06/08/17 Range/Units 10:21 12:04 17:54 WBC (3.98-10.04) K/mm3 RBC (3.98-5.22) M/mm3 Hgb (11.2-15.7) gm/L Hct (34.1-44.9) % MCV (79.4-94.8) fl MCH (25.6-32.2) pg MCHC (32.2-35.5) g/dl RDW Std Deviation (36.4-46.3) fL Plt Count (182-369) K/mm3 MPV (9.4-12.3) fl Neut % (Auto) (34.0-71.1) % Lymph % (Auto) (19.3-51.7) % [place] % (Auto) (4.7-12.5) % Eos % (Auto) (0.7-5.8) Baso % (Auto) (0.1-1.2) % Neut # (Auto) (1.56-6.13) K/mm3 Lymph # (Auto) (1.18-3.74) K/mm3 [place] # (Auto) (0.24-0.36) K/mm3 Eos # (Auto) (0.04-0.36) K/mm3 Baso # (Auto) (0.01-0.08) K/mm3 Manual Slide Review PT (8.0-13.0) SECONDS INR Sodium (136-145) mEq/L Potassium (3.5-5.1) mEq/L Chloride (98-107) mEq/L Carbon Dioxide (21-32) mEq/L Anion Gap (5-15) BUN (7-18) mg/dL Creatinine (0.55-1.02) mg/dL Est Cr Clr Drug Dosing mL/min Estimated GFR (MDRD) (>60) mL/min BUN/Creatinine Ratio (14-18) Glucose (80-115) mg/dL POC Glucose 146 H 133 H (80-115) mg/dL Calcium (8.5-10.1) mg/dL Total Bilirubin (0.2-1.0) mg/dL AST (15-37) U/L ALT (14-59) U/L Alkaline Phosphatase (46-116) U/L Total Protein (6.4-8.2) g/dl Albumin (3.4-5.0) g/dl Globulin gm/dL Albumin/Globulin Ratio (1-2) Blood Type A POSITIVE Gel Antibody Screen Negative Crossmatch See Detail 06/08/17 06/09/17 06/09/17 Range/Units 21:54 01:07 05:45 WBC 12.38 H (3.98-10.04) K/mm3 RBC 2.61 L (3.98-5.22) M/mm3 Hgb 7.8 L 7.7 L (11.2-15.7) gm/L Hct 23.9 L 23.5 L (34.1-44.9) % MCV 90.0 (79.4-94.8) fl MCH 29.5 (25.6-32.2) pg MCHC 32.8 (32.2-35.5) g/dl RDW Std Deviation 52.1 H (36.4-46.3) fL Plt Count 258 (182-369) K/mm3 MPV 9.5 (9.4-12.3) fl Neut % (Auto) 56.4 (34.0-71.1) % Lymph % (Auto) 35.4 (19.3-51.7) % [place] % (Auto) 7.8 (4.7-12.5) % Eos % (Auto) 0 L (0.7-5.8) Baso % (Auto) 0.1 (0.1-1.2) % Neut # (Auto) 6.98 H (1.56-6.13) K/mm3 Lymph # (Auto) 4.38 H (1.18-3.74) K/mm3 [place] # (Auto) 0.97 H (0.24-0.36) K/mm3 Eos # (Auto) 0.00 L (0.04-0.36) K/mm3 Baso # (Auto) 0.01 (0.01-0.08) K/mm3 Manual Slide Review Abnormal smear PT (8.0-13.0) SECONDS INR Sodium (136-145) mEq/L Potassium (3.5-5.1) mEq/L Chloride (98-107) mEq/L Carbon Dioxide (21-32) mEq/L Anion Gap (5-15) BUN (7-18) mg/dL Creatinine (0.55-1.02) mg/dL Est Cr Clr Drug Dosing mL/min Estimated GFR (MDRD) (>60) mL/min BUN/Creatinine Ratio (14-18) Glucose (80-115) mg/dL POC Glucose 150 H (80-115) mg/dL Calcium (8.5-10.1) mg/dL Total Bilirubin (0.2-1.0) mg/dL AST (15-37) U/L ALT (14-59) U/L Alkaline Phosphatase (46-116) U/L Total Protein (6.4-8.2) g/dl Albumin (3.4-5.0) g/dl Globulin gm/dL Albumin/Globulin Ratio (1-2) Blood Type Gel Antibody Screen Crossmatch 06/09/17 06/09/17 Range/Units 05:45 06:40 WBC (3.98-10.04) K/mm3 RBC (3.98-5.22) M/mm3 Hgb (11.2-15.7) gm/L Hct (34.1-44.9) % MCV (79.4-94.8) fl MCH (25.6-32.2) pg MCHC (32.2-35.5) g/dl RDW Std Deviation (36.4-46.3) fL Plt Count (182-369) K/mm3 MPV (9.4-12.3) fl Neut % (Auto) (34.0-71.1) % Lymph % (Auto) (19.3-51.7) % [place] % (Auto) (4.7-12.5) % Eos % (Auto) (0.7-5.8) Baso % (Auto) (0.1-1.2) % Neut # (Auto) (1.56-6.13) K/mm3 Lymph # (Auto) (1.18-3.74) K/mm3 [place] # (Auto) (0.24-0.36) K/mm3 Eos # (Auto) (0.04-0.36) K/mm3 Baso # (Auto) (0.01-0.08) K/mm3 Manual Slide Review PT (8.0-13.0) SECONDS INR Sodium 133 L (136-145) mEq/L Potassium 4.9 (3.5-5.1) mEq/L Chloride 98 (98-107) mEq/L Carbon Dioxide 29 (21-32) mEq/L Anion Gap 10.9 (5-15) BUN 35 H (7-18) mg/dL Creatinine 1.1 H (0.55-1.02) mg/dL Est Cr Clr Drug Dosing 42.85 mL/min Estimated GFR (MDRD) 50 (>60) mL/min BUN/Creatinine Ratio 31.8 H (14-18) Glucose 94 (80-115) mg/dL POC Glucose 97 (80-115) mg/dL Calcium 8.1 L (8.5-10.1) mg/dL Total Bilirubin 0.4 (0.2-1.0) mg/dL AST 37 (15-37) U/L ALT 33 (14-59) U/L Alkaline Phosphatase 78 (46-116) U/L Total Protein 6.1 L (6.4-8.2) g/dl Albumin 2.6 L (3.4-5.0) g/dl Globulin 3.5 gm/dL Albumin/Globulin Ratio 0.7 L (1-2) Blood Type Gel Antibody Screen Crossmatch Med Orders - Current: Current Medications Hydrocodone Bitart/Acetaminophen ([place] 325-5 Mg) 1 tab PO Q6H PRN PRN Reason: Pain Last Admin: 06/08/17 05:32 Dose: 1 tab Albuterol (Proventil Hfa) 2 puff INH Q4H PRN PRN Reason: Asthma Albuterol/Ipratropium (Duoneb 3.0-0.5 Mg/3 Ml) 3 ml NEB Q4H PRN PRN Reason: WHEEZE Last Admin: 06/08/17 18:35 Dose: 3 ml Benzonatate (Tessalon Perles) 200 mg PO TID PRN PRN Reason: Cough Last Admin: 06/08/17 00:01 Dose: 200 mg Citalopram Hydrobromide (Celexa) 20 mg PO DAILY [facility] Last Admin: 06/08/17 09:12 Dose: 20 mg Dextrose/Water (Dextrose 50% In Water) 50 ml IVPUSH ASDIRECTED PRN PRN Reason: Hypoglycemia Hydralazine HCl (Apresoline) 20 mg IVPUSH Q4H PRN PRN Reason: Hypertension Lactated Ringer's (Ringers, Lactated) 1,000 mls @ 100 mls/hr IV ASDIRECTED [facility] Insulin Aspart (Novolog) 0 unit SUBCUT QIDACANDBED [facility] PRN Reason: Protocol Last Admin: 06/09/17 06:44 Dose: Not Given Lisinopril (Prinivil) 40 mg PO DAILY [facility] Last Admin: 06/08/17 09:09 Dose: 40 mg Lorazepam (Ativan) 2 mg IVPUSH Q4H PRN PRN Reason: Seizures Lorazepam (Ativan) 1 mg PO Q4H PRN PRN Reason: Anxiety Last Admin: 06/08/17 09:10 Dose: 1 mg Magnesium Oxide (Magnesium Oxide) 400 mg PO BID [facility] Last Admin: 06/08/17 21:37 Dose: 400 mg Magnesium Sulfate (Pharmacy To Dose - Magnesium Replacement) 1 dose .XX ASDIRECTED [facility] Metformin HCl (Glucophage) 500 mg PO BIDMEALS [facility] Last Admin: 06/08/17 19:01 Dose: Not Given Methylprednisolone (Medrol) 4 mg PO ASDIRECTED [facility] Metoprolol Tartrate (Lopressor) 25 mg PO Q6H [facility] Last Admin: 06/09/17 06:08 Dose: 25 mg Metoprolol Tartrate (Lopressor) 5 mg IVPUSH Q4H PRN PRN Reason: Tachycardia Mometasone Furoate (Asmanex Hfa 200mcg) 0 gm INH BID [facility] Last Admin: 06/08/17 20:32 Dose: 1 puff Morphine Sulfate (Morphine) 2 mg IVPUSH Q4H PRN PRN Reason: Pain Ondansetron HCl (Zofran Odt) 4 mg PO Q8H PRN PRN Reason: Nausea/Vomiting Pantoprazole Sodium (Protonix) 40 mg PO BIDAC [facility] Last Admin: 06/09/17 06:08 Dose: 40 mg Hctz/Triamterene 37. (5-25 Mg) 0 each PO DAILY [facility] Last Admin: 06/08/17 15:29 Dose: Not Given Potassium Chloride (Pharmacy To Dose - Potassium Replacement) 1 dose .XX ASDIRECTED [facility] Promethazine HCl/Codeine (Phenergan With Codeine) 5 ml PO Q6HR PRN PRN Reason: cough Last Admin: 06/07/17 21:44 Dose: 5 ml Rosuvastatin Calcium (Crestor) 10 mg PO DAILY [facility] Last Admin: 06/08/17 09:09 Dose: 10 mg Discontinued Medications Albuterol (Proventil Neb Soln) 2.5 mg NEB ONETIME ONE Stop: 06/08/17 14:31 Last Admin: 06/08/17 14:15 Dose: 2.5 mg Bupivacaine HCl/Epinephrine Bitart (Marcaine 0.5%/Epinephrine 1:200,000) Confirm Administered Dose 50 ml .ROUTE .STK-MED ONE Stop: 06/08/17 14:11 Last Admin: 06/08/17 15:19 Dose: 15 ml Cefazolin Sodium (Ancef) Confirm Administered Dose 2 gm .ROUTE .[facility] ONE Stop: 06/08/17 14:59 Dexamethasone (Dexamethasone) Confirm Administered Dose 20 mg .ROUTE .[facility] ONE Stop: 06/08/17 16:02 Diphenhydramine HCl (Benadryl) 25 mg IVPUSH ONETIME ONE Stop: 06/07/17 05:51 Last Admin: 06/07/17 07:04 Dose: 25 mg Ephedrine Sulfate (Ephedrine Sulfate) Confirm Administered Dose 50 mg .ROUTE .[facility] ONE Stop: 06/08/17 16:05 Fentanyl (Sublimaze) 100 mcg IVPUSH ONETIME ONE Stop: 06/07/17 05:54 Last Admin: 06/07/17 07:05 Dose: Not Given Fentanyl (Sublimaze) 100 mcg IM ONETIME ONE Stop: 06/07/17 06:08 Last Admin: 06/07/17 06:14 Dose: 100 mcg Fentanyl (Sublimaze) Confirm Administered Dose 250 mcg .ROUTE .[facility] ONE Stop: 06/08/17 14:59 Sodium Chloride (Normal Saline) 1,000 mls @ 250 mls/hr IV ASDIRECTED [facility] Last Admin: 06/07/17 07:00 Dose: 250 mls/hr Sodium Chloride (Normal Saline) 250 mls @ 100 mls/hr IV ASDIRECTED [facility] Sodium Chloride (Normal Saline) Confirm Administered Dose 1,000 mls @ as directed .ROUTE .[facility] ONE Stop: 06/08/17 16:02 Lactated Ringer's (Ringers, Lactated) 1,000 mls @ 125 mls/hr IV ASDIRECTED [facility] Last Infusion: 06/09/17 03:18 Dose: 100 mls/hr Ketamine HCl (Ketalar) Confirm Administered Dose 500 mg .ROUTE .[facility] ONE Stop: 06/08/17 14:57 Magnesium Oxide (Magnesium Oxide) 400 mg PO Q4H [facility] Stop: 06/08/17 01:01 Last Admin: 06/08/17 00:02 Dose: 400 mg Meperidine HCl (Demerol) 50 mg IVPUSH ONETIME ONE Stop: 06/07/17 06:46 Last Admin: 06/07/17 07:14 Dose: 50 mg Methylprednisolone Sodium Succinate (Solu-Medrol) 125 mg IVPUSH ONETIME ONE Stop: 06/07/17 08:01 Last Admin: 06/07/17 08:28 Dose: 125 mg Metoclopramide HCl (Reglan) 10 mg IVPUSH ONETIME ONE Stop: 06/07/17 05:51 Last Admin: 06/07/17 07:05 Dose: Not Given Metoclopramide HCl (Reglan) 10 mg IM ONETIME ONE Stop: 06/07/17 06:09 Last Admin: 06/07/17 06:14 Dose: 10 mg Midazolam HCl (Versed 1 Mg/Ml) Confirm Administered Dose 2 mg .ROUTE .STK-MED ONE Stop: 06/08/17 14:59 Morphine Sulfate (Morphine) 4 mg IM ONETIME ONE Stop: 06/07/17 12:31 Last Admin: 06/07/17 12:52 Dose: 4 mg Ondansetron HCl (Zofran Odt) 4 mg PO ASDIRECTED PRN PRN Reason: Nausea Ondansetron HCl (Zofran) Confirm Administered Dose 4 mg .ROUTE .STK-MED ONE Stop: 06/08/17 14:59 Phenylephrine HCl (Phenylephrine In Ns 100 Mcg/Ml) Confirm Administered Dose 1 mg .ROUTE .STK-MED ONE Stop: 06/08/17 16:05 Phytonadione (Aquamephyton) 5 mg PO ONETIME ONE Stop: 06/07/17 11:34 Last Admin: 06/07/17 16:02 Dose: Not Given Phytonadione (Aquamephyton) Confirm Administered Dose 5 mg .ROUTE .STK-MED ONE Stop: 06/07/17 15:30 Last Admin: 06/07/17 16:02 Dose: Not Given Phytonadione (Aquamephyton) 5 mg PO ONETIME ONE Stop: 06/07/17 16:01 Last Admin: 06/07/17 16:00 Dose: 5 mg Propofol (Diprivan 20 Ml) Confirm Administered Dose 800 mg .ROUTE .STK-MED ONE Stop: 06/08/17 14:59 - My Orders Last 24 Hours: My Active Orders 06/08/17 18:15 Incentive Spirometry [RT Incentive Spirometry] [RC] ASDIRECTED Albuterol/Ipratropium [DuoNeb 3.0-0.5 MG/3 ML] 3 ml NEB Q4H PRN 06/08/17 18:54 Blood Glucose Check, Bedside [RC] QIDACANDBED Dextrose 50% in Water 50 ml IVPUSH ASDIRECTED PRN
--- NOTE | 2017-06-09 07:31 | PCM48HPAN ---
Post Anesthesia Note - EVALUATION WITHIN 48HRS OF ANESTHETIC Vital Signs in Normal Range: Yes Patient Participated in Evaluation: Yes Respiratory Function Stable: Yes Airway Patent: Yes Cardiovascular Function Stable: Yes Hydration Status Stable: Yes Pain Control Satisfactory: Yes Nausea and Vomiting Control Satisfactory: Yes Mental Status Recovered: Yes (no complaints) Pulse Rate: 72 Resp Rate: 16 Blood Pressure: 129/61
[2017-06-09] MEDS: Magnesium Oxide 400 MG Tab PO SCH ×2 (08:05→21:57)
[2017-06-09] MEDS: Lisinopril 20 MG Tab PO SCH (08:05)
[2017-06-09] MEDS: Rosuvastatin 10 MG Tab PO SCH (08:05)
[2017-06-09] MEDS: metFORMIN 500 MG Tab PO SCH ×2 (08:05→16:47)
[2017-06-09] MEDS: Citalopram 20 MG Tab PO SCH (08:05)
--- NOTE | 2017-06-09 08:15 | OR ---
DATE OF OPERATION: 06/08/2017 SURGEON: Sergio Aburto MD PREOPERATIVE DIAGNOSIS: Right anterior rectus sheath hematoma. POSTOPERATIVE DIAGNOSIS: Right anterior rectus sheath hematoma. PROCEDURE: Evacuation of hematoma done under IV sedation, 1% Xylocaine. DESCRIPTION OF PROCEDURE: The patient having been taken to the operating room, placed in a supine position, connected to monitoring equipment, given IV sedation antibiotics. SCDs were placed. The abdomen was then prepped with DuraPrep, draped off in a sterile fashion transverse. First incision was made over the right rectus muscle little bit superior to the umbilicus. It was carried down by sharp dissection through the fat and to the anterior rectus sheath was incised in a transverse fashion. The muscles were split vertically and hematoma was entered and about 600 mL of fluid and hematoma were evacuated. It was then irrigated and then a drain was then placed, brought out through a separate stab wound. Rectus muscle was approximated loosely with interrupted 2-0 Vicryl suture and the fascia was then closed with a running #1 PDS. Subcuticular tissue closed with 3-0 Vicryl suture and the jayda were used to approximate the skin. Sterile dressing placed. The patient tolerated the procedure and sent to recovery room in a stable condition. ESTIMATED BLOOD LOSS: MMODAL /[id number]
[2017-06-09] MEDS ORDERED: Morphine 4 MG/ML Syringe IVPUSH PRN (08:26)
[2017-06-09] MEDS: Mometasone Furoate HFA 200 mcg/Puff 13 GM Inhaler INH SCH ×2 (08:38→21:07)
[2017-06-09] MEDS: Albuterol/Ipratropium 3.0-0.5 MG/3 ML Neb Soln NEB PRN (08:38)
[2017-06-09] MEDS: TRIAMTERENE PO SCH ×2 (08:54→12:00)
[2017-06-09] MEDS: HCTZ PO SCH ×2 (08:54→12:00)
[2017-06-09] MEDS: Acetaminophen/HYDROcodone 325-5 MG Tab PO PRN ×3 (09:29→22:26)
--- NOTE | 2017-06-09 09:36 | PCM.SURGPN ---
- General Info Date of Service: 06/09/17 Functional Status: Reports: Pain Controlled - Review of Systems General: Reports: No Symptoms Pulmonary: Reports: No Symptoms Cardiovascular: Reports: No Symptoms Gastrointestinal: Reports: No Symptoms - Patient Data Vitals - Most Recent: Last Vital Signs Temp 97.6 F 06/09/17 08:00 Pulse 73 06/09/17 08:00 Resp 20 06/09/17 08:00 BP 129/67 06/09/17 08:05 Pulse Ox 94 L 06/09/17 08:39 Weight - Most Recent: 123.831 kg I&O - Last 24 Hours: Intake & Output 06/08/17 06/09/17 06/09/17 23:59 07:59 15:59 Intake Total 0 1671 Output Total 520 480 Balance -520 1191 Lab Results Last 24 Hrs: Laboratory Results - last 24 hr 06/08/17 06/08/17 06/08/17 Range/Units 10:21 12:04 17:54 WBC (3.98-10.04) K/mm3 RBC (3.98-5.22) M/mm3 Hgb (11.2-15.7) gm/L Hct (34.1-44.9) % MCV (79.4-94.8) fl MCH (25.6-32.2) pg MCHC (32.2-35.5) g/dl RDW Std Deviation (36.4-46.3) fL Plt Count (182-369) K/mm3 MPV (9.4-12.3) fl Neut % (Auto) (34.0-71.1) % Lymph % (Auto) (19.3-51.7) % [place] % (Auto) (4.7-12.5) % Eos % (Auto) (0.7-5.8) Baso % (Auto) (0.1-1.2) % Neut # (Auto) (1.56-6.13) K/mm3 Lymph # (Auto) (1.18-3.74) K/mm3 [place] # (Auto) (0.24-0.36) K/mm3 Eos # (Auto) (0.04-0.36) K/mm3 Baso # (Auto) (0.01-0.08) K/mm3 Manual Slide Review Sodium (136-145) mEq/L Potassium (3.5-5.1) mEq/L Chloride (98-107) mEq/L Carbon Dioxide (21-32) mEq/L Anion Gap (5-15) BUN (7-18) mg/dL Creatinine (0.55-1.02) mg/dL Est Cr Clr Drug Dosing mL/min Estimated GFR (MDRD) (>60) mL/min BUN/Creatinine Ratio (14-18) Glucose (80-115) mg/dL POC Glucose 146 H 133 H (80-115) mg/dL Calcium (8.5-10.1) mg/dL Total Bilirubin (0.2-1.0) mg/dL AST (15-37) U/L ALT (14-59) U/L Alkaline Phosphatase (46-116) U/L Total Protein (6.4-8.2) g/dl Albumin (3.4-5.0) g/dl Globulin gm/dL Albumin/Globulin Ratio (1-2) Blood Type A POSITIVE Gel Antibody Screen Negative Crossmatch See Detail 06/08/17 06/09/17 06/09/17 Range/Units 21:54 01:07 05:45 WBC 12.38 H (3.98-10.04) K/mm3 RBC 2.61 L (3.98-5.22) M/mm3 Hgb 7.8 L 7.7 L (11.2-15.7) gm/L Hct 23.9 L 23.5 L (34.1-44.9) % MCV 90.0 (79.4-94.8) fl MCH 29.5 (25.6-32.2) pg MCHC 32.8 (32.2-35.5) g/dl RDW Std Deviation 52.1 H (36.4-46.3) fL Plt Count 258 (182-369) K/mm3 MPV 9.5 (9.4-12.3) fl Neut % (Auto) 56.4 (34.0-71.1) % Lymph % (Auto) 35.4 (19.3-51.7) % [place] % (Auto) 7.8 (4.7-12.5) % Eos % (Auto) 0 L (0.7-5.8) Baso % (Auto) 0.1 (0.1-1.2) % Neut # (Auto) 6.98 H (1.56-6.13) K/mm3 Lymph # (Auto) 4.38 H (1.18-3.74) K/mm3 [place] # (Auto) 0.97 H (0.24-0.36) K/mm3 Eos # (Auto) 0.00 L (0.04-0.36) K/mm3 Baso # (Auto) 0.01 (0.01-0.08) K/mm3 Manual Slide Review Abnormal smear Sodium (136-145) mEq/L Potassium (3.5-5.1) mEq/L Chloride (98-107) mEq/L Carbon Dioxide (21-32) mEq/L Anion Gap (5-15) BUN (7-18) mg/dL Creatinine (0.55-1.02) mg/dL Est Cr Clr Drug Dosing mL/min Estimated GFR (MDRD) (>60) mL/min BUN/Creatinine Ratio (14-18) Glucose (80-115) mg/dL POC Glucose 150 H (80-115) mg/dL Calcium (8.5-10.1) mg/dL Total Bilirubin (0.2-1.0) mg/dL AST (15-37) U/L ALT (14-59) U/L Alkaline Phosphatase (46-116) U/L Total Protein (6.4-8.2) g/dl Albumin (3.4-5.0) g/dl Globulin gm/dL Albumin/Globulin Ratio (1-2) Blood Type Gel Antibody Screen Crossmatch 06/09/17 06/09/17 Range/Units 05:45 06:40 WBC (3.98-10.04) K/mm3 RBC (3.98-5.22) M/mm3 Hgb (11.2-15.7) gm/L Hct (34.1-44.9) % MCV (79.4-94.8) fl MCH (25.6-32.2) pg MCHC (32.2-35.5) g/dl RDW Std Deviation (36.4-46.3) fL Plt Count (182-369) K/mm3 MPV (9.4-12.3) fl Neut % (Auto) (34.0-71.1) % Lymph % (Auto) (19.3-51.7) % [place] % (Auto) (4.7-12.5) % Eos % (Auto) (0.7-5.8) Baso % (Auto) (0.1-1.2) % Neut # (Auto) (1.56-6.13) K/mm3 Lymph # (Auto) (1.18-3.74) K/mm3 [place] # (Auto) (0.24-0.36) K/mm3 Eos # (Auto) (0.04-0.36) K/mm3 Baso # (Auto) (0.01-0.08) K/mm3 Manual Slide Review Sodium 133 L (136-145) mEq/L Potassium 4.9 (3.5-5.1) mEq/L Chloride 98 (98-107) mEq/L Carbon Dioxide 29 (21-32) mEq/L Anion Gap 10.9 (5-15) BUN 35 H (7-18) mg/dL Creatinine 1.1 H (0.55-1.02) mg/dL Est Cr Clr Drug Dosing 42.85 mL/min Estimated GFR (MDRD) 50 (>60) mL/min BUN/Creatinine Ratio 31.8 H (14-18) Glucose 94 (80-115) mg/dL POC Glucose 97 (80-115) mg/dL Calcium 8.1 L (8.5-10.1) mg/dL Total Bilirubin 0.4 (0.2-1.0) mg/dL AST 37 (15-37) U/L ALT 33 (14-59) U/L Alkaline Phosphatase 78 (46-116) U/L Total Protein 6.1 L (6.4-8.2) g/dl Albumin 2.6 L (3.4-5.0) g/dl Globulin 3.5 gm/dL Albumin/Globulin Ratio 0.7 L (1-2) Blood Type Gel Antibody Screen Crossmatch Med Orders - Current: Current Medications Hydrocodone Bitart/Acetaminophen ([place] 325-5 Mg) 1 tab PO Q6H PRN PRN Reason: Pain Last Admin: 06/09/17 09:29 Dose: 1 tab Albuterol (Proventil Hfa) 2 puff INH Q4H PRN PRN Reason: Asthma Albuterol/Ipratropium (Duoneb 3.0-0.5 Mg/3 Ml) 3 ml NEB Q4H PRN PRN Reason: WHEEZE Last Admin: 06/09/17 08:38 Dose: 3 ml Benzonatate (Tessalon Perles) 200 mg PO TID PRN PRN Reason: Cough Last Admin: 06/08/17 00:01 Dose: 200 mg Citalopram Hydrobromide (Celexa) 20 mg PO DAILY [facility] Last Admin: 06/09/17 08:05 Dose: 20 mg Dextrose/Water (Dextrose 50% In Water) 50 ml IVPUSH ASDIRECTED PRN PRN Reason: Hypoglycemia Hydralazine HCl (Apresoline) 20 mg IVPUSH Q4H PRN PRN Reason: Hypertension Insulin Aspart (Novolog) 0 unit SUBCUT QIDACANDBED [facility] PRN Reason: Protocol Last Admin: 06/09/17 06:44 Dose: Not Given Lisinopril (Prinivil) 40 mg PO DAILY [facility] Last Admin: 06/09/17 08:05 Dose: 40 mg Lorazepam (Ativan) 2 mg IVPUSH Q4H PRN PRN Reason: Seizures Lorazepam (Ativan) 1 mg PO Q4H PRN PRN Reason: Anxiety Last Admin: 06/08/17 09:10 Dose: 1 mg Magnesium Oxide (Magnesium Oxide) 400 mg PO BID [facility] Last Admin: 06/09/17 08:05 Dose: 400 mg Magnesium Sulfate (Pharmacy To Dose - Magnesium Replacement) 1 dose .XX ASDIRECTED [facility] Metformin HCl (Glucophage) 500 mg PO BIDMEALS [facility] Last Admin: 06/09/17 08:05 Dose: 500 mg Methylprednisolone (Medrol) 4 mg PO ASDIRECTED [facility] Metoprolol Tartrate (Lopressor) 25 mg PO Q6H [facility] Last Admin: 06/09/17 06:08 Dose: 25 mg Metoprolol Tartrate (Lopressor) 5 mg IVPUSH Q4H PRN PRN Reason: Tachycardia Mometasone Furoate (Asmanex Hfa 200mcg) 0 gm INH BID [facility] Last Admin: 06/09/17 08:38 Dose: 1 puff Morphine Sulfate (Morphine) 2 mg IVPUSH Q4H PRN PRN Reason: Pain Ondansetron HCl (Zofran Odt) 4 mg PO Q8H PRN PRN Reason: Nausea/Vomiting Pantoprazole Sodium (Protonix) 40 mg PO BIDAC [facility] Last Admin: 06/09/17 06:08 Dose: 40 mg Hctz/Triamterene 37. (5-25 Mg) 0 each PO DAILY [facility] Last Admin: 06/09/17 08:54 Dose: Not Given Potassium Chloride (Pharmacy To Dose - Potassium Replacement) 1 dose .XX ASDIRECTED [facility] Promethazine HCl/Codeine (Phenergan With Codeine) 5 ml PO Q6HR PRN PRN Reason: cough Last Admin: 06/07/17 21:44 Dose: 5 ml Rosuvastatin Calcium (Crestor) 10 mg PO DAILY [facility] Last Admin: 06/09/17 08:05 Dose: 10 mg Discontinued Medications Albuterol (Proventil Neb Soln) 2.5 mg NEB ONETIME ONE Stop: 06/08/17 14:31 Last Admin: 06/08/17 14:15 Dose: 2.5 mg Bupivacaine HCl/Epinephrine Bitart (Marcaine 0.5%/Epinephrine 1:200,000) Confirm Administered Dose 50 ml .ROUTE .STK-MED ONE Stop: 06/08/17 14:11 Last Admin: 06/08/17 15:19 Dose: 15 ml Cefazolin Sodium (Ancef) Confirm Administered Dose 2 gm .ROUTE .STK-MED ONE Stop: 06/08/17 14:59 Dexamethasone (Dexamethasone) Confirm Administered Dose 20 mg .ROUTE .STK-MED ONE Stop: 06/08/17 16:02 Diphenhydramine HCl (Benadryl) 25 mg IVPUSH ONETIME ONE Stop: 06/07/17 05:51 Last Admin: 06/07/17 07:04 Dose: 25 mg Ephedrine Sulfate (Ephedrine Sulfate) Confirm Administered Dose 50 mg .ROUTE .STK-MED ONE Stop: 06/08/17 16:05 Fentanyl (Sublimaze) 100 mcg IVPUSH ONETIME ONE Stop: 06/07/17 05:54 Last Admin: 06/07/17 07:05 Dose: Not Given Fentanyl (Sublimaze) 100 mcg IM ONETIME ONE Stop: 06/07/17 06:08 Last Admin: 06/07/17 06:14 Dose: 100 mcg Fentanyl (Sublimaze) Confirm Administered Dose 250 mcg .ROUTE .STK-MED ONE Stop: 06/08/17 14:59 Sodium Chloride (Normal Saline) 1,000 mls @ 250 mls/hr IV ASDIRECTED [facility] Last Admin: 06/07/17 07:00 Dose: 250 mls/hr Sodium Chloride (Normal Saline) 250 mls @ 100 mls/hr IV ASDIRECTED [facility] Sodium Chloride (Normal Saline) Confirm Administered Dose 1,000 mls @ as directed .ROUTE .[facility]-MED ONE Stop: 06/08/17 16:02 Lactated Ringer's (Ringers, Lactated) 1,000 mls @ 125 mls/hr IV ASDIRECTED [facility] Last Infusion: 06/09/17 03:18 Dose: 100 mls/hr Lactated Ringer's (Ringers, Lactated) 1,000 mls @ 100 mls/hr IV ASDIRECTED [facility] Ketamine HCl (Ketalar) Confirm Administered Dose 500 mg .ROUTE .[facility]-MED ONE Stop: 06/08/17 14:57 Magnesium Oxide (Magnesium Oxide) 400 mg PO Q4H [facility] Stop: 06/08/17 01:01 Last Admin: 06/08/17 00:02 Dose: 400 mg Meperidine HCl (Demerol) 50 mg IVPUSH ONETIME ONE Stop: 06/07/17 06:46 Last Admin: 06/07/17 07:14 Dose: 50 mg Methylprednisolone Sodium Succinate (Solu-Medrol) 125 mg IVPUSH ONETIME ONE Stop: 06/07/17 08:01 Last Admin: 06/07/17 08:28 Dose: 125 mg Metoclopramide HCl (Reglan) 10 mg IVPUSH ONETIME ONE Stop: 06/07/17 05:51 Last Admin: 06/07/17 07:05 Dose: Not Given Metoclopramide HCl (Reglan) 10 mg IM ONETIME ONE Stop: 06/07/17 06:09 Last Admin: 06/07/17 06:14 Dose: 10 mg Midazolam HCl (Versed 1 Mg/Ml) Confirm Administered Dose 2 mg .ROUTE .ST-MED ONE Stop: 06/08/17 14:59 Morphine Sulfate (Morphine) 4 mg IM ONETIME ONE Stop: 06/07/17 12:31 Last Admin: 06/07/17 12:52 Dose: 4 mg Morphine Sulfate (Morphine) 2 mg IVPUSH Q4H PRN PRN Reason: Pain Ondansetron HCl (Zofran Odt) 4 mg PO ASDIRECTED PRN PRN Reason: Nausea Ondansetron HCl (Zofran) Confirm Administered Dose 4 mg .ROUTE .STK-MED ONE Stop: 06/08/17 14:59 Phenylephrine HCl (Phenylephrine In Ns 100 Mcg/Ml) Confirm Administered Dose 1 mg .ROUTE .STK-MED ONE Stop: 06/08/17 16:05 Phytonadione (Aquamephyton) 5 mg PO ONETIME ONE Stop: 06/07/17 11:34 Last Admin: 06/07/17 16:02 Dose: Not Given Phytonadione (Aquamephyton) Confirm Administered Dose 5 mg .ROUTE .STK-MED ONE Stop: 06/07/17 15:30 Last Admin: 06/07/17 16:02 Dose: Not Given Phytonadione (Aquamephyton) 5 mg PO ONETIME ONE Stop: 06/07/17 16:01 Last Admin: 06/07/17 16:00 Dose: 5 mg Propofol (Diprivan 20 Ml) Confirm Administered Dose 800 mg .ROUTE .STK-MED ONE Stop: 06/08/17 14:59 - Exam Wound/Incisions: Healing Well General: Alert, Oriented Lungs: Clear to Auscultation, Normal Respiratory Effort Cardiovascular: Regular Rate, Regular Rhythm GI/Abdominal Exam: Normal Bowel Sounds, Soft, Non-Tender, No Organomegaly, No Distention, No Abnormal Bruit, No Mass, Pelvis Stable - Problem List Review Problem List Initiated/Reviewed/Updated: Yes - My Orders Last 24 Hours: Active Orders 24 hr Category Date Time Status Patient Status [ADT] Routine ADT 06/09/17 08:46 Active Blood Glucose Check, Bedside [RC] QIDACANDBED Care 06/08/17 18:54 Active Communication Order [RC] ROUTINE Care 06/08/17 16:32 Active Cooling Warming Measures [RC] ASDIRECTED Care 06/08/17 16:32 Active Incentive Spirometry [RT Incentive Spirometry] [RC] Care 06/08/17 18:15 Active ASDIRECTED Notify Provider [RC] ASDIRECTED Care 06/08/17 16:32 Active Pulse Oximetry [RC] ASDIRECTED Care 06/08/17 16:32 Active RT Aerosol Therapy [RC] ASDIRECTED Care 06/08/17 12:37 Active CBC WITH AUTO DIFF [HEME] Routine Lab 06/10/17 06:00 Ordered CMP [COMPREHENSIVE METABOLIC PN,CMP] [CHEM] Routine Lab 06/10/17 06:00 Ordered HEMOGLOBIN/HEMATOCRIT,HH [HEME] Routine Lab 06/09/17 12:00 Ordered Albuterol/Ipratropium [DuoNeb 3.0-0.5 MG/3 ML] Med 06/08/17 18:15 Active 3 ml NEB Q4H PRN Dextrose 50% in Water Med 06/08/17 18:54 Active 50 ml IVPUSH ASDIRECTED PRN Morphine Med 06/09/17 08:26 Active 2 mg IVPUSH Q4H PRN Schedule Procedure [COMM] Routine Oth 06/08/17 15:00 Ordered Transfuse Red Blood Cells [COMM] Routine Oth 06/08/17 09:45 Ordered Medication Orders Hydrocodone Bitart/Acetaminophen ([place] 325-5 Mg) 1 tab PO Q6H PRN PRN Reason: Pain Last Admin: 06/09/17 09:29 Dose: 1 tab Admin: 06/08/17 05:32 Dose: 1 tab Admin: 06/07/17 21:31 Dose: 1 tab Admin: 06/07/17 16:02 Dose: 1 tab Albuterol (Proventil Hfa) 2 puff INH Q4H PRN PRN Reason: Asthma Albuterol/Ipratropium (Duoneb 3.0-0.5 Mg/3 Ml) 3 ml NEB Q4H PRN PRN Reason: WHEEZE Last Admin: 06/09/17 08:38 Dose: 3 ml Admin: 06/08/17 18:35 Dose: 3 ml Benzonatate (Tessalon Perles) 200 mg PO TID PRN PRN Reason: Cough Last Admin: 06/08/17 00:01 Dose: 200 mg Citalopram Hydrobromide (Celexa) 20 mg PO DAILY [facility] Last Admin: 06/09/17 08:05 Dose: 20 mg Admin: 06/08/17 09:12 Dose: 20 mg Dextrose/Water (Dextrose 50% In Water) 50 ml IVPUSH ASDIRECTED PRN PRN Reason: Hypoglycemia Hydralazine HCl (Apresoline) 20 mg IVPUSH Q4H PRN PRN Reason: Hypertension Insulin Aspart (Novolog) 0 unit SUBCUT QIDACANDBED [facility] PRN Reason: Protocol Last Admin: 06/09/17 06:44 Dose: Not Given Admin: 06/08/17 21:58 Dose: 2 units Admin: 06/08/17 19:01 Dose: Not Given Admin: 06/08/17 12:50 Dose: Not Given Admin: 06/08/17 06:38 Dose: Not Given Admin: 06/07/17 21:44 Dose: 2 units Lisinopril (Prinivil) 40 mg PO DAILY [facility] Last Admin: 06/09/17 08:05 Dose: 40 mg Admin: 06/08/17 09:09 Dose: 40 mg Lorazepam (Ativan) 2 mg IVPUSH Q4H PRN PRN Reason: Seizures Lorazepam (Ativan) 1 mg PO Q4H PRN PRN Reason: Anxiety Last Admin: 06/08/17 09:10 Dose: 1 mg Admin: 06/08/17 00:02 Dose: 1 mg Magnesium Oxide (Magnesium Oxide) 400 mg PO BID [facility] Last Admin: 06/09/17 08:05 Dose: 400 mg Admin: 06/08/17 21:37 Dose: 400 mg Admin: 06/08/17 09:12 Dose: 400 mg Admin: 06/07/17 21:30 Dose: 400 mg Magnesium Sulfate (Pharmacy To Dose - Magnesium Replacement) 1 dose .XX ASDIRECTED [facility] Metformin HCl (Glucophage) 500 mg PO BIDMEALS [facility] Last Admin: 06/09/17 08:05 Dose: 500 mg Admin: 06/08/17 19:01 Dose: Not Given Admin: 06/08/17 06:38 Dose: 500 mg Admin: 06/07/17 16:00 Dose: 500 mg Methylprednisolone (Medrol) 4 mg PO ASDIRECTED [facility] Metoprolol Tartrate (Lopressor) 25 mg PO Q6H [facility] Last Admin: 06/09/17 06:08 Dose: 25 mg Admin: 06/09/17 00:10 Dose: 25 mg Admin: 06/08/17 19:01 Dose: Not Given Admin: 06/08/17 12:51 Dose: Not Given Admin: 06/08/17 05:33 Dose: Admin: 06/08/17 00:02 Dose: 25 mg Admin: 06/07/17 18:27 Dose: Admin: 06/07/17 16:00 Dose: 25 mg Metoprolol Tartrate (Lopressor) 5 mg IVPUSH Q4H PRN PRN Reason: Tachycardia Mometasone Furoate (Asmanex Hfa 200mcg) 0 gm INH BID [facility] Last Admin: 06/09/17 08:38 Dose: 1 puff Admin: 06/08/17 20:32 Dose: 1 puff Admin: 06/08/17 08:39 Dose: 1 puff Admin: 06/07/17 21:08 Dose: 1 puff Morphine Sulfate (Morphine) 2 mg IVPUSH Q4H PRN PRN Reason: Pain Ondansetron HCl (Zofran Odt) 4 mg PO Q8H PRN PRN Reason: Nausea/Vomiting Pantoprazole Sodium (Protonix) 40 mg PO BIDAC [facility] Last Admin: 06/09/17 06:08 Dose: 40 mg Admin: 06/08/17 17:24 Dose: Not Given Admin: 06/08/17 05:30 Dose: 40 mg Admin: 06/07/17 16:00 Dose: 40 mg Hctz/Triamterene 37. (5-25 Mg) 0 each PO DAILY [facility] Last Admin: 06/09/17 08:54 Dose: Admin: 06/08/17 15:29 Dose: Potassium Chloride (Pharmacy To Dose - Potassium Replacement) 1 dose .XX ASDIRECTED [facility] Promethazine HCl/Codeine (Phenergan With Codeine) 5 ml PO Q6HR PRN PRN Reason: cough Last Admin: 06/07/17 21:44 Dose: 5 ml Rosuvastatin Calcium (Crestor) 10 mg PO DAILY [facility] Last Admin: 06/09/17 08:05 Dose: 10 mg Admin: 06/08/17 09:09 Dose: 10 mg - Plan Plan (Free Text/Narrative):: pt's pain in abdomen out side of incisional pain has resolved she is able move and cought and is not taking pain medications CUCO drain 60 and then 30 cc VS stable abdomen soft HB at 7.7 ass stable plan follow HB will transfere out of IVU
--- NOTE | 2017-06-09 13:26 | PCM.CONSN ---
- General Info Date of Service: 06/09/17 Admission Dx/Problem (Free Text): Abdominal Hematoma Subjective Update: Follow Up Functional Status: Reports: Pain Controlled, Tolerating Diet, Ambulating, Urinating - Review of Systems General: Denies: Fever, Weakness, Fatigue, Malaise, Chills HEENT: Reports: No Symptoms Pulmonary: Denies: Shortness of Breath Cardiovascular: Denies: Chest Pain, Palpitations, Dyspnea on Exertion Gastrointestinal: Denies: Abdominal Pain, Constipation, Decreased Appetite, Diarrhea, Difficulty Swallowing, Nausea, Vomiting Genitourinary: Reports: No Symptoms Musculoskeletal: Reports: No Symptoms Skin: Denies: Cyanosis, Mottled, Pallor, Diaphoresis Neurological: Denies: Confusion, Difficulty Walking, Weakness, Gait Disturbance Psychiatric: Denies: Depression, Anxiety, Agitation, Hallucinations Systems Review Comment:: No significant overnight or acute issues. She slept good and feels okay. She has no complaints. Her Hgb level is about the same as yesterday. - Patient Data Vitals - Most Recent: Last Vital Signs Temp 36.9 C 06/09/17 12:00 Pulse 71 06/09/17 12:00 Resp 22 H 06/09/17 12:00 BP 114/50 L 06/09/17 12:00 Pulse Ox 92 L 06/09/17 12:00 Weight - Most Recent: 123.831 kg I&O - Last 24 Hours: Intake & Output 06/08/17 06/09/17 06/09/17 22:59 06:59 14:59 Intake Total 0 1671 540 Output Total 520 480 740 Balance -520 1191 -200 Lab Results Last 24 Hours: Laboratory Results - last 24 hr 06/08/17 06/08/17 06/08/17 Range/Units 10:21 17:54 21:54 WBC (3.98-10.04) K/mm3 RBC (3.98-5.22) M/mm3 Hgb (11.2-15.7) gm/L Hct (34.1-44.9) % MCV (79.4-94.8) fl MCH (25.6-32.2) pg MCHC (32.2-35.5) g/dl RDW Std Deviation (36.4-46.3) fL Plt Count (182-369) K/mm3 MPV (9.4-12.3) fl Neut % (Auto) (34.0-71.1) % Lymph % (Auto) (19.3-51.7) % [place] % (Auto) (4.7-12.5) % Eos % (Auto) (0.7-5.8) Baso % (Auto) (0.1-1.2) % Neut # (Auto) (1.56-6.13) K/mm3 Lymph # (Auto) (1.18-3.74) K/mm3 [place] # (Auto) (0.24-0.36) K/mm3 Eos # (Auto) (0.04-0.36) K/mm3 Baso # (Auto) (0.01-0.08) K/mm3 Manual Slide Review Sodium (136-145) mEq/L Potassium (3.5-5.1) mEq/L Chloride (98-107) mEq/L Carbon Dioxide (21-32) mEq/L Anion Gap (5-15) BUN (7-18) mg/dL Creatinine (0.55-1.02) mg/dL Est Cr Clr Drug Dosing mL/min Estimated GFR (MDRD) (>60) mL/min BUN/Creatinine Ratio (14-18) Glucose (80-115) mg/dL POC Glucose 133 H 150 H (80-115) mg/dL Calcium (8.5-10.1) mg/dL Total Bilirubin (0.2-1.0) mg/dL AST (15-37) U/L ALT (14-59) U/L Alkaline Phosphatase (46-116) U/L Total Protein (6.4-8.2) g/dl Albumin (3.4-5.0) g/dl Globulin gm/dL Albumin/Globulin Ratio (1-2) Blood Type A POSITIVE Gel Antibody Screen Negative Crossmatch See Detail 06/09/17 06/09/17 06/09/17 Range/Units 01:07 05:45 05:45 WBC 12.38 H (3.98-10.04) K/mm3 RBC 2.61 L (3.98-5.22) M/mm3 Hgb 7.8 L 7.7 L (11.2-15.7) gm/L Hct 23.9 L 23.5 L (34.1-44.9) % MCV 90.0 (79.4-94.8) fl MCH 29.5 (25.6-32.2) pg MCHC 32.8 (32.2-35.5) g/dl RDW Std Deviation 52.1 H (36.4-46.3) fL Plt Count 258 (182-369) K/mm3 MPV 9.5 (9.4-12.3) fl Neut % (Auto) 56.4 (34.0-71.1) % Lymph % (Auto) 35.4 (19.3-51.7) % [place] % (Auto) 7.8 (4.7-12.5) % Eos % (Auto) 0 L (0.7-5.8) Baso % (Auto) 0.1 (0.1-1.2) % Neut # (Auto) 6.98 H (1.56-6.13) K/mm3 Lymph # (Auto) 4.38 H (1.18-3.74) K/mm3 [place] # (Auto) 0.97 H (0.24-0.36) K/mm3 Eos # (Auto) 0.00 L (0.04-0.36) K/mm3 Baso # (Auto) 0.01 (0.01-0.08) K/mm3 Manual Slide Review Abnormal smear Sodium 133 L (136-145) mEq/L Potassium 4.9 (3.5-5.1) mEq/L Chloride 98 (98-107) mEq/L Carbon Dioxide 29 (21-32) mEq/L Anion Gap 10.9 (5-15) BUN 35 H (7-18) mg/dL Creatinine 1.1 H (0.55-1.02) mg/dL Est Cr Clr Drug Dosing 42.85 mL/min Estimated GFR (MDRD) 50 (>60) mL/min BUN/Creatinine Ratio 31.8 H (14-18) Glucose 94 (80-115) mg/dL POC Glucose (80-115) mg/dL Calcium 8.1 L (8.5-10.1) mg/dL Total Bilirubin 0.4 (0.2-1.0) mg/dL AST 37 (15-37) U/L ALT 33 (14-59) U/L Alkaline Phosphatase 78 (46-116) U/L Total Protein 6.1 L (6.4-8.2) g/dl Albumin 2.6 L (3.4-5.0) g/dl Globulin 3.5 gm/dL Albumin/Globulin Ratio 0.7 L (1-2) Blood Type Gel Antibody Screen Crossmatch 06/09/17 06/09/17 06/09/17 Range/Units 06:40 12:02 12:05 WBC (3.98-10.04) K/mm3 RBC (3.98-5.22) M/mm3 Hgb 7.5 L (11.2-15.7) gm/L Hct 23.2 L (34.1-44.9) % MCV (79.4-94.8) fl MCH (25.6-32.2) pg MCHC (32.2-35.5) g/dl RDW Std Deviation (36.4-46.3) fL Plt Count (182-369) K/mm3 MPV (9.4-12.3) fl Neut % (Auto) (34.0-71.1) % Lymph % (Auto) (19.3-51.7) % [place] % (Auto) (4.7-12.5) % Eos % (Auto) (0.7-5.8) Baso % (Auto) (0.1-1.2) % Neut # (Auto) (1.56-6.13) K/mm3 Lymph # (Auto) (1.18-3.74) K/mm3 [place] # (Auto) (0.24-0.36) K/mm3 Eos # (Auto) (0.04-0.36) K/mm3 Baso # (Auto) (0.01-0.08) K/mm3 Manual Slide Review Sodium (136-145) mEq/L Potassium (3.5-5.1) mEq/L Chloride (98-107) mEq/L Carbon Dioxide (21-32) mEq/L Anion Gap (5-15) BUN (7-18) mg/dL Creatinine (0.55-1.02) mg/dL Est Cr Clr Drug Dosing mL/min Estimated GFR (MDRD) (>60) mL/min BUN/Creatinine Ratio (14-18) Glucose (80-115) mg/dL POC Glucose 97 113 (80-115) mg/dL Calcium (8.5-10.1) mg/dL Total Bilirubin (0.2-1.0) mg/dL AST (15-37) U/L ALT (14-59) U/L Alkaline Phosphatase (46-116) U/L Total Protein (6.4-8.2) g/dl Albumin (3.4-5.0) g/dl Globulin gm/dL Albumin/Globulin Ratio (1-2) Blood Type Gel Antibody Screen Crossmatch Med Orders - Current: Current Medications Hydrocodone Bitart/Acetaminophen ([place] 325-5 Mg) 1 tab PO Q6H PRN PRN Reason: Pain Last Admin: 06/09/17 09:29 Dose: 1 tab Albuterol (Proventil Hfa) 2 puff INH Q4H PRN PRN Reason: Asthma Albuterol/Ipratropium (Duoneb 3.0-0.5 Mg/3 Ml) 3 ml NEB Q4H PRN PRN Reason: WHEEZE Last Admin: 06/09/17 08:38 Dose: 3 ml Benzonatate (Tessalon Perles) 200 mg PO TID PRN PRN Reason: Cough Last Admin: 06/08/17 00:01 Dose: 200 mg Citalopram Hydrobromide (Celexa) 20 mg PO DAILY [facility] Last Admin: 06/09/17 08:05 Dose: 20 mg Dextrose/Water (Dextrose 50% In Water) 50 ml IVPUSH ASDIRECTED PRN PRN Reason: Hypoglycemia Hydralazine HCl (Apresoline) 20 mg IVPUSH Q4H PRN PRN Reason: Hypertension Insulin Aspart (Novolog) 0 unit SUBCUT QIDACANDBED [facility] PRN Reason: Protocol Last Admin: 06/09/17 12:04 Dose: Not Given Lisinopril (Prinivil) 40 mg PO DAILY [facility] Last Admin: 06/09/17 08:05 Dose: 40 mg Lorazepam (Ativan) 2 mg IVPUSH Q4H PRN PRN Reason: Seizures Lorazepam (Ativan) 1 mg PO Q4H PRN PRN Reason: Anxiety Last Admin: 06/08/17 09:10 Dose: 1 mg Magnesium Oxide (Magnesium Oxide) 400 mg PO BID [facility] Last Admin: 06/09/17 08:05 Dose: 400 mg Magnesium Sulfate (Pharmacy To Dose - Magnesium Replacement) 1 dose .XX ASDIRECTED [facility] Metformin HCl (Glucophage) 500 mg PO BIDMEALS [facility] Last Admin: 06/09/17 08:05 Dose: 500 mg Methylprednisolone (Medrol) 4 mg PO ASDIRECTED [facility] Metoprolol Tartrate (Lopressor) 25 mg PO Q6H [facility] Last Admin: 06/09/17 06:08 Dose: 25 mg Metoprolol Tartrate (Lopressor) 5 mg IVPUSH Q4H PRN PRN Reason: Tachycardia Mometasone Furoate (Asmanex Hfa 200mcg) 0 gm INH BID [facility] Last Admin: 06/09/17 08:38 Dose: 1 puff Morphine Sulfate (Morphine) 2 mg IVPUSH Q4H PRN PRN Reason: Pain Ondansetron HCl (Zofran Odt) 4 mg PO Q8H PRN PRN Reason: Nausea/Vomiting Pantoprazole Sodium (Protonix) 40 mg PO BIDAC [facility] Last Admin: 06/09/17 06:08 Dose: 40 mg Hctz/Triamterene 37. (5-25 Mg) 0 each PO DAILY [facility] Last Admin: 06/09/17 08:54 Dose: Not Given Potassium Chloride (Pharmacy To Dose - Potassium Replacement) 1 dose .XX ASDIRECTED [facility] Promethazine HCl/Codeine (Phenergan With Codeine) 5 ml PO Q6HR PRN PRN Reason: cough Last Admin: 06/07/17 21:44 Dose: 5 ml Rosuvastatin Calcium (Crestor) 10 mg PO DAILY [facility] Last Admin: 06/09/17 08:05 Dose: 10 mg Discontinued Medications Albuterol (Proventil Neb Soln) 2.5 mg NEB ONETIME ONE Stop: 06/08/17 14:31 Last Admin: 06/08/17 14:15 Dose: 2.5 mg Bupivacaine HCl/Epinephrine Bitart (Marcaine 0.5%/Epinephrine 1:200,000) Confirm Administered Dose 50 ml .ROUTE .STK-MED ONE Stop: 06/08/17 14:11 Last Admin: 06/08/17 15:19 Dose: 15 ml Cefazolin Sodium (Ancef) Confirm Administered Dose 2 gm .ROUTE .STK-MED ONE Stop: 06/08/17 14:59 Dexamethasone (Dexamethasone) Confirm Administered Dose 20 mg .ROUTE .STK-MED ONE Stop: 06/08/17 16:02 Diphenhydramine HCl (Benadryl) 25 mg IVPUSH ONETIME ONE Stop: 06/07/17 05:51 Last Admin: 06/07/17 07:04 Dose: 25 mg Ephedrine Sulfate (Ephedrine Sulfate) Confirm Administered Dose 50 mg .ROUTE .STK-MED ONE Stop: 06/08/17 16:05 Fentanyl (Sublimaze) 100 mcg IVPUSH ONETIME ONE Stop: 06/07/17 05:54 Last Admin: 06/07/17 07:05 Dose: Not Given Fentanyl (Sublimaze) 100 mcg IM ONETIME ONE Stop: 06/07/17 06:08 Last Admin: 06/07/17 06:14 Dose: 100 mcg Fentanyl (Sublimaze) Confirm Administered Dose 250 mcg .ROUTE .STK-MED ONE Stop: 06/08/17 14:59 Sodium Chloride (Normal Saline) 1,000 mls @ 250 mls/hr IV ASDIRECTED [facility] Last Admin: 06/07/17 07:00 Dose: 250 mls/hr Sodium Chloride (Normal Saline) 250 mls @ 100 mls/hr IV ASDIRECTED [facility] Sodium Chloride (Normal Saline) Confirm Administered Dose 1,000 mls @ as directed .ROUTE .ST-MED ONE Stop: 06/08/17 16:02 Lactated Ringer's (Ringers, Lactated) 1,000 mls @ 125 mls/hr IV ASDIRECTED [facility] Last Infusion: 06/09/17 03:18 Dose: 100 mls/hr Lactated Ringer's (Ringers, Lactated) 1,000 mls @ 100 mls/hr IV ASDIRECTED [facility] Ketamine HCl (Ketalar) Confirm Administered Dose 500 mg .ROUTE .STK-MED ONE Stop: 06/08/17 14:57 Magnesium Oxide (Magnesium Oxide) 400 mg PO Q4H [facility] Stop: 06/08/17 01:01 Last Admin: 06/08/17 00:02 Dose: 400 mg Meperidine HCl (Demerol) 50 mg IVPUSH ONETIME ONE Stop: 06/07/17 06:46 Last Admin: 06/07/17 07:14 Dose: 50 mg Methylprednisolone Sodium Succinate (Solu-Medrol) 125 mg IVPUSH ONETIME ONE Stop: 06/07/17 08:01 Last Admin: 06/07/17 08:28 Dose: 125 mg Metoclopramide HCl (Reglan) 10 mg IVPUSH ONETIME ONE Stop: 06/07/17 05:51 Last Admin: 06/07/17 07:05 Dose: Not Given Metoclopramide HCl (Reglan) 10 mg IM ONETIME ONE Stop: 06/07/17 06:09 Last Admin: 06/07/17 06:14 Dose: 10 mg Midazolam HCl (Versed 1 Mg/Ml) Confirm Administered Dose 2 mg .ROUTE .STK-MED ONE Stop: 06/08/17 14:59 Morphine Sulfate (Morphine) 4 mg IM ONETIME ONE Stop: 06/07/17 12:31 Last Admin: 06/07/17 12:52 Dose: 4 mg Morphine Sulfate (Morphine) 2 mg IVPUSH Q4H PRN PRN Reason: Pain Ondansetron HCl (Zofran Odt) 4 mg PO ASDIRECTED PRN PRN Reason: Nausea Ondansetron HCl (Zofran) Confirm Administered Dose 4 mg .ROUTE .STK-MED ONE Stop: 06/08/17 14:59 Phenylephrine HCl (Phenylephrine In Ns 100 Mcg/Ml) Confirm Administered Dose 1 mg .ROUTE .STK-MED ONE Stop: 06/08/17 16:05 Phytonadione (Aquamephyton) 5 mg PO ONETIME ONE Stop: 06/07/17 11:34 Last Admin: 06/07/17 16:02 Dose: Not Given Phytonadione (Aquamephyton) Confirm Administered Dose 5 mg .ROUTE .STK-MED ONE Stop: 06/07/17 15:30 Last Admin: 06/07/17 16:02 Dose: Not Given Phytonadione (Aquamephyton) 5 mg PO ONETIME ONE Stop: 06/07/17 16:01 Last Admin: 06/07/17 16:00 Dose: 5 mg Propofol (Diprivan 20 Ml) Confirm Administered Dose 800 mg .ROUTE .STK-MED ONE Stop: 06/08/17 14:59 - Exam Quality Assessment: Supplemental Oxygen General: Alert, Oriented, Cooperative, No Acute Distress, Other (Morbidly Obese) HEENT: Pupils Equal, Pupils Reactive, EOMI, Mucous Membr. Moist/[place] Neck: Supple, Trachea Midline, No JVD, No Thyromegaly, Other (short and thick) Lungs: Normal Respiratory Effort, Decreased Breath Sounds Cardiovascular: Irregular Rhythm GI/Abdominal Exam: Normal Bowel Sounds, Soft, Non-Tender, No Organomegaly, No Distention, No Abnormal Bruit, No Mass, Pelvis Stable, Other (Obese) (Female) Exam: Deferred Back Exam: Normal Inspection, Decreased Range of Motion Extremities: Normal Inspection, Normal Range of Motion, Non-Tender, No Pedal Edema, Normal Capillary Refill Peripheral Pulses: 0: Dorsalis Pedis (L), 2+: Dorsalis Pedis (R) Skin: Warm, Dry, Intact, Ecchymosis Neurological: No New Focal Deficit Psy/Mental Status: Alert, Normal Affect, Normal Mood Consult PN Assessment/Plan POD#: 1 Procedures: Procedures AGENT NOS ASSAY W/OPTIC (05/28/17) AIRWAY INHALATION TREATMENT (05/28/17) ANTINUCLEAR ANTIBODIES (05/28/17) ASSAY OF ACTH (05/28/17) ASSAY OF GONADOTROPIN (FSH) (05/28/17) ASSAY OF GONADOTROPIN (LH) (05/28/17) ASSAY OF LACTIC ACID (05/28/17) ASSAY OF LIPASE (02/28/17) ASSAY OF MAGNESIUM (05/28/17) ASSAY OF NATRIURETIC PEPTIDE (05/28/17) ASSAY OF PROLACTIN (05/28/17) ASSAY OF TROPONIN QUANT (05/28/17) ASSAY THYROID STIM HORMONE (05/28/17) BLOOD CULTURE FOR BACTERIA (05/28/17) BLOOD GASES ANY COMBINATION (05/28/17) C-REACTIVE PROTEIN (05/28/17) CARCINOEMBRYONIC ANTIGEN (05/28/17) CHEST X-RAY 2VW FRONTAL&LATL (02/28/17) CHYLMD PNEUM DNA AMP PROBE (05/28/17) COMPLETE CBC W/AUTO DIFF WBC (05/28/17) COMPREHEN METABOLIC PANEL (05/28/17) CREATINE MB FRACTION (05/28/17) CT ABD & PELV W/CONTRAST (02/28/17) CT ABD & PELVIS W/O CONTRAST (05/28/17) CT HEAD/BRAIN W/O DYE (05/28/17) CT SOFT TISSUE NECK W/O DYE (05/28/17) CT THORAX W/O DYE (05/28/17) DETECT AGENT NOS DNA AMP (05/28/17) ELECTROCARDIOGRAM TRACING (05/28/17) EMERGENCY DEPT VISIT (05/28/17) EVALUATE SWALLOWING FUNCTION (05/28/17) EVALUATION OF WHEEZING (05/28/17) FIBRIN DEGRADATION QUANT (02/28/17) GAIT TRAINING THERAPY (05/28/17) GLUCOSE BLOOD TEST (05/28/17) GLYCOSYLATED HEMOGLOBIN TEST (05/28/17) HYDRATE IV INFUSION ADD-ON (05/28/17) HYDRATION IV INFUSION INIT (02/28/17) IMMUNOASSAY TUMOR CA 125 (05/28/17) INFLUENZA ASSAY W/OPTIC (05/28/17) M.PNEUMON DNA AMP PROBE (05/28/17) MEASURE BLOOD OXYGEN LEVEL (05/28/17) METABOLIC PANEL TOTAL CA (05/28/17) MYCOPLASMA ANTIBODY (05/28/17) OT EVAL MOD COMPLEX 45 MIN (05/28/17) PROTHROMBIN TIME (05/28/17) PT EVAL MOD COMPLEX 30 MIN (05/28/17) RESP VIRUS 12-25 TARGETS (05/28/17) ROUTINE VENIPUNCTURE (05/28/17) SELF CARE MNGMENT TRAINING (05/28/17) THER/PROPH/DIAG IV INF INIT (05/28/17) THERAPEUTIC ACTIVITIES (05/28/17) THERAPEUTIC EXERCISES (05/28/17) THROMBOPLASTIN TIME PARTIAL (02/28/17) TOTAL CORTISOL (05/28/17) TTE W/DOPPLER COMPLETE (05/28/17) TX/PRO/DX INJ NEW DRUG ADDON (05/28/17) URINALYSIS AUTO W/SCOPE (05/28/17) URINE CULTURE/COLONY COUNT (05/28/17) WITHDRAWAL OF ARTERIAL BLOOD (05/28/17) X-RAY EXAM CHEST 2 VIEWS (05/28/17) Problem List Initiated/Reviewed/Updated: Yes My Orders Last 24 Hours: My Active Orders 06/08/17 18:15 Incentive Spirometry [RT Incentive Spirometry] [RC] ASDIRECTED Albuterol/Ipratropium [DuoNeb 3.0-0.5 MG/3 ML] 3 ml NEB Q4H PRN 06/08/17 18:54 Blood Glucose Check, Bedside [RC] QIDACANDBED Dextrose 50% in Water 50 ml IVPUSH ASDIRECTED PRN Plan: Assessment/Plan: Acute: Abdominal Hematoma S/p Drainage POD #1 - 2/2 Warfarin Use - INR is Subtherapeutic at 1.99-->1.12 - Large rectus sheath hematoma on abdominal/pelvis CT scan - She is scheduled for surgical drainage today - Defer management to Dr. Aburto Anemia - Hgb 9.8--> now 7.7 - Likely fro warfarin complication - S/p 2 units of PRBC transfusion - Defer further management to Dr. Aburto Subtherapeutic INR - INR 1.99--> now 1.12 - Received Vit K in preparation for surgery today Hyperglycemia DM2 - Controlled - BS runs in the 120s-150s - Continue diabetic oral regimen - [id number] and ISS Chronic: Atrial Fibrillation, HR Controlled Off anticoagulation due to Abdominal Hematoma and Anemia HTN HLD CAD S/p Stent x1 HF with Preserved EF 03/2015 Pulmonary HTN Reactive Airway Disease/Asthma Thrombocytopenia Polio with Neuropathy/LUE Hemiparesis DM2 Renal Insufficiency Hiatal Hernia GERD IBS DDD/OA Diarrhea/Colitis Nocturnal Hypoxemia 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 pending sleep study Lymphadenopathy S/p Biopsy due to Atypical EBV-associated Lymphocytic Proliferation Depression Hx/o CVA Plan: From the hospitalist standpoint, her glucose remains stable. We have no additional recommendations at this time. S
[2017-06-10] MEDS: Metoprolol Tartrate 25 MG Tab PO SCH ×5 (00:30→23:57)
[2017-06-10] MEDS: Pantoprazole 40 MG Tab.CR PO SCH ×2 (05:56→16:44)
[2017-06-10] MEDS: metFORMIN 500 MG Tab PO SCH ×2 (06:02→16:44)
[2017-06-10] MEDS: Insulin Aspart 100 Units/ML 3 ML Pen SUBCUT SCH ×4 (06:03→22:13)
[2017-06-10] MEDS: Acetaminophen/HYDROcodone 325-5 MG Tab PO PRN ×2 (06:13→16:42)
--- NOTE | 2017-06-10 07:02 | PCM.CONSN ---
- General Info Date of Service: 06/10/17 Admission Dx/Problem (Free Text): Abdominal Hematoma Subjective Update: Follow Up Functional Status: Reports: Pain Controlled, Tolerating Diet, Urinating. Denies : New Symptoms - Review of Systems General: Denies: Fever, Weakness, Fatigue, Malaise, Chills HEENT: Reports: No Symptoms Pulmonary: Denies: Shortness of Breath Cardiovascular: Denies: Palpitations, Dyspnea on Exertion Gastrointestinal: Denies: Abdominal Pain, Nausea, Vomiting Genitourinary: Denies: No Symptoms Musculoskeletal: Denies: No Symptoms Skin: Denies: Cyanosis, Mottled, Pallor, Diaphoresis Neurological: Reports: Difficulty Walking, Gait Disturbance. Denies: Confusion , Weakness Psychiatric: Denies: Depression, Anxiety, Agitation, Hallucinations Systems Review Comment:: NO significant overnight or acute issues. She is doing just fine. She has no acute issues. Her Hgb is now at 8.2. Her BPs are now in the borderline low range this morning but looks clinically stable. - Patient Data Vitals - Most Recent: Last Vital Signs Temp 36.7 C 06/10/17 05:35 Pulse 71 06/10/17 05:57 Resp 18 06/10/17 05:35 BP 95/75 06/10/17 05:57 Pulse Ox 95 06/10/17 05:35 Weight - Most Recent: 119.839 kg I&O - Last 24 Hours: Intake & Output 06/09/17 06/10/17 06/10/17 22:59 06:59 14:59 Intake Total 500 1500 Output Total 510 1700 Balance -10 -200 Lab Results Last 24 Hours: Laboratory Results - last 24 hr 06/09/17 06/09/17 06/09/17 Range/Units 12:02 12:05 18:24 WBC (3.98-10.04) K/mm3 RBC (3.98-5.22) M/mm3 Hgb 7.5 L (11.2-15.7) gm/L Hct 23.2 L (34.1-44.9) % MCV (79.4-94.8) fl MCH (25.6-32.2) pg MCHC (32.2-35.5) g/dl RDW Std Deviation (36.4-46.3) fL Plt Count (182-369) K/mm3 MPV (9.4-12.3) fl Neut % (Auto) (34.0-71.1) % Lymph % (Auto) (19.3-51.7) % [place] % (Auto) (4.7-12.5) % Eos % (Auto) (0.7-5.8) Baso % (Auto) (0.1-1.2) % Neut # (Auto) (1.56-6.13) K/mm3 Lymph # (Auto) (1.18-3.74) K/mm3 [place] # (Auto) (0.24-0.36) K/mm3 Eos # (Auto) (0.04-0.36) K/mm3 Baso # (Auto) (0.01-0.08) K/mm3 POC Glucose 113 100 (80-115) mg/dL 06/09/17 06/10/17 06/10/17 Range/Units 21:51 05:46 05:48 WBC 10.99 H (3.98-10.04) K/mm3 RBC 2.71 L (3.98-5.22) M/mm3 Hgb 8.2 L (11.2-15.7) gm/L Hct 25.1 L (34.1-44.9) % MCV 92.6 (79.4-94.8) fl MCH 30.3 (25.6-32.2) pg MCHC 32.7 (32.2-35.5) g/dl RDW Std Deviation 52.3 H (36.4-46.3) fL Plt Count 275 (182-369) K/mm3 MPV 9.8 (9.4-12.3) fl Neut % (Auto) 47.1 (34.0-71.1) % Lymph % (Auto) 43.8 (19.3-51.7) % [place] % (Auto) 5.8 (4.7-12.5) % Eos % (Auto) 2.9 (0.7-5.8) Baso % (Auto) 0.2 (0.1-1.2) % Neut # (Auto) 5.18 (1.56-6.13) K/mm3 Lymph # (Auto) 4.81 H (1.18-3.74) K/mm3 [place] # (Auto) 0.64 H (0.24-0.36) K/mm3 Eos # (Auto) 0.32 (0.04-0.36) K/mm3 Baso # (Auto) 0.02 (0.01-0.08) K/mm3 POC Glucose 124 H 71 L (80-115) mg/dL Med Orders - Current: Current Medications Hydrocodone Bitart/Acetaminophen (Bowlus 325-5 Mg) 1 tab PO Q6H PRN PRN Reason: Pain Last Admin: 06/10/17 06:13 Dose: 1 tab Albuterol (Proventil Hfa) 2 puff INH Q4H PRN PRN Reason: Asthma Albuterol/Ipratropium (Duoneb 3.0-0.5 Mg/3 Ml) 3 ml NEB Q4H PRN PRN Reason: WHEEZE Last Admin: 06/09/17 08:38 Dose: 3 ml Benzonatate (Tessalon Perles) 200 mg PO TID PRN PRN Reason: Cough Last Admin: 06/08/17 00:01 Dose: 200 mg Citalopram Hydrobromide (Celexa) 20 mg PO DAILY [facility] Last Admin: 06/09/17 08:05 Dose: 20 mg Dextrose/Water (Dextrose 50% In Water) 50 ml IVPUSH ASDIRECTED PRN PRN Reason: Hypoglycemia Hydralazine HCl (Apresoline) 20 mg IVPUSH Q4H PRN PRN Reason: Hypertension Insulin Aspart (Novolog) 0 unit SUBCUT QIDACANDBED [facility] PRN Reason: Protocol Last Admin: 06/10/17 06:03 Dose: Not Given Lisinopril (Prinivil) 40 mg PO DAILY [facility] Last Admin: 06/09/17 08:05 Dose: 40 mg Lorazepam (Ativan) 2 mg IVPUSH Q4H PRN PRN Reason: Seizures Lorazepam (Ativan) 1 mg PO Q4H PRN PRN Reason: Anxiety Last Admin: 06/08/17 09:10 Dose: 1 mg Magnesium Oxide (Magnesium Oxide) 400 mg PO BID [facility] Last Admin: 06/09/17 21:57 Dose: 400 mg Magnesium Sulfate (Pharmacy To Dose - Magnesium Replacement) 1 dose .XX ASDIRECTED [facility] Metformin HCl (Glucophage) 500 mg PO BIDMEALS [facility] Last Admin: 06/10/17 06:02 Dose: 500 mg Metoprolol Tartrate (Lopressor) 25 mg PO Q6H [facility] Last Admin: 06/10/17 05:57 Dose: Not Given Metoprolol Tartrate (Lopressor) 5 mg IVPUSH Q4H PRN PRN Reason: Tachycardia Mometasone Furoate (Asmanex Hfa 200mcg) 0 gm INH BID [facility] Last Admin: 06/09/17 21:07 Dose: 2 puff Morphine Sulfate (Morphine) 2 mg IVPUSH Q4H PRN PRN Reason: Pain Ondansetron HCl (Zofran Odt) 4 mg PO Q8H PRN PRN Reason: Nausea/Vomiting Last Admin: 06/09/17 18:48 Dose: 4 mg Pantoprazole Sodium (Protonix) 40 mg PO BIDAC [facility] Last Admin: 06/10/17 05:56 Dose: 40 mg Hctz/Triamterene 37. (5-25 Mg) 0 each PO DAILY [facility] Last Admin: 06/09/17 12:00 Dose: 0.5 each Potassium Chloride (Pharmacy To Dose - Potassium Replacement) 1 dose .XX ASDIRECTED [facility] Promethazine HCl/Codeine (Phenergan With Codeine) 5 ml PO Q6HR PRN PRN Reason: cough Last Admin: 06/07/17 21:44 Dose: 5 ml Rosuvastatin Calcium (Crestor) 10 mg PO DAILY [facility] Last Admin: 06/09/17 08:05 Dose: 10 mg Discontinued Medications Albuterol (Proventil Neb Soln) 2.5 mg NEB ONETIME ONE Stop: 06/08/17 14:31 Last Admin: 06/08/17 14:15 Dose: 2.5 mg Bupivacaine HCl/Epinephrine Bitart (Marcaine 0.5%/Epinephrine 1:200,000) Confirm Administered Dose 50 ml .ROUTE .STK-MED ONE Stop: 06/08/17 14:11 Last Admin: 06/08/17 15:19 Dose: 15 ml Cefazolin Sodium (Ancef) Confirm Administered Dose 2 gm .ROUTE .STK-MED ONE Stop: 06/08/17 14:59 Dexamethasone (Dexamethasone) Confirm Administered Dose 20 mg .ROUTE .STK-MED ONE Stop: 06/08/17 16:02 Diphenhydramine HCl (Benadryl) 25 mg IVPUSH ONETIME ONE Stop: 06/07/17 05:51 Last Admin: 06/07/17 07:04 Dose: 25 mg Ephedrine Sulfate (Ephedrine Sulfate) Confirm Administered Dose 50 mg .ROUTE .STK-MED ONE Stop: 06/08/17 16:05 Fentanyl (Sublimaze) 100 mcg IVPUSH ONETIME ONE Stop: 06/07/17 05:54 Last Admin: 06/07/17 07:05 Dose: Not Given Fentanyl (Sublimaze) 100 mcg IM ONETIME ONE Stop: 06/07/17 06:08 Last Admin: 06/07/17 06:14 Dose: 100 mcg Fentanyl (Sublimaze) Confirm Administered Dose 250 mcg .ROUTE .STK-MED ONE Stop: 06/08/17 14:59 Sodium Chloride (Normal Saline) 1,000 mls @ 250 mls/hr IV ASDIRECTED [facility] Last Admin: 06/07/17 07:00 Dose: 250 mls/hr Sodium Chloride (Normal Saline) 250 mls @ 100 mls/hr IV ASDIRECTED [facility] Sodium Chloride (Normal Saline) Confirm Administered Dose 1,000 mls @ as directed .ROUTE .STK-MED ONE Stop: 06/08/17 16:02 Lactated Ringer's (Ringers, Lactated) 1,000 mls @ 125 mls/hr IV ASDIRECTED [facility] Last Infusion: 06/09/17 03:18 Dose: 100 mls/hr Lactated Ringer's (Ringers, Lactated) 1,000 mls @ 100 mls/hr IV ASDIRECTED [facility] Ketamine HCl (Ketalar) Confirm Administered Dose 500 mg .ROUTE .STK-MED ONE Stop: 06/08/17 14:57 Magnesium Oxide (Magnesium Oxide) 400 mg PO Q4H MARKUS Stop: 06/08/17 01:01 Last Admin: 06/08/17 00:02 Dose: 400 mg Meperidine HCl (Demerol) 50 mg IVPUSH ONETIME ONE Stop: 06/07/17 06:46 Last Admin: 06/07/17 07:14 Dose: 50 mg Methylprednisolone (Medrol) 4 mg PO ASDIRECTED [facility] Methylprednisolone Sodium Succinate (Solu-Medrol) 125 mg IVPUSH ONETIME ONE Stop: 06/07/17 08:01 Last Admin: 06/07/17 08:28 Dose: 125 mg Metoclopramide HCl (Reglan) 10 mg IVPUSH ONETIME ONE Stop: 06/07/17 05:51 Last Admin: 06/07/17 07:05 Dose: Not Given Metoclopramide HCl (Reglan) 10 mg IM ONETIME ONE Stop: 06/07/17 06:09 Last Admin: 06/07/17 06:14 Dose: 10 mg Midazolam HCl (Versed 1 Mg/Ml) Confirm Administered Dose 2 mg .ROUTE .STK-MED ONE Stop: 06/08/17 14:59 Morphine Sulfate (Morphine) 4 mg IM ONETIME ONE Stop: 06/07/17 12:31 Last Admin: 06/07/17 12:52 Dose: 4 mg Morphine Sulfate (Morphine) 2 mg IVPUSH Q4H PRN PRN Reason: Pain Ondansetron HCl (Zofran Odt) 4 mg PO ASDIRECTED PRN PRN Reason: Nausea Ondansetron HCl (Zofran) Confirm Administered Dose 4 mg .ROUTE .STK-MED ONE Stop: 06/08/17 14:59 Phenylephrine HCl (Phenylephrine In Ns 100 Mcg/Ml) Confirm Administered Dose 1 mg .ROUTE .STK-MED ONE Stop: 06/08/17 16:05 Phytonadione (Aquamephyton) 5 mg PO ONETIME ONE Stop: 06/07/17 11:34 Last Admin: 06/07/17 16:02 Dose: Not Given Phytonadione (Aquamephyton) Confirm Administered Dose 5 mg .ROUTE .STK-MED ONE Stop: 06/07/17 15:30 Last Admin: 06/07/17 16:02 Dose: Not Given Phytonadione (Aquamephyton) 5 mg PO ONETIME ONE Stop: 06/07/17 16:01 Last Admin: 06/07/17 16:00 Dose: 5 mg Propofol (Diprivan 20 Ml) Confirm Administered Dose 800 mg .ROUTE .STK-MED ONE Stop: 06/08/17 14:59 - Exam Quality Assessment: Supplemental Oxygen General: Alert, Oriented, Cooperative, No Acute Distress, Other (Morbidly Obese) HEENT: Pupils Equal, Pupils Reactive, EOMI, Mucous Membr. Moist/[place] Neck: Supple, Trachea Midline, No Thyromegaly Lungs: Normal Respiratory Effort, Decreased Breath Sounds Cardiovascular: Irregular Rhythm GI/Abdominal Exam: Normal Bowel Sounds, Soft, Non-Tender, No Organomegaly, No Distention, No Abnormal Bruit, Other (Obese) (Female) Exam: Deferred Back Exam: Normal Inspection, Decreased Range of Motion Extremities: Normal Inspection, Normal Range of Motion, Non-Tender, No Pedal Edema, Normal Capillary Refill Peripheral Pulses: 2+: Dorsalis Pedis (L), Dorsalis Pedis (R) Skin: Warm, Dry, Intact Neurological: No New Focal Deficit Psy/Mental Status: Alert, Normal Affect, Normal Mood Consult PN Assessment/Plan POD#: 2 Procedures: Procedures AGENT NOS ASSAY W/OPTIC (05/28/17) AIRWAY INHALATION TREATMENT (05/28/17) ANTINUCLEAR ANTIBODIES (05/28/17) ASSAY OF ACTH (05/28/17) ASSAY OF GONADOTROPIN (FSH) (05/28/17) ASSAY OF GONADOTROPIN (LH) (05/28/17) ASSAY OF LACTIC ACID (05/28/17) ASSAY OF LIPASE (02/28/17) ASSAY OF MAGNESIUM (05/28/17) ASSAY OF NATRIURETIC PEPTIDE (05/28/17) ASSAY OF PROLACTIN (05/28/17) ASSAY OF TROPONIN QUANT (05/28/17) ASSAY THYROID STIM HORMONE (05/28/17) BLOOD CULTURE FOR BACTERIA (05/28/17) BLOOD GASES ANY COMBINATION (05/28/17) C-REACTIVE PROTEIN (05/28/17) CARCINOEMBRYONIC ANTIGEN (05/28/17) CHEST X-RAY 2VW FRONTAL&LATL (02/28/17) CHYLMD PNEUM DNA AMP PROBE (05/28/17) COMPLETE CBC W/AUTO DIFF WBC (05/28/17) COMPREHEN METABOLIC PANEL (05/28/17) CREATINE MB FRACTION (05/28/17) CT ABD & PELV W/CONTRAST (02/28/17) CT ABD & PELVIS W/O CONTRAST (05/28/17) CT HEAD/BRAIN W/O DYE (05/28/17) CT SOFT TISSUE NECK W/O DYE (05/28/17) CT THORAX W/O DYE (05/28/17) DETECT AGENT NOS DNA AMP (05/28/17) ELECTROCARDIOGRAM TRACING (05/28/17) EMERGENCY DEPT VISIT (05/28/17) EVALUATE SWALLOWING FUNCTION (05/28/17) EVALUATION OF WHEEZING (05/28/17) FIBRIN DEGRADATION QUANT (02/28/17) GAIT TRAINING THERAPY (05/28/17) GLUCOSE BLOOD TEST (05/28/17) GLYCOSYLATED HEMOGLOBIN TEST (05/28/17) HYDRATE IV INFUSION ADD-ON (05/28/17) HYDRATION IV INFUSION INIT (02/28/17) IMMUNOASSAY TUMOR CA 125 (05/28/17) INFLUENZA ASSAY W/OPTIC (05/28/17) M.PNEUMON DNA AMP PROBE (05/28/17) MEASURE BLOOD OXYGEN LEVEL (05/28/17) METABOLIC PANEL TOTAL CA (05/28/17) MYCOPLASMA ANTIBODY (05/28/17) OT EVAL MOD COMPLEX 45 MIN (05/28/17) PROTHROMBIN TIME (05/28/17) PT EVAL MOD COMPLEX 30 MIN (05/28/17) RESP VIRUS 12-25 TARGETS (05/28/17) ROUTINE VENIPUNCTURE (05/28/17) SELF CARE MNGMENT TRAINING (05/28/17) THER/PROPH/DIAG IV INF INIT (05/28/17) THERAPEUTIC ACTIVITIES (05/28/17) THERAPEUTIC EXERCISES (05/28/17) THROMBOPLASTIN TIME PARTIAL (02/28/17) TOTAL CORTISOL (05/28/17) TTE W/DOPPLER COMPLETE (05/28/17) TX/PRO/DX INJ NEW DRUG ADDON (05/28/17) URINALYSIS AUTO W/SCOPE (05/28/17) URINE CULTURE/COLONY COUNT (05/28/17) WITHDRAWAL OF ARTERIAL BLOOD (05/28/17) X-RAY EXAM CHEST 2 VIEWS (05/28/17) Problem List Initiated/Reviewed/Updated: Yes Plan: Assessment/Plan: Acute: Abdominal Hematoma S/p Drainage POD #2 - 2/2 Warfarin Use - INR is Subtherapeutic at 1.99-->1.12 - Large rectus sheath hematoma on abdominal/pelvis CT scan - She is scheduled for surgical drainage today - Defer management to Dr. Aburto Anemia, Improved - Hgb 9.8--> 7.7__> now 8.2 - Likely fro warfarin complication - S/p 2 units of PRBC transfusion - Defer further management to Dr. Aburto Subtherapeutic INR - INR 1.99--> now 1.12 - Received Vit K in preparation for surgery today Hyperglycemia DM2 - Controlled - BS runs in the 120s-150s - Continue diabetic oral regimen - [id number] and ISS Relative Hypotension - 2/2 blood loss - She is clinically stable - Hold BP meds Chronic: Atrial Fibrillation, HR Controlled Off anticoagulation due to Abdominal Hematoma and Anemia HTN HLD CAD S/p Stent x1 HF with Preserved EF 03/2015 Pulmonary HTN Reactive Airway Disease/Asthma Thrombocytopenia Polio with Neuropathy/LUE Hemiparesis DM2 Renal Insufficiency Hiatal Hernia GERD IBS DDD/OA Diarrhea/Colitis Nocturnal Hypoxemia 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 pending sleep study Lymphadenopathy S/p Biopsy due to Atypical EBV-associated Lymphocytic Proliferation Depression Hx/o CVA Plan: From the hospitalist standpoint, her glucose remains stable. We will hold her BP medications. Defer anticoagulation to her PCP on follow up appointment. [facility]
[2017-06-10] MEDS: Mometasone Furoate HFA 200 mcg/Puff 13 GM Inhaler INH SCH ×2 (08:28→21:25)
[2017-06-10] MEDS: Lisinopril 20 MG Tab PO SCH (09:05)
[2017-06-10] MEDS: Citalopram 20 MG Tab PO SCH (09:07)
[2017-06-10] MEDS: Rosuvastatin 10 MG Tab PO SCH (09:07)
[2017-06-10] MEDS: Magnesium Oxide 400 MG Tab PO SCH ×2 (09:07→20:49)
[2017-06-10] MEDS: HCTZ PO SCH (09:08)
[2017-06-10] MEDS: TRIAMTERENE PO SCH (09:08)
--- NOTE | 2017-06-10 10:13 | PCM.PN ---
- General Info Date of Service: 06/10/17 - Patient Data Vitals - Most Recent: Last Vital Signs Temp 98.1 F 06/10/17 05:35 Pulse 71 06/10/17 05:57 Resp 18 06/10/17 05:35 BP 121/50 L 06/10/17 09:05 Pulse Ox 94 L 06/10/17 08:28 Weight - Most Recent: 119.839 kg I&O - Last 24 Hours: Intake & Output 06/09/17 06/10/17 06/10/17 23:59 07:59 15:59 Intake Total 600 1500 Output Total 510 1700 Balance 90 -200 Lab Results Last 24 Hours: Laboratory Results - last 24 hr 06/09/17 06/09/17 06/09/17 Range/Units 12:02 12:05 18:24 WBC (3.98-10.04) K/mm3 RBC (3.98-5.22) M/mm3 Hgb 7.5 L (11.2-15.7) gm/L Hct 23.2 L (34.1-44.9) % MCV (79.4-94.8) fl MCH (25.6-32.2) pg MCHC (32.2-35.5) g/dl RDW Std Deviation (36.4-46.3) fL Plt Count (182-369) K/mm3 MPV (9.4-12.3) fl Neut % (Auto) (34.0-71.1) % Lymph % (Auto) (19.3-51.7) % Bryan % (Auto) (4.7-12.5) % Eos % (Auto) (0.7-5.8) Baso % (Auto) (0.1-1.2) % Neut # (Auto) (1.56-6.13) K/mm3 Lymph # (Auto) (1.18-3.74) K/mm3 Bryan # (Auto) (0.24-0.36) K/mm3 Eos # (Auto) (0.04-0.36) K/mm3 Baso # (Auto) (0.01-0.08) K/mm3 Sodium (136-145) mEq/L Potassium (3.5-5.1) mEq/L Chloride (98-107) mEq/L Carbon Dioxide (21-32) mEq/L Anion Gap (5-15) BUN (7-18) mg/dL Creatinine (0.55-1.02) mg/dL Est Cr Clr Drug Dosing mL/min Estimated GFR (MDRD) (>60) mL/min BUN/Creatinine Ratio (14-18) Glucose (80-115) mg/dL POC Glucose 113 100 (80-115) mg/dL Calcium (8.5-10.1) mg/dL Magnesium (1.8-2.4) mg/dl Total Bilirubin (0.2-1.0) mg/dL AST (15-37) U/L ALT (14-59) U/L Alkaline Phosphatase (46-116) U/L Total Protein (6.4-8.2) g/dl Albumin (3.4-5.0) g/dl Globulin gm/dL Albumin/Globulin Ratio (1-2) 06/09/17 06/10/17 06/10/17 Range/Units 21:51 05:45 05:46 WBC 10.99 H (3.98-10.04) K/mm3 RBC 2.71 L (3.98-5.22) M/mm3 Hgb 8.2 L (11.2-15.7) gm/L Hct 25.1 L (34.1-44.9) % MCV 92.6 (79.4-94.8) fl MCH 30.3 (25.6-32.2) pg MCHC 32.7 (32.2-35.5) g/dl RDW Std Deviation 52.3 H (36.4-46.3) fL Plt Count 275 (182-369) K/mm3 MPV 9.8 (9.4-12.3) fl Neut % (Auto) 47.1 (34.0-71.1) % Lymph % (Auto) 43.8 (19.3-51.7) % Bryan % (Auto) 5.8 (4.7-12.5) % Eos % (Auto) 2.9 (0.7-5.8) Baso % (Auto) 0.2 (0.1-1.2) % Neut # (Auto) 5.18 (1.56-6.13) K/mm3 Lymph # (Auto) 4.81 H (1.18-3.74) K/mm3 Bryan # (Auto) 0.64 H (0.24-0.36) K/mm3 Eos # (Auto) 0.32 (0.04-0.36) K/mm3 Baso # (Auto) 0.02 (0.01-0.08) K/mm3 Sodium (136-145) mEq/L Potassium (3.5-5.1) mEq/L Chloride (98-107) mEq/L Carbon Dioxide (21-32) mEq/L Anion Gap (5-15) BUN (7-18) mg/dL Creatinine (0.55-1.02) mg/dL Est Cr Clr Drug Dosing mL/min Estimated GFR (MDRD) (>60) mL/min BUN/Creatinine Ratio (14-18) Glucose (80-115) mg/dL POC Glucose 124 H (80-115) mg/dL Calcium (8.5-10.1) mg/dL Magnesium 1.9 (1.8-2.4) mg/dl Total Bilirubin (0.2-1.0) mg/dL AST (15-37) U/L ALT (14-59) U/L Alkaline Phosphatase (46-116) U/L Total Protein (6.4-8.2) g/dl Albumin (3.4-5.0) g/dl Globulin gm/dL Albumin/Globulin Ratio (1-2) 06/10/17 06/10/17 Range/Units 05:46 05:48 WBC (3.98-10.04) K/mm3 RBC (3.98-5.22) M/mm3 Hgb (11.2-15.7) gm/L Hct (34.1-44.9) % MCV (79.4-94.8) fl MCH (25.6-32.2) pg MCHC (32.2-35.5) g/dl RDW Std Deviation (36.4-46.3) fL Plt Count (182-369) K/mm3 MPV (9.4-12.3) fl Neut % (Auto) (34.0-71.1) % Lymph % (Auto) (19.3-51.7) % Bryan % (Auto) (4.7-12.5) % Eos % (Auto) (0.7-5.8) Baso % (Auto) (0.1-1.2) % Neut # (Auto) (1.56-6.13) K/mm3 Lymph # (Auto) (1.18-3.74) K/mm3 Bryan # (Auto) (0.24-0.36) K/mm3 Eos # (Auto) (0.04-0.36) K/mm3 Baso # (Auto) (0.01-0.08) K/mm3 Sodium 133 L (136-145) mEq/L Potassium 4.9 (3.5-5.1) mEq/L Chloride 98 (98-107) mEq/L Carbon Dioxide 32 (21-32) mEq/L Anion Gap 7.9 (5-15) BUN 26 H (7-18) mg/dL Creatinine 1.0 (0.55-1.02) mg/dL Est Cr Clr Drug Dosing 47.14 mL/min Estimated GFR (MDRD) 55 (>60) mL/min BUN/Creatinine Ratio 26.0 H (14-18) Glucose 78 L (80-115) mg/dL POC Glucose 71 L (80-115) mg/dL Calcium 8.3 L (8.5-10.1) mg/dL Magnesium (1.8-2.4) mg/dl Total Bilirubin 0.5 (0.2-1.0) mg/dL AST 41 H (15-37) U/L ALT 33 (14-59) U/L Alkaline Phosphatase 83 (46-116) U/L Total Protein 6.4 (6.4-8.2) g/dl Albumin 2.7 L (3.4-5.0) g/dl Globulin 3.7 gm/dL Albumin/Globulin Ratio 0.7 L (1-2) Med Orders - Current: Current Medications Hydrocodone Bitart/Acetaminophen (Carrier 325-5 Mg) 1 tab PO Q6H PRN PRN Reason: Pain Last Admin: 06/10/17 06:13 Dose: 1 tab Albuterol (Proventil Hfa) 2 puff INH Q4H PRN PRN Reason: Asthma Albuterol/Ipratropium (Duoneb 3.0-0.5 Mg/3 Ml) 3 ml NEB Q4H PRN PRN Reason: WHEEZE Last Admin: 06/09/17 08:38 Dose: 3 ml Benzonatate (Tessalon Perles) 200 mg PO TID PRN PRN Reason: Cough Last Admin: 06/08/17 00:01 Dose: 200 mg Citalopram Hydrobromide (Celexa) 20 mg PO DAILY [facility] Last Admin: 06/10/17 09:07 Dose: 20 mg Dextrose/Water (Dextrose 50% In Water) 50 ml IVPUSH ASDIRECTED PRN PRN Reason: Hypoglycemia Hydralazine HCl (Apresoline) 20 mg IVPUSH Q4H PRN PRN Reason: Hypertension Insulin Aspart (Novolog) 0 unit SUBCUT QIDACANDBED [facility] PRN Reason: Protocol Last Admin: 06/10/17 06:03 Dose: Not Given Lisinopril (Prinivil) 40 mg PO DAILY [facility] Last Admin: 06/10/17 09:05 Dose: 40 mg Lorazepam (Ativan) 2 mg IVPUSH Q4H PRN PRN Reason: Seizures Lorazepam (Ativan) 1 mg PO Q4H PRN PRN Reason: Anxiety Last Admin: 06/08/17 09:10 Dose: 1 mg Magnesium Oxide (Magnesium Oxide) 400 mg PO BID [facility] Last Admin: 06/10/17 09:07 Dose: 400 mg Magnesium Sulfate (Pharmacy To Dose - Magnesium Replacement) 1 dose .XX ASDIRECTED [facility] Metformin HCl (Glucophage) 500 mg PO BIDMEALS [facility] Last Admin: 06/10/17 06:02 Dose: 500 mg Metoprolol Tartrate (Lopressor) 25 mg PO Q6H [facility] Last Admin: 06/10/17 05:57 Dose: Not Given Metoprolol Tartrate (Lopressor) 5 mg IVPUSH Q4H PRN PRN Reason: Tachycardia Mometasone Furoate (Asmanex Hfa 200mcg) 0 gm INH BID [facility] Last Admin: 06/10/17 08:28 Dose: 1 puff Morphine Sulfate (Morphine) 2 mg IVPUSH Q4H PRN PRN Reason: Pain Ondansetron HCl (Zofran Odt) 4 mg PO Q8H PRN PRN Reason: Nausea/Vomiting Last Admin: 06/09/17 18:48 Dose: 4 mg Pantoprazole Sodium (Protonix) 40 mg PO BIDAC [facility] Last Admin: 06/10/17 05:56 Dose: 40 mg Hctz/Triamterene 37. (5-25 Mg) 0 each PO DAILY [facility] Last Admin: 06/10/17 09:08 Dose: 1 each Potassium Chloride (Pharmacy To Dose - Potassium Replacement) 1 dose .XX ASDIRECTED [facility] Promethazine HCl/Codeine (Phenergan With Codeine) 5 ml PO Q6HR PRN PRN Reason: cough Last Admin: 06/07/17 21:44 Dose: 5 ml Rosuvastatin Calcium (Crestor) 10 mg PO DAILY [facility] Last Admin: 06/10/17 09:07 Dose: 10 mg Discontinued Medications Albuterol (Proventil Neb Soln) 2.5 mg NEB ONETIME ONE Stop: 06/08/17 14:31 Last Admin: 06/08/17 14:15 Dose: 2.5 mg Bupivacaine HCl/Epinephrine Bitart (Marcaine 0.5%/Epinephrine 1:200,000) Confirm Administered Dose 50 ml .ROUTE .STK-MED ONE Stop: 06/08/17 14:11 Last Admin: 06/08/17 15:19 Dose: 15 ml Cefazolin Sodium (Ancef) Confirm Administered Dose 2 gm .ROUTE .STK-MED ONE Stop: 06/08/17 14:59 Dexamethasone (Dexamethasone) Confirm Administered Dose 20 mg .ROUTE .STK-MED ONE Stop: 06/08/17 16:02 Diphenhydramine HCl (Benadryl) 25 mg IVPUSH ONETIME ONE Stop: 06/07/17 05:51 Last Admin: 06/07/17 07:04 Dose: 25 mg Ephedrine Sulfate (Ephedrine Sulfate) Confirm Administered Dose 50 mg .ROUTE .STK-MED ONE Stop: 06/08/17 16:05 Fentanyl (Sublimaze) 100 mcg IVPUSH ONETIME ONE Stop: 06/07/17 05:54 Last Admin: 06/07/17 07:05 Dose: Not Given Fentanyl (Sublimaze) 100 mcg IM ONETIME ONE Stop: 06/07/17 06:08 Last Admin: 06/07/17 06:14 Dose: 100 mcg Fentanyl (Sublimaze) Confirm Administered Dose 250 mcg .ROUTE .STK-MED ONE Stop: 06/08/17 14:59 Sodium Chloride (Normal Saline) 1,000 mls @ 250 mls/hr IV ASDIRECTED [facility] Last Admin: 06/07/17 07:00 Dose: 250 mls/hr Sodium Chloride (Normal Saline) 250 mls @ 100 mls/hr IV ASDIRECTED [facility] Sodium Chloride (Normal Saline) Confirm Administered Dose 1,000 mls @ as directed .ROUTE .[facility] ONE Stop: 06/08/17 16:02 Lactated Ringer's (Ringers, Lactated) 1,000 mls @ 125 mls/hr IV ASDIRECTED [facility] Last Infusion: 06/09/17 03:18 Dose: 100 mls/hr Lactated Ringer's (Ringers, Lactated) 1,000 mls @ 100 mls/hr IV ASDIRECTED [facility] Ketamine HCl (Ketalar) Confirm Administered Dose 500 mg .ROUTE .[facility] ONE Stop: 06/08/17 14:57 Magnesium Oxide (Magnesium Oxide) 400 mg PO Q4H [facility] Stop: 06/08/17 01:01 Last Admin: 06/08/17 00:02 Dose: 400 mg Meperidine HCl (Demerol) 50 mg IVPUSH ONETIME ONE Stop: 06/07/17 06:46 Last Admin: 06/07/17 07:14 Dose: 50 mg Methylprednisolone (Medrol) 4 mg PO ASDIRECTED [facility] Methylprednisolone Sodium Succinate (Solu-Medrol) 125 mg IVPUSH ONETIME ONE Stop: 06/07/17 08:01 Last Admin: 06/07/17 08:28 Dose: 125 mg Metoclopramide HCl (Reglan) 10 mg IVPUSH ONETIME ONE Stop: 06/07/17 05:51 Last Admin: 06/07/17 07:05 Dose: Not Given Metoclopramide HCl (Reglan) 10 mg IM ONETIME ONE Stop: 06/07/17 06:09 Last Admin: 06/07/17 06:14 Dose: 10 mg Midazolam HCl (Versed 1 Mg/Ml) Confirm Administered Dose 2 mg .ROUTE .[facility] ONE Stop: 06/08/17 14:59 Morphine Sulfate (Morphine) 4 mg IM ONETIME ONE Stop: 06/07/17 12:31 Last Admin: 06/07/17 12:52 Dose: 4 mg Morphine Sulfate (Morphine) 2 mg IVPUSH Q4H PRN PRN Reason: Pain Ondansetron HCl (Zofran Odt) 4 mg PO ASDIRECTED PRN PRN Reason: Nausea Ondansetron HCl (Zofran) Confirm Administered Dose 4 mg .ROUTE .STK-MED ONE Stop: 06/08/17 14:59 Phenylephrine HCl (Phenylephrine In Ns 100 Mcg/Ml) Confirm Administered Dose 1 mg .ROUTE .STK-MED ONE Stop: 06/08/17 16:05 Phytonadione (Aquamephyton) 5 mg PO ONETIME ONE Stop: 06/07/17 11:34 Last Admin: 06/07/17 16:02 Dose: Not Given Phytonadione (Aquamephyton) Confirm Administered Dose 5 mg .ROUTE .STK-MED ONE Stop: 06/07/17 15:30 Last Admin: 06/07/17 16:02 Dose: Not Given Phytonadione (Aquamephyton) 5 mg PO ONETIME ONE Stop: 06/07/17 16:01 Last Admin: 06/07/17 16:00 Dose: 5 mg Propofol (Diprivan 20 Ml) Confirm Administered Dose 800 mg .ROUTE .STK-MED ONE Stop: 06/08/17 14:59 - Problem List Review Problem List Initiated/Reviewed/Updated: Yes - My Orders Last 24 Hours: My Active Orders 06/10/17 10:01 Ready for Discharge [RC] PER UNIT ROUTINE - Plan Plan:: discharge dictated JADE
[2017-06-11] MEDS: Acetaminophen/HYDROcodone 325-5 MG Tab PO PRN ×2 (00:09→06:27)
[2017-06-11] MEDS: Metoprolol Tartrate 25 MG Tab PO SCH (06:26)
[2017-06-11] MEDS: Pantoprazole 40 MG Tab.CR PO SCH (06:27)
[2017-06-11] MEDS: metFORMIN 500 MG Tab PO SCH (06:27)
[2017-06-11] MEDS: Insulin Aspart 100 Units/ML 3 ML Pen SUBCUT SCH (07:49)
--- NOTE | 2017-06-11 08:01 | PCM.SN ---
- Free Text/Narrative Note: Patient remains stable. Her glucose is controlled as well as her blood pressures. Her Hgb is stable at 8.2. Informed Dr. Aburto about. We are now signing off her case. Please feel free to res-consult us for any questions or concerns.
[2017-06-11] MEDS: Rosuvastatin 10 MG Tab PO SCH (08:40)
[2017-06-11] MEDS: Citalopram 20 MG Tab PO SCH (08:40)
[2017-06-11] MEDS: Lisinopril 20 MG Tab PO SCH (08:40)
[2017-06-11] MEDS: Magnesium Oxide 400 MG Tab PO SCH (08:41)
[2017-06-11] MEDS: HCTZ PO SCH (08:42)
[2017-06-11] MEDS: TRIAMTERENE PO SCH (08:42)
[2017-06-11] MEDS: Mometasone Furoate HFA 200 mcg/Puff 13 GM Inhaler INH SCH (09:06)
--- NOTE | 2017-06-11 12:39 | DISCH ---
ADMISSION DATE: 06/07/2017 DISCHARGE DATE: 06/11/2017 This is a 66-year-old female who came into the emergency room with pain and swelling in the right upper abdomen and worked up with a CT scan showing hematoma in the right rectus muscle extending from the umbilicus cephalad. The patient's symptoms began Friday gradually with increasing pain and intensity, there was some nausea. The patient had had a COPD and had been a smoker in the past, which she has stopped, and has been placed on some prednisone for her lung problems. She also had some interesting adenopathy that seemed to regress on comparison of the CT scan done on his admission from previous CT scan. The patient has been on Coumadin for atrial fibrillation with bridging with Lovenox. Her INR was 1.9 with 5 mg of Coumadin given on the day with the anticipation that it would be rising. PHYSICAL EXAMINATION: GENERAL: Revealed an alert, cooperative female, in distress. VITAL SIGNS: Temperature 99, pulse 90, and blood pressure 124/55. EYES: Unremarkable. NECK: Supple. LUNGS: Clear. HEART: Heart tones regular rate. ABDOMEN: Showed swelling in the upper abdomen over the right rectus sheath. Admission exam with history of atrial fibrillation, anticoagulation. Medical problems detailed in her H and P and rectus sheath hematoma. HOSPITAL COURSE: The patient was placed in the hospital, and her medical problems were managed by consultation with Dr. Renner. The patient was placed on IV pain medications and given vitamin K orally. Next day, her INR was in the normal range, that was Friday, and she was brought to the operating room where the hematoma was drained. Next day, the patient was feeling much better, the pain had resolved, and she was up and ambulating, moving and coughing and this process continued. Wound was healing per primum. The drain that was removed the next day, and the subsequent day, her hemoglobin was followed showing drop as low as 7.5 in spite of the 2 units of blood transfusion, but came up to about 8.2. It was felt that she had reached maximum hospital benefit. Her telemetry did not show any atrial fibrillation, some atrial arrhythmia but mainly normal sinus rhythm and it was elected not to discharge her on anticoagulation but to place her on aspirin. She would be discharged with Tylenol for pain and regular medications. Medication per reconciliation form per Dr. Renner; her prednisone will probably be stopped. The patient's diabetes medication continued along with her hypertensive medication. DIET: Would be a diabetic diet. ACTIVITIES: No pushing, shoving, or pulling. No work. FOLLOW-UP: With Dr. Ramirez on for her medical problems and to see me next Friday for her management of her wound, which incidentally was healing without problem. CONDITION ON DISCHARGE: Improved. FINAL DIAGNOSES: 1. Blood loss anemia secondary to hematoma in the right rectus muscle, which was decompressed. 2. History of atrial fibrillation and diabetes, which were managed. 3. Chronic obstructive pulmonary disease with need for O2 home oxygen, which was continued. DISCHARGE MEDICATIONS: MMODAL /[id number]
== END 2017-06-11 09:32 | disposition home or self-care (01) | DRG 580 ==
LOC: JD.ED 05:17 → JD.MS 13:20 → JD.ICU 06-08 16:06 → JD.MS 06-09 19:00
PROVIDERS: ADMIT Surgery; ATTEND Surgery
PROC: 0W9F00Z Drainage of Abdominal Wall with Drainage Device, Open Approach (ICD-10-PCS; principal; 2017-06-08)
PROC: 05HY33Z Insertion of Infusion Device into Upper Vein, Percutaneous Approach (ICD-10-PCS; 2017-06-08)
PROC: 30233N1 Transfusion of Nonautologous Red Blood Cells into Peripheral Vein, Percutaneous Approach (ICD-10-PCS; 2017-06-08)
DX: S30.1XXA Contusion of abdominal wall, initial encounter (principal); I48.1 Persistent atrial fibrillation; R10.11 Right upper quadrant pain; I13.0 Hypertensive heart and chronic kidney disease with heart failure and stage 1 through stage 4 chronic kidney disease, or unspecified chronic kidney disease; E11.9 Type 2 diabetes mellitus without complications; X58.XXXA Exposure to other specified factors, initial encounter; Z95.5 Presence of coronary angioplasty implant and graft; I12.9 Hypertensive chronic kidney disease with stage 1 through stage 4 chronic kidney disease, or unspecified chronic kidney disease; F17.200 Nicotine dependence, unspecified, uncomplicated; D69.6 Thrombocytopenia, unspecified; G83.9 Paralytic syndrome, unspecified; E78.00 Pure hypercholesterolemia, unspecified; G47.30 Sleep apnea, unspecified; B91 Sequelae of poliomyelitis; E11.65 Type 2 diabetes mellitus with hyperglycemia; Z79.84 Long term (current) use of oral hypoglycemic drugs; N28.9 Disorder of kidney and ureter, unspecified; G83.89 Other specified paralytic syndromes; K21.9 Gastro-esophageal reflux disease without esophagitis; K44.9 Diaphragmatic hernia without obstruction or gangrene; M19.90 Unspecified osteoarthritis, unspecified site; R09.02 Hypoxemia; G47.33 Obstructive sleep apnea (adult) (pediatric); F32.9 Major depressive disorder, single episode, unspecified; Z86.73 Personal history of transient ischemic attack (TIA), and cerebral infarction without residual deficits; H54.7 Unspecified visual loss; I25.10 Atherosclerotic heart disease of native coronary artery without angina pectoris; N18.9 Chronic kidney disease, unspecified; I50.9 Heart failure, unspecified; G89.29 Other chronic pain; R32 Unspecified urinary incontinence; D64.9 Anemia, unspecified; R79.1 Abnormal coagulation profile; I27.20 Pulmonary hypertension, unspecified; K58.9 Irritable bowel syndrome, unspecified; I95.9 Hypotension, unspecified; J44.9 Chronic obstructive pulmonary disease, unspecified; R59.1 Generalized enlarged lymph nodes; Z88.0 Allergy status to penicillin; Z88.1 Allergy status to other antibiotic agents; Z79.01 Long term (current) use of anticoagulants; Z79.82 Long term (current) use of aspirin; Z99.81 Dependence on supplemental oxygen; Z79.899 Other long term (current) drug therapy
CPT/HCPCS: 36415; 74018; 74176; 80053; 82962; 83690; 83735; 83880; 84484; 85025; 85610; 86140; 93005; 96361; 96372; 96374; 96375; 99285; A9270; J1200; J2175; J2270; J2765; J2930; J3010; J7040; 00840; 36430; 36569; 81003; 85014; 85018; 86850; 86900; 86901; 86922; 94640; 94664; 94760; 94761; 97162-GP; 97166-GO; 97530-GO; C1751; J0690; J1100; J1815-GY; J2250; J2405; J2704; J7120; P9016; P9017

== ENCOUNTER 2017-07-29 16:37 | Inpatient (IN) | payer MEDICARE, OTHER ==
[2017-07-29] MEDS ORDERED: Sodium Chloride 0.9% 10 ML Syringe FLUSH PRN (16:54)
[2017-07-29] MEDS ORDERED: Adenosine 6 MG/2 ML SDV IVPUSH ONE (16:54)
[2017-07-29] MEDS ORDERED: Sodium Chloride 0.9% 1,000 ML IV ONE (16:55)
[2017-07-29] MEDS ORDERED: Adenosine 12 MG/4 ML SDV ONE (16:56)
[2017-07-29] MEDS ORDERED: Adenosine 6 MG/2 ML SDV ONE (16:56)
[2017-07-29] MEDS ORDERED: Sodium Chloride 0.9% 1,000 ML ONE ×2 (16:56→17:47)
[2017-07-29] MEDS ORDERED: Metoprolol Tartrate 5 MG/5 ML SDV ONE (17:48)
[2017-07-29] MEDS ORDERED: Metoprolol Tartrate 5 MG/5 ML SDV IVPUSH ONE (17:50)
[2017-07-29] MEDS ORDERED: Magnesium Sulfate/Water 2 GM in Premix Bag 1 BAG IV ONE ×2 (17:55→19:11)
[2017-07-29] MEDS ORDERED: Metoprolol Tartrate 50 MG Tab PO ONE (18:02)
[2017-07-29] MEDS ORDERED: Acetaminophen 325 MG Tab PO ONE (18:05)
--- NOTE | 2017-07-29 18:35 | EDM.PDOC ---
ED HPI GENERAL MEDICAL PROBLEM - General Chief Complaint: Chest Pain Stated Complaint: CHEST PAIN/SOB/RACING HEARTBEAT Time Seen by Provider: 07/29/17 16:55 Source of Information: Reports: Patient History Limitations: Reports: No Limitations - History of Present Illness INITIAL COMMENTS - FREE TEXT/NARRATIVE: 66-year-old female is brought in by her daughter for evaluation treatment of chest tightness, shortness of breath, chest palpations and lightheadedness. Reports symptoms started this afternoon prior to arrival in the ER. States that she took her heart rate and it was found to be in the 160s. Patient denies any current diaphoresis, nausea or vomiting. No syncope. Reports swelling in the lower legs. No pain into the back or neck. patient has no history of any SVT. No treatments Prior to arrival in the ER. Review the patient's record show she was hospitalized in May. During her hospital stay She was found to have A. fib. She was started on Coumadin. She subsequently developed a hematoma to her abdomen from the Lovenox injections. she was admitted the end of May for management of this. She states that she has chronic abdominal pain due to the surgery from her hematoma. Daughter reports she has had trouble with diarrhea. Recently stopped her metformin and her magnesium. This has subsequently resolved her diarrhea. Patient's primary care provider is Dr. Ramirez. Chest Pain Score (Numeric/FACES): 4 - Related Data Allergies Allergy/AdvReac Type Severity Reaction Status Date / Time hydromorphone [From Dilaudid] Allergy unknown Verified 07/29/17 16:47 Penicillins Allergy Hives Verified 07/29/17 16:47 levofloxacin [From Levaquin] AdvReac Disorientat Verified 07/29/17 16:47 ion oxycodone [From Percocet] AdvReac Confusion Verified 07/29/17 16:47 Home Meds: Home Meds Aspirin [Ecotrin] 81 mg PO DAILY 05/28/17 [History] Citalopram [Citalopram HBr] 20 mg PO DAILY 05/28/17 [History] Lisinopril [Prinivil] 40 mg PO DAILY 05/28/17 [History] atorvaSTATin [Lipitor] 40 mg PO DAILY 05/28/17 [History] Amylase/Lipase/Protease [Marisol GARCIA 12,000 Units] 1 dose PO TID 07/29/17 [History] Colestipol [Colestipol HCl] 1 gm PO BID 07/29/17 [History] Metoprolol Tartrate 50 mg PO BID 07/29/17 [History] Triamterene/Hydrochlorothiazid [Triamterene-HCTZ 37.5-25 MG] 0.5 tab PO DAILY [History] Past Medical History - Past Health History Medical/Surgical History: Denies Medical/Surgical History HEENT History: Reports: Impaired Vision, Other (See Below) Other HEENT History: wears reading glasses Cardiovascular History: Reports: Afib, CAD, High Cholesterol, Hypertension, Stents Respiratory History: Reports: Asthma, COPD, Sleep Apnea Gastrointestinal History: Reports: GERD, Hiatal Hernia, Irritable Bowel Syndrome , Other (See Below) Other Gastrointestinal History: collitis Genitourinary History: Reports: Chronic Renal Insuffiency, Urinary Incontinence Other Genitourinary History: at times [employer] History: Reports: Musculoskeletal History: Reports: Fracture, Neck Pain, Chronic, Other (See Below ) Other Musculoskeletal History: 2004 neck surgery Neurological History: Reports: Other (See Below) Psychiatric History: Reports: Depression Endocrine/Metabolic History: Reports: Diabetes, Type II, Obesity/BMI 30+ Dermatologic History: Reports: None - Infectious Disease History Infectious Disease History: Reports: Other (See Below) (Polio) - Past Surgical History HEENT Surgical History: Reports: Oral Surgery Cardiovascular Surgical History: Reports: Coronary Artery Stent GI Surgical History: Reports: Appendectomy, Lysis of Adhesions Female Surgical History: Reports: D&C Neurological Surgical History: Reports: C-Spine Social & Family History - Family History Family Medical History: Noncontributory - Tobacco Use Smoking Status *Q: Current Every Day Smoker Years of Tobacco use: 40 Packs/Tins Daily: 0.3 Used Tobacco, but Quit: No Month/Year Tobacco Last Used: may 2016 Second Hand Smoke Exposure: No - Caffeine Use Caffeine Use: Reports: None - Recreational Drug Use Recreational Drug Use: No - Living Situation & Occupation Living situation: Reports: , Alone Occupation: Disabled ED ROS GENERAL - Review of Systems Review Of Systems: See Below Constitutional: Denies: Diaphoresis Respiratory: Reports: Shortness of Breath Cardiovascular: Reports: Chest Pain, Lightheadedness, Palpitations GI/Abdominal: Reports: Abdominal Pain (chronic from hematoma). Denies: Diarrhea , Nausea, Vomiting Neurological: Reports: Headache. Denies: Syncope ED EXAM, GENERAL - Physical Exam Exam: See Below Exam Limited By: No Limitations General Appearance: Alert, WD/WN, Moderate Distress, Obese Ears: Normal External Exam Nose: Normal Inspection Throat/Mouth: Normal Inspection, Normal Voice, No Airway Compromise Respiratory/Chest: No Respiratory Distress, Lungs Clear, Normal Breath Sounds Cardiovascular: No Murmur, Tachycardia GI/Abdominal: Tender (generalized) Neurological: Alert, Oriented, Normal Cognition Psychiatric: Normal Affect, Normal Mood Skin Exam: Warm, Dry, Normal Color EKG INTERPRETATION EKG Date: 07/29/17 EKG Interpretation Comments: EKG At 16:44 SVT with a rate of 157. Reviewed by myself and Dr. Lozano. EKG at 17:03 Sinus tachycardia with a rate of 99 bpm. Q waves inferior and anterior leads. Reviewed by myself and Dr. Lozano. Course - Vital Signs Last Recorded V/S: Last Vital Signs Temp 36.4 C 07/29/17 16:43 Pulse 88 07/29/17 18:11 Resp 17 07/29/17 16:43 BP 146/79 H 07/29/17 18:11 Pulse Ox 96 07/29/17 16:53 - Orders/Labs/Meds Orders: Active Orders 24 hr Category Date Time Status Patient Status [ADT] Routine ADT 07/29/17 20:31 Active Accu Check [Blood Glucose Check, Bedside] [RC] Care 07/29/17 20:53 Active QIDACANDBED Blood Glucose Check, Bedside [RC] QIDACANDBED Care 07/29/17 20:57 Active Cardiac Monitoring [RC] . DIRECTED Care 07/29/17 17:17 Active EKG 12 Lead [EKG Documentation Completion] [RC] STAT Care 07/29/17 16:54 Active Peripheral IV Care [RC] . DIRECTED Care 07/29/17 16:54 Active ADA Diabetic [[place] [employer] Diet] [DIET Diet 07/30/17 Breakfast Active ] BMP [BASIC METABOLIC PANEL,BMP] [CHEM] DAILY Lab 07/30/17 05:00 Ordered BMP [BASIC METABOLIC PANEL,BMP] [CHEM] DAILY Lab 07/31/17 05:00 Ordered BMP [BASIC METABOLIC PANEL,BMP] [CHEM] DAILY Lab 08/01/17 05:00 Ordered BMP [BASIC METABOLIC PANEL,BMP] [CHEM] DAILY Lab 08/02/17 05:00 Ordered BMP [BASIC METABOLIC PANEL,BMP] [CHEM] DAILY Lab 08/03/17 05:00 Ordered CBC WITH AUTO DIFF [HEME] DAILY Lab 07/30/17 05:00 Ordered CBC WITH AUTO DIFF [HEME] DAILY Lab 07/31/17 05:00 Ordered CBC WITH AUTO DIFF [HEME] DAILY Lab 08/01/17 05:00 Ordered CBC WITH AUTO DIFF [HEME] DAILY Lab 08/02/17 05:00 Ordered CBC WITH AUTO DIFF [HEME] DAILY Lab 08/03/17 05:00 Ordered MAGNESIUM [CHEM] DAILY Lab 07/30/17 05:00 Ordered MAGNESIUM [CHEM] DAILY Lab 07/31/17 05:00 Ordered MAGNESIUM [CHEM] DAILY Lab 08/01/17 05:00 Ordered MAGNESIUM [CHEM] DAILY Lab 08/02/17 05:00 Ordered MAGNESIUM [CHEM] DAILY Lab 08/03/17 05:00 Ordered MYCOPLASMA PNEUMONIAE IGM AB [CHEM] Routine Lab 07/30/17 05:00 Ordered RESPIRATORY PANEL BY PCR [MREF] Stat Lab 07/29/17 19:20 Ordered ROTAVIRUS DIRECT ANTIGEN STOOL [OP] Routine Lab 07/29/17 21:00 Ordered THYROXINE (T4) [REF] Routine Lab 07/30/17 05:00 Ordered TROPONIN I [CHEM] Routine Lab 07/30/17 05:00 Ordered UA W/MICROSCOPIC [URIN] Stat Lab 07/29/17 19:45 Ordered WBC, STOOL [OP] Routine Lab 07/29/17 21:00 Ordered Amylase/Lipase/Protease [Marisol GARCIA 12,000 Units] Med 07/29/17 21:00 Ordered 1 dose PO TID Aspirin [Halfprin] Med 07/30/17 09:00 Active 81 mg PO DAILY Cholestyramine/Aspartame [Prevalite Packet] Med 07/29/17 21:00 Ordered 4 gm PO BID Citalopram [Celexa] Med 07/30/17 09:00 Active 20 mg PO DAILY Dextrose 50% in Water Med 07/29/17 20:57 Active 50 ml IVPUSH ASDIRECTED PRN Insulin Aspart [NovoLOG] Med 07/29/17 22:00 Active See Protocol SUBCUT QIDACANDBED Magnesium Sulfate/Water [Magnesium Sulfate 4 GM in Med 07/29/17 20:57 Ordered Water 100 ML] 4 gm Premix Bag 1 bag IV ONETIME Metoprolol Tartrate [Lopressor] Med 07/29/17 20:58 Ordered 5 mg IVPUSH Q6H PRN Metoprolol Tartrate [Lopressor] Med 07/29/17 21:00 Active 50 mg PO BID Sodium Chloride 0.9% [Saline Flush] Med 07/29/17 16:54 Active 10 ml FLUSH ASDIRECTED PRN atorvaSTATin Med 07/30/17 09:00 Ordered 40 mg PO DAILY hydrALAZINE [Apresoline] Med 07/29/17 21:03 Ordered 20 mg IVPUSH Q6H PRN Isolation [COMM] Routine Oth 07/29/17 20:58 Ordered Peripheral IV Insertion Adult [OM.PC] Stat Oth 07/29/17 16:54 Ordered DESTINI Hose [Antiembolic Hose] [OM.PC] Routine Oth 07/29/17 21:00 Ordered Medication Orders Aspirin (Halfprin) 81 mg PO DAILY MARKUS Cholestyramine Resin (Prevalite Packet) 4 gm PO BID MARKUS Citalopram Hydrobromide (Celexa) 20 mg PO DAILY MARKUS Dextrose/Water (Dextrose 50% In Water) 50 ml IVPUSH ASDIRECTED PRN PRN Reason: Hypoglycemia Magnesium Sulfate 4 gm/ Premix 100 mls @ 300 mls/hr IV ONETIME ONE Stop: 07/29/17 20:58 Insulin Aspart (Novolog) 0 unit SUBCUT QIDACANDBED FORMERLY [facility], [facility]; Protocol Metoprolol Tartrate (Lopressor) 50 mg PO BID MARKUS Metoprolol Tartrate (Lopressor) 5 mg IVPUSH Q6H PRN PRN Reason: HR>120 Non-Formulary Medication (Amylase/Lipase/Protease [Creon Dr 12,000 Units]) 1 dose PO TID MARKUS Non-Formulary Medication (Atorvastatin) 40 mg PO DAILY MARKUS Sodium Chloride (Saline Flush) 10 ml FLUSH ASDIRECTED PRN PRN Reason: Keep Vein Open Last Admin: 07/29/17 16:55 Dose: 10 ml Labs: Laboratory Tests 07/29/17 07/29/17 07/29/17 Range/Units 16:50 16:50 16:50 WBC 8.42 (3.98-10.04) K/mm3 RBC 3.63 L (3.98-5.22) M/mm3 Hgb 11.0 L (11.2-15.7) gm/L Hct 33.2 L (34.1-44.9) % MCV 91.5 (79.4-94.8) fl MCH 30.3 (25.6-32.2) pg MCHC 33.1 (32.2-35.5) g/dl RDW Std Deviation 50.1 H (36.4-46.3) fL Plt Count 183 (182-369) K/mm3 MPV 10.7 (9.4-12.3) fl Neut % (Auto) 81.6 H (34.0-71.1) % Lymph % (Auto) 9.7 L (19.3-51.7) % Meade % (Auto) 4.5 L (4.7-12.5) % Eos % (Auto) 4.0 (0.7-5.8) Baso % (Auto) 0.1 (0.1-1.2) % Neut # (Auto) 6.86 H (1.56-6.13) K/mm3 Lymph # (Auto) 0.82 L (1.18-3.74) K/mm3 Meade # (Auto) 0.38 H (0.24-0.36) K/mm3 Eos # (Auto) 0.34 (0.04-0.36) K/mm3 Baso # (Auto) 0.01 (0.01-0.08) K/mm3 Manual Slide Review Normal smear Sodium 133 L (136-145) mEq/L Potassium 3.2 L (3.5-5.1) mEq/L Chloride 96 L (98-107) mEq/L Carbon Dioxide 24 (21-32) mEq/L Anion Gap 16.2 H (5-15) BUN 16 (7-18) mg/dL Creatinine 1.0 (0.55-1.02) mg/dL Est Cr Clr Drug Dosing 47.14 mL/min Estimated GFR (MDRD) 55 (>60) mL/min BUN/Creatinine Ratio 16.0 (14-18) Glucose 135 H (80-115) mg/dL Calcium 8.0 L (8.5-10.1) mg/dL Magnesium 0.6 L (1.8-2.4) mg/dl Total Bilirubin 1.0 (0.2-1.0) mg/dL AST 25 (15-37) U/L ALT 14 (14-59) U/L Alkaline Phosphatase 102 (46-116) U/L Troponin I 0.083 H* (0.00-0.056) ng/mL C-Reactive Protein (<1.0) mg/dL Total Protein 7.0 (6.4-8.2) g/dl Albumin 3.6 (3.4-5.0) g/dl Globulin 3.4 gm/dL Albumin/Globulin Ratio 1.1 (1-2) TSH 3rd Generation 4.051 H (0.358-3.74) uIU/mL Urine Color (Yellow) Urine Appearance (Clear) Urine pH (5.0-8.0) Ur Specific Tracy (1.005-1.030) Urine Protein (Negative) Urine Glucose (UA) (Negative) Urine Ketones (Negative) Urine Occult Blood (Negative) Urine Nitrite (Negative) Urine Bilirubin (Negative) Urine Urobilinogen (0.2-1.0) Ur Leukocyte Esterase (Negative) Urine RBC (0-5) /hpf Urine WBC (0-5) /hpf Ur Epithelial Cells (0-5) /hpf Urine Bacteria (FEW) /hpf Urine Mucus (FEW) /hpf 07/29/17 07/29/17 Range/Units 16:50 19:45 WBC (3.98-10.04) K/mm3 RBC (3.98-5.22) M/mm3 Hgb (11.2-15.7) gm/L Hct (34.1-44.9) % MCV (79.4-94.8) fl MCH (25.6-32.2) pg MCHC (32.2-35.5) g/dl RDW Std Deviation (36.4-46.3) fL Plt Count (182-369) K/mm3 MPV (9.4-12.3) fl Neut % (Auto) (34.0-71.1) % Lymph % (Auto) (19.3-51.7) % Meade % (Auto) (4.7-12.5) % Eos % (Auto) (0.7-5.8) Baso % (Auto) (0.1-1.2) % Neut # (Auto) (1.56-6.13) K/mm3 Lymph # (Auto) (1.18-3.74) K/mm3 Meade # (Auto) (0.24-0.36) K/mm3 Eos # (Auto) (0.04-0.36) K/mm3 Baso # (Auto) (0.01-0.08) K/mm3 Manual Slide Review Sodium (136-145) mEq/L Potassium (3.5-5.1) mEq/L Chloride (98-107) mEq/L Carbon Dioxide (21-32) mEq/L Anion Gap (5-15) BUN (7-18) mg/dL Creatinine (0.55-1.02) mg/dL Est Cr Clr Drug Dosing mL/min Estimated GFR (MDRD) (>60) mL/min BUN/Creatinine Ratio (14-18) Glucose (80-115) mg/dL Calcium (8.5-10.1) mg/dL Magnesium (1.8-2.4) mg/dl Total Bilirubin (0.2-1.0) mg/dL AST (15-37) U/L ALT (14-59) U/L Alkaline Phosphatase (46-116) U/L Troponin I (0.00-0.056) ng/mL C-Reactive Protein 6.3 H* (<1.0) mg/dL Total Protein (6.4-8.2) g/dl Albumin (3.4-5.0) g/dl Globulin gm/dL Albumin/Globulin Ratio (1-2) TSH 3rd Generation (0.358-3.74) uIU/mL Urine Color Yellow (Yellow) Urine Appearance Clear (Clear) Urine pH 6.5 (5.0-8.0) Ur Specific Tracy 1.010 (1.005-1.030) Urine Protein Negative (Negative) Urine Glucose (UA) Negative (Negative) Urine Ketones Negative (Negative) Urine Occult Blood Negative (Negative) Urine Nitrite Negative (Negative) Urine Bilirubin Negative (Negative) Urine Urobilinogen 0.2 (0.2-1.0) Ur Leukocyte Esterase Negative (Negative) Urine RBC 0-5 (0-5) /hpf Urine WBC 0-5 (0-5) /hpf Ur Epithelial Cells 5-10 H (0-5) /hpf Urine Bacteria Few (FEW) /hpf Urine Mucus Not seen (FEW) /hpf Meds: Medications Generic Name Dose Route Start Last Admin Trade Name Philip PRN Reason Stop Dose Admin Aspirin 81 mg 07/30/17 09:00 Halfprin PO DAILY [facility] Cholestyramine Resin 4 gm 07/29/17 21:00 Prevalite Packet PO BID [facility]1983 Citalopram Hydrobromide 20 mg 07/30/17 09:00 Celexa PO DAILY [facility] Dextrose/Water 50 ml 07/29/17 20:57 Dextrose 50% In Water IVPUSH ASDIRECTED PRN Hypoglycemia Magnesium Sulfate 4 gm/ Premix 100 mls @ 300 mls/hr 07/29/17 20:57 IV 07/29/17 20:58 ONETIME ONE Insulin Aspart 0 unit 07/29/17 22:00 Novolog SUBCUT QIDACANDBED [facility], [facility]1983 Protocol Metoprolol Tartrate 50 mg 07/29/17 21:00 Lopressor PO BID [facility] Metoprolol Tartrate 5 mg 07/29/17 20:58 Lopressor IVPUSH Q6H PRN HR>120 Non-Formulary Medication 1 dose 07/29/17 21:00 Amylase/Lipase/Protease [Creon Dr 12,000 Units] PO TID [facility] Non-Formulary Medication 40 mg 07/30/17 09:00 Atorvastatin PO DAILY [facility] Sodium Chloride 10 ml 07/29/17 16:54 07/29/17 16:55 Saline Flush FLUSH 10 ml ASDIRECTED PRN Administration Keep Vein Open Discontinued Medications Generic Name Dose Route Start Last Admin Trade Name Philip PRN Reason Stop Dose Admin Acetaminophen 650 mg 07/29/17 18:05 07/29/17 18:11 Tylenol PO 07/29/17 18:06 650 mg NOW ONE Administration Adenosine 6 mg 07/29/17 16:54 07/29/17 16:59 Adenocard IVPUSH 07/29/17 16:55 6 mg NOW ONE Administration Adenosine Confirm 07/29/17 16:56 07/29/17 17:52 Adenocard Administered 07/29/17 16:57 Not Given Dose 6 mg .ROUTE .STK-MED ONE Adenosine Confirm 07/29/17 16:56 07/29/17 17:52 Adenocard Administered 07/29/17 16:57 Not Given Dose 12 mg .ROUTE .STK-MED ONE Sodium Chloride Confirm 07/29/17 16:56 07/29/17 17:52 Normal Saline Administered 07/29/17 16:57 Not Given Dose 1,000 mls @ as directed .ROUTE .STK-MED ONE Sodium Chloride Confirm 07/29/17 17:47 07/29/17 17:52 Normal Saline Administered 07/29/17 17:48 Not Given Dose 1,000 mls @ as directed .ROUTE .STK-MED ONE Sodium Chloride 1,000 mls @ 999 mls/hr 07/29/17 16:55 07/29/17 16:55 Normal Saline IV 07/29/17 17:55 999 mls/hr ONETIME ONE Administration Magnesium Sulfate 2 gm/ Premix 50 mls @ 50 mls/hr 07/29/17 17:55 07/29/17 18: 10 IV 07/29/17 18:54 50 mls/hr ONETIME ONE Administration Magnesium Sulfate 2 gm/ Premix 50 mls @ 50 mls/hr 07/29/17 19:11 07/29/17 19: 44 IV 07/29/17 20:10 50 mls/hr ONETIME ONE Administration Metoprolol Tartrate Confirm 07/29/17 17:48 07/29/17 17:52 Lopressor Administered 07/29/17 17:49 Not Given Dose 5 mg .ROUTE .STK-MED ONE Metoprolol Tartrate 5 mg 07/29/17 17:50 07/29/17 17:51 Lopressor IVPUSH 07/29/17 17:51 5 mg ONETIME ONE Administration Metoprolol Tartrate 50 mg 07/29/17 18:02 07/29/17 18:11 Lopressor PO 07/29/17 18:03 50 mg ONETIME ONE Administration - Radiology Interpretation Free Text/Narrative:: Chest: Portable view of the chest was obtained. Comparison: Prior chest x-ray of 06/08/17. Heart is enlarged. Lungs are clear. No acute pulmonary vascular congestion is seen. Previous cervical spine surgery is noted. Mild degenerative change is scattered within the spine. Impression: 1. Findings as noted above. Nothing acute is suspected. - Re-Assessments/Exams Free Text/Narrative Re-Assessment/Exam: 07/29/17 19:08 Upon arrival to the ER the patient was found to be in SVT. we attempted vagal maneuvers. When this was unsuccessful she was given 6 mg IV adenosine. This converted her to a sinus tachycardia in the low 100s to upper 90s. Patient reported after conversion her chest tightness and shortness of breath resolved. She is only complaining of a headache which she had earlier. Heart rate in the 70s to 80s after the conversion. Patient's labs have returned. Her troponin is elevated slightly, discussed with Dr. Rousseau this is felt to be from demand ischemia. Due to the patient's hypomagnesemia and hypokalemia did not feel she could go home and admission is warranted. Case was discussed with Dr. Armas, she will come to the ER and evaluate the patient. 07/29/17 19:49 Dr. Armas has come and seen the patient. She will admit to [facility] with telemetry. Departure - Departure Time of Disposition: 19:45 Disposition: Admitted As Inpatient 65 Condition: Fair Clinical Impression: Hypokalemia, Hypomagnesemia, SVT (supraventricular tachycardia) Referrals: PCP,None [Ordering Only Provider] - Forms: ED Department Discharge Additional Instructions: Patient be admitted to [facility] with telemetry under Dr. Armas for hypomagnesemia and hypokalemia. - My Orders Last 24 Hours: My Active Orders 07/29/17 17:17 Cardiac Monitoring [RC] . DIRECTED 07/29/17 19:20 RESPIRATORY PANEL BY PCR [MREF] Stat 07/29/17 19:45 UA W/MICROSCOPIC [URIN] Stat 07/29/17 20:31 Patient Status [ADT] Routine - Assessment/Plan Last 24 Hours: My Active Orders 07/29/17 17:17 Cardiac Monitoring [RC] . DIRECTED 07/29/17 19:20 RESPIRATORY PANEL BY PCR [MREF] Stat 07/29/17 19:45 UA W/MICROSCOPIC [URIN] Stat 07/29/17 20:31 Patient Status [ADT] Routine
--- NOTE | 2017-07-29 20:29 | CR ---
Chest: Portable view of the chest was obtained. Comparison: Prior chest x-ray of 06/08/17. Heart is enlarged. Lungs are clear. No acute pulmonary vascular congestion is seen. Previous cervical spine surgery is noted. Mild degenerative change is scattered within the spine. Impression: 1. Findings as noted above. Nothing acute is suspected. Diagnostic code #2
--- NOTE | 2017-07-29 20:53 | PCM.HP ---
H&P History of Present Illness - General Date of Service: 07/29/17 Admit Problem/Dx: Admission Diagnosis/Problem Admission Diagnosis/Problem Hypomagnesemia Source of Information: Patient, Family, Provider History Limitations: Reports: No Limitations - History of Present Illness Initial Comments - Free Text/Narative: 66 year old female who has a history of CAD with PCI presented with atypical chest pain. However it was associated with a rapid heart rate described as palpitations. She was found to be in SVT and treated with adenosine as well as additional AV cristy blockers. She denied nausea/vomiting, SOB, diaphoresis. The patient denied fever/chills; she has had a persistent complaint of diarrhea. This was believed to be associated with metformin and magnesium; the medication and supplement was stopped. Abnormal electrolytes were noted including a Mg 0.6; this was supplemented in the ED. Onset of Symptoms: Reports: Sudden Symptom Onset Date: 07/29/17 Duration of Symptoms: Reports: Hour(s):, Getting Worse Location: Reports: Chest Quality: Reports: Other (chest tightness) Severity: Moderate Improves with: Reports: Medication Worsens with: Reports: None Associated Symptoms: Reports: Chest Pain, cough w sputum, Nausea/Vomiting, Shortness of Breath, Weakness Chest Pain Score (Numeric/FACES): 4 - Related Data Allergies/Adverse Reactions: Allergies Allergy/AdvReac Type Severity Reaction Status Date / Time hydromorphone [From Dilaudid] Allergy unknown Verified 07/29/17 16:47 Penicillins Allergy Hives Verified 07/29/17 16:47 levofloxacin [From Levaquin] AdvReac Disorientat Verified 07/29/17 21:44 ion Home Medications: Home Meds Aspirin [Ecotrin] 81 mg PO DAILY 05/28/17 [History] Citalopram [Citalopram HBr] 20 mg PO QPM 05/28/17 [History] Lisinopril [Prinivil] 40 mg PO DAILY 05/28/17 [History] atorvaSTATin [Lipitor] 40 mg PO DAILY 05/28/17 [History] Colestipol [Colestipol HCl] 1 gm PO TID 07/29/17 [History] LORazepam [Ativan] 0.5 mg PO BID PRN 07/29/17 [History] Metoprolol Tartrate 50 mg PO BID 07/29/17 [History] Triamterene/Hydrochlorothiazid [Triamterene-HCTZ 37.5-25 MG] 0.5 tab PO QPM [History] Amylase/Lipase/Protease [Marisol GARCIA 24,000 Unit] 4 cap PO TID 07/30/17 [History] Benzonatate 200 mg PO TID PRN 07/30/17 [History] Budesonide [Pulmicort Flexhaler] 90 mcg INH BID 07/30/17 [History] Pantoprazole [ProTONIX] 40 mg PO DAILY 07/30/17 [History] Promethazine HCl/Codeine [Prometh-Codein 6.25-10 mg/5 ml] 5 ml PO Q6HR PRN 07/30 [History] Past Medical History - Past Health History Medical/Surgical History: Denies Medical/Surgical History HEENT History: Reports: Impaired Vision, Other (See Below) Other HEENT History: wears reading glasses Cardiovascular History: Reports: Afib, CAD, High Cholesterol, Hypertension, Stents Respiratory History: Reports: Asthma, COPD, Sleep Apnea Gastrointestinal History: Reports: GERD, Hiatal Hernia, Irritable Bowel Syndrome , Other (See Below) Other Gastrointestinal History: collitis Genitourinary History: Reports: Chronic Renal Insuffiency, Urinary Incontinence Other Genitourinary History: at times [employer] History: Reports: Musculoskeletal History: Reports: Fracture, Neck Pain, Chronic, Other (See Below ) Other Musculoskeletal History: 2004 neck surgery Neurological History: Reports: Other (See Below) Psychiatric History: Reports: Depression Endocrine/Metabolic History: Reports: Diabetes, Type II, Obesity/BMI 30+ Dermatologic History: Reports: None - Infectious Disease History Infectious Disease History: Reports: Other (See Below) (Polio) - Past Surgical History HEENT Surgical History: Reports: Oral Surgery Cardiovascular Surgical History: Reports: Coronary Artery Stent GI Surgical History: Reports: Appendectomy, Lysis of Adhesions Female Surgical History: Reports: D&C Neurological Surgical History: Reports: C-Spine Social & Family History - Family History Family Medical History: Noncontributory - Tobacco Use Smoking Status *Q: Current Every Day Smoker Years of Tobacco use: 40 Packs/Tins Daily: 0.3 Used Tobacco, but Quit: No Month/Year Tobacco Last Used: may 2016 Second Hand Smoke Exposure: No - Caffeine Use Caffeine Use: Reports: None - Recreational Drug Use Recreational Drug Use: No - Living Situation & Occupation Living situation: Reports: , Alone Occupation: Disabled H&P Review of Systems - Review of Systems: Review Of Systems: See Below General: Reports: Weakness, Fatigue HEENT: Reports: No Symptoms Pulmonary: Reports: Shortness of Breath Cardiovascular: Reports: Chest Pain, Palpitations, Lightheadedness Gastrointestinal: Reports: Diarrhea Genitourinary: Reports: No Symptoms Musculoskeletal: Reports: No Symptoms Skin: Reports: No Symptoms Psychiatric: Reports: No Symptoms Neurological: Reports: No Symptoms Hematologic/Lymphatic: Reports: No Symptoms Immunologic: Reports: No Symptoms Exam - Exam Exam: See Below - Vital Signs Vital Signs: Last Vital Signs Temp 36.4 C 07/29/17 16:43 Pulse 88 07/29/17 18:11 Resp 17 07/29/17 16:43 BP 146/79 H 07/29/17 18:11 Pulse Ox 96 07/29/17 16:53 Weight: 114.759 kg - Exam Quality Assessment: Supplemental Oxygen, DVT Prophylaxis General: Alert, Oriented, Cooperative HEENT: Conjunctiva Clear, EACs Clear, EOMI, Nares Patent, Normal Nasal Septum, Pupils Equal, Pupils Reactive, PERRLA Neck: Supple, Trachea Midline Lungs: Clear to Auscultation, Normal Respiratory Effort Cardiovascular: Regular Rate, Tachycardia GI/Abdominal Exam: Normal Bowel Sounds, Soft, Non-Tender, No Organomegaly, No Distention (Female) Exam: Deferred Rectal (Female) Exam: Deferred Back Exam: Normal Inspection, Full Range of Motion Extremities: Normal Inspection, Normal Range of Motion, Non-Tender, No Pedal Edema Skin: Warm Neurological: Cranial Nerves Intact Neuro Extensive - Mental Status: Alert, Oriented x3, Normal Mood/Affect, Normal Cognition, Memory Intact Neuro Extensive - Motor, Sensory, Reflexes: CN II-XII Intact Psychiatric: Alert, Normal Affect, Normal Mood - Patient Data Lab Results Last 24 hrs: Laboratory Results - last 24 hr 07/29/17 07/29/17 07/29/17 Range/Units 16:50 16:50 16:50 WBC 8.42 (3.98-10.04) K/mm3 RBC 3.63 L (3.98-5.22) M/mm3 Hgb 11.0 L (11.2-15.7) gm/L Hct 33.2 L (34.1-44.9) % MCV 91.5 (79.4-94.8) fl MCH 30.3 (25.6-32.2) pg MCHC 33.1 (32.2-35.5) g/dl RDW Std Deviation 50.1 H (36.4-46.3) fL Plt Count 183 (182-369) K/mm3 MPV 10.7 (9.4-12.3) fl Neut % (Auto) 81.6 H (34.0-71.1) % Lymph % (Auto) 9.7 L (19.3-51.7) % [place] % (Auto) 4.5 L (4.7-12.5) % Eos % (Auto) 4.0 (0.7-5.8) Baso % (Auto) 0.1 (0.1-1.2) % Neut # (Auto) 6.86 H (1.56-6.13) K/mm3 Lymph # (Auto) 0.82 L (1.18-3.74) K/mm3 [place] # (Auto) 0.38 H (0.24-0.36) K/mm3 Eos # (Auto) 0.34 (0.04-0.36) K/mm3 Baso # (Auto) 0.01 (0.01-0.08) K/mm3 Manual Slide Review Normal smear Sodium 133 L (136-145) mEq/L Potassium 3.2 L (3.5-5.1) mEq/L Chloride 96 L (98-107) mEq/L Carbon Dioxide 24 (21-32) mEq/L Anion Gap 16.2 H (5-15) BUN 16 (7-18) mg/dL Creatinine 1.0 (0.55-1.02) mg/dL Est Cr Clr Drug Dosing 47.14 mL/min Estimated GFR (MDRD) 55 (>60) mL/min BUN/Creatinine Ratio 16.0 (14-18) Glucose 135 H (80-115) mg/dL Calcium 8.0 L (8.5-10.1) mg/dL Magnesium 0.6 L (1.8-2.4) mg/dl Total Bilirubin 1.0 (0.2-1.0) mg/dL AST 25 (15-37) U/L ALT 14 (14-59) U/L Alkaline Phosphatase 102 (46-116) U/L Troponin I 0.083 H* (0.00-0.056) ng/mL C-Reactive Protein (<1.0) mg/dL Total Protein 7.0 (6.4-8.2) g/dl Albumin 3.6 (3.4-5.0) g/dl Globulin 3.4 gm/dL Albumin/Globulin Ratio 1.1 (1-2) TSH 3rd Generation 4.051 H (0.358-3.74) uIU/mL Urine Color (Yellow) Urine Appearance (Clear) Urine pH (5.0-8.0) Ur Specific [place] (1.005-1.030) Urine Protein (Negative) Urine Glucose (UA) (Negative) Urine Ketones (Negative) Urine Occult Blood (Negative) Urine Nitrite (Negative) Urine Bilirubin (Negative) Urine Urobilinogen (0.2-1.0) Ur Leukocyte Esterase (Negative) Urine RBC (0-5) /hpf Urine WBC (0-5) /hpf Ur Epithelial Cells (0-5) /hpf Urine Bacteria (FEW) /hpf Urine Mucus (FEW) /hpf 07/29/17 07/29/17 Range/Units 16:50 19:45 WBC (3.98-10.04) K/mm3 RBC (3.98-5.22) M/mm3 Hgb (11.2-15.7) gm/L Hct (34.1-44.9) % MCV (79.4-94.8) fl MCH (25.6-32.2) pg MCHC (32.2-35.5) g/dl RDW Std Deviation (36.4-46.3) fL Plt Count (182-369) K/mm3 MPV (9.4-12.3) fl Neut % (Auto) (34.0-71.1) % Lymph % (Auto) (19.3-51.7) % [place] % (Auto) (4.7-12.5) % Eos % (Auto) (0.7-5.8) Baso % (Auto) (0.1-1.2) % Neut # (Auto) (1.56-6.13) K/mm3 Lymph # (Auto) (1.18-3.74) K/mm3 [place] # (Auto) (0.24-0.36) K/mm3 Eos # (Auto) (0.04-0.36) K/mm3 Baso # (Auto) (0.01-0.08) K/mm3 Manual Slide Review Sodium (136-145) mEq/L Potassium (3.5-5.1) mEq/L Chloride (98-107) mEq/L Carbon Dioxide (21-32) mEq/L Anion Gap (5-15) BUN (7-18) mg/dL Creatinine (0.55-1.02) mg/dL Est Cr Clr Drug Dosing mL/min Estimated GFR (MDRD) (>60) mL/min BUN/Creatinine Ratio (14-18) Glucose (80-115) mg/dL Calcium (8.5-10.1) mg/dL Magnesium (1.8-2.4) mg/dl Total Bilirubin (0.2-1.0) mg/dL AST (15-37) U/L ALT (14-59) U/L Alkaline Phosphatase (46-116) U/L Troponin I (0.00-0.056) ng/mL C-Reactive Protein 6.3 H* (<1.0) mg/dL Total Protein (6.4-8.2) g/dl Albumin (3.4-5.0) g/dl Globulin gm/dL Albumin/Globulin Ratio (1-2) TSH 3rd Generation (0.358-3.74) uIU/mL Urine Color Yellow (Yellow) Urine Appearance Clear (Clear) Urine pH 6.5 (5.0-8.0) Ur Specific [place] 1.010 (1.005-1.030) Urine Protein Negative (Negative) Urine Glucose (UA) Negative (Negative) Urine Ketones Negative (Negative) Urine Occult Blood Negative (Negative) Urine Nitrite Negative (Negative) Urine Bilirubin Negative (Negative) Urine Urobilinogen 0.2 (0.2-1.0) Ur Leukocyte Esterase Negative (Negative) Urine RBC 0-5 (0-5) /hpf Urine WBC 0-5 (0-5) /hpf Ur Epithelial Cells 5-10 H (0-5) /hpf Urine Bacteria Few (FEW) /hpf Urine Mucus Not seen (FEW) /hpf Result Diagrams: 07/31/17 05:30 07/31/17 05:30 - Problem List (1) Hypokalemia SNOMED Code(s): 96742496 ICD Code: E87.6 - HYPOKALEMIA Status: Acute Current Visit: Yes (2) Hypomagnesemia SNOMED Code(s): 832984218 ICD Code: E83.42 - HYPOMAGNESEMIA Status: Acute Current Visit: Yes (3) SVT (supraventricular tachycardia) SNOMED Code(s): 0984597 ICD Code: I47.1 - SUPRAVENTRICULAR TACHYCARDIA Status: Acute Current Visit: Yes (4) Abdominal pain SNOMED Code(s): 95104360 ICD Code: R10.9 - UNSPECIFIED ABDOMINAL PAIN Status: Acute Current Visit : No Qualifiers: Abdominal location: right upper quadrant Qualified Code(s): R10.11 - Right upper quadrant pain (5) CKD (chronic kidney disease) SNOMED Code(s): 938284194 ICD Code: N18.9 - CHRONIC KIDNEY DISEASE, UNSPECIFIED Status: Acute Priority: High Current Visit: No (6) COPD with exacerbation SNOMED Code(s): 610702010 ICD Code: J44.1 - CHRONIC OBSTRUCTIVE PULMONARY DISEASE W (ACUTE) EXACERBATION Status: Acute Priority: High Current Visit: No (7) LOLI (obstructive sleep apnea) SNOMED Code(s): 84953328 ICD Code: G47.33 - OBSTRUCTIVE SLEEP APNEA (ADULT) (PEDIATRIC) Status: Acute Current Visit: No (8) GERD (gastroesophageal reflux disease) SNOMED Code(s): 399314948 ICD Code: K21.9 - GASTRO-ESOPHAGEAL REFLUX DISEASE WITHOUT ESOPHAGITIS Status: Chronic Priority: Low Current Visit: No Qualifiers: Esophagitis presence: esophagitis presence not specified Qualified Code(s) : K21.9 - Gastro-esophageal reflux disease without esophagitis (9) HLD (hyperlipidemia) SNOMED Code(s): 85467951 ICD Code: E78.5 - HYPERLIPIDEMIA, UNSPECIFIED Status: Chronic Priority: Low Current Visit: No Qualifiers: Hyperlipidemia type: unspecified Qualified Code(s): E78.5 - Hyperlipidemia , unspecified (10) HTN (hypertension) SNOMED Code(s): 38265736 ICD Code: I10 - ESSENTIAL (PRIMARY) HYPERTENSION Status: Chronic Priority : Low Current Visit: No Qualifiers: Hypertension type: unspecified Qualified Code(s): I10 - Essential (primary ) hypertension (11) Type II diabetes mellitus SNOMED Code(s): 28040210 ICD Code: E11.9 - TYPE 2 DIABETES MELLITUS WITHOUT COMPLICATIONS Status: Chronic Priority: Medium Current Visit: No Qualifiers: Diabetes mellitus senior care insulin use: without senior care use Diabetes mellitus complication status: with unspecified complications Qualified Code(s) : E11.8 - Type 2 diabetes mellitus with unspecified complications (12) Chest pain SNOMED Code(s): 80125206 ICD Code: R07.9 - CHEST PAIN, UNSPECIFIED Status: Resolved Current Visit : No Qualifiers: Chest pain type: chest pain on breathing Qualified Code(s): R07.1 - Chest pain on breathing; R07.81 - Pleurodynia (13) Chest pain SNOMED Code(s): 72497978 ICD Code: R07.9 - CHEST PAIN, UNSPECIFIED Status: Acute Current Visit: Yes (14) Renal insufficiency SNOMED Code(s): 046681404, 703371413 ICD Code: N28.9 - DISORDER OF KIDNEY AND URETER, UNSPECIFIED Status: Acute Current Visit: No (15) CAD (coronary artery disease) SNOMED Code(s): 77282021 ICD Code: I25.10 - ATHSCL HEART DISEASE OF [place] CORONARY ARTERY W/O ANG PCTRS Status: Chronic Priority: Low Current Visit: No Qualifiers: Coronary Disease-Associated Artery/Lesion type: [place] artery [place] vs. transplanted heart: [place] heart Associated angina: angina presence unspecified Qualified Code(s): I25.10 - Atherosclerotic heart disease of [place] coronary artery without angina pectoris (16) Nicotine dependence SNOMED Code(s): 40929174 ICD Code: F17.200 - NICOTINE DEPENDENCE, UNSPECIFIED, UNCOMPLICATED Status : Chronic Current Visit: No Qualifiers: Nicotine product type: cigarettes Substance use status: uncomplicated Qualified Code(s): F17.210 - Nicotine dependence, cigarettes, uncomplicated (17) Obesity, Class III, BMI 40-49.9 (morbid obesity) SNOMED Code(s): 841619086, 617852133 ICD Code: E66.01 - MORBID (SEVERE) OBESITY DUE TO EXCESS CALORIES Status: Chronic Priority: Low Current Visit: No (18) Hypomagnesemia syndrome SNOMED Code(s): 519978450 ICD Code: E83.42 - HYPOMAGNESEMIA Status: Resolved Current Visit: No Problem List Initiated/Reviewed/Updated: Yes Orders Last 24hrs: Active Orders 24 hr Category Date Time Status Patient Status [ADT] Routine ADT 07/29/17 20:31 Active Cardiac Monitoring [RC] . DIRECTED Care 07/29/17 17:17 Active EKG 12 Lead [EKG Documentation Completion] [RC] STAT Care 07/29/17 16:54 Active Peripheral IV Care [RC] . DIRECTED Care 07/29/17 16:54 Active RESPIRATORY PANEL BY PCR [MREF] Stat Lab 07/29/17 19:20 Ordered UA W/MICROSCOPIC [URIN] Stat Lab 07/29/17 19:45 Ordered Sodium Chloride 0.9% [Saline Flush] Med 07/29/17 16:54 Active 10 ml FLUSH ASDIRECTED PRN Peripheral IV Insertion Adult [OM.PC] Stat Oth 07/29/17 16:54 Ordered Medication Orders Sodium Chloride (Saline Flush) 10 ml FLUSH ASDIRECTED PRN PRN Reason: Keep Vein Open Last Admin: 07/29/17 16:55 Dose: 10 ml Assessment/Plan Comment:: Impression: SVT, s/p adenosine; AV cristy blockers--->converted to sinus rhythm/tachycardia History of A Fib Chest pain with h/o CAD COPD with productive cough; tobacco dependence > 40 pack years Diarrhea with electrolyte imbalance; abdominal pain Dehydration with acute renal failure Chronic Morbid obesity, stage III LOLI HTN HLD GERD Diabetes mellitus type 2 CKD stage 3 Depression Plan: MS with telemetry IVF Infectious work up; droplet isolation Ischemic work up; possible stress test-->TBD MR research regarding recent office visit Increase cholestyramine Address tobacco cessation Replace electrolytes DVT/GI prophylaxis
[2017-07-29] MEDS ORDERED: Magnesium Sulfate/Water 4 GM in Premix Bag 1 BAG IV ONE (20:57)
[2017-07-29] MEDS ORDERED: 50% Dextrose in Water 50 ML Syringe IVPUSH PRN (20:57)
[2017-07-29] MEDS ORDERED: Metoprolol Tartrate 5 MG/5 ML SDV IVPUSH PRN (20:58)
[2017-07-29] MEDS ORDERED: hydrALAZINE 20 MG/ML SDV IVPUSH PRN (21:03)
[2017-07-29] MEDS: Enoxaparin 40 MG/0.4 ML Syringe SUBCUT SCH (22:28)
[2017-07-29] MEDS: Metoprolol Tartrate 25 MG Tab PO SCH (22:28)
[2017-07-29] MEDS: Cholestyramine/Aspartame Powder 4 GM Packet PO SCH (22:47)
[2017-07-29] MEDS: Insulin Aspart 100 Units/ML 3 ML Pen SUBCUT SCH (22:47)
[2017-07-30] MEDS: PROTEASE PO SCH ×4 (07:39→20:39)
[2017-07-30] MEDS: Insulin Aspart 100 Units/ML 3 ML Pen SUBCUT SCH ×4 (07:39→21:21)
[2017-07-30] MEDS: AMYLASE PO SCH ×4 (07:39→20:39)
[2017-07-30] MEDS: LIPASE PO SCH ×4 (07:39→20:39)
[2017-07-30] MEDS: Metoprolol Tartrate 25 MG Tab PO SCH ×2 (08:28→20:39)
[2017-07-30] MEDS: Cholestyramine/Aspartame Powder 4 GM Packet PO SCH ×2 (08:30→20:39)
[2017-07-30] MEDS: Aspirin 81 MG Tab.EC PO SCH (08:30)
[2017-07-30] MEDS: Citalopram 20 MG Tab PO SCH (08:30)
[2017-07-30] MEDS: Rosuvastatin 10 MG Tab PO SCH (08:30)
[2017-07-30] MEDS ORDERED: Potassium Chloride 20 MEQ Tab.ER PO ONE ×2 (08:32→12:32)
[2017-07-30] MEDS ORDERED: Famotidine 20 MG Tab PO SCH (09:00)
[2017-07-30] MEDS: Acetaminophen 325 MG Tab PO PRN (10:50)
--- NOTE | 2017-07-30 14:18 | PCM.PN ---
- General Info Date of Service: 07/30/17 Subjective Update: Patient complained of chest pain that lasted for a few seconds. There was no associated symptoms. An ECG was performed that showed NSR without acute changes. Functional Status: Reports: Tolerating Diet, Ambulating, Urinating - Review of Systems General: Reports: Weakness HEENT: Reports: No Symptoms Pulmonary: Reports: No Symptoms Cardiovascular: Reports: Chest Pain Gastrointestinal: Reports: No Symptoms Genitourinary: Reports: No Symptoms Musculoskeletal: Reports: No Symptoms Skin: Reports: No Symptoms Neurological: Reports: No Symptoms Psychiatric: Reports: No Symptoms - Patient Data Vitals - Most Recent: Last Vital Signs Temp 37.6 C 07/30/17 03:13 Pulse 76 07/30/17 08:28 Resp 18 07/30/17 03:13 BP 141/71 H 07/30/17 08:28 Pulse Ox 98 07/30/17 08:54 Weight - Most Recent: 115.757 kg I&O - Last 24 Hours: Intake & Output 07/29/17 07/30/17 07/30/17 22:59 06:59 14:59 Intake Total 1700 Balance 1700 Lab Results Last 24 Hours: Laboratory Results - last 24 hr 07/29/17 07/29/17 07/29/17 Range/Units 16:50 16:50 16:50 WBC 8.42 (3.98-10.04) K/mm3 RBC 3.63 L (3.98-5.22) M/mm3 Hgb 11.0 L (11.2-15.7) gm/L Hct 33.2 L (34.1-44.9) % MCV 91.5 (79.4-94.8) fl MCH 30.3 (25.6-32.2) pg MCHC 33.1 (32.2-35.5) g/dl RDW Std Deviation 50.1 H (36.4-46.3) fL Plt Count 183 (182-369) K/mm3 MPV 10.7 (9.4-12.3) fl Neut % (Auto) 81.6 H (34.0-71.1) % Lymph % (Auto) 9.7 L (19.3-51.7) % [place] % (Auto) 4.5 L (4.7-12.5) % Eos % (Auto) 4.0 (0.7-5.8) Baso % (Auto) 0.1 (0.1-1.2) % Neut # (Auto) 6.86 H (1.56-6.13) K/mm3 Lymph # (Auto) 0.82 L (1.18-3.74) K/mm3 [place] # (Auto) 0.38 H (0.24-0.36) K/mm3 Eos # (Auto) 0.34 (0.04-0.36) K/mm3 Baso # (Auto) 0.01 (0.01-0.08) K/mm3 Manual Slide Review Normal smear Sodium 133 L (136-145) mEq/L Potassium 3.2 L (3.5-5.1) mEq/L Chloride 96 L (98-107) mEq/L Carbon Dioxide 24 (21-32) mEq/L Anion Gap 16.2 H (5-15) BUN 16 (7-18) mg/dL Creatinine 1.0 (0.55-1.02) mg/dL Est Cr Clr Drug Dosing 47.14 mL/min Estimated GFR (MDRD) 55 (>60) mL/min BUN/Creatinine Ratio 16.0 (14-18) Glucose 135 H (80-115) mg/dL POC Glucose (80-115) mg/dL Calcium 8.0 L (8.5-10.1) mg/dL Magnesium 0.6 L (1.8-2.4) mg/dl Total Bilirubin 1.0 (0.2-1.0) mg/dL AST 25 (15-37) U/L ALT 14 (14-59) U/L Alkaline Phosphatase 102 (46-116) U/L Troponin I 0.083 H* (0.00-0.056) ng/mL C-Reactive Protein (<1.0) mg/dL Total Protein 7.0 (6.4-8.2) g/dl Albumin 3.6 (3.4-5.0) g/dl Globulin 3.4 gm/dL Albumin/Globulin Ratio 1.1 (1-2) TSH 3rd Generation 4.051 H (0.358-3.74) uIU/mL Urine Color (Yellow) Urine Appearance (Clear) Urine pH (5.0-8.0) Ur Specific Simms (1.005-1.030) Urine Protein (Negative) Urine Glucose (UA) (Negative) Urine Ketones (Negative) Urine Occult Blood (Negative) Urine Nitrite (Negative) Urine Bilirubin (Negative) Urine Urobilinogen (0.2-1.0) Ur Leukocyte Esterase (Negative) Urine RBC (0-5) /hpf Urine WBC (0-5) /hpf Ur Epithelial Cells (0-5) /hpf Urine Bacteria (FEW) /hpf Urine Mucus (FEW) /hpf Mycoplasma pneumon IgM (NEGATIVE) 07/29/17 07/29/17 07/29/17 Range/Units 16:50 19:45 22:42 WBC (3.98-10.04) K/mm3 RBC (3.98-5.22) M/mm3 Hgb (11.2-15.7) gm/L Hct (34.1-44.9) % MCV (79.4-94.8) fl MCH (25.6-32.2) pg MCHC (32.2-35.5) g/dl RDW Std Deviation (36.4-46.3) fL Plt Count (182-369) K/mm3 MPV (9.4-12.3) fl Neut % (Auto) (34.0-71.1) % Lymph % (Auto) (19.3-51.7) % [place] % (Auto) (4.7-12.5) % Eos % (Auto) (0.7-5.8) Baso % (Auto) (0.1-1.2) % Neut # (Auto) (1.56-6.13) K/mm3 Lymph # (Auto) (1.18-3.74) K/mm3 [place] # (Auto) (0.24-0.36) K/mm3 Eos # (Auto) (0.04-0.36) K/mm3 Baso # (Auto) (0.01-0.08) K/mm3 Manual Slide Review Sodium (136-145) mEq/L Potassium (3.5-5.1) mEq/L Chloride (98-107) mEq/L Carbon Dioxide (21-32) mEq/L Anion Gap (5-15) BUN (7-18) mg/dL Creatinine (0.55-1.02) mg/dL Est Cr Clr Drug Dosing mL/min Estimated GFR (MDRD) (>60) mL/min BUN/Creatinine Ratio (14-18) Glucose (80-115) mg/dL POC Glucose 114 (80-115) mg/dL Calcium (8.5-10.1) mg/dL Magnesium (1.8-2.4) mg/dl Total Bilirubin (0.2-1.0) mg/dL AST (15-37) U/L ALT (14-59) U/L Alkaline Phosphatase (46-116) U/L Troponin I (0.00-0.056) ng/mL C-Reactive Protein 6.3 H* (<1.0) mg/dL Total Protein (6.4-8.2) g/dl Albumin (3.4-5.0) g/dl Globulin gm/dL Albumin/Globulin Ratio (1-2) TSH 3rd Generation (0.358-3.74) uIU/mL Urine Color Yellow (Yellow) Urine Appearance Clear (Clear) Urine pH 6.5 (5.0-8.0) Ur Specific Simms 1.010 (1.005-1.030) Urine Protein Negative (Negative) Urine Glucose (UA) Negative (Negative) Urine Ketones Negative (Negative) Urine Occult Blood Negative (Negative) Urine Nitrite Negative (Negative) Urine Bilirubin Negative (Negative) Urine Urobilinogen 0.2 (0.2-1.0) Ur Leukocyte Esterase Negative (Negative) Urine RBC 0-5 (0-5) /hpf Urine WBC 0-5 (0-5) /hpf Ur Epithelial Cells 5-10 H (0-5) /hpf Urine Bacteria Few (FEW) /hpf Urine Mucus Not seen (FEW) /hpf Mycoplasma pneumon IgM (NEGATIVE) 07/30/17 07/30/17 07/30/17 Range/Units 05:42 05:42 05:42 WBC 5.64 (3.98-10.04) K/mm3 RBC 3.23 L (3.98-5.22) M/mm3 Hgb 9.8 L (11.2-15.7) gm/L Hct 30.1 L (34.1-44.9) % MCV 93.2 (79.4-94.8) fl MCH 30.3 (25.6-32.2) pg MCHC 32.6 (32.2-35.5) g/dl RDW Std Deviation 50.3 H (36.4-46.3) fL Plt Count 155 L (182-369) K/mm3 MPV 10.4 (9.4-12.3) fl Neut % (Auto) 75.6 H (34.0-71.1) % Lymph % (Auto) 8.7 L (19.3-51.7) % [place] % (Auto) 4.8 (4.7-12.5) % Eos % (Auto) 10.5 H (0.7-5.8) Baso % (Auto) 0.2 (0.1-1.2) % Neut # (Auto) 4.27 (1.56-6.13) K/mm3 Lymph # (Auto) 0.49 L (1.18-3.74) K/mm3 [place] # (Auto) 0.27 (0.24-0.36) K/mm3 Eos # (Auto) 0.59 H (0.04-0.36) K/mm3 Baso # (Auto) 0.01 (0.01-0.08) K/mm3 Manual Slide Review Abnormal smear Sodium 135 L (136-145) mEq/L Potassium 3.1 L (3.5-5.1) mEq/L Chloride 100 (98-107) mEq/L Carbon Dioxide 27 (21-32) mEq/L Anion Gap 11.1 (5-15) BUN 15 (7-18) mg/dL Creatinine 1.1 H (0.55-1.02) mg/dL Est Cr Clr Drug Dosing 42.85 mL/min Estimated GFR (MDRD) 50 (>60) mL/min BUN/Creatinine Ratio 13.6 L (14-18) Glucose 150 H (80-115) mg/dL POC Glucose (80-115) mg/dL Calcium 7.6 L (8.5-10.1) mg/dL Magnesium 1.8 (1.8-2.4) mg/dl Total Bilirubin (0.2-1.0) mg/dL AST (15-37) U/L ALT (14-59) U/L Alkaline Phosphatase (46-116) U/L Troponin I 0.053 (0.00-0.056) ng/mL C-Reactive Protein 8.6 H* (<1.0) mg/dL Total Protein (6.4-8.2) g/dl Albumin (3.4-5.0) g/dl Globulin gm/dL Albumin/Globulin Ratio (1-2) TSH 3rd Generation (0.358-3.74) uIU/mL Urine Color (Yellow) Urine Appearance (Clear) Urine pH (5.0-8.0) Ur Specific Simms (1.005-1.030) Urine Protein (Negative) Urine Glucose (UA) (Negative) Urine Ketones (Negative) Urine Occult Blood (Negative) Urine Nitrite (Negative) Urine Bilirubin (Negative) Urine Urobilinogen (0.2-1.0) Ur Leukocyte Esterase (Negative) Urine RBC (0-5) /hpf Urine WBC (0-5) /hpf Ur Epithelial Cells (0-5) /hpf Urine Bacteria (FEW) /hpf Urine Mucus (FEW) /hpf Mycoplasma pneumon IgM Negative (NEGATIVE) 07/30/17 07/30/17 Range/Units 07:00 11:28 WBC (3.98-10.04) K/mm3 RBC (3.98-5.22) M/mm3 Hgb (11.2-15.7) gm/L Hct (34.1-44.9) % MCV (79.4-94.8) fl MCH (25.6-32.2) pg MCHC (32.2-35.5) g/dl RDW Std Deviation (36.4-46.3) fL Plt Count (182-369) K/mm3 MPV (9.4-12.3) fl Neut % (Auto) (34.0-71.1) % Lymph % (Auto) (19.3-51.7) % [place] % (Auto) (4.7-12.5) % Eos % (Auto) (0.7-5.8) Baso % (Auto) (0.1-1.2) % Neut # (Auto) (1.56-6.13) K/mm3 Lymph # (Auto) (1.18-3.74) K/mm3 [place] # (Auto) (0.24-0.36) K/mm3 Eos # (Auto) (0.04-0.36) K/mm3 Baso # (Auto) (0.01-0.08) K/mm3 Manual Slide Review Sodium (136-145) mEq/L Potassium (3.5-5.1) mEq/L Chloride (98-107) mEq/L Carbon Dioxide (21-32) mEq/L Anion Gap (5-15) BUN (7-18) mg/dL Creatinine (0.55-1.02) mg/dL Est Cr Clr Drug Dosing mL/min Estimated GFR (MDRD) (>60) mL/min BUN/Creatinine Ratio (14-18) Glucose (80-115) mg/dL POC Glucose 113 102 (80-115) mg/dL Calcium (8.5-10.1) mg/dL Magnesium (1.8-2.4) mg/dl Total Bilirubin (0.2-1.0) mg/dL AST (15-37) U/L ALT (14-59) U/L Alkaline Phosphatase (46-116) U/L Troponin I (0.00-0.056) ng/mL C-Reactive Protein (<1.0) mg/dL Total Protein (6.4-8.2) g/dl Albumin (3.4-5.0) g/dl Globulin gm/dL Albumin/Globulin Ratio (1-2) TSH 3rd Generation (0.358-3.74) uIU/mL Urine Color (Yellow) Urine Appearance (Clear) Urine pH (5.0-8.0) Ur Specific [place]ms (1.005-1.030) Urine Protein (Negative) Urine Glucose (UA) (Negative) Urine Ketones (Negative) Urine Occult Blood (Negative) Urine Nitrite (Negative) Urine Bilirubin (Negative) Urine Urobilinogen (0.2-1.0) Ur Leukocyte Esterase (Negative) Urine RBC (0-5) /hpf Urine WBC (0-5) /hpf Ur Epithelial Cells (0-5) /hpf Urine Bacteria (FEW) /hpf Urine Mucus (FEW) /hpf Mycoplasma pneumon IgM (NEGATIVE) [place] Results Last 24 Hours: Microbiology 07/30/17 10:10 Stool for WBCs - Final Stool / Feces NO WBC SEEN Rotavirus Antigen - Final NEGATIVE ROTAVIRUS ANTIGEN Med Orders - Current: Current Medications Acetaminophen (Tylenol) 650 mg PO Q4H PRN PRN Reason: Pain Last Admin: 07/30/17 10:50 Dose: 650 mg Aspirin (Halfprin) 81 mg PO DAILY MARKUS Last Admin: 07/30/17 08:30 Dose: 81 mg Cholestyramine Resin (Prevalite Packet) 4 gm PO BID [facility] Last Admin: 07/30/17 08:30 Dose: Not Given Citalopram Hydrobromide (Celexa) 20 mg PO DAILY [facility] Last Admin: 07/30/17 08:30 Dose: 20 mg Dextrose/Water (Dextrose 50% In Water) 50 ml IVPUSH ASDIRECTED PRN PRN Reason: Hypoglycemia Enoxaparin Sodium (Lovenox) 40 mg SUBCUT Q24H [facility] Last Admin: 07/29/17 22:28 Dose: 40 mg Famotidine (Pepcid) 20 mg PO DAILY [facility] Last Admin: 07/30/17 10:13 Dose: 20 mg Hydralazine HCl (Apresoline) 20 mg IVPUSH Q6H PRN PRN Reason: Hypertension Insulin Aspart (Novolog) 0 unit SUBCUT QIDACANDBED [facility]; Protocol Last Admin: 07/30/17 12:04 Dose: Not Given Metoprolol Tartrate (Lopressor) 50 mg PO BID [facility] Last Admin: 07/30/17 08:28 Dose: 50 mg Metoprolol Tartrate (Lopressor) 5 mg IVPUSH Q6H PRN PRN Reason: HR>120 Amylase/Lipase/Protease [Creon Dr 12,000 Units] 0 each PO TID [facility] Last Admin: 07/30/17 08:30 Dose: Not Given Rosuvastatin Calcium (Crestor) 10 mg PO DAILY [facility] Last Admin: 07/30/17 08:30 Dose: 10 mg Sodium Chloride (Saline Flush) 10 ml FLUSH ASDIRECTED PRN PRN Reason: Keep Vein Open Last Admin: 07/29/17 16:55 Dose: 10 ml Discontinued Medications Acetaminophen (Tylenol) 650 mg PO NOW ONE Stop: 07/29/17 18:06 Last Admin: 07/29/17 18:11 Dose: 650 mg Adenosine (Adenocard) 6 mg IVPUSH NOW ONE Stop: 07/29/17 16:55 Last Admin: 07/29/17 16:59 Dose: 6 mg Adenosine (Adenocard) Confirm Administered Dose 6 mg .ROUTE .STK-MED ONE Stop: 07/29/17 16:57 Last Admin: 07/29/17 17:52 Dose: Not Given Adenosine (Adenocard) Confirm Administered Dose 12 mg .ROUTE .STK-MED ONE Stop: 07/29/17 16:57 Last Admin: 07/29/17 17:52 Dose: Not Given Sodium Chloride (Normal Saline) Confirm Administered Dose 1,000 mls @ as directed .ROUTE .STK-MED ONE Stop: 07/29/17 16:57 Last Admin: 07/29/17 17:52 Dose: Not Given Sodium Chloride (Normal Saline) Confirm Administered Dose 1,000 mls @ as directed .ROUTE .STK-MED ONE Stop: 07/29/17 17:48 Last Admin: 07/29/17 17:52 Dose: Not Given Sodium Chloride (Normal Saline) 1,000 mls @ 999 mls/hr IV ONETIME ONE Stop: 07/29/17 17:55 Last Admin: 07/29/17 16:55 Dose: 999 mls/hr Magnesium Sulfate 2 gm/ Premix 50 mls @ 50 mls/hr IV ONETIME ONE Stop: 07/29/17 18:54 Last Admin: 07/29/17 18:10 Dose: 50 mls/hr Magnesium Sulfate 2 gm/ Premix 50 mls @ 50 mls/hr IV ONETIME ONE Stop: 07/29/17 20:10 Last Admin: 07/29/17 19:44 Dose: 50 mls/hr Magnesium Sulfate 4 gm/ Premix 100 mls @ 300 mls/hr IV ONETIME ONE Stop: 07/29/17 20:58 Last Admin: 07/29/17 22:16 Dose: Not Given Metoprolol Tartrate (Lopressor) Confirm Administered Dose 5 mg .ROUTE .STK-MED ONE Stop: 07/29/17 17:49 Last Admin: 07/29/17 17:52 Dose: Not Given Metoprolol Tartrate (Lopressor) 5 mg IVPUSH ONETIME ONE Stop: 07/29/17 17:51 Last Admin: 07/29/17 17:51 Dose: 5 mg Metoprolol Tartrate (Lopressor) 50 mg PO ONETIME ONE Stop: 07/29/17 18:03 Last Admin: 07/29/17 18:11 Dose: 50 mg Potassium Chloride (Klor-Con M20) 40 meq PO ONETIME ONE Stop: 07/30/17 08:33 Last Admin: 07/30/17 08:40 Dose: 40 meq Potassium Chloride (Klor-Con M20) 40 meq PO ONETIME ONE Stop: 07/30/17 12:33 Last Admin: 07/30/17 12:05 Dose: 40 meq - Exam Quality Assessment: DVT Prophylaxis General: Alert, Oriented, Cooperative, No Acute Distress HEENT: Pupils Equal, Pupils Reactive, EOMI Neck: Trachea Midline, No JVD Lungs: Normal Respiratory Effort, Decreased Breath Sounds Cardiovascular: Regular Rate, Regular Rhythm GI/Abdominal Exam: Normal Bowel Sounds, Soft, Non-Tender, No Organomegaly, No Distention (Female) Exam: Deferred Back Exam: Normal Inspection Extremities: Normal Inspection, Normal Range of Motion, Non-Tender, No Pedal Edema Skin: Warm Neurological: No New Focal Deficit Psy/Mental Status: Alert, Normal Affect, Normal Mood - Problem List Review Problem List Initiated/Reviewed/Updated: Yes - My Orders Last 24 Hours: My Active Orders 07/29/17 20:53 Accu Check [Blood Glucose Check, Bedside] [RC] QIDACANDBED 07/29/17 20:57 Dextrose 50% in Water 50 ml IVPUSH ASDIRECTED PRN 07/29/17 20:58 Metoprolol Tartrate [Lopressor] 5 mg IVPUSH Q6H PRN Isolation [COMM] Routine 07/29/17 21:00 Cholestyramine/Aspartame [Prevalite Packet] 4 gm PO BID Metoprolol Tartrate [Lopressor] 50 mg PO BID Patient's Own Medication [Ptom] 0 each PO TID DESTINI Hose [Antiembolic Hose] [OM.PC] Routine 07/29/17 21:03 hydrALAZINE [Apresoline] 20 mg IVPUSH Q6H PRN 07/29/17 21:30 Enoxaparin [Lovenox] 40 mg SUBCUT Q24H 07/29/17 22:00 Insulin Aspart [NovoLOG] See Protocol SUBCUT QIDACANDBED 07/29/17 23:48 Resuscitation Status Routine 07/30/17 01:09 Activity as Tolerated [RC] DAILY 07/30/17 05:42 THYROXINE (T4) [REF] Routine 07/30/17 09:00 Aspirin [Halfprin] 81 mg PO DAILY Citalopram [Celexa] 20 mg PO DAILY Rosuvastatin [Crestor] 10 mg PO DAILY 07/30/17 09:20 Oxygen Therapy [RC] ASDIRECTED 07/30/17 10:29 EKG 12 Lead [EK] Stat 07/30/17 10:30 EKG Documentation Completion [RC] ASDIRECTED EKG Documentation Completion [RC] ASDIRECTED EKG 12 Lead [EK] Routine 07/30/17 10:42 Acetaminophen [Tylenol] 650 mg PO Q4H PRN 07/30/17 Breakfast ADA Diabetic [[place] [employer] Diet] [DIET] 07/31/17 05:00 BMP [BASIC METABOLIC PANEL,BMP] [CHEM] DAILY CBC WITH AUTO DIFF [HEME] DAILY MAGNESIUM [CHEM] DAILY 08/01/17 05:00 BMP [BASIC METABOLIC PANEL,BMP] [CHEM] DAILY CBC WITH AUTO DIFF [HEME] DAILY MAGNESIUM [CHEM] DAILY 08/02/17 05:00 BMP [BASIC METABOLIC PANEL,BMP] [CHEM] DAILY CBC WITH AUTO DIFF [HEME] DAILY MAGNESIUM [CHEM] DAILY 08/03/17 05:00 BMP [BASIC METABOLIC PANEL,BMP] [CHEM] DAILY CBC WITH AUTO DIFF [HEME] DAILY MAGNESIUM [CHEM] DAILY - Plan Plan:: Impression: SVT, s/p adenosine; AV cristy blockers--->converted to sinus rhythm/tachycardia History of A Fib Chest pain with h/o CAD COPD with productive cough; tobacco dependence > 40 pack years Diarrhea with electrolyte imbalance; abdominal pain Dehydration with acute renal failure Chronic Morbid obesity, stage III LOLI HTN HLD GERD Diabetes mellitus type 2 CKD stage 3 Depression Plan: MS with telemetry IVF Infectious work up; droplet isolation Ischemic work up; possible stress test-->TBD MR research regarding recent office visit Increase cholestyramine Address tobacco cessation Replace electrolytes DVT/GI prophylaxis
[2017-07-30] MEDS ORDERED: Magnesium Sulfate/Water 2 GM in Premix Bag 1 BAG IV ONE (14:35)
[2017-07-30] MEDS ORDERED: Codeine/Promethazine 10-6.25 MG/5 ML Syrup 5 ML UD Cup PO PRN (14:38)
[2017-07-30] MEDS: Pantoprazole 40 MG Tab.CR PO SCH (15:14)
[2017-07-30] MEDS: Benzonatate 100 MG Cap PO PRN (15:48)
[2017-07-30] MEDS ORDERED: diphenhydrAMINE 25 MG Cap PO PRN (16:35)
[2017-07-30] MEDS ORDERED: predniSONE 20 MG Tab PO ONE (16:37)
[2017-07-30] MEDS: Mometasone Furoate HFA 100mcg/Puff 13 GM Inhaler INH SCH (20:18)
[2017-07-30] MEDS: Potassium Chloride 20 MEQ Tab.ER PO SCH (20:36)
[2017-07-30] MEDS: Enoxaparin 40 MG/0.4 ML Syringe SUBCUT SCH (20:36)
[2017-07-31] MEDS: Pantoprazole 40 MG Tab.CR PO SCH (06:26)
[2017-07-31] MEDS: Benzonatate 100 MG Cap PO PRN (06:26)
[2017-07-31] MEDS: Insulin Aspart 100 Units/ML 3 ML Pen SUBCUT SCH ×4 (06:26→21:21)
[2017-07-31] MEDS: Rosuvastatin 10 MG Tab PO SCH (08:20)
[2017-07-31] MEDS: Potassium Chloride 20 MEQ Tab.ER PO SCH ×2 (08:20→20:11)
[2017-07-31] MEDS: Citalopram 20 MG Tab PO SCH (08:20)
[2017-07-31] MEDS: Metoprolol Tartrate 25 MG Tab PO SCH ×2 (08:20→20:12)
[2017-07-31] MEDS: Aspirin 81 MG Tab.EC PO SCH (08:20)
[2017-07-31] MEDS: Cholestyramine/Aspartame Powder 4 GM Packet PO SCH (08:21)
[2017-07-31] MEDS: PROTEASE PO SCH ×3 (08:22→20:20)
[2017-07-31] MEDS: LIPASE PO SCH ×3 (08:22→20:20)
[2017-07-31] MEDS: AMYLASE PO SCH ×3 (08:22→20:20)
[2017-07-31] MEDS: Mometasone Furoate HFA 100mcg/Puff 13 GM Inhaler INH SCH ×2 (09:03→20:25)
--- NOTE | 2017-07-31 09:19 | PCM.PN ---
- General Info Date of Service: 07/31/17 Functional Status: Reports: Pain Controlled, Tolerating Diet, Ambulating, Urinating - Review of Systems General: Reports: No Symptoms HEENT: Reports: No Symptoms Pulmonary: Reports: No Symptoms Cardiovascular: Reports: No Symptoms Gastrointestinal: Reports: No Symptoms Genitourinary: Reports: No Symptoms Musculoskeletal: Reports: No Symptoms Skin: Reports: Pruritis, Other (hives) Neurological: Reports: No Symptoms Psychiatric: Reports: No Symptoms - Patient Data Vitals - Most Recent: Last Vital Signs Temp 37.2 C 07/31/17 08:17 Pulse 65 07/31/17 08:20 Resp 18 07/31/17 08:17 BP 138/90 07/31/17 08:20 Pulse Ox 98 07/31/17 09:03 Weight - Most Recent: 116.392 kg I&O - Last 24 Hours: Intake & Output 07/30/17 07/31/17 07/31/17 22:59 06:59 14:59 Intake Total 890 200 Output Total 300 200 Balance 590 0 Lab Results Last 24 Hours: Laboratory Results - last 24 hr 07/30/17 07/30/17 07/30/17 Range/Units 11:28 16:51 20:35 WBC (3.98-10.04) K/mm3 RBC (3.98-5.22) M/mm3 Hgb (11.2-15.7) gm/L Hct (34.1-44.9) % MCV (79.4-94.8) fl MCH (25.6-32.2) pg MCHC (32.2-35.5) g/dl RDW Std Deviation (36.4-46.3) fL Plt Count (182-369) K/mm3 MPV (9.4-12.3) fl Neut % (Auto) (34.0-71.1) % Lymph % (Auto) (19.3-51.7) % [place] % (Auto) (4.7-12.5) % Eos % (Auto) (0.7-5.8) Baso % (Auto) (0.1-1.2) % Neut # (Auto) (1.56-6.13) K/mm3 Lymph # (Auto) (1.18-3.74) K/mm3 [place] # (Auto) (0.24-0.36) K/mm3 Eos # (Auto) (0.04-0.36) K/mm3 Baso # (Auto) (0.01-0.08) K/mm3 Sodium (136-145) mEq/L Potassium (3.5-5.1) mEq/L Chloride (98-107) mEq/L Carbon Dioxide (21-32) mEq/L Anion Gap (5-15) BUN (7-18) mg/dL Creatinine (0.55-1.02) mg/dL Est Cr Clr Drug Dosing mL/min Estimated GFR (MDRD) (>60) mL/min BUN/Creatinine Ratio (14-18) Glucose (80-115) mg/dL POC Glucose 102 87 143 H (80-115) mg/dL Calcium (8.5-10.1) mg/dL Magnesium (1.8-2.4) mg/dl C-Reactive Protein (<1.0) mg/dL 07/31/17 07/31/17 07/31/17 Range/Units 05:30 05:30 05:30 WBC 4.39 (3.98-10.04) K/mm3 RBC 3.32 L (3.98-5.22) M/mm3 Hgb 10.1 L (11.2-15.7) gm/L Hct 30.9 L (34.1-44.9) % MCV 93.1 (79.4-94.8) fl MCH 30.4 (25.6-32.2) pg MCHC 32.7 (32.2-35.5) g/dl RDW Std Deviation 48.8 H (36.4-46.3) fL Plt Count 160 L (182-369) K/mm3 MPV 10.4 (9.4-12.3) fl Neut % (Auto) 67.0 (34.0-71.1) % Lymph % (Auto) 21.4 (19.3-51.7) % [place] % (Auto) 4.3 L (4.7-12.5) % Eos % (Auto) 6.6 H (0.7-5.8) Baso % (Auto) 0.5 (0.1-1.2) % Neut # (Auto) 2.94 (1.56-6.13) K/mm3 Lymph # (Auto) 0.94 L (1.18-3.74) K/mm3 [place] # (Auto) 0.19 L (0.24-0.36) K/mm3 Eos # (Auto) 0.29 (0.04-0.36) K/mm3 Baso # (Auto) 0.02 (0.01-0.08) K/mm3 Sodium 137 (136-145) mEq/L Potassium 4.9 (3.5-5.1) mEq/L Chloride 104 (98-107) mEq/L Carbon Dioxide 26 (21-32) mEq/L Anion Gap 11.9 (5-15) BUN 12 (7-18) mg/dL Creatinine 0.9 (0.55-1.02) mg/dL Est Cr Clr Drug Dosing 52.38 mL/min Estimated GFR (MDRD) > 60 (>60) mL/min BUN/Creatinine Ratio 13.3 L (14-18) Glucose 130 H (80-115) mg/dL POC Glucose (80-115) mg/dL Calcium 8.3 L (8.5-10.1) mg/dL Magnesium 2.3 (1.8-2.4) mg/dl C-Reactive Protein 8.3 H* (<1.0) mg/dL [place] Results Last 24 Hours: Microbiology 07/29/17 19:20 Respiratory Virus Panel (PCR) - Final Nasopharyngeal Swab 07/30/17 10:10 Stool for WBCs - Final Stool / Feces NO WBC SEEN Rotavirus Antigen - Final NEGATIVE ROTAVIRUS ANTIGEN Med Orders - Current: Current Medications Acetaminophen (Tylenol) 650 mg PO Q4H PRN PRN Reason: Pain Last Admin: 07/30/17 10:50 Dose: 650 mg Aspirin (Halfprin) 81 mg PO DAILY [facility] Last Admin: 07/31/17 08:20 Dose: 81 mg Benzonatate (Tessalon Perles) 200 mg PO TID PRN PRN Reason: Cough Last Admin: 07/31/17 06:26 Dose: 200 mg Cholestyramine Resin (Prevalite Packet) 2 gm PO BID [facility] Last Admin: 07/31/17 08:21 Dose: 2 gm Citalopram Hydrobromide (Celexa) 20 mg PO DAILY [facility] Last Admin: 07/31/17 08:20 Dose: 20 mg Dextrose/Water (Dextrose 50% In Water) 50 ml IVPUSH ASDIRECTED PRN PRN Reason: Hypoglycemia Diphenhydramine HCl (Benadryl) 25 mg PO Q6H PRN PRN Reason: Hives Enoxaparin Sodium (Lovenox) 40 mg SUBCUT Q24H [facility] Last Admin: 07/30/17 20:36 Dose: 40 mg Hydralazine HCl (Apresoline) 20 mg IVPUSH Q6H PRN PRN Reason: Hypertension Insulin Aspart (Novolog) 0 unit SUBCUT QIDACANDBED [facility]; Protocol Last Admin: 07/31/17 06:26 Dose: Not Given Metoprolol Tartrate (Lopressor) 50 mg PO BID [facility] Last Admin: 07/31/17 08:20 Dose: 50 mg Metoprolol Tartrate (Lopressor) 5 mg IVPUSH Q6H PRN PRN Reason: HR>120 Mometasone Furoate (Asmanex Hfa 100mcg) 0 gm INH BID [facility] Last Admin: 07/31/17 09:03 Dose: 1 puff Pantoprazole Sodium (Protonix) 40 mg PO DAILY@0700 [facility] Last Admin: 07/31/17 06:26 Dose: 40 mg Amylase/Lipase/Protease [Creon Dr 12,000 Units] 0 each PO TID [facility] Last Admin: 07/31/17 08:22 Dose: Not Given Potassium Chloride (Klor-Con M20) 20 meq PO BID [facility] Last Admin: 07/31/17 08:20 Dose: 20 meq Promethazine HCl/Codeine (Phenergan With Codeine) 5 ml PO Q6H PRN PRN Reason: COUGH/NAUSEA Rosuvastatin Calcium (Crestor) 10 mg PO DAILY [facility] Last Admin: 07/31/17 08:20 Dose: 10 mg Sodium Chloride (Saline Flush) 10 ml FLUSH ASDIRECTED PRN PRN Reason: Keep Vein Open Last Admin: 07/29/17 16:55 Dose: 10 ml Discontinued Medications Acetaminophen (Tylenol) 650 mg PO NOW ONE Stop: 07/29/17 18:06 Last Admin: 07/29/17 18:11 Dose: 650 mg Adenosine (Adenocard) 6 mg IVPUSH NOW ONE Stop: 07/29/17 16:55 Last Admin: 07/29/17 16:59 Dose: 6 mg Adenosine (Adenocard) Confirm Administered Dose 6 mg .ROUTE .STK-MED ONE Stop: 07/29/17 16:57 Last Admin: 07/29/17 17:52 Dose: Not Given Adenosine (Adenocard) Confirm Administered Dose 12 mg .ROUTE .STK-MED ONE Stop: 07/29/17 16:57 Last Admin: 07/29/17 17:52 Dose: Not Given Cholestyramine Resin (Prevalite Packet) 4 gm PO BID [facility] Last Admin: 07/30/17 08:30 Dose: Not Given Famotidine (Pepcid) 20 mg PO DAILY [facility] Last Admin: 07/30/17 10:13 Dose: 20 mg Sodium Chloride (Normal Saline) Confirm Administered Dose 1,000 mls @ as directed .ROUTE .STK-MED ONE Stop: 07/29/17 16:57 Last Admin: 07/29/17 17:52 Dose: Not Given Sodium Chloride (Normal Saline) Confirm Administered Dose 1,000 mls @ as directed .ROUTE .STK-MED ONE Stop: 07/29/17 17:48 Last Admin: 07/29/17 17:52 Dose: Not Given Sodium Chloride (Normal Saline) 1,000 mls @ 999 mls/hr IV ONETIME ONE Stop: 07/29/17 17:55 Last Admin: 07/29/17 16:55 Dose: 999 mls/hr Magnesium Sulfate 2 gm/ Premix 50 mls @ 50 mls/hr IV ONETIME ONE Stop: 07/29/17 18:54 Last Admin: 07/29/17 18:10 Dose: 50 mls/hr Magnesium Sulfate 2 gm/ Premix 50 mls @ 50 mls/hr IV ONETIME ONE Stop: 07/29/17 20:10 Last Admin: 07/29/17 19:44 Dose: 50 mls/hr Magnesium Sulfate 4 gm/ Premix 100 mls @ 300 mls/hr IV ONETIME ONE Stop: 07/29/17 20:58 Last Admin: 07/29/17 22:16 Dose: Not Given Magnesium Sulfate 2 gm/ Premix 50 mls @ 25 mls/hr IV ONETIME ONE Stop: 07/30/17 16:34 Last Admin: 07/30/17 15:14 Dose: 25 mls/hr Metoprolol Tartrate (Lopressor) Confirm Administered Dose 5 mg .ROUTE .STK-MED ONE Stop: 07/29/17 17:49 Last Admin: 07/29/17 17:52 Dose: Not Given Metoprolol Tartrate (Lopressor) 5 mg IVPUSH ONETIME ONE Stop: 07/29/17 17:51 Last Admin: 07/29/17 17:51 Dose: 5 mg Metoprolol Tartrate (Lopressor) 50 mg PO ONETIME ONE Stop: 07/29/17 18:03 Last Admin: 07/29/17 18:11 Dose: 50 mg Potassium Chloride (Klor-Con M20) 40 meq PO ONETIME ONE Stop: 07/30/17 08:33 Last Admin: 07/30/17 08:40 Dose: 40 meq Potassium Chloride (Klor-Con M20) 40 meq PO ONETIME ONE Stop: 07/30/17 12:33 Last Admin: 07/30/17 12:05 Dose: 40 meq Prednisone (Prednisone) 20 mg PO ONETIME ONE Stop: 07/30/17 16:38 Last Admin: 07/30/17 16:49 Dose: 20 mg - Exam Quality Assessment: DVT Prophylaxis General: Alert, Oriented, Cooperative, No Acute Distress HEENT: Pupils Equal, Pupils Reactive, EOMI Neck: Trachea Midline, No JVD Lungs: Normal Respiratory Effort Cardiovascular: Regular Rate, Regular Rhythm GI/Abdominal Exam: Normal Bowel Sounds, Soft, Non-Tender, No Organomegaly, No Distention (Female) Exam: Deferred Back Exam: Normal Inspection Extremities: Normal Range of Motion, Non-Tender, Redness, Other (hives) Skin: Warm, Rash Neurological: No New Focal Deficit, Normal Gait, Normal Speech Psy/Mental Status: Alert, Normal Affect, Normal Mood - Problem List Review Problem List Initiated/Reviewed/Updated: Yes - My Orders Last 24 Hours: My Active Orders 07/30/17 09:00 Aspirin [Halfprin] 81 mg PO DAILY Citalopram [Celexa] 20 mg PO DAILY Rosuvastatin [Crestor] 10 mg PO DAILY 07/30/17 09:20 Oxygen Therapy [RC] ASDIRECTED 07/30/17 10:29 EKG 12 Lead [EK] Stat 07/30/17 10:30 EKG Documentation Completion [RC] ASDIRECTED EKG 12 Lead [EK] Routine 07/30/17 10:42 Acetaminophen [Tylenol] 650 mg PO Q4H PRN 07/30/17 14:38 Benzonatate [Tessalon Perles] 200 mg PO TID PRN Codeine/Promethazine [Phenergan with Codeine] 5 ml PO Q6H PRN 07/30/17 14:45 Pantoprazole [ProTONIX] 40 mg PO DAILY@0700 07/30/17 16:35 diphenhydrAMINE [Benadryl] 25 mg PO Q6H PRN 07/30/17 21:00 Cholestyramine/Aspartame [Prevalite Packet] 2 gm PO BID Mometasone Furoate 100mcg [Asmanex HFA 100mcg] 0 gm INH BID Potassium Chloride [Klor-Con M20] 20 meq PO BID 07/31/17 09:00 CXR [Chest 2V] [CR] Routine 08/01/17 05:00 BMP [BASIC METABOLIC PANEL,BMP] [CHEM] DAILY CBC WITH AUTO DIFF [HEME] DAILY MAGNESIUM [CHEM] DAILY 08/02/17 05:00 BMP [BASIC METABOLIC PANEL,BMP] [CHEM] DAILY CBC WITH AUTO DIFF [HEME] DAILY MAGNESIUM [CHEM] DAILY 08/03/17 05:00 BMP [BASIC METABOLIC PANEL,BMP] [CHEM] DAILY CBC WITH AUTO DIFF [HEME] DAILY MAGNESIUM [CHEM] DAILY - Plan Plan:: Impression: SVT, s/p adenosine; AV cristy blockers--->converted to sinus rhythm/tachycardia History of A Fib Chest pain with h/o CAD COPD with productive cough; tobacco dependence > 40 pack years; Dx Rhinovirus otherwise negative eval for resp infection. Diarrhea with electrolyte imbalance; abdominal pain-->resolved Dehydration with acute renal failure Chronic Morbid obesity, stage III LOLI HTN HLD GERD Diabetes mellitus type 2 CKD stage 3 Depression Plan: MS with telemetry IVF Possible contact dermatitis, will give Solumedrol and Benadyl for 48 hours. Infectious work up; droplet isolation--rhinovirus Ischemic work up; possible stress test-->TBA as an outpatient MR research regarding recent office visit-->completed Increase cholestyramine, well tolerated; resume home dose at DC. Address tobacco cessation-->addressed, to ready to quit. Replace electrolytes-->resume lower dose MgO 400 mg daily. DVT/GI prophylaxis
[2017-07-31] MEDS ORDERED: LORazepam 0.5 MG Tab PO PRN (09:20)
--- NOTE | 2017-07-31 09:20 | CR ---
Chest: Two views of the chest were obtained. Comparison: Prior chest x-ray of 07/29/17. Heart size appears within normal limits for PA technique. Tortuous thoracic aorta is seen. Questionable parenchymal density within the anterior upper lung which is seen on the lateral view. Difficult to completely exclude a small area of pneumonia. Lungs otherwise are clear. Previous cervical spine surgery is noted. Mild diffuse disc space narrowing is noted within the spine with minimal endplate osteophytes. Impression: 1. Questionable mild area of increased density anteriorly within the upper chest on the lateral view. Difficult to exclude small area of pneumonia. 2. Other incidental findings. Diagnostic code #3
[2017-07-31] MEDS: Acetaminophen 325 MG Tab PO PRN (11:41)
[2017-07-31] MEDS ORDERED: PROTEASE PO SCH (15:00)
[2017-07-31] MEDS ORDERED: AMYLASE PO SCH (15:00)
[2017-07-31] MEDS ORDERED: LIPASE PO SCH (15:00)
[2017-07-31] MEDS: methylPREDNISolone Sodium Succinate 125 MG/2 ML SDV IVPUSH SCH (17:27)
[2017-07-31] MEDS: Lisinopril 20 MG Tab PO SCH (20:08)
[2017-07-31] MEDS: Enoxaparin 40 MG/0.4 ML Syringe SUBCUT SCH (20:29)
[2017-08-01] MEDS: methylPREDNISolone Sodium Succinate 125 MG/2 ML SDV IVPUSH SCH (04:27)
[2017-08-01] MEDS: Pantoprazole 40 MG Tab.CR PO SCH (06:05)
[2017-08-01] MEDS: Insulin Aspart 100 Units/ML 3 ML Pen SUBCUT SCH ×2 (06:40→11:37)
[2017-08-01] MEDS: Citalopram 20 MG Tab PO SCH (08:12)
[2017-08-01] MEDS: Potassium Chloride 20 MEQ Tab.ER PO SCH (08:12)
[2017-08-01] MEDS: Rosuvastatin 10 MG Tab PO SCH (08:12)
[2017-08-01] MEDS: Aspirin 81 MG Tab.EC PO SCH (08:12)
[2017-08-01] MEDS: PROTEASE PO SCH (08:13)
[2017-08-01] MEDS: LIPASE PO SCH (08:13)
[2017-08-01] MEDS: AMYLASE PO SCH (08:13)
[2017-08-01] MEDS: Metoprolol Tartrate 25 MG Tab PO SCH (08:15)
[2017-08-01] MEDS: Lisinopril 20 MG Tab PO SCH (08:15)
[2017-08-01] MEDS: Mometasone Furoate HFA 100mcg/Puff 13 GM Inhaler INH SCH (08:33)
--- NOTE | 2017-08-01 09:44 | PCM.DCSUM1 ---
Discharge Summary - Hospital Course Free Text/Narrative:: 66 year old female who has a history of CAD with PCI presented with atypical chest pain. However it was associated with a rapid heart rate described as palpitations. She was found to be in SVT and treated with adenosine as well as additional AV critsy blockers. She denied nausea/vomiting, SOB, diaphoresis. The patient denied fever/chills; she has had a persistent complaint of diarrhea. This was believed to be associated with metformin and magnesium; the medication and supplement was stopped. Abnormal electrolytes were noted including a Mg 0.6; this was supplemented in the ED. Final Dx: --PSVT --COPD exacerbation with Rhinovirus --Dehydration with abnormal electrolytes --Contact dermatitis - Discharge Data Discharge Date: 08/01/17 Discharge Disposition: Home, Self-Care 01 Condition: Good - Patient Summary/Data Consults: Consultations 07/31/17 09:37 Consult to Vice President Diversity [Consult to Diabetic Nurse Specialist] [CONS] Routine - Patient Instructions Diet: Heart Healthy Diet, Diabetic Diet Driving: Do Not Drive Showering/Bathing: May Shower Notify Provider of: Fever, Increased Pain, Swelling and Redness, Nausea and/or Vomiting - Discharge Plan Prescriptions/Med Rec: Magnesium Oxide 400 mg PO DAILY #30 tablet Home Medications: Home Meds Aspirin [Ecotrin] 81 mg PO DAILY 05/28/17 [History] Citalopram [Citalopram HBr] 20 mg PO QPM 05/28/17 [History] Lisinopril [Prinivil] 40 mg PO DAILY 05/28/17 [History] atorvaSTATin [Lipitor] 40 mg PO DAILY 05/28/17 [History] Colestipol [Colestipol HCl] 1 gm PO TID 07/29/17 [History] LORazepam [Ativan] 0.5 mg PO BID PRN 07/29/17 [History] Metoprolol Tartrate 50 mg PO BID 07/29/17 [History] Triamterene/Hydrochlorothiazid [Triamterene-HCTZ 37.5-25 MG] 0.5 tab PO QPM [History] Amylase/Lipase/Protease [Creon DR 24,000 Unit] 4 cap PO TID 07/30/17 [History] Benzonatate 200 mg PO TID PRN 07/30/17 [History] Budesonide [Pulmicort Flexhaler] 90 mcg INH BID 07/30/17 [History] Pantoprazole [ProTONIX] 40 mg PO DAILY 07/30/17 [History] Promethazine HCl/Codeine [Prometh-Codein 6.25-10 mg/5 ml] 5 ml PO Q6HR PRN 07/30 [History] Magnesium Oxide 400 mg PO DAILY #30 tablet 08/01/17 [Rx] Other Amb Orders: BASIC METABOLIC PANEL,BMP [CHEM] Time Frame: 1 Week, Facility: [facility] [employer], Location: [facility] MAGNES[facility] [CHEM] Time Frame: 1 Week, Facility: [facility] [employer], Location: [facility] - [facility] Patient Handouts: Steps to Quit Smoking Forms: ED Department Discharge Referrals: Chris Trujillo MD [Physician] - 08/12/17 10:15 am (please attend the follow up appointment as scheduled ) PCP,None [Ordering Only Provider] - - Discharge Summary/Plan Comment DC Time >30 min.: No Discharge Summary/Plan Comment: Impression: SVT, s/p adenosine; AV cristy blockers--->converted to sinus rhythm/tachycardia History of A Fib Chest pain with h/o CAD COPD with productive cough; tobacco dependence > 40 pack years; Dx: URI, Rhinovirus otherwise negative eval for resp infection. Diarrhea with electrolyte imbalance; abdominal pain-->resolved Dehydration with acute renal failure Chronic Morbid obesity, stage III LOLI HTN HLD GERD Diabetes mellitus type 2 CKD stage 3 Depression Plan: MS with telemetry IVF Possible contact dermatitis, will give Solumedrol and Benadyl for 48 hours, completed. Infectious work up; droplet isolation--rhinovirus Ischemic work up; possible stress test-->TBA as an outpatient MR research regarding recent office visit-->completed Increase cholestyramine, well tolerated; resume home dose at [place]. Address tobacco cessation-->addressed, to ready to quit. Replace electrolytes-->resume lower dose MgO 400 mg daily. DVT/GI prophylaxis - General Info Date of Service: 07/29/17 Functional Status: Reports: Pain Controlled, Tolerating Diet, Ambulating, Urinating - Review of Systems General: Reports: No Symptoms HEENT: Reports: No Symptoms Pulmonary: Reports: No Symptoms Cardiovascular: Reports: No Symptoms Gastrointestinal: Reports: No Symptoms Genitourinary: Reports: No Symptoms Musculoskeletal: Reports: No Symptoms Skin: Reports: No Symptoms Neurological: Reports: No Symptoms Psychiatric: Reports: No Symptoms - Patient Data Vitals - Most Recent: Last Vital Signs Temp 36.6 C 08/01/17 08:15 Pulse 67 08/01/17 08:15 Resp 18 08/01/17 08:15 BP 160/67 H 08/01/17 08:15 Pulse Ox 96 08/01/17 08:35 Weight - Most Recent: 115.031 kg I&O - Last 24 hours: Intake & Output 07/31/17 08/01/17 08/01/17 22:59 06:59 14:59 Intake Total 600 160 Balance 600 160 Lab Results - Last 24 hrs: Laboratory Results - last 24 hr 07/31/17 07/31/17 07/31/17 Range/Units 06:22 11:06 17:21 WBC (3.98-10.04) K/mm3 RBC (3.98-5.22) M/mm3 Hgb (11.2-15.7) gm/L Hct (34.1-44.9) % MCV (79.4-94.8) fl MCH (25.6-32.2) pg MCHC (32.2-35.5) g/dl RDW Std Deviation (36.4-46.3) fL Plt Count (182-369) K/mm3 MPV (9.4-12.3) fl Neut % (Auto) (34.0-71.1) % Lymph % (Auto) (19.3-51.7) % [place] % (Auto) (4.7-12.5) % Eos % (Auto) (0.7-5.8) Baso % (Auto) (0.1-1.2) % Neut # (Auto) (1.56-6.13) K/mm3 Lymph # (Auto) (1.18-3.74) K/mm3 [place] # (Auto) (0.24-0.36) K/mm3 Eos # (Auto) (0.04-0.36) K/mm3 Baso # (Auto) (0.01-0.08) K/mm3 Sodium (136-145) mEq/L Potassium (3.5-5.1) mEq/L Chloride (98-107) mEq/L Carbon Dioxide (21-32) mEq/L Anion Gap (5-15) BUN (7-18) mg/dL Creatinine (0.55-1.02) mg/dL Est Cr Clr Drug Dosing mL/min Estimated GFR (MDRD) (>60) mL/min BUN/Creatinine Ratio (14-18) Glucose (80-115) mg/dL POC Glucose 113 92 94 (80-115) mg/dL Calcium (8.5-10.1) mg/dL Magnesium (1.8-2.4) mg/dl C-Reactive Protein (<1.0) mg/dL 07/31/17 08/01/17 08/01/17 Range/Units 20:18 05:32 05:32 WBC 4.11 (3.98-10.04) K/mm3 RBC 3.50 L (3.98-5.22) M/mm3 Hgb 10.4 L (11.2-15.7) gm/L Hct 32.6 L (34.1-44.9) % MCV 93.1 (79.4-94.8) fl MCH 29.7 (25.6-32.2) pg MCHC 31.9 L (32.2-35.5) g/dl RDW Std Deviation 47.8 H (36.4-46.3) fL Plt Count 188 (182-369) K/mm3 MPV 10.5 (9.4-12.3) fl Neut % (Auto) 69.6 (34.0-71.1) % Lymph % (Auto) 27.0 (19.3-51.7) % [place] % (Auto) 2.7 L (4.7-12.5) % Eos % (Auto) 0.5 L (0.7-5.8) Baso % (Auto) 0.2 (0.1-1.2) % Neut # (Auto) 2.86 (1.56-6.13) K/mm3 Lymph # (Auto) 1.11 L (1.18-3.74) K/mm3 [place] # (Auto) 0.11 L (0.24-0.36) K/mm3 Eos # (Auto) 0.02 L (0.04-0.36) K/mm3 Baso # (Auto) 0.01 (0.01-0.08) K/mm3 Sodium 135 L (136-145) mEq/L Potassium 5.2 H (3.5-5.1) mEq/L Chloride 102 (98-107) mEq/L Carbon Dioxide 24 (21-32) mEq/L Anion Gap 14.2 (5-15) BUN 19 H (7-18) mg/dL Creatinine 1.0 (0.55-1.02) mg/dL Est Cr Clr Drug Dosing 47.14 mL/min Estimated GFR (MDRD) 55 (>60) mL/min BUN/Creatinine Ratio 19.0 H (14-18) Glucose 142 H (80-115) mg/dL POC Glucose 157 H (80-115) mg/dL Calcium 9.1 (8.5-10.1) mg/dL Magnesium 1.9 (1.8-2.4) mg/dl C-Reactive Protein (<1.0) mg/dL 08/01/17 08/01/17 Range/Units 05:32 06:12 WBC (3.98-10.04) K/mm3 RBC (3.98-5.22) M/mm3 Hgb (11.2-15.7) gm/L Hct (34.1-44.9) % MCV (79.4-94.8) fl MCH (25.6-32.2) pg MCHC (32.2-35.5) g/dl RDW Std Deviation (36.4-46.3) fL Plt Count (182-369) K/mm3 MPV (9.4-12.3) fl Neut % (Auto) (34.0-71.1) % Lymph % (Auto) (19.3-51.7) % [place] % (Auto) (4.7-12.5) % Eos % (Auto) (0.7-5.8) Baso % (Auto) (0.1-1.2) % Neut # (Auto) (1.56-6.13) K/mm3 Lymph # (Auto) (1.18-3.74) K/mm3 [place] # (Auto) (0.24-0.36) K/mm3 Eos # (Auto) (0.04-0.36) K/mm3 Baso # (Auto) (0.01-0.08) K/mm3 Sodium (136-145) mEq/L Potassium (3.5-5.1) mEq/L Chloride (98-107) mEq/L Carbon Dioxide (21-32) mEq/L Anion Gap (5-15) BUN (7-18) mg/dL Creatinine (0.55-1.02) mg/dL Est Cr Clr Drug Dosing mL/min Estimated GFR (MDRD) (>60) mL/min BUN/Creatinine Ratio (14-18) Glucose (80-115) mg/dL POC Glucose 133 H (80-115) mg/dL Calcium (8.5-10.1) mg/dL Magnesium (1.8-2.4) mg/dl C-Reactive Protein 3.8 H* (<1.0) mg/dL [facility] Results - Last 24 hrs: Microbiology 07/29/17 19:20 Respiratory Virus Panel (PCR) - Final Nasopharyngeal Swab Med Orders - Current: Current Medications Acetaminophen (Tylenol) 650 mg PO Q4H PRN PRN Reason: Pain Last Admin: 07/31/17 11:41 Dose: 650 mg Aspirin (Halfprin) 81 mg PO DAILY [facility] Last Admin: 08/01/17 08:12 Dose: 81 mg Benzonatate (Tessalon Perles) 200 mg PO TID PRN PRN Reason: Cough Last Admin: 07/31/17 06:26 Dose: 200 mg Citalopram Hydrobromide (Celexa) 20 mg PO DAILY [facility] Last Admin: 08/01/17 08:12 Dose: 20 mg Dextrose/Water (Dextrose 50% In Water) 50 ml IVPUSH ASDIRECTED PRN PRN Reason: Hypoglycemia Diphenhydramine HCl (Benadryl) 25 mg PO Q6H PRN PRN Reason: Hives Enoxaparin Sodium (Lovenox) 40 mg SUBCUT Q24H [facility] Last Admin: 07/31/17 20:29 Dose: 40 mg Insulin Aspart (Novolog) 0 unit SUBCUT QIDACANDBED [facility]; Protocol Last Admin: 08/01/17 06:40 Dose: Not Given Lisinopril (Prinivil) 20 mg PO BID [facility] Last Admin: 08/01/17 08:15 Dose: 20 mg Lorazepam (Ativan) 0.5 mg PO BID PRN PRN Reason: Anxiety Methylprednisolone Sodium Succinate (Solu-Medrol) 125 mg IVPUSH Q12H [facility] Last Admin: 08/01/17 04:27 Dose: 125 mg Metoprolol Tartrate (Lopressor) 50 mg PO BID [facility] Last Admin: 08/01/17 08:15 Dose: 50 mg Metoprolol Tartrate (Lopressor) 5 mg IVPUSH Q6H PRN PRN Reason: HR>120 Mometasone Furoate (Asmanex Hfa 100mcg) 0 gm INH BID [facility] Last Admin: 08/01/17 08:33 Dose: 1 puff Non-Formulary Medication (Triamterene/Hydrochlorothiazid) 0.5 tab PO QPM [facility] Pantoprazole Sodium (Protonix) 40 mg PO DAILY@0700 [facility] Last Admin: 08/01/17 06:05 Dose: 40 mg Amylase/Lipase/Protease [Creon Dr 12,000 Units] 0 each PO TID [facility] Last Admin: 08/01/17 08:13 Dose: Not Given Potassium Chloride (Klor-Con M20) 20 meq PO BID [facility] Last Admin: 08/01/17 08:12 Dose: 20 meq Promethazine HCl/Codeine (Phenergan With Codeine) 5 ml PO Q6H PRN PRN Reason: COUGH/NAUSEA Rosuvastatin Calcium (Crestor) 10 mg PO DAILY [facility] Last Admin: 08/01/17 08:12 Dose: 10 mg Sodium Chloride (Saline Flush) 10 ml FLUSH ASDIRECTED PRN PRN Reason: Keep Vein Open Last Admin: 07/29/17 16:55 Dose: 10 ml Discontinued Medications Acetaminophen (Tylenol) 650 mg PO NOW ONE Stop: 07/29/17 18:06 Last Admin: 07/29/17 18:11 Dose: 650 mg Adenosine (Adenocard) 6 mg IVPUSH NOW ONE Stop: 07/29/17 16:55 Last Admin: 07/29/17 16:59 Dose: 6 mg Adenosine (Adenocard) Confirm Administered Dose 6 mg .ROUTE .STK-MED ONE Stop: 07/29/17 16:57 Last Admin: 07/29/17 17:52 Dose: Not Given Adenosine (Adenocard) Confirm Administered Dose 12 mg .ROUTE .STK-MED ONE Stop: 07/29/17 16:57 Last Admin: 07/29/17 17:52 Dose: Not Given Cholestyramine Resin (Prevalite Packet) 4 gm PO BID [facility] Last Admin: 07/30/17 08:30 Dose: Not Given Cholestyramine Resin (Prevalite Packet) 2 gm PO BID [facility] Last Admin: 07/31/17 08:21 Dose: 2 gm Famotidine (Pepcid) 20 mg PO DAILY [facility] Last Admin: 07/30/17 10:13 Dose: 20 mg Hydralazine HCl (Apresoline) 20 mg IVPUSH Q6H PRN PRN Reason: Hypertension Last Admin: 07/31/17 11:41 Dose: 20 mg Sodium Chloride (Normal Saline) Confirm Administered Dose 1,000 mls @ as directed .ROUTE .STK-MED ONE Stop: 07/29/17 16:57 Last Admin: 07/29/17 17:52 Dose: Not Given Sodium Chloride (Normal Saline) Confirm Administered Dose 1,000 mls @ as directed .ROUTE .STK-MED ONE Stop: 07/29/17 17:48 Last Admin: 07/29/17 17:52 Dose: Not Given Sodium Chloride (Normal Saline) 1,000 mls @ 999 mls/hr IV ONETIME ONE Stop: 07/29/17 17:55 Last Admin: 07/29/17 16:55 Dose: 999 mls/hr Magnesium Sulfate 2 gm/ Premix 50 mls @ 50 mls/hr IV ONETIME ONE Stop: 07/29/17 18:54 Last Admin: 07/29/17 18:10 Dose: 50 mls/hr Magnesium Sulfate 2 gm/ Premix 50 mls @ 50 mls/hr IV ONETIME ONE Stop: 07/29/17 20:10 Last Admin: 07/29/17 19:44 Dose: 50 mls/hr Magnesium Sulfate 4 gm/ Premix 100 mls @ 300 mls/hr IV ONETIME ONE Stop: 07/29/17 20:58 Last Admin: 07/29/17 22:16 Dose: Not Given Magnesium Sulfate 2 gm/ Premix 50 mls @ 25 mls/hr IV ONETIME ONE Stop: 07/30/17 16:34 Last Admin: 07/30/17 15:14 Dose: 25 mls/hr Metoprolol Tartrate (Lopressor) Confirm Administered Dose 5 mg .ROUTE .STK-MED ONE Stop: 07/29/17 17:49 Last Admin: 07/29/17 17:52 Dose: Not Given Metoprolol Tartrate (Lopressor) 5 mg IVPUSH ONETIME ONE Stop: 07/29/17 17:51 Last Admin: 07/29/17 17:51 Dose: 5 mg Metoprolol Tartrate (Lopressor) 50 mg PO ONETIME ONE Stop: 07/29/17 18:03 Last Admin: 07/29/17 18:11 Dose: 50 mg Non-Formulary Medication (Amylase/Lipase/Protease) 4 cap PO TID [facility] Potassium Chloride (Klor-Con M20) 40 meq PO ONETIME ONE Stop: 07/30/17 08:33 Last Admin: 07/30/17 08:40 Dose: 40 meq Potassium Chloride (Klor-Con M20) 40 meq PO ONETIME ONE Stop: 07/30/17 12:33 Last Admin: 07/30/17 12:05 Dose: 40 meq Prednisone (Prednisone) 20 mg PO ONETIME ONE Stop: 07/30/17 16:38 Last Admin: 07/30/17 16:49 Dose: 20 mg - Exam Quality Assessment: Reports: DVT Prophylaxis General: Reports: Alert, Oriented, Cooperative, No Acute Distress HEENT: Reports: Pupils Equal, Pupils Reactive, EOMI Neck: Reports: Trachea Midline, No JVD Lungs: Reports: Normal Respiratory Effort Cardiovascular: Reports: Regular Rate, Regular Rhythm GI/Abdominal Exam: Normal Bowel Sounds, Soft, Non-Tender, No Organomegaly, No Distention (Female) Exam: Deferred Rectal (Female) Exam: Deferred Back Exam: Reports: Normal Inspection Extremities: Normal Inspection, Normal Range of Motion, Non-Tender, No Pedal Edema Skin: Reports: Warm, Rash (resolved) Neurological: Reports: No New Focal Deficit, Normal Gait, Normal Speech Psy/Mental Status: Reports: Alert, Normal Affect, Normal Mood
[2017-08-02] MEDS ORDERED: Magnesium Oxide 400 MG Tab PO SCH (09:00)
== END 2017-08-01 14:47 | disposition home or self-care (01) | DRG 309 ==
LOC: JD.ED 16:37 → JD.MS 20:36
PROVIDERS: ADMIT Internal Medicine Cardiovascular Disease; ATTEND Internal Medicine Cardiovascular Disease
DX: I47.1 Supraventricular tachycardia (principal); I24.8 Other forms of acute ischemic heart disease; Z68.41 Body mass index [BMI] 40.0-44.9, adult; J44.1 Chronic obstructive pulmonary disease with (acute) exacerbation; N17.9 Acute kidney failure, unspecified; E83.42 Hypomagnesemia; I48.91 Unspecified atrial fibrillation; E87.6 Hypokalemia; I25.10 Atherosclerotic heart disease of native coronary artery without angina pectoris; K21.9 Gastro-esophageal reflux disease without esophagitis; I12.9 Hypertensive chronic kidney disease with stage 1 through stage 4 chronic kidney disease, or unspecified chronic kidney disease; N18.3 Chronic kidney disease, stage 3 (moderate); E11.22 Type 2 diabetes mellitus with diabetic chronic kidney disease; F32.9 Major depressive disorder, single episode, unspecified; B34.8 Other viral infections of unspecified site; L25.9 Unspecified contact dermatitis, unspecified cause; G47.33 Obstructive sleep apnea (adult) (pediatric); F17.210 Nicotine dependence, cigarettes, uncomplicated; E66.01 Morbid (severe) obesity due to excess calories; E86.0 Dehydration; E78.5 Hyperlipidemia, unspecified; R32 Unspecified urinary incontinence; G89.29 Other chronic pain; R51 Headache; H54.7 Unspecified visual loss; M54.2 Cervicalgia; R10.11 Right upper quadrant pain; R07.89 Other chest pain; K58.0 Irritable bowel syndrome with diarrhea; Z95.5 Presence of coronary angioplasty implant and graft; R07.9 Chest pain, unspecified; R06.02 Shortness of breath; R00.2 Palpitations; R42 Dizziness and giddiness; R22.43 Localized swelling, mass and lump, lower limb, bilateral; Z88.5 Allergy status to narcotic agent; Z79.01 Long term (current) use of anticoagulants; Z79.82 Long term (current) use of aspirin; Z88.1 Allergy status to other antibiotic agents; Z79.899 Other long term (current) drug therapy
CPT/HCPCS: 36415; 71045; 80053; 81001; 83735; 84443; 84484; 85025; 86140; 87486; 87581; 87633; 87798; 93005; 96361; 96365; 96366; 96375; 99285; A9270 ×2; J0153; J7040; J7050; 71046; 71046-26; 80048; 82962; 84436; 86738; 87425; 89055; 93010; 94640; 94664; 94760; 94761; 99284; J0360; J1650; J2930; J3475; J3490

== ENCOUNTER 2017-09-23 09:25 | Emergency (ER) | payer MEDICARE, OTHER ==
[2017-09-23] MEDS ORDERED: EPINEPHrine 1 MG/ML SDV IM ONE (10:01)
[2017-09-23] MEDS ORDERED: predniSONE 20 MG Tab PO ONE (10:01)
[2017-09-23] MEDS ORDERED: diphenhydrAMINE 50 MG Cap PO ONE (10:01)
--- NOTE | 2017-09-23 10:22 | EDM.PDOC ---
<Michelle Dunn - Last Filed: 09/23/17 10:14> ED HPI GENERAL MEDICAL PROBLEM - General Chief Complaint: Allergic Reaction Stated Complaint: SOB Time Seen by Provider: 09/23/17 09:40 Source of Information: Reports: Patient History Limitations: Reports: No Limitations - History of Present Illness INITIAL COMMENTS - FREE TEXT/NARRATIVE: 67 yo female presents for an allergic reaction after receiving IV contrast for a CT scan yesterday morning. She reports she had a similar reaction after receiving contrast dye a few months prior. She was pre-treated with Benadryl before the scan and has taken another dose a few hours ago with minimal relief. She denies shortness or breath, wheezing, nausea, vomiting or difficulty swallowing. She reports mild chest heaviness. Her main complaint is skin irritation, redness with a burning and itching sensation over her entire body. She is unsure if her face is swollen. She is unsure why she had the scan yesterday. Onset: Sudden Duration: Day(s): (1) Location: Reports: Generalized Quality: Reports: Burning, Other (itching) Severity: Moderate Improves with: Reports: None Worsens with: Reports: None Context: Reports: Other (after CT with IV contrast) Associated Symptoms: Reports: No Other Symptoms Treatments MANUFACTURING MANAGEMENT ASSOCIATE: Reports: Other (see below) Other Treatments MANUFACTURING MANAGEMENT ASSOCIATE: dermaplast spray. benadryl - Related Data Allergies Allergy/AdvReac Type Severity Reaction Status Date / Time hydromorphone [From Dilaudid] Allergy unknown Verified 07/29/17 16:47 Penicillins Allergy Hives Verified 07/29/17 16:47 levofloxacin [From Levaquin] AdvReac Disorientat Verified 07/29/17 21:44 ion Home Meds: Home Meds Aspirin [Ecotrin] 81 mg PO DAILY 05/28/17 [History] Citalopram [Citalopram HBr] 20 mg PO QPM 05/28/17 [History] Lisinopril [Prinivil] 40 mg PO DAILY 05/28/17 [History] atorvaSTATin [Lipitor] 40 mg PO DAILY 05/28/17 [History] Colestipol [Colestipol HCl] 1 gm PO TID 07/29/17 [History] LORazepam [Ativan] 0.5 mg PO BID PRN 07/29/17 [History] Metoprolol Tartrate 50 mg PO BID 07/29/17 [History] Benzonatate 200 mg PO TID PRN 07/30/17 [History] Budesonide [Pulmicort Flexhaler] 90 mcg INH BID 07/30/17 [History] Promethazine HCl/Codeine [Prometh-Codein 6.25-10 mg/5 ml] 5 ml PO Q6HR PRN 07/30 [History] Magnesium Oxide 400 mg PO DAILY #30 tablet 08/01/17 [Rx] amLODIPine [Norvasc] 2.5 mg PO DAILY 09/23/17 [History] Past Medical History - Past Health History Medical/Surgical History: Denies Medical/Surgical History HEENT History: Reports: Impaired Vision, Other (See Below) Other HEENT History: wears reading glasses Cardiovascular History: Reports: Afib, CAD, High Cholesterol, Hypertension, Stents Respiratory History: Reports: Asthma, COPD, Sleep Apnea Gastrointestinal History: Reports: GERD, Hiatal Hernia, Irritable Bowel Syndrome , Other (See Below) Other Gastrointestinal History: collitis Genitourinary History: Reports: Chronic Renal Insuffiency, Urinary Incontinence Other Genitourinary History: at times HYDRAULIC RIVETER History: Reports: Musculoskeletal History: Reports: Fracture, Neck Pain, Chronic, Other (See Below ) Other Musculoskeletal History: 2004 neck surgery Neurological History: Reports: Other (See Below) Psychiatric History: Reports: Depression Endocrine/Metabolic History: Reports: Diabetes, Type II, Obesity/BMI 30+ Hematologic History: Reports: Blood Transfusion(s) Dermatologic History: Reports: None Other Dermatologic History: baseline flushing to cheeks - Infectious Disease History Infectious Disease History: Reports: Chicken Pox - Past Surgical History HEENT Surgical History: Reports: Oral Surgery Cardiovascular Surgical History: Reports: Coronary Artery Stent GI Surgical History: Reports: Appendectomy, Lysis of Adhesions Female Surgical History: Reports: D&C Neurological Surgical History: Reports: C-Spine Social & Family History - Family History Family Medical History: Noncontributory - Tobacco Use Smoking Status *Q: Current Every Day Smoker Years of Tobacco use: 40 Packs/Tins Daily: 0.5 - Caffeine Use Caffeine Use: Reports: Coffee, Tea - Alcohol Use Days Per Week of Alcohol Use: 7 Number of Drinks Per Day: 6 Total Drinks Per Week: 42 - Recreational Drug Use Recreational Drug Use: No - Living Situation & Occupation Living situation: Reports: , Alone Occupation: Disabled ED ROS ALLERGIC REACTION - Review of Systems Review Of Systems: See Below Constitutional: Reports: Chills. Denies: Fever, Malaise, Weakness HEENT: Reports: No Symptoms. Denies: Throat Swelling, Vision Change Respiratory: Reports: No Symptoms. Denies: Shortness of Breath, Wheezing, Pleuritic Chest Pain, Cough Cardiovascular: Reports: Other (mild cheast heaviness). Denies: Chest Pain, Edema, Orthopnea, Palpitations GI/Abdominal: Reports: No Symptoms. Denies: Abdominal Pain, Diarrhea, Nausea : Reports: No Symptoms Musculoskeletal: Reports: No Symptoms Skin: Reports: Pruritis, Rash, Burn(s) Neurological: Reports: No Symptoms. Denies: Dizziness, Headache Psychiatric: Reports: No Symptoms ED EXAM GENERAL NO PERIP PULSE - Physical Exam Exam: See Below Exam Limited By: No Limitations General Appearance: Alert, WD/WN, No Apparent Distress Ears: Normal External Exam, Hearing Grossly Normal Throat/Mouth: Normal Inspection, No Airway Compromise Head: Atraumatic, Normocephalic Neck: Normal Inspection, Supple, Full Range of Motion Respiratory/Chest: No Respiratory Distress, Lungs Clear, Normal Breath Sounds, No Accessory Muscle Use. No: Wheezing Cardiovascular: Regular Rate, Rhythm, No Gallop, No Murmur, No Rub Neurological: Alert, Oriented, Normal Cognition, No Motor/Sensory Deficits Psychiatric: Normal Affect, Normal Mood Skin Exam: Warm, Erythema, Rash, Other (rash and erythema worse on face, neck and trunk, but generalized to the entire body, no wheals, flat macular erythematous rash. ) Course - Vital Signs Last Recorded V/S: Last Vital Signs Temp 99.4 F 09/23/17 12:06 Pulse 76 09/23/17 12:06 Resp 24 H 09/23/17 12:06 BP 111/49 L 09/23/17 12:06 Pulse Ox 90 L 09/23/17 12:06 - Orders/Labs/Meds Meds: Medications Discontinued Medications Generic Name Dose Route Start Last Admin Trade Name Freq PRN Reason Stop Dose Admin Diphenhydramine HCl 50 mg 09/23/17 10:01 09/23/17 10:25 Benadryl PO 09/23/17 10:02 50 mg ONETIME ONE Administration Epinephrine HCl 0.15 mg 09/23/17 10:01 09/23/17 10:23 Adrenalin IM 09/23/17 10:02 0.15 mg ONETIME ONE Administration Prednisone 60 mg 09/23/17 10:01 09/23/17 10:25 Prednisone PO 09/23/17 10:02 60 mg ONETIME ONE Administration Departure - Departure Disposition: Home, Self-Care 01 Clinical Impression: Allergic reaction Qualifiers: Encounter type: initial encounter Qualified Code(s): T78.40XA - Allergy, unspecified, initial encounter - Discharge Information Instructions: Anaphylactic Reaction, Adult Referrals: Chris Trujillo MD [Primary Care Provider] - Forms: ED Department Discharge Additional Instructions: Continue Benadryl 50 mg about every 8 hours or if you prefer go to Claritin 10 mg daily which will be somewhat less sedating. Prednisone 20 mg this evening, 40 mg tomorrow morning, 20 mg Friday evening, 40 mg morning, 20 mg Friday and Friday morning. Symptoms should gradually continue to improve over the next 1-3 days. Follow-up with your medical providers as planned, return to ED as needed if symptoms worsening in any way. <Christopher Lozano - Last Filed: 09/23/17 15:02> Course - Re-Assessments/Exams Free Text/Narrative Re-Assessment/Exam: 09/23/17 15:01 Doing better after treatment of 50 mg Benadryl by mouth, prednisone 60 mg by mouth, appendectomy 0.15 mg IM. She states the last time she had this reaction it took 3 days to totally clear. The erythema however trunk is almost gone faces erythematous still but improved from arrival, arm still quite erythematous. She continued to have no respiratory distress, no wheezing. Discharge instructions as documented. Departure - Departure Time of Disposition: 12:03 Condition: Fair
== END 2017-09-23 12:15 | disposition home or self-care (01) ==
LOC: JD.ED 09:25
DX: L29.9 Pruritus, unspecified (principal); R07.9 Chest pain, unspecified; T50.8X5A Adverse effect of diagnostic agents, initial encounter; I12.9 Hypertensive chronic kidney disease with stage 1 through stage 4 chronic kidney disease, or unspecified chronic kidney disease; E11.22 Type 2 diabetes mellitus with diabetic chronic kidney disease; N18.9 Chronic kidney disease, unspecified; E66.9 Obesity, unspecified; F17.210 Nicotine dependence, cigarettes, uncomplicated; Z88.5 Allergy status to narcotic agent; Z88.0 Allergy status to penicillin; Z88.1 Allergy status to other antibiotic agents; Z79.82 Long term (current) use of aspirin; Z79.899 Other long term (current) drug therapy
CPT/HCPCS: 96372; 99285; A9270; J0171; 99283

== ENCOUNTER 2019-04-01 18:44 | Emergency (ER) | payer MEDICARE, OTHER ==
[2019-04-01] MEDS ORDERED: Diltiazem 50 MG/10 ML SDV IVPUSH ONE (19:06)
[2019-04-01] MEDS ORDERED: Sodium Chloride 0.9% 10 ML Syringe FLUSH PRN (19:06)
--- NOTE | 2019-04-01 19:11 | EDM.PDOC ---
ED HPI GENERAL MEDICAL PROBLEM - General Chief Complaint: Cardiovascular Problem Stated Complaint: RHB Time Seen by Provider: 04/01/19 19:01 Source of Information: Reports: Patient History Limitations: Reports: No Limitations - History of Present Illness INITIAL COMMENTS - FREE TEXT/NARRATIVE: Patient's unfortunate 68-year-old morbidly obese female who appears older than her stated age age presents emergency Department today with complaint of palpitations. Patient reports his symptoms started 2 hours prior to arrival and progressively worsened since that she presented in the murmurs for evaluation. Patient denies any chest pain or shortness of breath no nausea no vomiting no fever no chills. She takes metoprolol to control her atrial fibrillation is not on anticoagulant therapy at this time. - Related Data Allergies Allergy/AdvReac Type Severity Reaction Status Date / Time hydromorphone [From Dilaudid] Allergy unknown Verified 07/29/17 16:47 Iodinated Contrast Media Allergy Hives Verified 09/29/17 08:08 [Iodinated Contrast- Oral and IV Dye] Penicillins Allergy Hives Verified 07/29/17 16:47 levofloxacin [From Levaquin] AdvReac Disorientat Verified 07/29/17 21:44 ion Home Meds: Home Meds Aspirin [Ecotrin EC] 81 mg PO DAILY 05/28/17 [History] Citalopram [Citalopram HBr] 20 mg PO QPM 05/28/17 [History] atorvaSTATin [Lipitor] 40 mg PO DAILY 05/28/17 [History] lisinopriL [Prinivil] 40 mg PO DAILY 05/28/17 [History] Colestipol [Colestipol HCl] 1 gm PO TID 07/29/17 [History] LORazepam [Ativan] 0.5 mg PO BID PRN 07/29/17 [History] Metoprolol Tartrate 50 mg PO BID 07/29/17 [History] Benzonatate 200 mg PO TID PRN 07/30/17 [History] Budesonide [Pulmicort Flexhaler] 90 mcg INH BID 07/30/17 [History] Promethazine HCl/Codeine [Prometh-Codein 6.25-10 mg/5 ml] 5 ml PO Q6HR PRN 07/30 [History] Magnesium Oxide 400 mg PO DAILY #30 tablet 08/01/17 [Rx] amLODIPine [Norvasc] 2.5 mg PO DAILY 09/23/17 [History] Past Medical History - Past Health History Medical/Surgical History: Denies Medical/Surgical History HEENT History: Reports: Impaired Vision, Other (See Below) Other HEENT History: wears reading glasses Cardiovascular History: Reports: Afib, CAD, High Cholesterol, Hypertension, Stents Respiratory History: Reports: Asthma, COPD, Sleep Apnea Gastrointestinal History: Reports: GERD, Hiatal Hernia, Irritable Bowel Syndrome , Other (See Below) Other Gastrointestinal History: collitis Genitourinary History: Reports: Chronic Renal Insuffiency, Urinary Incontinence Other Genitourinary History: at times [employer] History: Reports: Musculoskeletal History: Reports: Fracture, Neck Pain, Chronic, Other (See Below ) Other Musculoskeletal History: 2004 neck surgery Neurological History: Reports: Other (See Below) Psychiatric History: Reports: Depression Endocrine/Metabolic History: Reports: Diabetes, Type II, Obesity/BMI 30+ Hematologic History: Reports: Blood Transfusion(s) Dermatologic History: Reports: None Other Dermatologic History: baseline flushing to cheeks - Infectious Disease History Infectious Disease History: Reports: Chicken Pox - Past Surgical History HEENT Surgical History: Reports: Oral Surgery Cardiovascular Surgical History: Reports: Coronary Artery Stent GI Surgical History: Reports: Appendectomy, Lysis of Adhesions Female Surgical History: Reports: D&C Neurological Surgical History: Reports: C-Spine Social & Family History - Family History Family Medical History: Noncontributory - Tobacco Use Smoking Status *Q: Unknown Ever Smoked - Caffeine Use Caffeine Use: Reports: Coffee, Tea - Living Situation & Occupation Living situation: Reports: , Alone Occupation: Disabled ED ROS GENERAL - Review of Systems Review Of Systems: See Below Constitutional: Denies: Fever Respiratory: Denies: Shortness of Breath, Cough Cardiovascular: Reports: Palpitations. Denies: Chest Pain ED EXAM, GENERAL - Physical Exam Exam: See Below General Appearance: Alert, WD/WN, Mild Distress, Obese Nose: Normal Inspection, Normal Mucosa, No Blood Head: Atraumatic, Normocephalic Neck: Normal Inspection, Supple, Non-Tender, Full Range of Motion Respiratory/Chest: No Respiratory Distress, Lungs Clear, Normal Breath Sounds, No Accessory Muscle Use, Chest Non-Tender Cardiovascular: Tachycardia, Irregularly Irregular GI/Abdominal: Normal Bowel Sounds, Soft, Non-Tender, No Organomegaly, No Distention, No Abnormal Bruit, No Mass Neurological: Alert Skin Exam: Warm, Dry, No Rash EKG INTERPRETATION EKG Date: 04/01/19 Time: 18:58 Rhythm: A-Flutter (2-1 conduction) Perry: LAD-Left Perry Deviation P-Wave: Absent QRS: Normal ST-T: Normal QT: Normal Course - Vital Signs Last Recorded V/S: Last Vital Signs Temp 97.5 F 04/01/19 18:51 Pulse 142 H 04/01/19 18:51 Resp 16 04/01/19 18:51 BP 131/89 04/01/19 18:51 Pulse Ox 92 L 04/01/19 18:51 - Orders/Labs/Meds Orders: Active Orders 24 hr Category Date Time Status EKG 12 Lead [EKG Documentation Completion] [RC] STAT Care 04/01/19 19:05 Active EKG Documentation Completion [RC] ASDIRECTED Care 04/01/19 19:21 Active Chest 1V Frontal [CR] Stat Exams 04/01/19 19:11 Taken UA RFX AGUS AND CULT IF INDIC [URIN] Stat Lab 04/01/19 19:06 Ordered Sodium Chloride 0.9% [Saline Flush] Med 04/01/19 19:06 Active 10 ml FLUSH ASDIRECTED PRN Saline Lock Insert [OM.PC] Stat Oth 04/01/19 19:06 Ordered EKG 12 Lead [EK] Stat Ther 04/01/19 19:21 Ordered Medication Orders Sodium Chloride (Saline Flush) 10 ml FLUSH ASDIRECTED PRN PRN Reason: Keep Vein Open Last Admin: 04/01/19 19:14 Dose: 10 ml Labs: Laboratory Tests 04/01/19 04/01/19 Range/Units 19:05 19:05 WBC 9.90 (3.98-10.04) K/mm3 RBC 4.20 (3.98-5.22) M/mm3 Hgb 13.0 (11.2-15.7) gm/dl Hct 40.1 (34.1-44.9) % MCV 95.5 H D (79.4-94.8) fl MCH 31.0 (25.6-32.2) pg MCHC 32.4 (32.2-35.5) g/dl RDW Std Deviation 51.0 H (36.4-46.3) fL Plt Count 186 (182-369) K/mm3 MPV 10.8 (9.4-12.3) fl Neut % (Auto) 68.1 (34.0-71.1) % Lymph % (Auto) 24.1 (19.3-51.7) % [place] % (Auto) 6.2 (4.7-12.5) % Eos % (Auto) 1.2 (0.7-5.8) Baso % (Auto) 0.2 (0.1-1.2) % Neut # (Auto) 6.74 H (1.56-6.13) K/mm3 Lymph # (Auto) 2.39 (1.18-3.74) K/mm3 [place] # (Auto) 0.61 H (0.24-0.36) K/mm3 Eos # (Auto) 0.12 (0.04-0.36) K/mm3 Baso # (Auto) 0.02 (0.01-0.08) K/mm3 Sodium 138 (136-145) mEq/L Potassium 4.3 (3.5-5.1) mEq/L Chloride 102 (98-107) mEq/L Carbon Dioxide 23 (21-32) mEq/L Anion Gap 17.3 H (5-15) BUN 23 H (7-18) mg/dL Creatinine 1.6 H (0.55-1.02) mg/dL Est Cr Clr Drug Dosing TNP Estimated GFR (MDRD) 32 (>60) mL/min BUN/Creatinine Ratio 14.4 (14-18) Glucose 173 H (80-115) mg/dL Calcium 9.3 (8.5-10.1) mg/dL Total Bilirubin 0.4 (0.2-1.0) mg/dL AST 20 (15-37) U/L ALT 33 (14-59) U/L Alkaline Phosphatase 96 (46-116) U/L Troponin I < 0.017 (0.00-0.056) ng/mL Total Protein 7.4 (6.4-8.2) g/dl Albumin 3.7 (3.4-5.0) g/dl Globulin 3.7 gm/dL Albumin/Globulin Ratio 1.0 (1-2) Meds: Medications Generic Name Dose Route Start Last Admin Trade Name Pranavq PRN Reason Stop Dose Admin Sodium Chloride 10 ml 04/01/19 19:06 04/01/19 19:14 Saline Flush FLUSH 10 ml ASDIRECTED PRN Administration Keep Vein Open Discontinued Medications Generic Name Dose Route Start Last Admin Trade Name Pranavq PRN Reason Stop Dose Admin Diltiazem HCl 10 mg 04/01/19 19:06 04/01/19 19:10 Cardizem IVPUSH 04/01/19 19:07 10 mg ONETIME ONE Administration - Re-Assessments/Exams Free Text/Narrative Re-Assessment/Exam: 04/01/19 19:30 Was 10 mg Cardizem patient is converted to sinus rhythm at this time with no acute ischemic changes on EKG Free Text/Narrative Re-Assessment/Exam: 04/01/19 19:38 Chest x-ray interpreted by me RADHA Free Text/Narrative Re-Assessment/Exam: 04/01/19 20:18 Patient maintains a sinus rhythm will discharge to home and have patient increase metoprolol to 2 tabs twice a day from the current one tab in the morning and 2 at night and outpatient follow-up outpatient with PCP Departure - Departure Time of Disposition: 20:18 Disposition: Home, Self-Care 01 Clinical Impression: Atrial flutter Qualifiers: Atrial flutter type: unspecified Qualified Code(s): I48.92 - Unspecified atrial flutter Referrals: Chris Trujillo MD [Primary Care Provider] - Forms: ED Department Discharge Additional Instructions: Home, rest, increase metoprolol tartrate 2 tabs twice a day from 1 tab in the morning and 2 tabs at night, follow-up with PCP this week, return as needed for worsening condition Sepsis Event Note - Evaluation Sepsis Screening Result: No Definite Risk - Focused Exam Vital Signs: Vital Signs Temp Pulse Resp BP Pulse Ox 04/01/19 18:51 97.5 F 142 H 16 131/89 92 L Date Exam was Performed: 04/01/19 Time Exam was Performed: 20:18 - My Orders Last 24 Hours: My Active Orders 04/01/19 19:05 EKG 12 Lead [EKG Documentation Completion] [RC] STAT 04/01/19 19:06 UA RFX AGUS AND CULT IF INDIC [URIN] Stat Sodium Chloride 0.9% [Saline Flush] 10 ml FLUSH ASDIRECTED PRN Saline Lock Insert [OM.PC] Stat 04/01/19 19:11 Chest 1V Frontal [CR] Stat 04/01/19 19:21 EKG Documentation Completion [RC] ASDIRECTED EKG 12 Lead [EK] Stat - Assessment/Plan Last 24 Hours: My Active Orders 04/01/19 19:05 EKG 12 Lead [EKG Documentation Completion] [RC] STAT 04/01/19 19:06 UA RFX AGUS AND CULT IF INDIC [URIN] Stat Sodium Chloride 0.9% [Saline Flush] 10 ml FLUSH ASDIRECTED PRN Saline Lock Insert [OM.PC] Stat 04/01/19 19:11 Chest 1V Frontal [CR] Stat 04/01/19 19:21 EKG Documentation Completion [RC] ASDIRECTED EKG 12 Lead [EK] Stat
--- NOTE | 2019-04-02 07:49 | CR ---
Chest: Portable view of the chest was obtained. Comparison: Prior chest x-ray 07/31/17. Heart is slightly enlarged. Tortuous thoracic aorta is present. Lungs are clear with no acute parenchymal change. Partially visualized hardware is seen from prior cervical spine surgery. Impression: 1. Findings as noted above. 2. Nothing acute is seen. Diagnostic code #2 This report was dictated in [place] Standard Time
== END 2019-04-01 20:39 | disposition home or self-care (01) ==
LOC: JD.ED 18:44
DX: I48.92 Unspecified atrial flutter (principal); I12.9 Hypertensive chronic kidney disease with stage 1 through stage 4 chronic kidney disease, or unspecified chronic kidney disease; N18.9 Chronic kidney disease, unspecified; E11.9 Type 2 diabetes mellitus without complications; Z88.0 Allergy status to penicillin; Z88.8 Allergy status to other drugs, medicaments and biological substances; Z91.041 Radiographic dye allergy status; Z88.1 Allergy status to other antibiotic agents; Z88.5 Allergy status to narcotic agent; Z79.82 Long term (current) use of aspirin; Z79.899 Other long term (current) drug therapy; Z90.49 Acquired absence of other specified parts of digestive tract
CPT/HCPCS: 36415; 71045; 80053; 84484; 85025; 93005; 96374; 99285; J3490; 93010; 99284

== ENCOUNTER 2019-06-14 08:43 | Inpatient (IN) | payer MEDICARE, OTHER ==
--- NOTE | 2019-06-14 09:58 | EDM.PDOC ---
ED HPI GENERAL MEDICAL PROBLEM - General Chief Complaint: Respiratory Problem Stated Complaint: VOMITING/SOB/COUGH Time Seen by Provider: 06/14/19 09:58 - History of Present Illness INITIAL COMMENTS - FREE TEXT/NARRATIVE: 68-year-old female presents to the emergency room with a worsening cough Patient is found to be hypoxic upon arrival here she is got a 5 to 6-day history of a cough. She was seen in the clinic at the early onset of this had a normal chest x-ray at that time. No other testing was done. She supposed to be using her nebulizer twice daily but has not been using it. She is not aware of any fevers or chills but she does feel poorly she is got a significant past medical history of renal insufficiency diabetes COPD morbid obesity with sleep apnea and obesity hypoventilation syndrome - Related Data Allergies Allergy/AdvReac Type Severity Reaction Status Date / Time hydromorphone [From Dilaudid] Allergy unknown Verified 06/14/19 08:57 Iodinated Contrast Media Allergy Hives Verified 06/14/19 08:57 [Iodinated Contrast- Oral and IV Dye] Penicillins Allergy Hives Verified 06/14/19 08:57 levofloxacin [From Levaquin] AdvReac Disorientat Verified 06/14/19 08:57 ion Home Meds: Home Meds Aspirin [Ecotrin EC] 81 mg PO DAILY 05/28/17 [History] Citalopram [Citalopram HBr] 20 mg PO QPM 05/28/17 [History] atorvaSTATin [Lipitor] 40 mg PO DAILY 05/28/17 [History] lisinopriL [Prinivil] 40 mg PO DAILY 05/28/17 [History] Colestipol [Colestipol HCl] 1 gm PO TID 07/29/17 [History] LORazepam [Ativan] 0.5 mg PO BID PRN 07/29/17 [History] Metoprolol Tartrate 50 mg PO BID 07/29/17 [History] Benzonatate 200 mg PO TID PRN 07/30/17 [History] Magnesium Oxide 400 mg PO DAILY #30 tablet 08/01/17 [Rx] amLODIPine [Norvasc] 2.5 mg PO DAILY 09/23/17 [History] Allopurinol [Zyloprim] 100 mg PO DAILY 06/14/19 [History] Ferrous Sulfate [Iron] 325 mg PO DAILY 06/14/19 [History] Fluticasone/Umeclidin/Vilanter [Trelegy Ellipta 100-62.5-25 MCG] 1 puff INH DAILY 06/14/19 [History] Olmesartan/Hydrochlorothiazide [Olmesartan-Hctz 40-12.5 mg Tab] 12.5 - 40 mg PO DAILY 06/14/19 [History] Pantoprazole Sodium 40 mg PO DAILY 06/14/19 [History] SitaGLIPtin [Januvia] 100 mg PO DAILY 06/14/19 [History] predniSONE [Prednisone] 50 mg PO DAILY 06/14/19 [History] Past Medical History - Past Health History Medical/Surgical History: Denies Medical/Surgical History HEENT History: Reports: Impaired Vision, Other (See Below) Other HEENT History: wears reading glasses Cardiovascular History: Reports: Afib, CAD, High Cholesterol, Hypertension, Stents Respiratory History: Reports: Asthma, COPD, Sleep Apnea, Other (See Below) Other Respiratory History: wears C-PAP while sleeping. 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 Psychiatric History: Reports: Anxiety, Depression Endocrine/Metabolic History: Reports: Diabetes, Type II, Obesity/BMI 30+ Hematologic History: Reports: Anemia, Blood Transfusion(s) Dermatologic History: Reports: None Other Dermatologic History: baseline flushing to cheeks - Infectious Disease History Infectious Disease History: Reports: Chicken Pox, Shingles, Other (See Below) Other Infectious Disease History: polio - Past Surgical History HEENT Surgical History: Reports: Oral Surgery Cardiovascular Surgical History: Reports: Coronary Artery Stent GI Surgical History: Reports: Appendectomy, Lysis of Adhesions Female Surgical History: Reports: D&C Neurological Surgical History: Reports: C-Spine Social & Family History - Family History Family Medical History: Noncontributory - Tobacco Use Smoking Status *Q: Current Every Day Smoker Years of Tobacco use: 45 Packs/Tins Daily: 0.2 - Caffeine Use Caffeine Use: Reports: Soda - Recreational Drug Use Recreational Drug Use: No - Living Situation & Occupation Living situation: Reports: , Alone Occupation: Disabled ED ROS GENERAL - Review of Systems Review Of Systems: See Below Constitutional: Reports: Malaise, Weakness, Fatigue. Denies: Fever, Chills, Night Sweats, Diaphoresis HEENT: Reports: No Symptoms Respiratory: Reports: Shortness of Breath, Cough, Sputum (Occasional clear to off colored sputum but some of this is normal for her) Cardiovascular: Reports: No Symptoms, Palpitations GI/Abdominal: Reports: Nausea, Vomiting (This might be associated with coughing) . Denies: Abdominal Pain, Constipation, Diarrhea : Reports: No Symptoms, Urinary Retention Skin: Reports: No Symptoms Neurological: Reports: No Symptoms Psychiatric: Reports: No Symptoms Hematologic/Lymphatic: Reports: No Symptoms Immunologic: Reports: No Symptoms ED EXAM, GENERAL - Physical Exam Exam: See Below Exam Limited By: No Limitations General Appearance: Alert, No Apparent Distress, Other (Her O2 saturation is doing better on supplemental oxygen she was 84 on room air when she arrived she is does not use home O2) Ears: Normal External Exam, Normal Canal, Hearing Grossly Normal, Normal TMs Nose: Normal Inspection, Normal Mucosa, No Blood Throat/Mouth: Normal Inspection, Normal Lips, Normal Gums, Normal Oropharynx, Normal Voice, No Airway Compromise Head: Atraumatic, Normocephalic Neck: Normal Inspection, Supple, Non-Tender, Full Range of Motion. No: Lymphadenopathy (L), Lymphadenopathy (R) Respiratory/Chest: No Respiratory Distress, Crackles (She has bibasilar crackles that improve with deep inspiration), Prolonged Expiration. No: Rales, Rhonchi, Wheezing, Stridor Cardiovascular: Regular Rate, Rhythm, No Murmur, Other (Her legs are fairly large because of her body habitus is hard to assess for mild edema) GI/Abdominal: Normal Bowel Sounds, Soft, Non-Tender, Other (Obese) Back Exam: Normal Inspection. No: CVA Tenderness (L), CVA Tenderness (R) Extremities: Other (She has large extremities because of her body habitus no obvious edema) Neurological: Alert, Oriented, Normal Cognition Course - Vital Signs Last Recorded V/S: Last Vital Signs Temp 35.9 C L 06/14/19 08:55 Pulse 74 06/14/19 08:55 Resp 20 06/14/19 08:55 BP 157/68 H 06/14/19 08:55 Pulse Ox 93 L 06/14/19 14:49 - Orders/Labs/Meds Orders: Active Orders 24 hr Category Date Time Status EKG Documentation Completion [RC] ASDIRECTED Care 06/14/19 09:42 Active Insert Narvaez Catheter [Insert Urinary Catheter] [OM.PC] Care 06/14/19 13:25 Ordered Stat Oxygen Therapy Peds [Oxygen Therapy, ED] [RC] Care 06/14/19 09:52 Active ASDIRECTED RT Aerosol Therapy [RC] ASDIRECTED Care 06/14/19 14:17 Active Urinary Catheter Assessment [RC] ASDIRECTED Care 06/14/19 13:25 Active CULTURE BLOOD [BC] Stat Lab 06/14/19 10:10 Received CULTURE BLOOD [BC] Stat Lab 06/14/19 10:50 Received Blood Culture x2 Reflex Set [OM.PC] Stat Oth 06/14/19 10:10 Ordered EKG 12 Lead [EK] Stat Ther 06/14/19 09:42 Ordered Labs: Laboratory Tests 06/14/19 06/14/19 06/14/19 Range/Units 10:10 10:10 10:10 WBC 8.75 (3.98-10.04) K/mm3 RBC 4.12 (3.98-5.22) M/mm3 Hgb 12.8 (11.2-15.7) gm/dl Hct 40.9 (34.1-44.9) % MCV 99.3 H (79.4-94.8) fl MCH 31.1 (25.6-32.2) pg MCHC 31.3 L (32.2-35.5) g/dl RDW Std Deviation 54.3 H (36.4-46.3) fL Plt Count 166 L (182-369) K/mm3 MPV 10.8 (9.4-12.3) fl Neut % (Auto) 84.7 H (34.0-71.1) % Lymph % (Auto) 8.1 L (19.3-51.7) % [place] % (Auto) 5.6 (4.7-12.5) % Eos % (Auto) 0.6 L (0.7-5.8) Baso % (Auto) 0.1 (0.1-1.2) % Neut # (Auto) 7.41 H (1.56-6.13) K/mm3 Lymph # (Auto) 0.71 L (1.18-3.74) K/mm3 [place] # (Auto) 0.49 H (0.24-0.36) K/mm3 Eos # (Auto) 0.05 (0.04-0.36) K/mm3 Baso # (Auto) 0.01 (0.01-0.08) K/mm3 Manual Slide Review Normal smear PT (9.7-12.0) SECONDS INR Sodium 134 L (136-145) mEq/L Potassium 4.2 (3.5-5.1) mEq/L Chloride 97 L (98-107) mEq/L Carbon Dioxide 24 (21-32) mEq/L Anion Gap 17.2 H (5-15) BUN 33 H (7-18) mg/dL Creatinine 1.3 H (0.55-1.02) mg/dL Est Cr Clr Drug Dosing 35.27 mL/min Estimated GFR (MDRD) 41 (>60) mL/min BUN/Creatinine Ratio 25.4 H (14-18) Glucose 172 H (80-115) mg/dL Lactic Acid 2.2 H* (0.4-2.0) mmol/L Calcium 9.6 (8.5-10.1) mg/dL Total Bilirubin 0.5 (0.2-1.0) mg/dL AST 25 (15-37) U/L ALT 32 (14-59) U/L Alkaline Phosphatase 74 (46-116) U/L Troponin I (0.00-0.056) ng/mL NT-Pro-B Natriuret Pep (0-125) pg/mL Total Protein 7.1 (6.4-8.2) g/dl Albumin 3.6 (3.4-5.0) g/dl Globulin 3.5 gm/dL Albumin/Globulin Ratio 1.0 (1-2) Urine Color (Yellow) Urine Appearance (Clear) Urine pH (5.0-8.0) Ur Specific [place] (1.005-1.030) Urine Protein (Negative) Urine Glucose (UA) (Negative) Urine Ketones (Negative) Urine Occult Blood (Negative) Urine Nitrite (Negative) Urine Bilirubin (Negative) Urine Urobilinogen (0.2-1.0) Ur Leukocyte Esterase (Negative) 06/14/19 06/14/19 06/14/19 Range/Units 10:10 10:10 10:10 WBC (3.98-10.04) K/mm3 RBC (3.98-5.22) M/mm3 Hgb (11.2-15.7) gm/dl Hct (34.1-44.9) % MCV (79.4-94.8) fl MCH (25.6-32.2) pg MCHC (32.2-35.5) g/dl RDW Std Deviation (36.4-46.3) fL Plt Count (182-369) K/mm3 MPV (9.4-12.3) fl Neut % (Auto) (34.0-71.1) % Lymph % (Auto) (19.3-51.7) % [place] % (Auto) (4.7-12.5) % Eos % (Auto) (0.7-5.8) Baso % (Auto) (0.1-1.2) % Neut # (Auto) (1.56-6.13) K/mm3 Lymph # (Auto) (1.18-3.74) K/mm3 [place] # (Auto) (0.24-0.36) K/mm3 Eos # (Auto) (0.04-0.36) K/mm3 Baso # (Auto) (0.01-0.08) K/mm3 Manual Slide Review PT 10.7 (9.7-12.0) SECONDS INR 0.98 Sodium (136-145) mEq/L Potassium (3.5-5.1) mEq/L Chloride (98-107) mEq/L Carbon Dioxide (21-32) mEq/L Anion Gap (5-15) BUN (7-18) mg/dL Creatinine (0.55-1.02) mg/dL Est Cr Clr Drug Dosing mL/min Estimated GFR (MDRD) (>60) mL/min BUN/Creatinine Ratio (14-18) Glucose (80-115) mg/dL Lactic Acid (0.4-2.0) mmol/L Calcium (8.5-10.1) mg/dL Total Bilirubin (0.2-1.0) mg/dL AST (15-37) U/L ALT (14-59) U/L Alkaline Phosphatase (46-116) U/L Troponin I < 0.017 (0.00-0.056) ng/mL NT-Pro-B Natriuret Pep 256 H (0-125) pg/mL Total Protein (6.4-8.2) g/dl Albumin (3.4-5.0) g/dl Globulin gm/dL Albumin/Globulin Ratio (1-2) Urine Color (Yellow) Urine Appearance (Clear) Urine pH (5.0-8.0) Ur Specific [place] (1.005-1.030) Urine Protein (Negative) Urine Glucose (UA) (Negative) Urine Ketones (Negative) Urine Occult Blood (Negative) Urine Nitrite (Negative) Urine Bilirubin (Negative) Urine Urobilinogen (0.2-1.0) Ur Leukocyte Esterase (Negative) 06/14/19 06/14/19 Range/Units 13:10 13:30 WBC (3.98-10.04) K/mm3 RBC (3.98-5.22) M/mm3 Hgb (11.2-15.7) gm/dl Hct (34.1-44.9) % MCV (79.4-94.8) fl MCH (25.6-32.2) pg MCHC (32.2-35.5) g/dl RDW Std Deviation (36.4-46.3) fL Plt Count (182-369) K/mm3 MPV (9.4-12.3) fl Neut % (Auto) (34.0-71.1) % Lymph % (Auto) (19.3-51.7) % [place] % (Auto) (4.7-12.5) % Eos % (Auto) (0.7-5.8) Baso % (Auto) (0.1-1.2) % Neut # (Auto) (1.56-6.13) K/mm3 Lymph # (Auto) (1.18-3.74) K/mm3 [place] # (Auto) (0.24-0.36) K/mm3 Eos # (Auto) (0.04-0.36) K/mm3 Baso # (Auto) (0.01-0.08) K/mm3 Manual Slide Review PT (9.7-12.0) SECONDS INR Sodium (136-145) mEq/L Potassium (3.5-5.1) mEq/L Chloride (98-107) mEq/L Carbon Dioxide (21-32) mEq/L Anion Gap (5-15) BUN (7-18) mg/dL Creatinine (0.55-1.02) mg/dL Est Cr Clr Drug Dosing mL/min Estimated GFR (MDRD) (>60) mL/min BUN/Creatinine Ratio (14-18) Glucose (80-115) mg/dL Lactic Acid 1.3 (0.4-2.0) mmol/L Calcium (8.5-10.1) mg/dL Total Bilirubin (0.2-1.0) mg/dL AST (15-37) U/L ALT (14-59) U/L Alkaline Phosphatase (46-116) U/L Troponin I (0.00-0.056) ng/mL NT-Pro-B Natriuret Pep (0-125) pg/mL Total Protein (6.4-8.2) g/dl Albumin (3.4-5.0) g/dl Globulin gm/dL Albumin/Globulin Ratio (1-2) Urine Color Yellow (Yellow) Urine Appearance Clear (Clear) Urine pH 6.0 (5.0-8.0) Ur Specific [place] > or = 1.030 (1.005-1.030) Urine Protein Negative (Negative) Urine Glucose (UA) 2+ H (Negative) Urine Ketones Negative (Negative) Urine Occult Blood Negative (Negative) Urine Nitrite Negative (Negative) Urine Bilirubin Negative (Negative) Urine Urobilinogen 0.2 (0.2-1.0) Ur Leukocyte Esterase Negative (Negative) Meds: Medications Discontinued Medications Generic Name Dose Route Start Last Admin Trade Name Freq PRN Reason Stop Dose Admin Albuterol/Ipratropium 3 ml 06/14/19 14:16 06/14/19 14:49 Duoneb 3.0-0.5 Mg/3 Ml NEB 06/14/19 14:17 3 ml ONETIME ONE Administration Sodium Chloride 500 mls @ 999 mls/hr 06/14/19 13:00 06/14/19 13:18 Normal Saline IV 06/14/19 13:30 999 mls/hr .BOLUS ONE Administration Ceftriaxone Sodium 1 gm/ 100 mls @ 200 mls/hr 06/14/19 14:18 06/14/19 15:13 Sodium Chloride IV 06/14/19 14:47 200 mls/hr ONETIME ONE Administration Methylprednisolone Sodium Succinate 125 mg 06/14/19 14:16 06/14/19 15:09 Solu-Medrol IVPUSH 06/14/19 14:17 125 mg ONETIME ONE Administration Oseltamivir Phosphate 30 mg 06/14/19 15:30 06/14/19 15:24 Tamiflu PO 06/14/19 15:31 30 mg ONETIME ONE Administration - Re-Assessments/Exams Free Text/Narrative Re-Assessment/Exam: 06/14/19 14:38 Chest x-ray was unrevealing white counts not her influenza screen chest came back positive her initial lactic acid was 2.2 follow-up lactic acid was down to 1.3 before we gave her fluids. She is finishing up a liter bolus at this time as well as received on a gram of Rocephin. The hypoxic state seems to be getting a little bit better. She is down to 1-1/2 L satting 93 to 95%. I have explained to the patient that we do not have any hospital beds available here and she would have to go to [place] and she refuses this option. We will work on getting her more stabilized before sending her home. Anticipate discharging her with Tamiflu this is been started at 30 mg twice daily because of her renal insufficiency and doxycycline 100 mg twice daily. Patient also had a unenhanced chest CT done looking for a suspected pneumonia however this was not found. 06/14/19 15:53 Patient sats are still 88-89% on a liter and a half. Will increase this up to 2 L. We have a change in bed status here and we now have a bed available for the patient and the patient agrees to inpatient management. I discussed the situation with Dr. Ayala, our hospitalist, who agreed to accepting the patient. Departure - Departure Time of Disposition: 15:54 Disposition: Admitted As Inpatient 65 Clinical Impression: COPD exacerbation, Influenza A - Discharge Information Referrals: Chris Trujillo MD [Primary Care Provider] - Forms: ED Department Discharge Sepsis Event Note - Evaluation Sepsis Screening Result: No Definite Risk - Focused Exam Vital Signs: Vital Signs Temp Pulse Resp BP Pulse Ox Pulse Ox 06/14/19 14:49 93 L 06/14/19 08:55 35.9 C L 74 20 157/68 H 84 L Date Exam was Performed: 06/14/19 Time Exam was Performed: 15:53 - My Orders Last 24 Hours: My Active Orders 06/14/19 09:42 EKG Documentation Completion [RC] ASDIRECTED EKG 12 Lead [EK] Stat 06/14/19 09:52 Oxygen Therapy Peds [Oxygen Therapy, ED] [RC] ASDIRECTED 06/14/19 10:10 CULTURE BLOOD [BC] Stat Blood Culture x2 Reflex Set [OM.PC] Stat 06/14/19 10:50 CULTURE BLOOD [BC] Stat 06/14/19 13:25 Insert Narvaez Catheter [Insert Urinary Catheter] [OM.PC] Stat Urinary Catheter Assessment [RC] ASDIRECTED 06/14/19 14:17 RT Aerosol Therapy [RC] ASDIRECTED - Assessment/Plan Last 24 Hours: My Active Orders 06/14/19 09:42 EKG Documentation Completion [RC] ASDIRECTED EKG 12 Lead [EK] Stat 06/14/19 09:52 Oxygen Therapy Peds [Oxygen Therapy, ED] [RC] ASDIRECTED 06/14/19 10:10 CULTURE BLOOD [BC] Stat Blood Culture x2 Reflex Set [OM.PC] Stat 06/14/19 10:50 CULTURE BLOOD [BC] Stat 06/14/19 13:25 Insert Narvaez Catheter [Insert Urinary Catheter] [OM.PC] Stat Urinary Catheter Assessment [RC] ASDIRECTED 06/14/19 14:17 RT Aerosol Therapy [RC] ASDIRECTED
--- NOTE | 2019-06-14 10:23 | CR ---
Chest: Two views of the chest were obtained. Comparison: Prior chest x-ray of 04/01/19. Heart is slightly enlarged. Upper mediastinum is normal. Pulmonary vessels are felt to be slightly congested. Lungs otherwise are clear. Mild degenerative change is noted within spine with disc space narrowing and minimal endplate spurring. Previous cervical spine surgery is noted. Impression: 1. Slight cardiomegaly and mild pulmonary vascular congestion. 2. Other findings believed to be incidental as described above. Diagnostic code #3 This report was dictated in [place] Standard Time
[2019-06-14] MEDS ORDERED: Sodium Chloride 0.9% 500 ML IV ONE (13:00)
--- NOTE | 2019-06-14 13:52 | CT ---
CT chest Technique: Multiple axial sections through the chest were obtained. Intravenous contrast was not utilized. Comparison: Prior chest CT of 09/22/17. Findings: Visualized upper abdominal structures show no discrete abnormality. Coronary artery calcification is seen. No pericardial thickening is seen. Small lymph nodes are seen within the mediastinum which are felt to be within normal limits. Aorta shows no aneurysm. No axillary adenopathy is seen. Lungs are clear with no acute parenchymal change. No pleural effusions are seen. Bone window settings were reviewed which show mild endplate spurring within the spine. Impression: 1. Nothing acute is appreciated on noncontrast CT study of the chest. Diagnostic code #2 This report was dictated in [place] Standard Time
[2019-06-14] MEDS ORDERED: Albuterol/Ipratropium 3.0-0.5 MG/3 ML Neb Soln NEB ONE (14:16)
[2019-06-14] MEDS ORDERED: methylPREDNISolone Sodium Succinate 125 MG/2 ML SDV IVPUSH ONE (14:16)
[2019-06-14] MEDS ORDERED: cefTRIAXone 1 GM in Sodium Chloride 0.9% 100 ML IV ONE (14:18)
[2019-06-14] MEDS ORDERED: Oseltamivir 30 MG Cap PO ONE (15:30)
[2019-06-14] MEDS ORDERED: Ondansetron 4 MG/2 ML SDV IV PRN (17:38)
[2019-06-14] MEDS ORDERED: Acetaminophen 325 MG Tab PO PRN (17:38)
--- NOTE | 2019-06-14 18:05 | PCM.HP.2 ---
H&P History of Present Illness - General Date of Service: 06/14/19 Admit Problem/Dx: Admission Diagnosis/Problem Admission Diagnosis/Problem COPD with acute lower respiratory infection - History of Present Illness Initial Comments - Free Text/Narative: Patient presents to the emergency department with complaints of cough for the last 5 to 6 days. She states that it has been worsening and she complains of some mild shortness of breath. She does have history of reactive lung disease and has a nebulizer, but is not using it. She denies any fever or chills. Patient was a poor historian and some of the history was obtained through emergency department records. She has a past medical history of diabetes, renal insufficiency, COPD, obesity, sleep apnea. Patient was in the emergency department and was found to be hypoxemic. Chest x-ray was negative and a CT scan was also negative. Initial lactic acid was elevated at 2.2, but it decreased to 1.3 prior to being given fluids. Patient was given 1 L of fluids. She did require 1 to 2 L to be able to maintain oxygen saturation between 93 and 95%. Influenza screen was positive for influenza A. - Related Data Allergies/Adverse Reactions: Allergies Allergy/AdvReac Type Severity Reaction Status Date / Time hydromorphone [From Dilaudid] Allergy unknown Verified 06/14/19 08:57 Iodinated Contrast Media Allergy Hives Verified 06/14/19 08:57 [Iodinated Contrast- Oral and IV Dye] metformin Allergy Renal Verified 06/14/19 17:32 Insufficiency Penicillins Allergy Hives Verified 06/14/19 08:57 levofloxacin [From Levaquin] AdvReac Disorientat Verified 06/14/19 08:57 ion Home Medications: Home Meds Aspirin [Ecotrin EC] 81 mg PO DAILY 05/28/17 [History] Citalopram [Citalopram HBr] 20 mg PO QPM 05/28/17 [History] atorvaSTATin [Lipitor] 40 mg PO DAILY 05/28/17 [History] lisinopriL [Prinivil] 40 mg PO DAILY 05/28/17 [History] Colestipol [Colestipol HCl] 1 gm PO TID 07/29/17 [History] LORazepam [Ativan] 0.5 mg PO BID PRN 07/29/17 [History] Metoprolol Tartrate 50 mg PO WITHBREAKFAST 07/29/17 [History] Benzonatate 200 mg PO TID PRN 07/30/17 [History] Magnesium Oxide 400 mg PO DAILY #30 tablet 08/01/17 [Rx] amLODIPine [Norvasc] 2.5 mg PO DAILY 09/23/17 [History] Allopurinol [Zyloprim] 100 mg PO DAILY 06/14/19 [History] Ferrous Sulfate [Iron] 325 mg PO DAILY 06/14/19 [History] Fluticasone/Umeclidin/Vilanter [Trelegy Ellipta 100-62.5-25 MCG] 1 puff INH DAILY 06/14/19 [History] Metoprolol Tartrate 100 mg PO BEDTIME 06/14/19 [History] Olmesartan/Hydrochlorothiazide [Olmesartan-Hctz 40-12.5 mg Tab] 12.5 - 40 mg PO DAILY 06/14/19 [History] Pantoprazole Sodium 40 mg PO DAILY 06/14/19 [History] SitaGLIPtin [Januvia] 100 mg PO DAILY 06/14/19 [History] predniSONE [Prednisone] 50 mg PO DAILY 06/14/19 [History] Past Medical History - Past Health History Medical/Surgical History: Denies Medical/Surgical History HEENT History: Reports: Impaired Vision, Other (See Below) Other HEENT History: wears reading glasses Cardiovascular History: Reports: Afib, CAD, High Cholesterol, Hypertension, Stents Respiratory History: Reports: Asthma, COPD, Sleep Apnea, Other (See Below) Other Respiratory History: wears C-PAP while sleeping. 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 Psychiatric History: Reports: Anxiety, Depression, Panic Attack Endocrine/Metabolic History: Reports: Diabetes, Type II, Obesity/BMI 30+ Hematologic History: Reports: Anemia, Blood Transfusion(s) Dermatologic History: Reports: None Other Dermatologic History: baseline flushing to cheeks - Infectious Disease History Infectious Disease History: Reports: Chicken Pox, Shingles, Other (See Below) Other Infectious Disease History: polio, [place] - Past Surgical History HEENT Surgical History: Reports: Oral Surgery Cardiovascular Surgical History: Reports: Coronary Artery Stent GI Surgical History: Reports: Appendectomy, Lysis of Adhesions Female Surgical History: Reports: D&C Neurological Surgical History: Reports: C-Spine Social & Family History - Family History Family Medical History: Noncontributory Cardiac: Reports: Bypass Neurological: Reports: Alzheimers Disease Endocrine/Metabolic: Reports: Diabetes, type II Oncologic: Reports: Brain, Ovarian - Tobacco Use Smoking Status *Q: Current Every Day Smoker Years of Tobacco use: 60 Packs/Tins Daily: 0.2 Second Hand Smoke Exposure: Yes - Caffeine Use Caffeine Use: Reports: Soda, Tea - Recreational Drug Use Recreational Drug Use: No - Living Situation & Occupation Living situation: Reports: , Alone Occupation: Disabled H&P Review of Systems - Review of Systems: Review Of Systems: Comprehensive ROS is negative, except as noted in HPI. Exam - Exam Exam: See Below - Vital Signs Vital Signs: Last Vital Signs Temp 98.3 F 06/14/19 17:02 Pulse 64 06/14/19 16:05 Resp 20 06/14/19 17:02 BP 124/62 06/14/19 17:02 Pulse Ox 92 L 06/14/19 17:02 Weight: 292 lb 4.8 oz - Exam Quality Assessment: Supplemental Oxygen General: Alert, Oriented, 4 HEENT: Conjunctiva Clear, Hearing Intact, Mucosa Moist & [employer] Neck: Supple, Trachea Midline, 2 Lungs: Clear to Auscultation, Normal Respiratory Effort (Mild increase in respiratory rate but no significant increase in respiratory effort.) Cardiovascular: Regular Rate, Regular Rhythm GI/Abdominal Exam: Normal Bowel Sounds, Soft, No Organomegaly, No Distention Extremities: Normal Inspection, Normal Range of Motion, Non-Tender, No Pedal Edema Skin: Warm, Dry, Intact Neurological: Cranial Nerves Intact Neuro Extensive - Mental Status: Alert, Oriented x3, Normal Mood/Affect, Normal Cognition, Memory Intact Neuro Extensive - Motor, Sensory, Reflexes: CN II-XII Intact Psychiatric: Alert, Normal Affect, Normal Mood - Patient Data Lab Results Last 24 hrs: Laboratory Results - last 24 hr 06/14/19 06/14/19 06/14/19 Range/Units 10:10 10:10 10:10 WBC 8.75 (3.98-10.04) K/mm3 RBC 4.12 (3.98-5.22) M/mm3 Hgb 12.8 (11.2-15.7) gm/dl Hct 40.9 (34.1-44.9) % MCV 99.3 H (79.4-94.8) fl MCH 31.1 (25.6-32.2) pg MCHC 31.3 L (32.2-35.5) g/dl RDW Std Deviation 54.3 H (36.4-46.3) fL Plt Count 166 L (182-369) K/mm3 MPV 10.8 (9.4-12.3) fl Neut % (Auto) 84.7 H (34.0-71.1) % Lymph % (Auto) 8.1 L (19.3-51.7) % [place] % (Auto) 5.6 (4.7-12.5) % Eos % (Auto) 0.6 L (0.7-5.8) Baso % (Auto) 0.1 (0.1-1.2) % Neut # (Auto) 7.41 H (1.56-6.13) K/mm3 Lymph # (Auto) 0.71 L (1.18-3.74) K/mm3 [place] # (Auto) 0.49 H (0.24-0.36) K/mm3 Eos # (Auto) 0.05 (0.04-0.36) K/mm3 Baso # (Auto) 0.01 (0.01-0.08) K/mm3 Manual Slide Review Normal smear PT (9.7-12.0) SECONDS INR Sodium 134 L (136-145) mEq/L Potassium 4.2 (3.5-5.1) mEq/L Chloride 97 L (98-107) mEq/L Carbon Dioxide 24 (21-32) mEq/L Anion Gap 17.2 H (5-15) BUN 33 H (7-18) mg/dL Creatinine 1.3 H (0.55-1.02) mg/dL Est Cr Clr Drug Dosing 35.27 mL/min Estimated GFR (MDRD) 41 (>60) mL/min BUN/Creatinine Ratio 25.4 H (14-18) Glucose 172 H (80-115) mg/dL Lactic Acid 2.2 H* (0.4-2.0) mmol/L Calcium 9.6 (8.5-10.1) mg/dL Total Bilirubin 0.5 (0.2-1.0) mg/dL AST 25 (15-37) U/L ALT 32 (14-59) U/L Alkaline Phosphatase 74 (46-116) U/L Troponin I (0.00-0.056) ng/mL NT-Pro-B Natriuret Pep (0-125) pg/mL Total Protein 7.1 (6.4-8.2) g/dl Albumin 3.6 (3.4-5.0) g/dl Globulin 3.5 gm/dL Albumin/Globulin Ratio 1.0 (1-2) Urine Color (Yellow) Urine Appearance (Clear) Urine pH (5.0-8.0) Ur Specific [place] (1.005-1.030) Urine Protein (Negative) Urine Glucose (UA) (Negative) Urine Ketones (Negative) Urine Occult Blood (Negative) Urine Nitrite (Negative) Urine Bilirubin (Negative) Urine Urobilinogen (0.2-1.0) Ur Leukocyte Esterase (Negative) 06/14/19 06/14/19 06/14/19 Range/Units 10:10 10:10 10:10 WBC (3.98-10.04) K/mm3 RBC (3.98-5.22) M/mm3 Hgb (11.2-15.7) gm/dl Hct (34.1-44.9) % MCV (79.4-94.8) fl MCH (25.6-32.2) pg MCHC (32.2-35.5) g/dl RDW Std Deviation (36.4-46.3) fL Plt Count (182-369) K/mm3 MPV (9.4-12.3) fl Neut % (Auto) (34.0-71.1) % Lymph % (Auto) (19.3-51.7) % [place] % (Auto) (4.7-12.5) % Eos % (Auto) (0.7-5.8) Baso % (Auto) (0.1-1.2) % Neut # (Auto) (1.56-6.13) K/mm3 Lymph # (Auto) (1.18-3.74) K/mm3 [place] # (Auto) (0.24-0.36) K/mm3 Eos # (Auto) (0.04-0.36) K/mm3 Baso # (Auto) (0.01-0.08) K/mm3 Manual Slide Review PT 10.7 (9.7-12.0) SECONDS INR 0.98 Sodium (136-145) mEq/L Potassium (3.5-5.1) mEq/L Chloride (98-107) mEq/L Carbon Dioxide (21-32) mEq/L Anion Gap (5-15) BUN (7-18) mg/dL Creatinine (0.55-1.02) mg/dL Est Cr Clr Drug Dosing mL/min Estimated GFR (MDRD) (>60) mL/min BUN/Creatinine Ratio (14-18) Glucose (80-115) mg/dL Lactic Acid (0.4-2.0) mmol/L Calcium (8.5-10.1) mg/dL Total Bilirubin (0.2-1.0) mg/dL AST (15-37) U/L ALT (14-59) U/L Alkaline Phosphatase (46-116) U/L Troponin I < 0.017 (0.00-0.056) ng/mL NT-Pro-B Natriuret Pep 256 H (0-125) pg/mL Total Protein (6.4-8.2) g/dl Albumin (3.4-5.0) g/dl Globulin gm/dL Albumin/Globulin Ratio (1-2) Urine Color (Yellow) Urine Appearance (Clear) Urine pH (5.0-8.0) Ur Specific [place] (1.005-1.030) Urine Protein (Negative) Urine Glucose (UA) (Negative) Urine Ketones (Negative) Urine Occult Blood (Negative) Urine Nitrite (Negative) Urine Bilirubin (Negative) Urine Urobilinogen (0.2-1.0) Ur Leukocyte Esterase (Negative) 06/14/19 06/14/19 Range/Units 13:10 13:30 WBC (3.98-10.04) K/mm3 RBC (3.98-5.22) M/mm3 Hgb (11.2-15.7) gm/dl Hct (34.1-44.9) % MCV (79.4-94.8) fl MCH (25.6-32.2) pg MCHC (32.2-35.5) g/dl RDW Std Deviation (36.4-46.3) fL Plt Count (182-369) K/mm3 MPV (9.4-12.3) fl Neut % (Auto) (34.0-71.1) % Lymph % (Auto) (19.3-51.7) % [place] % (Auto) (4.7-12.5) % Eos % (Auto) (0.7-5.8) Baso % (Auto) (0.1-1.2) % Neut # (Auto) (1.56-6.13) K/mm3 Lymph # (Auto) (1.18-3.74) K/mm3 [place] # (Auto) (0.24-0.36) K/mm3 Eos # (Auto) (0.04-0.36) K/mm3 Baso # (Auto) (0.01-0.08) K/mm3 Manual Slide Review PT (9.7-12.0) SECONDS INR Sodium (136-145) mEq/L Potassium (3.5-5.1) mEq/L Chloride (98-107) mEq/L Carbon Dioxide (21-32) mEq/L Anion Gap (5-15) BUN (7-18) mg/dL Creatinine (0.55-1.02) mg/dL Est Cr Clr Drug Dosing mL/min Estimated GFR (MDRD) (>60) mL/min BUN/Creatinine Ratio (14-18) Glucose (80-115) mg/dL Lactic Acid 1.3 (0.4-2.0) mmol/L Calcium (8.5-10.1) mg/dL Total Bilirubin (0.2-1.0) mg/dL AST (15-37) U/L ALT (14-59) U/L Alkaline Phosphatase (46-116) U/L Troponin I (0.00-0.056) ng/mL NT-Pro-B Natriuret Pep (0-125) pg/mL Total Protein (6.4-8.2) g/dl Albumin (3.4-5.0) g/dl Globulin gm/dL Albumin/Globulin Ratio (1-2) Urine Color Yellow (Yellow) Urine Appearance Clear (Clear) Urine pH 6.0 (5.0-8.0) Ur Specific [place] > or = 1.030 (1.005-1.030) Urine Protein Negative (Negative) Urine Glucose (UA) 2+ H (Negative) Urine Ketones Negative (Negative) Urine Occult Blood Negative (Negative) Urine Nitrite Negative (Negative) Urine Bilirubin Negative (Negative) Urine Urobilinogen 0.2 (0.2-1.0) Ur Leukocyte Esterase Negative (Negative) Result Diagrams: 06/14/19 10:10 06/14/19 10:10 [place] Results Last 24 hrs: Microbiology 06/14/19 13:30 Influenza Type A Antigen Screen - Final Nasal, Unspecified Positive Influenza A Ag Influenza Type B Antigen Screen - Final NEGATIVE INFLUENZA B VIRUS AG REFERENCE RANGE: NEGATIVE Sepsis Event Note - Evaluation Sepsis Screening Result: No Definite Risk - Focused Exam Vital Signs: Vital Signs Temp Pulse Resp BP Pulse Ox Pulse Ox 06/14/19 17:02 98.3 F 20 124/62 92 L 06/14/19 16:05 99.1 F 64 22 H 107/90 91 L 06/14/19 14:49 93 L 06/14/19 12:45 98.5 F 66 24 H 93 L 06/14/19 08:55 96.6 F L 74 20 157/68 H 84 L Date Exam was Performed: 06/14/19 Time Exam was Performed: 19:58 Problem List Initiated/Reviewed/Updated: Yes Orders Last 24hrs: Active Orders 24 hr Category Date Time Status Patient Status [ADT] Stat ADT 06/14/19 16:02 Active Oxygen Therapy [RC] .PRN Care 06/14/19 17:38 Active RT Aerosol Therapy [RC] ASDIRECTED Care 06/14/19 14:17 Active Up ad Lucy [RC] ASDIRECTED Care 06/14/19 17:38 Active VTE/DVT Education [RC] PER UNIT ROUTINE Care 06/14/19 17:38 Active Vital Signs [RC] 04,10,16,22 Care 06/14/19 17:38 Active [place] [employer] Diet [DIET] Diet 06/14/19 Dinner Active CBC WITH AUTO DIFF [HEME] AM Lab 06/15/19 05:11 Ordered COMPREHENSIVE METABOLIC PN,CMP [CHEM] AM Lab 06/15/19 05:11 Ordered CULTURE BLOOD [BC] Stat Lab 06/14/19 10:10 Received CULTURE BLOOD [BC] Stat Lab 06/14/19 10:50 Received MAGNESIUM [CHEM] AM Lab 06/15/19 05:11 Ordered Acetaminophen [Tylenol] Med 06/14/19 17:38 Active 650 mg PO Q4H PRN Enoxaparin [Lovenox] Med 06/15/19 09:00 Active 40 mg SUBCUT DAILY Ondansetron [Zofran] Med 06/14/19 17:38 Active 4 mg IV Q4H PRN Blood Culture x2 Reflex Set [OM.PC] Stat Oth 06/14/19 10:10 Ordered Code Status [Resuscitation Status] Routine Resus Stat 06/14/19 17:19 Ordered EKG 12 Lead [EK] Stat Ther 06/14/19 09:42 Ordered Medication Orders Acetaminophen (Tylenol) 650 mg PO Q4H PRN PRN Reason: Pain (Mild 1-3)/fever Enoxaparin Sodium (Lovenox) 40 mg SUBCUT DAILY MARKUS Ondansetron HCl (Zofran) 4 mg IV Q4H PRN PRN Reason: Nausea/Vomiting Assessment/Plan Comment:: Assessment * Influenza A * Given Tamiflu 30 mg in the emergency room. * COPD exacerbation with hypoxemia * DuoNeb and Solu-Medrol 125 mg were given in the emergency room * Ceftriaxone 1 g given in the emergency room * Diabetes mellitus * Home medications include: Sitagliptin * Hypertension * metoprolol, lisinopril, amlodipine, olmesartan, hydrochlorothiazide * Hyperlipidemia * atorvastatin Plan * Admit to medical floor * Tamiflu 30 mg every 12 hours x5 days * FiO2 to keep SPO2 greater than 90% * Continue DuoNebs every 6 hours and albuterol every 2 hours as needed * Solu-Medrol 40 mg x 1 then start prednisone 40 mg before breakfast * Switch antibiotics to doxycycline for exacerbation of COPD * Sliding scale insulin * Continue metoprolol, lisinopril, and amlodipine for hypertension * Hold olmesartan because combination SAYDA inhibitor and ARB are contraindicated * Hold hydrochlorothiazide * VTE prophylaxis with Lovenox * CODE STATUS full code * Anticipated length of stay 2 days - Mortality Measure Prognosis:: Good
[2019-06-14] MEDS ORDERED: LORazepam 0.5 MG Tab PO PRN (20:15)
[2019-06-14] MEDS ORDERED: Benzonatate 100 MG Cap PO PRN (21:00)
[2019-06-14] MEDS ORDERED: Metoprolol Tartrate 100 MG Tab PO SCH (21:00)
[2019-06-14] MEDS: Citalopram 20 MG Tab PO SCH (21:11)
[2019-06-14] MEDS: Doxycycline 100 MG Cap PO SCH (21:11)
[2019-06-14] MEDS: Insulin Lispro 100 Units/ML 3 ML Vial SUBCUT SCH (21:59)
[2019-06-14] MEDS ORDERED: methylPREDNISolone Sodium Succinate 40 MG/1 ML SDV IVPUSH ONE (23:55)
[2019-06-15] MEDS ORDERED: Pantoprazole 40 MG Tab.CR PO SCH (06:00)
[2019-06-15] MEDS ORDERED: Oseltamivir 30 MG Cap PO SCH (06:00)
[2019-06-15] MEDS ORDERED: predniSONE 20 MG Tab PO SCH (07:00)
[2019-06-15] MEDS ORDERED: Metoprolol Tartrate 50 MG Tab PO SCH (07:00)
[2019-06-15 07:22] LABS: HEMOGLOBIN A1C 7.7 % (4.50-6.20)
[2019-06-15] MEDS: Insulin Lispro 100 Units/ML 3 ML Vial SUBCUT SCH ×3 (08:22→17:35)
[2019-06-15] MEDS: Doxycycline 100 MG Cap PO SCH (08:28)
[2019-06-15] MEDS ORDERED: Aspirin 81 MG Tab.EC PO SCH (09:00)
[2019-06-15] MEDS ORDERED: Enoxaparin 40 MG/0.4 ML Syringe SUBCUT SCH (09:00)
[2019-06-15] MEDS ORDERED: Magnesium Oxide 400 MG Tab PO SCH (09:00)
[2019-06-15] MEDS ORDERED: Rosuvastatin 10 MG Tab PO SCH (09:00)
[2019-06-15] MEDS ORDERED: Magnesium Sulfate/Water 4 GM in Premix Bag 1 BAG IV ONE (09:00)
[2019-06-15] MEDS ORDERED: amLODIPine 2.5 MG Tab PO SCH (09:00)
[2019-06-15] MEDS ORDERED: Allopurinol 100 MG Tab PO SCH (09:00)
[2019-06-15] MEDS ORDERED: Lisinopril 20 MG Tab PO SCH (09:00)
[2019-06-15] MEDS ORDERED: Sodium Chloride 0.9% 250 ML IV SCH (09:00)
[2019-06-15] MEDS ORDERED: Rivaroxaban 10 MG Tab PO SCH (11:00)
[2019-06-15] MEDS ORDERED: Albuterol/Ipratropium 3.0-0.5 MG/3 ML Neb Soln NEB SCH (11:15)
[2019-06-15] MEDS ORDERED: Albuterol 0.083% 2.5 MG/3 ML Neb Soln NEB PRN (11:44)
[2019-06-15] MEDS ORDERED: Oseltamivir 30 MG Cap PO ONE (14:32)
--- NOTE | 2019-06-15 14:37 | PCM.DCSUM1 ---
Discharge Summary - Hospital Course HPI Initial Comments: Patient presents to the emergency department with complaints of cough for the last 5 to 6 days. She states that it has been worsening and she complains of some mild shortness of breath. She does have history of reactive lung disease and has a nebulizer, but is not using it. She denies any fever or chills. Patient was a poor historian and some of the history was obtained through emergency department records. She has a past medical history of diabetes, renal insufficiency, COPD, obesity, sleep apnea. Patient was in the emergency department and was found to be hypoxemic. Chest x-ray was negative and a CT scan was also negative. Initial lactic acid was elevated at 2.2, but it decreased to 1.3 prior to being given fluids. Patient was given 1 L of fluids. She did require 1 to 2 L to be able to maintain oxygen saturation between 93 and 95%. Influenza screen was positive for influenza A. Diagnosis: Stroke: No - Discharge Data Discharge Date: 06/15/19 Discharge Disposition: Home, Self-Care 01 Condition: Good - Referral to Home Health Primary Care Physician: Chris Trujillo MD - Patient Summary/Data Consults: Consultations 06/15/19 10:43 OT Evaluation and Treatment [CONS] Routine PT Evaluation and Treatment [CONS] Routine Hospital Course: Patient was admitted and continued on O2 to keep her oxygenation above 93%. Patient did well overnight and resolved by the next afternoon. She had one additional dose of Solu-Medrol 40 mg the night of admission, she was given 125 mg in the ER, and then 40 mg of prednisone the morning of discharge. Patient did come in with a history of 50 mg of prednisone daily which she will go back home on. She was continued on Tamiflu and it was increased to 75 mg twice daily based on her current weight. Pharmacy dosed. Hypoxemia resolved the next morning. Physical therapy did work with her and she walked in the halls without difficulty. Patient maintained adequate oxygenation during activity. Patient will follow up with her primary care provider, continue on home inhalers , and return to the emergency room if needed. - Patient Instructions Diet: Usual Diet as Tolerated Activity: As Tolerated Showering/Bathing: May Shower Notify Provider of: Fever Other/Special Instructions: Follow up with PCP. You were on prednisone prior to admission. Restart your home prednisone, but confirm with your PCP the duration. Finish course of Tamiflu. - Discharge Plan *PRESCRIPTION DRUG MONITORING PROGRAM REVIEWED*: No *COPY OF PRESCRIPTION DRUG MONITORING REPORT IN PATIENT TAMARA: No Prescriptions/Med Rec: Oseltamivir [Tamiflu] 75 mg PO Q12H #8 cap Home Medications: Home Meds Aspirin [Ecotrin EC] 81 mg PO DAILY 05/28/17 [History] Citalopram [Citalopram HBr] 20 mg PO QPM 05/28/17 [History] atorvaSTATin [Lipitor] 40 mg PO DAILY 05/28/17 [History] lisinopriL [Prinivil] 40 mg PO DAILY 05/28/17 [History] Colestipol [Colestipol HCl] 1 gm PO TID 07/29/17 [History] LORazepam [Ativan] 0.5 mg PO BID PRN 07/29/17 [History] Metoprolol Tartrate 50 mg PO WITHBREAKFAST 07/29/17 [History] Benzonatate 200 mg PO TID PRN 07/30/17 [History] Magnesium Oxide 400 mg PO DAILY #30 tablet 08/01/17 [Rx] amLODIPine [Norvasc] 2.5 mg PO DAILY 09/23/17 [History] Allopurinol [Zyloprim] 100 mg PO DAILY 06/14/19 [History] Ferrous Sulfate [Iron] 325 mg PO DAILY 06/14/19 [History] Fluticasone/Umeclidin/Vilanter [Trelegy Ellipta 100-62.5-25 MCG] 1 puff INH DAILY 06/14/19 [History] Metoprolol Tartrate 100 mg PO BEDTIME 06/14/19 [History] Pantoprazole Sodium 40 mg PO DAILY 06/14/19 [History] SitaGLIPtin [Januvia] 100 mg PO DAILY 06/14/19 [History] predniSONE [Prednisone] 50 mg PO DAILY 06/14/19 [History] Oseltamivir [Tamiflu] 75 mg PO Q12H #8 cap 06/15/19 [Rx] Oxygen Therapy Mode: Room Air Patient Handouts: Chronic Obstructive Pulmonary Disease Exacerbation, Sepsis, Adult, Steps to Quit Smoking Forms: ED Department Discharge Referrals: Chris Trujillo MD [Primary Care Provider] - - Discharge Summary/Plan Comment DC Time >30 min.: Yes Discharge Summary/Plan Comment: Discharged home in good condition. Finish Tamiflu. Follow-up with primary care provider next week. - General Info Date of Service: 06/15/19 Admission Dx/Problem (Free Text: Admission Diagnosis/Problem Admission Diagnosis/Problem COPD with acute lower respiratory infection Subjective Update: Patient is feeling much better this morning and afternoon. No shortness of breath. Functional Status: Reports: Pain Controlled - Review of Systems General: Reports: No Symptoms HEENT: Reports: No Symptoms Pulmonary: Reports: No Symptoms Cardiovascular: Reports: No Symptoms Gastrointestinal: Reports: No Symptoms Musculoskeletal: Reports: No Symptoms - Patient Data Vitals - Most Recent: Last Vital Signs Temp 97.1 F 06/15/19 11:40 Pulse 71 06/15/19 08:29 Resp 17 06/15/19 11:40 BP 129/68 06/15/19 11:40 Pulse Ox 93 L 06/15/19 11:40 Weight - Most Recent: 293 lb 11.2 oz I&O - Last 24 hours: Intake & Output 06/14/19 06/15/19 06/15/19 22:59 06:59 14:59 Intake Total 280 200 340 Output Total 500 450 Balance -220 -250 340 Lab Results - Last 24 hrs: Laboratory Results - last 24 hr 06/14/19 06/15/19 06/15/19 Range/Units 21:14 05:30 05:30 WBC 5.70 (3.98-10.04) K/mm3 RBC 3.89 L (3.98-5.22) M/mm3 Hgb 12.1 (11.2-15.7) gm/dl Hct 37.9 (34.1-44.9) % MCV 97.4 H (79.4-94.8) fl MCH 31.1 (25.6-32.2) pg MCHC 31.9 L (32.2-35.5) g/dl RDW Std Deviation 53.1 H (36.4-46.3) fL Plt Count 153 L (182-369) K/mm3 MPV 10.6 (9.4-12.3) fl Neut % (Auto) 84.2 H (34.0-71.1) % Lymph % (Auto) 12.1 L (19.3-51.7) % [place] % (Auto) 3.0 L (4.7-12.5) % Eos % (Auto) 0 L (0.7-5.8) Baso % (Auto) 0.0 L (0.1-1.2) % Neut # (Auto) 4.80 (1.56-6.13) K/mm3 Lymph # (Auto) 0.69 L (1.18-3.74) K/mm3 [place] # (Auto) 0.17 L (0.24-0.36) K/mm3 Eos # (Auto) 0.00 L (0.04-0.36) K/mm3 Baso # (Auto) 0.00 L (0.01-0.08) K/mm3 Sodium 135 L (136-145) mEq/L Potassium 4.3 (3.5-5.1) mEq/L Chloride 100 (98-107) mEq/L Carbon Dioxide 26 (21-32) mEq/L Anion Gap 13.3 (5-15) BUN 36 H (7-18) mg/dL Creatinine 1.1 H (0.55-1.02) mg/dL Est Cr Clr Drug Dosing 41.68 mL/min Estimated GFR (MDRD) 49 (>60) mL/min BUN/Creatinine Ratio 32.7 H (14-18) Glucose 209 H (80-115) mg/dL POC Glucose 321 H (80-115) mg/dL Hemoglobin A1c (4.50-6.20) % Calcium 8.9 (8.5-10.1) mg/dL Magnesium 1.6 L (1.8-2.4) mg/dl Total Bilirubin 0.3 (0.2-1.0) mg/dL AST 21 (15-37) U/L ALT 32 (14-59) U/L Alkaline Phosphatase 73 (46-116) U/L Total Protein 6.9 (6.4-8.2) g/dl Albumin 3.3 L (3.4-5.0) g/dl Globulin 3.6 gm/dL Albumin/Globulin Ratio 0.9 L (1-2) 06/15/19 06/15/19 06/15/19 Range/Units 05:30 05:55 11:26 WBC (3.98-10.04) K/mm3 RBC (3.98-5.22) M/mm3 Hgb (11.2-15.7) gm/dl Hct (34.1-44.9) % MCV (79.4-94.8) fl MCH (25.6-32.2) pg MCHC (32.2-35.5) g/dl RDW Std Deviation (36.4-46.3) fL Plt Count (182-369) K/mm3 MPV (9.4-12.3) fl Neut % (Auto) (34.0-71.1) % Lymph % (Auto) (19.3-51.7) % [place] % (Auto) (4.7-12.5) % Eos % (Auto) (0.7-5.8) Baso % (Auto) (0.1-1.2) % Neut # (Auto) (1.56-6.13) K/mm3 Lymph # (Auto) (1.18-3.74) K/mm3 [place] # (Auto) (0.24-0.36) K/mm3 Eos # (Auto) (0.04-0.36) K/mm3 Baso # (Auto) (0.01-0.08) K/mm3 Sodium (136-145) mEq/L Potassium (3.5-5.1) mEq/L Chloride (98-107) mEq/L Carbon Dioxide (21-32) mEq/L Anion Gap (5-15) BUN (7-18) mg/dL Creatinine (0.55-1.02) mg/dL Est Cr Clr Drug Dosing mL/min Estimated GFR (MDRD) (>60) mL/min BUN/Creatinine Ratio (14-18) Glucose (80-115) mg/dL POC Glucose 218 H 208 H (80-115) mg/dL Hemoglobin A1c 7.70 H (4.50-6.20) % Calcium (8.5-10.1) mg/dL Magnesium (1.8-2.4) mg/dl Total Bilirubin (0.2-1.0) mg/dL AST (15-37) U/L ALT (14-59) U/L Alkaline Phosphatase (46-116) U/L Total Protein (6.4-8.2) g/dl Albumin (3.4-5.0) g/dl Globulin gm/dL Albumin/Globulin Ratio (1-2) AGUS Results - Last 24 hrs: Microbiology 06/14/19 10:50 Aerobic Blood Culture - Preliminary Blood - Venous - Lab Draw NO GROWTH AFTER 1 DAY Anaerobic Blood Culture - Final 06/14/19 10:10 Aerobic Blood Culture - Preliminary Blood - Venous NO GROWTH AFTER 1 DAY Anaerobic Blood Culture - Preliminary NO GROWTH AFTER 1 DAY 06/14/19 13:30 Influenza Type A Antigen Screen - Final Nasal, Unspecified Positive Influenza A Ag Influenza Type B Antigen Screen - Final NEGATIVE INFLUENZA B VIRUS AG REFERENCE RANGE: NEGATIVE Med Orders - Current: Current Medications Acetaminophen (Tylenol) 650 mg PO Q4H PRN PRN Reason: Pain (Mild 1-3)/fever Albuterol (Proventil Neb Soln) 2.5 mg NEB Q2H PRN PRN Reason: sob/wheezing Allopurinol (Zyloprim) 100 mg PO DAILY [facility] Last Admin: 06/15/19 08:28 Dose: 100 mg Amlodipine Besylate (Norvasc) 2.5 mg PO DAILY [facility] Last Admin: 06/15/19 08:29 Dose: 2.5 mg Aspirin (Halfprin) 81 mg PO DAILY [facility] Last Admin: 06/15/19 08:30 Dose: 81 mg Benzonatate (Tessalon Perles) 200 mg PO TID PRN PRN Reason: COUGH Citalopram Hydrobromide (Celexa) 20 mg PO QPM [facility] Last Admin: 06/14/19 21:11 Dose: 20 mg Doxycycline Hyclate (Vibramycin) 100 mg PO Q12H [facility] Last Admin: 06/15/19 08:28 Dose: 100 mg Sodium Chloride (Normal Saline) 250 mls @ 50 mls/hr IV ASDIRECTED [facility] Last Admin: 06/15/19 09:16 Dose: 50 mls/hr Insulin Human Lispro (Humalog) 0 unit SUBCUT QIDACANDBED [facility]; Protocol Last Admin: 06/15/19 11:27 Dose: 2 units Lisinopril (Prinivil) 40 mg PO DAILY [facility] Last Admin: 06/15/19 08:29 Dose: 40 mg Lorazepam (Ativan) 0.5 mg PO BID PRN PRN Reason: ANXIETY Magnesium Oxide (Magnesium Oxide) 400 mg PO DAILY [facility] Last Admin: 06/15/19 08:28 Dose: 400 mg Metoprolol Tartrate (Lopressor) 50 mg PO WITHBREAKFAST [facility] Last Admin: 06/15/19 08:29 Dose: 50 mg Metoprolol Tartrate (Lopressor) 100 mg PO BEDTIME [facility] Last Admin: 06/14/19 21:12 Dose: Not Given Ondansetron HCl (Zofran) 4 mg IV Q4H PRN PRN Reason: Nausea/Vomiting Oseltamivir Phosphate (Tamiflu) 75 mg PO Q12H [facility] Pantoprazole Sodium (Protonix) 40 mg PO ACBREAKFAST [facility] Last Admin: 06/15/19 05:41 Dose: 40 mg Colestipol 1 Gm 0 each PO TID [facility] Last Admin: 06/15/19 08:31 Dose: Not Given Prednisone (Prednisone) 40 mg PO WITHBREAKFAST [facility] Last Admin: 06/15/19 08:28 Dose: 40 mg Rivaroxaban (Xarelto) 10 mg PO DAILY [facility] Last Admin: 06/15/19 11:37 Dose: 10 mg Rosuvastatin Calcium (Crestor) 10 mg PO DAILY [facility] Last Admin: 06/15/19 08:30 Dose: 10 mg Discontinued Medications Albuterol/Ipratropium (Duoneb 3.0-0.5 Mg/3 Ml) 3 ml NEB ONETIME ONE Stop: 06/14/19 14:17 Last Admin: 06/14/19 14:49 Dose: 3 ml Albuterol/Ipratropium (Duoneb 3.0-0.5 Mg/3 Ml) 3 ml NEB Q6H [facility] Last Admin: 06/15/19 11:44 Dose: Not Given Enoxaparin Sodium (Lovenox) 40 mg SUBCUT DAILY [facility] Last Admin: 06/15/19 08:27 Dose: Not Given Sodium Chloride (Normal Saline) 500 mls @ 999 mls/hr IV .BOLUS ONE Stop: 06/14/19 13:30 Last Admin: 06/14/19 13:18 Dose: 999 mls/hr Ceftriaxone Sodium 1 gm/ (Sodium Chloride) 100 mls @ 200 mls/hr IV ONETIME ONE Stop: 06/14/19 14:47 Last Admin: 06/14/19 15:13 Dose: 200 mls/hr Magnesium Sulfate 4 gm/ Premix 100 mls @ 25 mls/hr IV ONETIME ONE Stop: 06/15/19 12:59 Last Admin: 06/15/19 08:39 Dose: 25 mls/hr Methylprednisolone Sodium Succinate (Solu-Medrol) 125 mg IVPUSH ONETIME ONE Stop: 06/14/19 14:17 Last Admin: 06/14/19 15:09 Dose: 125 mg Methylprednisolone Sodium Succinate (Solu-Medrol) 40 mg IVPUSH ONETIME ONE Stop: 06/14/19 23:56 Last Admin: 06/15/19 00:51 Dose: 40 mg Oseltamivir Phosphate (Tamiflu) 30 mg PO ONETIME ONE Stop: 06/14/19 15:31 Last Admin: 06/14/19 15:24 Dose: 30 mg Oseltamivir Phosphate (Tamiflu) 30 mg PO Q12H [facility] Last Admin: 06/15/19 05:41 Dose: 30 mg
[2019-06-15] MEDS: Citalopram 20 MG Tab PO SCH (17:35)
[2019-06-15] MEDS ORDERED: Oseltamivir 75 MG Cap PO SCH (18:00)
== END 2019-06-15 18:35 | disposition home or self-care (01) | DRG 194 ==
LOC: JD.ED 08:43 → JD.ICU 16:02
PROVIDERS: ADMIT Family Medicine; ATTEND Family Medicine
DX: R05 Cough (principal); J10.1 Influenza due to other identified influenza virus with other respiratory manifestations; J09.X2 Influenza due to identified novel influenza A virus with other respiratory manifestations; J44.1 Chronic obstructive pulmonary disease with (acute) exacerbation; Z68.43 Body mass index [BMI] 50.0-59.9, adult; G47.30 Sleep apnea, unspecified; H54.7 Unspecified visual loss; E66.01 Morbid (severe) obesity due to excess calories; Z95.5 Presence of coronary angioplasty implant and graft; R32 Unspecified urinary incontinence; K21.9 Gastro-esophageal reflux disease without esophagitis; K44.9 Diaphragmatic hernia without obstruction or gangrene; I48.91 Unspecified atrial fibrillation; I25.10 Atherosclerotic heart disease of native coronary artery without angina pectoris; I12.9 Hypertensive chronic kidney disease with stage 1 through stage 4 chronic kidney disease, or unspecified chronic kidney disease; N18.9 Chronic kidney disease, unspecified; E66.9 Obesity, unspecified; F17.200 Nicotine dependence, unspecified, uncomplicated; M54.2 Cervicalgia; Z88.6 Allergy status to analgesic agent; G89.29 Other chronic pain; F41.9 Anxiety disorder, unspecified; Z79.84 Long term (current) use of oral hypoglycemic drugs; F32.9 Major depressive disorder, single episode, unspecified; Z79.52 Long term (current) use of systemic steroids; E11.22 Type 2 diabetes mellitus with diabetic chronic kidney disease; F17.210 Nicotine dependence, cigarettes, uncomplicated; R09.02 Hypoxemia; E78.5 Hyperlipidemia, unspecified; Z79.51 Long term (current) use of inhaled steroids; Z88.0 Allergy status to penicillin; Z88.8 Allergy status to other drugs, medicaments and biological substances; Z99.89 Dependence on other enabling machines and devices; Z91.041 Radiographic dye allergy status; Z88.1 Allergy status to other antibiotic agents; Z95.818 Presence of other cardiac implants and grafts; Z90.49 Acquired absence of other specified parts of digestive tract; Z79.82 Long term (current) use of aspirin; Z79.899 Other long term (current) drug therapy
CPT/HCPCS: 36415; 71046; 71250; 80053; 81003; 83605 ×2; 83880; 84484; 85025; 85610; 87040 ×2; 87804 ×2; 93005; 94640; A9270; J0696; J2930; J7030; J7050; 82962; 83036; 83735; 94660; 96361; 96365; 96375; 97116-GP; 97161-GP; 97165-GO; 97535-GO; 99285-25; J1815-GY; J2920; J3475; J7620-GY